=== PATIENT | male | born 1930 | race Caucasian/White ===

== ENCOUNTER 2018-08-07 15:56 | Inpatient (IN) | payer MEDICAID, MEDICARE ==
[2018-08-07 16:01] VITALS: BMI 25.9
[2018-08-07] MEDS ORDERED: cefTRIAXone 1 gm 1 GM/100 ML BAG IVPB STA (16:19)
[2018-08-07] MEDS ORDERED: Sodium Chloride 0.9% 1,000 ML IV SCH (16:30)
[2018-08-07 16:40] LABS: BASO # 0.01 K/mm3 (0.0-2.0); BASO % 0.1 % (0.0-3.0); GRAN # 18.32 (1.4-6.5); GRAN % 93.5 % (50.0-68.0); HEMOGLOBIN 14.6 g/dL (14.0-18.0); LYMPH # 0.7 (1.2-3.4); LYMPH % 3.6 % (22.0-35.0); MEAN CELL VOLUME 96.7 fl (80.0-105.0); MEAN CORPUSCULAR HEMOGLOBIN 30.3 pg (25.0-35.0); MEAN CORPUSCULAR HGB CONC 31.3 g/dl (31.0-37.0); MEAN PLATELET VOLUME 10.8 fl (7.0-11.0); MONO # 0.6 (0.1-0.6); MONO % 2.8 % (1.0-6.0); PLATELET COUNT 216 10^3/uL (120.0-450.0); RBC 4.82 10^6/uL (3.5-6.1); RED CELL DISTRIBUTION WIDTH 15.2 % (11.5-14.5); WHITE BLOOD COUNT 19.6 10^3/uL (4.5-11.0)
[2018-08-07 16:41] LABS: VENOUS BLOOD GAS BASE EXCESS 0.9 mmol/L (0.0-2.0); VENOUS BLOOD GAS PO2 44 mm/Hg (30-55); VENOUS BLOOD PH 7.34 (7.32-7.43)
--- NOTE | 2018-08-07 16:57 | ED PDOC ---
Arrival/HPI - General Chief Complaint: Altered Mental Status Time Seen by Provider: 08/07/18 15:59 Historian: Snf EM Caveat: Altered Mental Status - History of Present Illness Narrative History of Present Illness (Text): 08/07/18 Patient is a 88 year old male whose past medical history includes advanced dementia and Parkinson's disease, who presents to the Emergency department from the assisted with increased lethargy and change in mental status. No documented fever or diarrhea as per assisted. patient is nonverbal in the Emergency department. HPI and ROS is limited due to patient's AMS. Past Medical History - Provider Review Nursing Documentation Reviewed: Yes - Tetanus Immunization Tetanus Immunization: Unknown - Past Medical History Past Medical History: No Previous - Cardiac Hx Cardiac Disorders: No Hx Congestive Heart Failure: Yes Hx Hypertension: Yes (denies) - Neurological HX Cerebrovascular Accident: No Hx Dementia: Yes Hx Parkinson's Disease: Yes Hx Seizures: No - Endocrine/Metabolic Hx Endocrine Disorders: No - Hematological/Oncological Hx Cancer: No - Integumentary Hx Dermatological Disorder: No - Musculoskeletal/Rheumatological Hx Falls: Yes - Gastrointestinal Hx Gastrointestinal Disorders: No - Genitourinary/Gynecological Hx Sexually Transmitted Diseases: No - Psychiatric Hx Depression: No Hx Substance Use: No - Past Surgical History Past Surgical History: Unable to Obtain - Anesthesia Hx Anesthesia: No - Suicidal Assessment Feels Threatened In Home Enviroment: No Family/Social History - Physician Review Nursing Documentation Reviewed: Yes Family/Social History: No Known Family HX Smoking Status: Never Smoked Hx Alcohol Use: No Hx Substance Use: No Allergies/Home Meds Allergies/Adverse Reactions: Allergies No Known Allergies Allergy (Verified 11/13/17 10:28) Home Medications: Home Meds Medication Instructions Recorded Confirmed Carbidopa/Levodopa/Entacapone 1 tab PO QID 06/28/14 08/07/18 [Stalevo 150] Pramipexole Di-HCl [Mirapex ER] 0.5 mg PO TID 06/28/14 08/07/18 Rasagiline Mesylate [Azilect] 1 mg PO DAILY 06/28/14 08/07/18 Vitamin B Complex & Vitamin C 1 tab PO DAILY 06/28/14 08/07/18 [Strovite] Acetaminophen [Tylenol 325mg tab] 650 mg PO Q4 08/07/18 08/07/18 Bisacodyl [Fast Relief Laxative] 10 mg RC PRN PRN 08/07/18 08/07/18 Finasteride [Proscar] 5 mg PO DAILY 08/07/18 08/07/18 Heparin [Heparin Sodium] 5,000 units SQ Q12 08/07/18 08/07/18 Magnesium Hydroxide [Milk Of 30 ml PO PRN PRN 08/07/18 08/07/18 Magnesia] RX: Albuterol Sulfate 2.5 mg IH Q4 08/07/18 08/07/18 Scopolamine 1 mg/72 hr 1 patch Q72 08/07/18 08/07/18 [Transderm-Scop] Tamsulosin [Flomax] 0.4 mg PO DAILY 08/07/18 08/07/18 Review of Systems - Review of Systems Systems not reviewed;Unavailable: Altered Mental Status Neurological: Other (lethargy, change in mental status) Physical Exam Vital Signs Reviewed: Yes Vital Signs Temp Pulse Resp BP Pulse Ox 08/07/18 15:56 98.6 F 106 H 24 147/91 H 94 L Temperature: Afebrile Pulse: Tachycardic Respiratory Rate: Normal Appearance: Positive for: Cachectic (thin) Mental Status: Positive for: Lethargic - Systems Exam Head: Present: Atraumatic, Normocephalic Pupils: Present: PERRL Extroacular Muscles: Present: EOMI Conjunctiva: Present: Normal Mouth: Present: Dry Neck: Present: Normal Range of Motion Respiratory/Chest: Present: Clear to Auscultation, Good Air Exchange. No: R espiratory Distress, Accessory Muscle Use Cardiovascular: Present: Regular Rate and Rhythm, Normal S1, S2. No: Murmurs Abdomen: Present: Normal Bowel Sounds. No: Tenderness, Distention, Peritoneal Signs Back: Present: Normal Inspection Upper Extremity: Present: Normal Inspection. No: Cyanosis, Edema Lower Extremity: Present: Normal Inspection. No: Edema Neurological: Present: GCS=15, CN II-XII Intact, Other (Parkinsonian tremors) Skin: Present: Warm, Dry, Normal Color. No: Rashes Medical Decision Making ED Course and Treatment: 08/07/18 16:56 Impression: 88 year old male who was brought to the Emergency department from the assisted for AMS and lethargy. Plan: -- VBG -- Head CT without contrast -- EKG -- Labs -- Blood work -- Reassess and disposition Prior Visits: Notes and results from previous visits were reviewed. Progress Notes: 08/07/18 16:55 Code Sepsis called. 08/07/18 Spoke to medicine internal audit consultant and senior contract specialist about case. Patient accepted to ICU and code sepsis as called in Emergency Department. Intravenous fluid at 200ml per hour will be given. IV fluid protocol for sepsis not done secondary to history of CHF and unknown EF stat. - Critical Care Critical Care Minutes: 60 minutes - Lab Interpretations Lab Results: 08/07/18 16:16 Lab Results 08/07/18 16:16: WBC 19.6 H, RBC 4.82, Hgb 14.6, Hct 46.6, MCV 96.7, MCH 30.3, MCHC 31.3, RDW 15.2 H, Plt Count 216, MPV 10.8, Gran % 93.5 H, Lymph % (Auto) 3.6 L, [place] % (Auto) 2.8, Eos % (Auto) 0.0 L, Baso % (Auto) 0.1, Gran # 18.32 H, Lymph # (Auto) 0.7 L, [place] # (Auto) 0.6, Eos # (Auto) 0.0, Baso # (Auto) 0.01, Neutrophils % (Manual) Pending, Lymphocytes % (Manual) Pending, Monocytes % (Manual) Pending 08/07/18 16:16: pO2 44, VBG pH 7.34, VBG pCO2 51.0, VBG HCO3 27.5, VBG Total CO2 29.1 H, VBG O2 Sat (Calc) 79.6 H, VBG Base Excess 0.9, VBG Potassium 5.4 H, Sodium 159.0 H, Chloride 121.0 H, Glucose 131 H, Lactate 3.5 H, FiO2 21.0, Venous Blood Potassium 5.4 H I have reviewed the lab results: Yes - RAD Interpretation Radiology Orders: 08/07/18 16:19 CHEST PORTABLE [RAD] Stat 08/07/18 16:22 HEAD W/O CONTRAST [CT] Stat - EKG Interpretation EKG Interpretation (Text): 08/07/18 16:54 EKG shows NST at 98 BPM with LAD and bifascicular block. Interpreted by me. Interpreted by ED Physician: Yes Type: 12 lead EKG - Medication Orders Current Medication Orders: Sodium Chloride (Sodium Chloride 0.9%) 1,000 mls @ 100 mls/hr IV .Q10H TOMMY Discontinued Medications Ceftriaxone Sodium (Rocephin 1 Gram Ivpb) 1 gm in 100 mls @ 200 mls/hr IVPB STAT STA; Protocol Stop: 08/07/18 16:48 - Scribe Statement The provider has reviewed the documentation as recorded by the Scribe Iftikhar Singh Provider Scribe Attestation: All medical record entries made by the Scribe were at my direction and personally dictated by me. I have reviewed the chart and agree that the record accurately reflects my personal performance of the history, physical exam, medical decision making, and the department course for this patient. I have also personally directed, reviewed, and agree with the discharge instructions and disposition. Disposition/Present on Arrival - Present on Arrival Any Indicators Present on Arrival: No History of DVT/PE: No History of Uncontrolled Diabetes: No Urinary Catheter: No History of Decub. Ulcer: No History Surgical Site Infection Following: None - Disposition Have Diagnosis and Disposition been Completed?: Yes Diagnosis: Hypernatremia, Weakness, Acute kidney injury, Sepsis Disposition: HOSPITALIZED Disposition Time: 17:20 Patient Problems: Current Active Problems Problem Status Onset Acute kidney injury Acute Hypernatremia Acute Sepsis Acute Condition: GUARDED
[2018-08-07 16:59] LABS: ALB/GLOB RATIO 0.8 (1.1-1.8); ALBUMIN 3.8 g/dL (3.0-4.8); CALCIUM 9.8 mg/dL (8.4-10.5)
[2018-08-07 17:29] LABS: TROPONIN I 0.18 ng/mL
[2018-08-07] MEDS ORDERED: Lactated Ringer's 1,000 ML IV SCH (17:30)
[2018-08-07 17:55] LABS: URINE BILIRUBIN SMALL (NEGATIVE); URINE BLOOD LARGE (NEGATIVE); URINE GLUCOSE (UA) NEGATIVE (NEGATIVE); URINE LEUKOCYTE ESTERASE MODERATE Leu/uL (NEGATIVE); URINE PROTEIN 100 mg/dL (<30 mg/dL)
[2018-08-07 17:57] LABS: URINE APPEARANCE CLOUDY (CLEAR); URINE COLOR AMBER (YELLOW)
[2018-08-07 18:13] LABS: HYPOCHROMIA 1+; LYMPHOCYTE 4 % (22.0-35.0); MONOCYTE 2 % (1.0-6.0); NEUTROPHIL 94 % (50.0-70.0); PLATELET ESTIMATE NORMAL (NORMAL)
[2018-08-07 18:15] LABS: TOXIC GRANULATION 1+
[2018-08-07 18:16] LABS: ROULEAU 2+
[2018-08-07 18:22] LABS: URINE BACTERIA MANY (NEG); URINE RBC TNTC /hpf (0-2); URINE WBC TNTC /hpf (0-6)
--- NOTE | 2018-08-07 19:11 | RAD ---
Date of service: 08/07/2018 HISTORY: pnemonia COMPARISON: Chest radiograph dated 04/11/2015. FINDINGS: LUNGS: No active pulmonary disease. PLEURA: Stable elevation of the right hemidiaphragm. No significant pleural effusion identified, no pneumothorax apparent. CARDIOVASCULAR: Aortic atherosclerotic calcifications. Cardiomediastinal silhouette stably enlarged. OSSEOUS STRUCTURES: Changed. VISUALIZED UPPER ABDOMEN: Normal. OTHER FINDINGS: None. IMPRESSION: No active disease.
[2018-08-07 19:20] LABS: VENOUS BLOOD GAS BASE EXCESS 0.6 mmol/L (0.0-2.0); VENOUS BLOOD GAS PO2 50 mm/Hg (30-55); VENOUS BLOOD PH 7.36 (7.32-7.43)
[2018-08-07 19:51] LABS: CALCIUM 9.2 mg/dL (8.4-10.5); TROPONIN I 0.2 ng/mL
--- NOTE | 2018-08-07 21:19 | CP.PCM.HP ---
<Reuben Garcia - Last Filed: 08/08/18 02:54> History of Present Illness - History of Present Illness History of Present Illness: HPI for hospitalist Dr. Federico Garcia PGY2 Chief complaint: As per residential "Lethargy, failure to thrive, fever" Patient is a 88 male with a history of Parkinson's disease, dementia, and recent ESBL + UTI presenting from residential with complaints of lethargy, failure to thrive, and fever. As per residential records and patient's daughter. Patient was diagnosed with a UTI at [facility] for which he received 3 days of ertapenem with instructions to continue antibiotics for 2 more days upon discharge. Patient completed course of antibiotics. However as per patient's daughter patient's diet was changed to finely chopped which patient didn't like and therefore didn't eat due to disliking the food consistency. She also reports that at the residential she noted her father was extremely dehydrated. Patient is now presenting with the same symptoms which causes him to be admitted to [facility] in the first place around 2 weeks prior. ROS not obtained as patient is not able to communicate. Present on Admission - Present on Admission Any Indicators Present on Admission: No Review of Systems - Review of Systems Systems not reviewed;Unavailable: Altered Mental Status Past Patient History - Tetanus Immunizations Tetanus Immunization: Unknown - Past Social History Smoking Status: Never Smoked - CARDIAC Hx Cardiac Disorders: No Hx Congestive Heart Failure: Yes Hx Hypertension: Yes (denies) - NEUROLOGICAL HX Cerebrovascular Accident: No Hx Dementia: Yes Hx Parkinson's Disease: Yes Hx Seizures: No - ENDOCRINE/METABOLIC Hx Endocrine Disorders: No - HEMATOLOGICAL/ONCOLOGICAL Hx Cancer: No - INTEGUMENTARY Hx Dermatological Problems: No - MUSCULOSKELETAL/RHEUMATOLOGICAL Hx Falls: Yes - GASTROINTESTINAL Hx Gastrointestinal Disorders: No - GENITOURINARY/GYNECOLOGICAL Hx Sexually Transmitted Disorders: No - PSYCHIATRIC Hx Depression: No Hx Substance Use: No - SURGICAL HISTORY Hx Surgeries: (pt denies) - ANESTHESIA Hx Anesthesia: No Meds Allergies/Adverse Reactions: Allergies Allergy/AdvReac Type Severity Reaction Status Date / Time No Known Allergies Allergy Verified 11/13/17 10:28 Physical Exam - Constitutional Appears: Toxic - Head Exam Head Exam: ATRAUMATIC - Eye Exam Eye Exam: absent: Normal appearance (patient unable to open eyes fully) - ENT Exam ENT Exam: Mucous Membranes Dry. absent: Mucous Membranes Moist - Neck Exam Neck exam: Positive for: Normal Inspection - Respiratory Exam Respiratory Exam: Clear to Auscultation Bilateral - Cardiovascular Exam Cardiovascular Exam: REGULAR RHYTHM, +S1, +S2 - GI/Abdominal Exam GI & Abdominal Exam: Normal Bowel Sounds, Soft - Extremities Exam Extremities exam: Positive for: normal inspection - Neurological Exam Neurological exam: Altered - Skin Skin Exam: Normal Color, Warm Results - Vital Signs Recent Vital Signs: Last Vital Signs Temp 98.6 F 08/07/18 15:56 Pulse 89 08/07/18 19:05 Resp 18 08/07/18 19:05 BP 122/58 L 08/07/18 19:05 Pulse Ox 95 08/07/18 19:05 - Labs Result Diagrams: 08/07/18 16:16 08/08/18 01:40 Labs: Laboratory Results - last 24 hr 08/07/18 08/07/18 08/07/18 16:16 16:16 16:16 WBC 19.6 H RBC 4.82 Hgb 14.6 Hct 46.6 MCV 96.7 MCH 30.3 MCHC 31.3 RDW 15.2 H Plt Count 216 MPV 10.8 Gran % 93.5 H Lymph % (Auto) 3.6 L [place] % (Auto) 2.8 Eos % (Auto) 0.0 L Baso % (Auto) 0.1 Gran # 18.32 H Lymph # (Auto) 0.7 L [place] # (Auto) 0.6 Eos # (Auto) 0.0 Baso # (Auto) 0.01 Neutrophils % (Manual) 94 H Lymphocytes % (Manual) 4 L Monocytes % (Manual) 2 Toxic Granulation 1+ Platelet Evaluation Normal Hypochromasia 1+ Rouleaux 2+ pO2 44 VBG pH 7.34 VBG pCO2 51.0 VBG HCO3 27.5 VBG Total CO2 29.1 H VBG O2 Sat (Calc) 79.6 H VBG Base Excess 0.9 VBG Potassium 5.4 H Sodium 159.0 H 161 H* Chloride 121.0 H 123 H Glucose 131 H Lactate 3.5 H FiO2 21.0 Potassium 4.9 Carbon Dioxide 29 Anion Gap 14 BUN 61 H Creatinine 2.1 H Est GFR ( Amer) 36 Est GFR (Non-Af Amer) 30 Random Glucose 136 H Calcium 9.8 Phosphorus 4.3 Magnesium 2.8 H Total Bilirubin 1.2 AST 25 ALT 11 Alkaline Phosphatase 95 Lactate Dehydrogenase 339 Total Creatine Kinase 62 Troponin I 0.18 H* D Total Protein 8.3 Albumin 3.8 Globulin 4.5 Albumin/Globulin Ratio 0.8 L Venous Blood Potassium 5.4 H Urine Color Urine Appearance Urine pH Ur Specific [place] Urine Protein Urine Glucose (UA) Urine Ketones Urine Blood Urine Nitrate Urine Bilirubin Urine Urobilinogen Ur Leukocyte Esterase Urine RBC Urine WBC Ur Epithelial Cells Urine Bacteria Influenza Typ A,B (EIA) 08/07/18 08/07/18 08/07/18 16:16 17:20 18:45 WBC RBC Hgb Hct MCV MCH MCHC RDW Plt Count MPV Gran % Lymph % (Auto) [place] % (Auto) Eos % (Auto) Baso % (Auto) Gran # Lymph # (Auto) [place] # (Auto) Eos # (Auto) Baso # (Auto) Neutrophils % (Manual) Lymphocytes % (Manual) Monocytes % (Manual) Toxic Granulation Platelet Evaluation Hypochromasia Rouleaux pO2 50 VBG pH 7.36 VBG pCO2 47.0 VBG HCO3 26.6 VBG Total CO2 28.0 VBG O2 Sat (Calc) 86.8 H VBG Base Excess 0.6 VBG Potassium 4.6 Sodium 158.0 H Chloride 121.0 H Glucose 143 H Lactate 3.0 H FiO2 21.0 Potassium Carbon Dioxide Anion Gap BUN Creatinine Est GFR ( Amer) Est GFR (Non-Af Amer) Random Glucose Calcium Phosphorus Magnesium Total Bilirubin AST ALT Alkaline Phosphatase Lactate Dehydrogenase Total Creatine Kinase Troponin I Total Protein Albumin Globulin Albumin/Globulin Ratio Venous Blood Potassium 4.6 Urine Color Deana Urine Appearance Cloudy Urine pH 6.0 Ur Specific [place] 1.025 Urine Protein 100 H Urine Glucose (UA) Negative Urine Ketones Trace H Urine Blood Large H Urine Nitrate Positive H Urine Bilirubin Small H Urine Urobilinogen 2.0 H Ur Leukocyte Esterase Moderate H Urine RBC Tntc Urine WBC Tntc Ur Epithelial Cells 6 - 8 Urine Bacteria Many Influenza Typ A,B (EIA) Negative for flu a/b 08/07/18 18:45 WBC RBC Hgb Hct MCV MCH MCHC RDW Plt Count MPV Gran % Lymph % (Auto) [place] % (Auto) Eos % (Auto) Baso % (Auto) Gran # Lymph # (Auto) [place] # (Auto) Eos # (Auto) Baso # (Auto) Neutrophils % (Manual) Lymphocytes % (Manual) Monocytes % (Manual) Toxic Granulation Platelet Evaluation Hypochromasia Rouleaux pO2 VBG pH VBG pCO2 VBG HCO3 VBG Total CO2 VBG O2 Sat (Calc) VBG Base Excess VBG Potassium Sodium 156 H* Chloride 123 H Glucose Lactate FiO2 Potassium 4.9 Carbon Dioxide 27 Anion Gap 12 BUN 62 H Creatinine 1.8 H Est GFR ( Amer) 43 Est GFR (Non-Af Amer) 36 Random Glucose 141 H Calcium 9.2 Phosphorus Magnesium Total Bilirubin AST ALT Alkaline Phosphatase Lactate Dehydrogenase Total Creatine Kinase Troponin I 0.20 H* Total Protein Albumin Globulin Albumin/Globulin Ratio Venous Blood Potassium Urine Color Urine Appearance Urine pH Ur Specific [place] Urine Protein Urine Glucose (UA) Urine Ketones Urine Blood Urine Nitrate Urine Bilirubin Urine Urobilinogen Ur Leukocyte Esterase Urine RBC Urine WBC Ur Epithelial Cells Urine Bacteria Influenza Typ A,B (EIA) Assessment & Plan - Assessment and Plan (Free Text) Assessment: Patient is a 88 male with a history of Parkinson's disease, dementia, and recent ESBL + UTI presenting from residential with complaints of lethargy, failure to thrive, and fever found to have UTI Plan: Altered mental status due to multifactorial causes -Correct underlying UTI -Slowly correct hypernatremia -Head CT reveals no signs of intracranial bleed Septic shock secondary to Urinary Tract Infection -LR@200 -CT abdomen/pelvis -Procalcitonin -Possibly previous infection not fully treated due to insufficient abx course -Previous ESBL+, start patient on doxycycline -Pancultures; urine and blood cx Hypernatremia -Secondary due dehydration? -Continue with LR@ 200; make sure to monitor for overcorrecting Acute kidney injury -Secondary due to dehydration? -Cr 2.1, increased from baseline -Urine Cr and Urine electrolytes -Monitor improvement with IVF DVT ppx/GI ppx: SCDs/Protonix -NPO until pending Swallow evaluation is complete -PT/OT -Aspiration precautions <Serena Caballero - Last Filed: 08/08/18 07:40> Results - Vital Signs Recent Vital Signs: Last Vital Signs Temp 99.1 F 08/07/18 20:28 Pulse 89 08/07/18 19:05 Resp 30 H 08/07/18 20:28 BP 122/58 L 08/07/18 19:05 Pulse Ox 95 08/07/18 19:05 - Labs Result Diagrams: 08/08/18 05:30 08/08/18 05:30 Labs: Laboratory Results - last 24 hr 08/07/18 08/07/18 08/07/18 16:16 16:16 16:16 WBC 19.6 H RBC 4.82 Hgb 14.6 Hct 46.6 MCV 96.7 MCH 30.3 MCHC 31.3 RDW 15.2 H Plt Count 216 MPV 10.8 Gran % 93.5 H Lymph % (Auto) 3.6 L [place] % (Auto) 2.8 Eos % (Auto) 0.0 L Baso % (Auto) 0.1 Gran # 18.32 H Lymph # (Auto) 0.7 L [place] # (Auto) 0.6 Eos # (Auto) 0.0 Baso # (Auto) 0.01 Neutrophils % (Manual) 94 H Lymphocytes % (Manual) 4 L Monocytes % (Manual) 2 Toxic Granulation 1+ Platelet Evaluation Normal Hypochromasia 1+ Rouleaux 2+ PT INR APTT pO2 44 VBG pH 7.34 VBG pCO2 51.0 VBG HCO3 27.5 VBG Total CO2 29.1 H VBG O2 Sat (Calc) 79.6 H VBG Base Excess 0.9 VBG Potassium 5.4 H Sodium 159.0 H 161 H* Chloride 121.0 H 123 H Glucose 131 H Lactate 3.5 H FiO2 21.0 Potassium 4.9 Carbon Dioxide 29 Anion Gap 14 BUN 61 H Creatinine 2.1 H Est GFR ( Amer) 36 Est GFR (Non-Af Amer) 30 Random Glucose 136 H Calcium 9.8 Phosphorus 4.3 Magnesium 2.8 H Total Bilirubin 1.2 AST 25 ALT 11 Alkaline Phosphatase 95 Lactate Dehydrogenase 339 Total Creatine Kinase 62 Troponin I 0.18 H* D Total Protein 8.3 Albumin 3.8 Globulin 4.5 Albumin/Globulin Ratio 0.8 L Venous Blood Potassium 5.4 H Urine Color Urine Appearance Urine pH Ur Specific [place] Urine Protein Urine Glucose (UA) Urine Ketones Urine Blood Urine Nitrate Urine Bilirubin Urine Urobilinogen Ur Leukocyte Esterase Urine RBC Urine WBC Ur Epithelial Cells Urine Bacteria Ur Random Creatinine Ur Random Sodium Influenza Typ A,B (EIA) 08/07/18 08/07/18 08/07/18 16:16 17:20 18:45 WBC RBC Hgb Hct MCV MCH MCHC RDW Plt Count MPV Gran % Lymph % (Auto) [place] % (Auto) Eos % (Auto) Baso % (Auto) Gran # Lymph # (Auto) [place] # (Auto) Eos # (Auto) Baso # (Auto) Neutrophils % (Manual) Lymphocytes % (Manual) Monocytes % (Manual) Toxic Granulation Platelet Evaluation Hypochromasia Rouleaux PT INR APTT pO2 50 VBG pH 7.36 VBG pCO2 47.0 VBG HCO3 26.6 VBG Total CO2 28.0 VBG O2 Sat (Calc) 86.8 H VBG Base Excess 0.6 VBG Potassium 4.6 Sodium 158.0 H Chloride 121.0 H Glucose 143 H Lactate 3.0 H FiO2 21.0 Potassium Carbon Dioxide Anion Gap BUN Creatinine Est GFR ( Amer) Est GFR (Non-Af Amer) Random Glucose Calcium Phosphorus Magnesium Total Bilirubin AST ALT Alkaline Phosphatase Lactate Dehydrogenase Total Creatine Kinase Troponin I Total Protein Albumin Globulin Albumin/Globulin Ratio Venous Blood Potassium 4.6 Urine Color Deana Urine Appearance Cloudy Urine pH 6.0 Ur Specific [place] 1.025 Urine Protein 100 H Urine Glucose (UA) Negative Urine Ketones Trace H Urine Blood Large H Urine Nitrate Positive H Urine Bilirubin Small H Urine Urobilinogen 2.0 H Ur Leukocyte Esterase Moderate H Urine RBC Tntc Urine WBC Tntc Ur Epithelial Cells 6 - 8 Urine Bacteria Many Ur Random Creatinine Ur Random Sodium Influenza Typ A,B (EIA) Negative for flu a/b 08/07/18 08/07/18 08/07/18 18:45 20:15 21:25 WBC RBC Hgb Hct MCV MCH MCHC RDW Plt Count MPV Gran % Lymph % (Auto) [place] % (Auto) Eos % (Auto) Baso % (Auto) Gran # Lymph # (Auto) [place] # (Auto) Eos # (Auto) Baso # (Auto) Neutrophils % (Manual) Lymphocytes % (Manual) Monocytes % (Manual) Toxic Granulation Platelet Evaluation Hypochromasia Rouleaux PT INR APTT pO2 VBG pH VBG pCO2 VBG HCO3 VBG Total CO2 VBG O2 Sat (Calc) VBG Base Excess VBG Potassium Sodium 156 H* 155 H Chloride 123 H 124 H Glucose Lactate FiO2 Potassium 4.9 4.6 Carbon Dioxide 27 25 Anion Gap 12 14 BUN 62 H 62 H Creatinine 1.8 H 1.8 H Est GFR ( Amer) 43 43 Est GFR (Non-Af Amer) 36 36 Random Glucose 141 H 146 H Calcium 9.2 9.3 Phosphorus Magnesium Total Bilirubin AST ALT Alkaline Phosphatase Lactate Dehydrogenase Total Creatine Kinase Troponin I 0.20 H* 0.32 H* D Total Protein Albumin Globulin Albumin/Globulin Ratio Venous Blood Potassium Urine Color Urine Appearance Urine pH Ur Specific [place] Urine Protein Urine Glucose (UA) Urine Ketones Urine Blood Urine Nitrate Urine Bilirubin Urine Urobilinogen Ur Leukocyte Esterase Urine RBC Urine WBC Ur Epithelial Cells Urine Bacteria Ur Random Creatinine 153 Ur Random Sodium 13 Influenza Typ A,B (EIA) 08/07/18 08/07/18 08/07/18 21:25 23:15 23:15 WBC RBC Hgb Hct MCV MCH MCHC RDW Plt Count MPV Gran % Lymph % (Auto) [place] % (Auto) Eos % (Auto) Baso % (Auto) Gran # Lymph # (Auto) [place] # (Auto) Eos # (Auto) Baso # (Auto) Neutrophils % (Manual) Lymphocytes % (Manual) Monocytes % (Manual) Toxic Granulation Platelet Evaluation Hypochromasia Rouleaux PT 15.7 H INR 1.37 APTT 25.3 pO2 43 VBG pH 7.43 VBG pCO2 40.0 VBG HCO3 26.5 VBG Total CO2 27.7 VBG O2 Sat (Calc) 83.5 H VBG Base Excess 2.0 VBG Potassium 4.3 Sodium 160.0 H* Chloride 123.0 H Glucose 146 H Lactate 2.4 H FiO2 21.0 Potassium Carbon Dioxide Anion Gap BUN Creatinine Est GFR ( Amer) Est GFR (Non-Af Amer) Random Glucose Calcium Phosphorus Magnesium Total Bilirubin AST ALT Alkaline Phosphatase Lactate Dehydrogenase Total Creatine Kinase Troponin I Total Protein Albumin Globulin Albumin/Globulin Ratio Venous Blood Potassium 4.3 Urine Color Yellow Urine Appearance Cloudy Urine pH 5.5 Ur Specific [place] 1.025 Urine Protein 30 H Urine Glucose (UA) Negative Urine Ketones Negative Urine Blood Large H Urine Nitrate Positive H Urine Bilirubin Negative Urine Urobilinogen 1.0 H Ur Leukocyte Esterase Moderate H Urine RBC 2 - 5 Urine WBC 15 - 20 Ur Epithelial Cells 0 - 2 Urine Bacteria Many Ur Random Creatinine Ur Random Sodium Influenza Typ A,B (EIA) 08/08/18 08/08/18 08/08/18 01:40 01:40 05:30 WBC RBC Hgb Hct MCV MCH MCHC RDW Plt Count MPV Gran % Lymph % (Auto) [place] % (Auto) Eos % (Auto) Baso % (Auto) Gran # Lymph # (Auto) [place] # (Auto) Eos # (Auto) Baso # (Auto) Neutrophils % (Manual) Lymphocytes % (Manual) Monocytes % (Manual) Toxic Granulation Platelet Evaluation Hypochromasia Rouleaux PT INR APTT pO2 60 H VBG pH 7.42 VBG pCO2 42.0 VBG HCO3 27.2 VBG Total CO2 28.5 H VBG O2 Sat (Calc) 93.9 H VBG Base Excess 2.4 H VBG Potassium 4.0 Sodium 157 H* 159.0 H 156 H* Chloride 124 H 124.0 H 124 H Glucose 137 H Lactate 1.7 FiO2 21.0 Potassium 4.1 4.3 Carbon Dioxide 27 27 Anion Gap 10 11 BUN 59 H 58 H Creatinine 1.8 H 1.7 H Est GFR ( Amer) 43 46 Est GFR (Non-Af Amer) 36 38 Random Glucose 139 H 129 H Calcium 9.3 9.3 Phosphorus Magnesium Total Bilirubin AST ALT Alkaline Phosphatase Lactate Dehydrogenase Total Creatine Kinase Troponin I Total Protein Albumin Globulin Albumin/Globulin Ratio Venous Blood Potassium 4.0 Urine Color Urine Appearance Urine pH Ur Specific [place] Urine Protein Urine Glucose (UA) Urine Ketones Urine Blood Urine Nitrate Urine Bilirubin Urine Urobilinogen Ur Leukocyte Esterase Urine RBC Urine WBC Ur Epithelial Cells Urine Bacteria Ur Random Creatinine Ur Random Sodium Influenza Typ A,B (EIA) 08/08/18 08/08/18 05:30 05:30 WBC 16.1 H RBC 4.43 Hgb 13.3 L Hct 42.8 MCV 96.6 MCH 30.0 MCHC 31.1 RDW 15.5 H Plt Count 187 MPV 11.2 H Gran % 91.5 H Lymph % (Auto) 6.4 L [place] % (Auto) 1.9 Eos % (Auto) 0.1 L Baso % (Auto) 0.1 Gran # 14.76 H Lymph # (Auto) 1.0 L [place] # (Auto) 0.3 Eos # (Auto) 0.0 Baso # (Auto) 0.01 Neutrophils % (Manual) Lymphocytes % (Manual) Monocytes % (Manual) Toxic Granulation Platelet Evaluation Hypochromasia Rouleaux PT INR APTT 63.0 H pO2 VBG pH VBG pCO2 VBG HCO3 VBG Total CO2 VBG O2 Sat (Calc) VBG Base Excess VBG Potassium Sodium Chloride Glucose Lactate FiO2 Potassium Carbon Dioxide Anion Gap BUN Creatinine Est GFR ( Amer) Est GFR (Non-Af Amer) Random Glucose Calcium Phosphorus Magnesium Total Bilirubin AST ALT Alkaline Phosphatase Lactate Dehydrogenase Total Creatine Kinase Troponin I Total Protein Albumin Globulin Albumin/Globulin Ratio Venous Blood Potassium Urine Color Urine Appearance Urine pH Ur Specific [place] Urine Protein Urine Glucose (UA) Urine Ketones Urine Blood Urine Nitrate Urine Bilirubin Urine Urobilinogen Ur Leukocyte Esterase Urine RBC Urine WBC Ur Epithelial Cells Urine Bacteria Ur Random Creatinine Ur Random Sodium Influenza Typ A,B (EIA) Attending/Attestation - Attestation I have personally seen and examined this patient.: Yes I have fully participated in the care of the patient.: Yes I have reviewed all pertinent clinical information: Yes Notes (Text): 08/08/18 07:35 Patient was seen and examined with medical data analyst. 88 male with a history of Parkinson's disease, dementia, was transferred from [place] with complaints of lethargy, failure to thrive, and fever, found to have Sepsis due to UTI, Hypernatremia and acute renal failure due to dehydration likely due to decrease oral intake. Continue IV antibiotics for UTI, we will follow up blood and urine cultures, On Iv Ringer lactate for Hypernatremia and RENNY, we will monitor BUN , creatinin and electrolyte. Elevated troponin with out EKG changes likely due to demand ischemia, we will 2D echo and serial troponin. Patient did not has Septic shock as blood pressure was never low. Prognosis is guarded.
[2018-08-07] MEDS: Thiamine 100 mg/ml Inj IV SCH (21:23)
[2018-08-07 21:49] LABS: VENOUS BLOOD GAS PO2 43 mm/Hg (30-55); VENOUS BLOOD PH 7.43 (7.32-7.43)
--- NOTE | 2018-08-07 22:09 | PCM.SEPTIC ---
Sepsis Progress Note - Reassessment Type Date of Evaluation: 08/07/18 Time of Evaluation: 09:00 Reassessment Type: Non-invasive reassessment - Non Invasive Reassessment Were the most recent vital sign reviewed: Yes Vital Sign (Latest): Temp Pulse Resp BP Pulse Ox 98.6 F 89 18 122/58 L 95 08/07/18 15:56 08/07/18 19:05 08/07/18 19:05 08/07/18 19:05 08/07/18 19:05 Cardiovascular: Yes: Regular Rate, Rhythm. No: Chest Non Tender Respiratory: Yes: Normal Breath Sounds. No: Wheezing, Respiratory Distress Capillary Refill: Normal (Less than 2 sec) Pulses: Normal Radial (STRONG 2+), Normal Dorsalis Pedis (STRONG 2+), Absent Posterior Tibialis Skin: Normal Color, Warm, Dry
[2018-08-07 22:19] LABS: CALCIUM 9.3 mg/dL (8.4-10.5)
[2018-08-07 22:20] LABS: TROPONIN I 0.32 ng/mL
[2018-08-07] MEDS ORDERED: Aritificial Tears (15ml) OD PRN (22:34)
[2018-08-07 23:58] LABS: INR 1.37; PARTIAL THROMBOPLASTIN TIME 25.3 Seconds (25.1-36.5); PROTHROMBIN TIME 15.7 SECONDS (9.4-12.5)
--- NOTE | 2018-08-08 00:02 | CON ---
DATE: 08/07/2018 HISTORY OF PRESENT ILLNESS: The patient is an 88-year-old gentleman with history of Parkinson disease, senior living resident, who presented to [facility] from senior living where he was found to be very lethargic and noncommunicative. Apparently, that was a change from his baseline and he was sent to ER for further management and monitoring. The patient is unable to provide any details of history of present illness or details pertinent to review of system. No history of nausea, vomiting, diarrhea, constipation, chest pain, shortness of breath, fever, chills, sweats is available. PAST MEDICAL HISTORY: Parkinson disease. MEDICATION: Milk of magnesia, bisacodyl, scopolamine patch, Flomax, heparin subcu, Proscar, carbidopa and levodopa, entacapone, vitamin B complex. REVIEW OF SYSTEM: Review of 12-organ system other than mentioned in history of present illness is negative. ALLERGIES: NKDA. SOCIAL HISTORY: No alcohol or illicit drug abuse. No tobacco smoking. FAMILY HISTORY: Noncontributory. PHYSICAL EXAMINATION: VITAL SIGNS: Temperature 98.6, blood pressure 147/91, heart rate 106, oxygen saturation 94% on room air, respiratory 24. ENT: Head and neck atraumatic. LUNGS: Clear to auscultation bilaterally. HEART: Regular rate and rhythm. S1, S2 normal. ABDOMEN: Soft, nontender, nondistended. MUSCULOSKELETAL: No C/C/E. NEUROLOGIC: The patient moves all extremities spontaneously. SKIN: Moist. PSYCHIATRIC: The patient is noncommunicative, very lethargic. LABORATORY DATA: Sodium 161, potassium 4.9, chloride 123, carbon dioxide 29, BUN 61, creatinine 2.1. Troponin 0.18. Glucose 136. AST 25, ALT 11, total bilirubin 1.2. pH 7.34. Lactic acid 3.5. WBC 19.6, hemoglobin 14.6, platelet count 216. Chest x-ray, CT head, CT of the abdomen and pelvis were ordered but not done yet. ASSESSMENT AND PLAN: This is an 88-year-old gentleman who presented with altered mental status with substantial electrolyte derangements suggestive of severe hypovolemia/hypovolemic shock with or without superimposed infection. Blood, urine culture, and procalcitonin were sent. Ceftriaxone and doxycycline started. EKG is pending and echocardiogram was ordered. Chest x-ray is pending as well. The patient will be started on lactated Ringer with BMP every 4 hours. Lactic acid level as well as troponin level will be trended as well. I think that the troponin elevation is part of multiorgan system failure related to hypovolemic shock. The patient has acute kidney injury, probably secondary to severe hypovolemia as well. If CT head did not reveal any bleeding, heparin subcu for DVT prophylaxis will be instituted. Protonix IVP for GI prophylaxis was also started. Lactated Ringer at 200 mL per hour was started. I will try to avoid normal saline as the patient has hyperchloremia which may be detrimental to the patient's renal function as well. Some data suggest balanced crystalloids (lactated Ringer) would be more beneficial for nephroprotection than normal saline. We will definitely keep eye on potassium level as well. The patient will be going to ICU for further management and monitoring. Further plan will be adjusted based on results of the imaging tests that were ordered as well as EKG and echocardiogram. Addendum: UA suggests UTI, CTAP--LLL PNA, nephrolithiasis-->will get urologist on board, will get urine for legionella and strep ag ccm time 40 min Zana Gomez MD MTDErvin
[2018-08-08] MEDS: Heparin25000 units/250ml 1/2NS 25,000 UNITS/250 ML BAG IV SCH (00:33)
[2018-08-08 01:52] LABS: VENOUS BLOOD GAS BASE EXCESS 2.4 mmol/L (0.0-2.0); VENOUS BLOOD GAS PO2 60 mm/Hg (30-55); VENOUS BLOOD PH 7.42 (7.32-7.43)
[2018-08-08] MEDS ORDERED: Lactated Ringer's 1,000 ML IV SCH ×2 (02:03→02:42)
[2018-08-08 02:12] LABS: CALCIUM 9.3 mg/dL (8.4-10.5)
[2018-08-08 02:27] LABS: PH,URINE 5.5 (4.7-8.0); URINE BILIRUBIN NEGATIVE (NEGATIVE); URINE BLOOD LARGE (NEGATIVE); URINE GLUCOSE (UA) NEGATIVE (NEGATIVE); URINE LEUKOCYTE ESTERASE MODERATE Leu/uL (NEGATIVE); URINE PROTEIN 30 mg/dL (<30 mg/dL)
[2018-08-08 02:28] LABS: URINE APPEARANCE CLOUDY (CLEAR); URINE COLOR YELLOW (YELLOW)
[2018-08-08 02:32] LABS: URINE BACTERIA MANY (NEG); URINE EPITHELIAL CELLS 0 - 2 /hpf (0-5); URINE WBC 15 - 20 /hpf (0-6)
[2018-08-08 06:23] LABS: BASO # 0.01 K/mm3 (0.0-2.0); BASO % 0.1 % (0.0-3.0); EOS % 0.1 % (1.5-5.0); GRAN # 14.76 (1.4-6.5); GRAN % 91.5 % (50.0-68.0); HEMOGLOBIN 13.3 g/dL (14.0-18.0); LYMPH % 6.4 % (22.0-35.0); MEAN CELL VOLUME 96.6 fl (80.0-105.0); MEAN CORPUSCULAR HGB CONC 31.1 g/dl (31.0-37.0); MEAN PLATELET VOLUME 11.2 fl (7.0-11.0); MONO # 0.3 (0.1-0.6); MONO % 1.9 % (1.0-6.0); RBC 4.43 10^6/uL (3.5-6.1); RED CELL DISTRIBUTION WIDTH 15.5 % (11.5-14.5); WHITE BLOOD COUNT 16.1 10^3/uL (4.5-11.0)
[2018-08-08 06:55] LABS: CALCIUM 9.3 mg/dL (8.4-10.5)
--- NOTE | 2018-08-08 07:23 | CT ---
Date of service: 08/07/2018 PROCEDURE: CT HEAD WITHOUT CONTRAST. HISTORY: AMS - h/o Parkinson's COMPARISON: None available. TECHNIQUE: Axial computed tomography images were obtained through the head/brain without intravenous contrast. Radiation dose: Total exam DLP = 982.66 mGy-cm. This CT exam was performed using one or more of the following dose reduction techniques: Automated exposure control, adjustment of the mA and/or kV according to patient size, and/or use of iterative reconstruction technique. FINDINGS: HEMORRHAGE: No intracranial hemorrhage. BRAIN: No mass effect or edema. No atrophy or chronic microvascular ischemic changes. VENTRICLES: Unremarkable. No hydrocephalus. CALVARIUM: Unremarkable. PARANASAL SINUSES: Unremarkable as visualized. No significant inflammatory changes. MASTOID AIR CELLS: Unremarkable as visualized. No inflammatory changes. OTHER FINDINGS: The report concurs with the preliminary [facility] report IMPRESSION: No acute findings
--- NOTE | 2018-08-08 08:23 | CT ---
Date of service: 08/07/2018 PROCEDURE: CT Abdomen and Pelvis without intravenous contrast HISTORY: septic shock COMPARISON: None. TECHNIQUE: Technique. Contrast dose: Radiation dose: Total exam DLP = 590.64 mGy-cm. This CT exam was performed using one or more of the following dose reduction techniques: Automated exposure control, adjustment of the mA and/or kV according to patient size, and/or use of iterative reconstruction technique. FINDINGS: LOWER THORAX: Left lower lobe infiltrate. LIVER: Unremarkable. No gross lesion or ductal dilatation. GALLBLADDER AND BILE DUCTS: Unremarkable. PANCREAS: Unremarkable. No gross lesion or ductal dilatation. SPLEEN: Unremarkable. ADRENALS: Unremarkable. No mass. KIDNEYS AND URETERS: Bilateral renal cysts measuring up to 9.3 centimeters in the upper pole the left kidney. Right renal calculi measuring up to 13 millimeters in the right renal pelvis. VASCULATURE: Unremarkable. No aortic aneurysm. No aortic atherosclerotic calcification or mural plaque present. BOWEL: Unremarkable. No obstruction. No gross mural thickening. APPENDIX: Unremarkable. Normal appendix. PERITONEUM: Unremarkable. No free fluid. No free air. LYMPH NODES: Unremarkable. No enlarged lymph nodes. BLADDER: Unremarkable. REPRODUCTIVE: Prostate enlargement. BONES: Old left pubic ramus fracture. OTHER FINDINGS: None. IMPRESSION: Large left lower lobe pneumonia. Bilateral renal cysts. Right nephrolithiasis.
[2018-08-08] MEDS: Metoprolol 1 mg/ml Inj IVP SCH ×3 (09:42→21:43)
[2018-08-08] MEDS: Nitroglycerin 2% Ointment Foilpak UD TOP SCH ×3 (09:47→21:46)
[2018-08-08] MEDS: Thiamine 100 mg/ml Inj IV SCH (10:02)
[2018-08-08 11:37] LABS: CALCIUM 9.2 mg/dL (8.4-10.5)
[2018-08-08] MEDS: Sodium Chloride 0.45% 1,000 ML IV SCH ×2 (12:05→17:20)
[2018-08-08] MEDS: Meropenem IV 1 gm in NS 1 GM/50 ML BAG IVPB SCH ×2 (12:11→21:44)
--- NOTE | 2018-08-08 12:52 | CARD ---
APPROVED REPORT Date of service: 08/07/2018 EKG Measurement Heart [id number] <Conclusion> Normal sinus rhythm with sinus arrhythmia Right bundle branch block Left anterior fascicular block Bifascicular block Voltage criteria for left ventricular hypertrophy T wave abnormality, consider lateral ischemia Abnormal ECG
--- NOTE | 2018-08-08 13:21 | CP.CCUPN ---
<Laurent Cedeño - Last Filed: 08/08/18 15:09> CCU Subjective - Physician Review Subjective (Free Text): Pt seen and examined at bedside. Pt lethargic, but arousable to tactile stimuli. He is non-verbal. 12 point ROS unable to be obtained CCU Objective - Vital Signs / Intake & Output Vital Signs (Last 4 hours): Vital Signs Temp Pulse BP 08/08/18 09:45 98.4 F 08/08/18 09:42 81 124/67 Intake and Output (Last 8hrs): Intake & Output 08/07/18 08/08/18 08/08/18 22:59 06:59 14:59 Intake Total 2400 Output Total 300 Balance 2100 Weight 68.492 kg 63.503 kg Intake: IV 2400 Right Forearm 2400 Oral 0 Output: Urine 300 Urethral (Jeffrey) 300 - Physical Exam Head: Positive for: Atraumatic, Normocephalic Pupils: Positive for: PERRL Extroacular Muscles: Positive for: EOMI Conjunctiva: Positive for: Normal Mouth: Positive for: Dry Neck: Positive for: Normal Range of Motion Respiratory/Chest: Positive for: Clear to Auscultation, Good Air Exchange. Negative for: Respiratory Distress, Accessory Muscle Use Cardiovascular: Positive for: Regular Rate and Rhythm, Normal S1, S2. Negative for: Murmurs Abdomen: Positive for: Normal Bowel Sounds. Negative for: Tenderness, Distention, Peritoneal Signs Back: Positive for: Normal Inspection Upper Extremity: Positive for: Normal Inspection. Negative for: Cyanosis, Edema Lower Extremity: Positive for: Normal Inspection. Negative for: Edema Neurological: Positive for: GCS=15, CN II-XII Intact, Other (Parkinsonian tremors) Skin: Positive for: Warm, Dry, Normal Color. Negative for: Rashes - Medications Active Medications: Active Medications Generic Name Dose Route Start Last Admin Trade Name Freq PRN Reason Stop Dose Admin Albuterol/Ipratropium 3 ml 08/07/18 18:44 Duoneb 3 Mg/0.5 Mg (3 Ml) Ud IH [id number] PRN Shortness of Breath Artificial Tears 0 ml 08/07/18 22:35 Refresh Opth Soln OU Q4 PRN Dry eyes Aspirin 300 mg 08/08/18 10:00 08/08/18 09:45 Aspirin Supp RC 300 mg DAILY TOMMY Administration Doxycycline Hyclate 100 mg/ 100 mls @ 100 mls/hr 08/07/18 22:00 08/08/18 09:37 Sodium Chloride IVPB 100 mls/hr Q12 TOMMY Administration Protocol Acetaminophen 1,000 mg in 100 mls @ 400 mls/hr 08/07/18 20:21 08/07/18 21:21 Ofirmev IVPB 08/09/18 20:22 400 mls/hr Q6H PRN Administration Temperature Heparin Sodium/Sodium Chloride 25,000 units in 250 mls @ 8.219 mls/hr 08/08/18 00:15 08/08/18 00:33 Heparin 98949 Units/250ml 1/2 Normal Saline IV 12 units/kg/hr .Q24H TOMMY 8.219 mls/hr Administration Protocol 12 UNITS/KG/HR Meropenem 1 gm in 50 mls @ 12.5 mls/hr 08/08/18 10:24 08/08/18 12:11 Merrem Iv 1 Gm Premix IVPB 08/17/18 10:25 12.5 mls/hr Q12 TOMMY Administration Protocol Sodium Chloride 1,000 mls @ 200 mls/hr 08/08/18 11:30 08/08/18 12:05 Sodium Chloride 0.45% IV 08/08/18 21:29 200 mls/hr .Q5H TOMMY Administration Metoprolol Tartrate 5 mg 08/08/18 09:30 08/08/18 09:42 Lopressor IVP 5 mg Q6H TOMMY Administration Nitroglycerin 0.5 ea 08/08/18 09:30 08/08/18 09:47 Nitro-Bid 2% Oint TOP 0.5 ea Q6H TOMMY Administration Pantoprazole Sodium 40 mg 08/07/18 17:45 08/08/18 09:42 Protonix Inj IVP 40 mg DAILY TOMMY Administration Thiamine HCl 200 mg 08/07/18 17:45 08/08/18 10:02 Vitamin B1 Inj IV 200 mg DAILY TOMMY Administration - Patient Studies Lab Studies: Microbiology Studies 08/07/18 17:20 Urine Culture - Preliminary Urine,Catheterized Gram Negative Bill Lab Studies 08/08/18 08/08/18 08/08/18 Range/Units 11:12 05:30 05:30 WBC 16.1 H (4.5-11.0) 10^3/uL RBC 4.43 (3.5-6.1) 10^6/uL Hgb 13.3 L (14.0-18.0) g/dL Hct 42.8 (42.0-52.0) % MCV 96.6 (80.0-105.0) fl MCH 30.0 (25.0-35.0) pg MCHC 31.1 (31.0-37.0) g/dl RDW 15.5 H (11.5-14.5) % Plt Count 187 (120.0-450.0) 10^3/uL MPV 11.2 H (7.0-11.0) fl Gran % 91.5 H (50.0-68.0) % Lymph % (Auto) 6.4 L (22.0-35.0) % [place] % (Auto) 1.9 (1.0-6.0) % Eos % (Auto) 0.1 L (1.5-5.0) % Baso % (Auto) 0.1 (0.0-3.0) % Gran # 14.76 H (1.4-6.5) Lymph # (Auto) 1.0 L (1.2-3.4) [place] # (Auto) 0.3 (0.1-0.6) Eos # (Auto) 0.0 (0.0-0.7) Baso # (Auto) 0.01 (0.0-2.0) K/mm3 Neutrophils % (Manual) (50.0-70.0) % Lymphocytes % (Manual) (22.0-35.0) % Monocytes % (Manual) (1.0-6.0) % Toxic Granulation Platelet Evaluation (NORMAL) Hypochromasia Rouleaux PT (9.4-12.5) SECONDS INR APTT 63.0 H (25.1-36.5) Seconds pO2 (30-55) mm/Hg VBG pH (7.32-7.43) VBG pCO2 (40-60) VBG HCO3 (21-28) mmol/l VBG Total CO2 (22-28) mmol.L VBG O2 Sat (Calc) (40-65) % VBG Base Excess (0.0-2.0) mmol/L VBG Potassium (3.6-5.2) mmol/L Sodium 157 H* (132-148) mmol/L Chloride 124 H (98-107) mmol/L Glucose (75-110) mg/dl Lactate (0.7-2.1) mmol/L FiO2 % Potassium 4.3 (3.6-5.0) mmol/L Carbon Dioxide 28 (21-33) mmol/L Anion Gap 9 L (10-20) BUN 55 H (7-21) mg/dL Creatinine 1.6 H (0.8-1.5) mg/dl Est GFR ( Amer) 50 Est GFR (Non-Af Amer) 41 Random Glucose 112 H (70-110) mg/dL Calcium 9.2 (8.4-10.5) mg/dL Phosphorus (2.5-4.5) mg/dL Magnesium (1.7-2.2) mg/dL Total Bilirubin (0.2-1.3) mg/dL AST (17-59) U/L ALT (7-56) U/L Alkaline Phosphatase (38-126) U/L Lactate Dehydrogenase (333-699) U/L Total Creatine Kinase (35-230) U/L Troponin I ng/mL Total Protein (5.8-8.3) g/dL Albumin (3.0-4.8) g/dL Globulin gm/dL Albumin/Globulin Ratio (1.1-1.8) Venous Blood Potassium (3.6-5.2) mmol/L Urine Color (YELLOW) Urine Appearance (CLEAR) Urine pH (4.7-8.0) Ur Specific [place] (1.005-1.035) Urine Protein (<30 mg/dL) mg/dL Urine Glucose (UA) (NEGATIVE) mg/dL Urine Ketones (NEGATIVE) mg/dL Urine Blood (NEGATIVE) Urine Nitrate (NEGATIVE) Urine Bilirubin (NEGATIVE) Urine Urobilinogen (<1 E.U./dL) E.U./dL Ur Leukocyte Esterase (NEGATIVE) [place]/uL Urine RBC (0-2) /hpf Urine WBC (0-6) /hpf Ur Epithelial Cells (0-5) /hpf Urine Bacteria (NEG) Ur Random Creatinine mg/dL Ur Random Sodium meq/L Urine Chloride (32-290) mmol/L Influenza Typ A,B (EIA) (NEGATIVE) 08/08/18 08/08/18 08/08/18 Range/Units 05:30 01:40 01:40 WBC (4.5-11.0) 10^3/uL RBC (3.5-6.1) 10^6/uL Hgb (14.0-18.0) g/dL Hct (42.0-52.0) % MCV (80.0-105.0) fl MCH (25.0-35.0) pg MCHC (31.0-37.0) g/dl RDW (11.5-14.5) % Plt Count (120.0-450.0) 10^3/uL MPV (7.0-11.0) fl Gran % (50.0-68.0) % Lymph % (Auto) (22.0-35.0) % [place] % (Auto) (1.0-6.0) % Eos % (Auto) (1.5-5.0) % Baso % (Auto) (0.0-3.0) % Gran # (1.4-6.5) Lymph # (Auto) (1.2-3.4) [place] # (Auto) (0.1-0.6) Eos # (Auto) (0.0-0.7) Baso # (Auto) (0.0-2.0) K/mm3 Neutrophils % (Manual) (50.0-70.0) % Lymphocytes % (Manual) (22.0-35.0) % Monocytes % (Manual) (1.0-6.0) % Toxic Granulation Platelet Evaluation (NORMAL) Hypochromasia Rouleaux PT (9.4-12.5) SECONDS INR APTT (25.1-36.5) Seconds pO2 60 H (30-55) mm/Hg VBG pH 7.42 (7.32-7.43) VBG pCO2 42.0 (40-60) VBG HCO3 27.2 (21-28) mmol/l VBG Total CO2 28.5 H (22-28) mmol.L VBG O2 Sat (Calc) 93.9 H (40-65) % VBG Base Excess 2.4 H (0.0-2.0) mmol/L VBG Potassium 4.0 (3.6-5.2) mmol/L Sodium 156 H* 159.0 H 157 H* (132-148) mmol/L Chloride 124 H 124.0 H 124 H (98-107) mmol/L Glucose 137 H (75-110) mg/dl Lactate 1.7 (0.7-2.1) mmol/L FiO2 21.0 % Potassium 4.3 4.1 (3.6-5.0) mmol/L Carbon Dioxide 27 27 (21-33) mmol/L Anion Gap 11 10 (10-20) BUN 58 H 59 H (7-21) mg/dL Creatinine 1.7 H 1.8 H (0.8-1.5) mg/dl Est GFR ( Amer) 46 43 Est GFR (Non-Af Amer) 38 36 Random Glucose 129 H 139 H (70-110) mg/dL Calcium 9.3 9.3 (8.4-10.5) mg/dL Phosphorus (2.5-4.5) mg/dL Magnesium (1.7-2.2) mg/dL Total Bilirubin (0.2-1.3) mg/dL AST (17-59) U/L ALT (7-56) U/L Alkaline Phosphatase (38-126) U/L Lactate Dehydrogenase (333-699) U/L Total Creatine Kinase (35-230) U/L Troponin I ng/mL Total Protein (5.8-8.3) g/dL Albumin (3.0-4.8) g/dL Globulin gm/dL Albumin/Globulin Ratio (1.1-1.8) Venous Blood Potassium 4.0 (3.6-5.2) mmol/L Urine Color (YELLOW) Urine Appearance (CLEAR) Urine pH (4.7-8.0) Ur Specific [place] (1.005-1.035) Urine Protein (<30 mg/dL) mg/dL Urine Glucose (UA) (NEGATIVE) mg/dL Urine Ketones (NEGATIVE) mg/dL Urine Blood (NEGATIVE) Urine Nitrate (NEGATIVE) Urine Bilirubin (NEGATIVE) Urine Urobilinogen (<1 E.U./dL) E.U./dL Ur Leukocyte Esterase (NEGATIVE) [place]/uL Urine RBC (0-2) /hpf Urine WBC (0-6) /hpf Ur Epithelial Cells (0-5) /hpf Urine Bacteria (NEG) Ur Random Creatinine mg/dL Ur Random Sodium meq/L Urine Chloride (32-290) mmol/L Influenza Typ A,B (EIA) (NEGATIVE) 08/07/18 08/07/18 08/07/18 Range/Units 23:15 23:15 21:25 WBC (4.5-11.0) 10^3/uL RBC (3.5-6.1) 10^6/uL Hgb (14.0-18.0) g/dL Hct (42.0-52.0) % MCV (80.0-105.0) fl MCH (25.0-35.0) pg MCHC (31.0-37.0) g/dl RDW (11.5-14.5) % Plt Count (120.0-450.0) 10^3/uL MPV (7.0-11.0) fl Gran % (50.0-68.0) % Lymph % (Auto) (22.0-35.0) % [place] % (Auto) (1.0-6.0) % Eos % (Auto) (1.5-5.0) % Baso % (Auto) (0.0-3.0) % Gran # (1.4-6.5) Lymph # (Auto) (1.2-3.4) [place] # (Auto) (0.1-0.6) Eos # (Auto) (0.0-0.7) Baso # (Auto) (0.0-2.0) K/mm3 Neutrophils % (Manual) (50.0-70.0) % Lymphocytes % (Manual) (22.0-35.0) % Monocytes % (Manual) (1.0-6.0) % Toxic Granulation Platelet Evaluation (NORMAL) Hypochromasia Rouleaux PT 15.7 H (9.4-12.5) SECONDS INR 1.37 APTT 25.3 (25.1-36.5) Seconds pO2 43 (30-55) mm/Hg VBG pH 7.43 (7.32-7.43) VBG pCO2 40.0 (40-60) VBG HCO3 26.5 (21-28) mmol/l VBG Total CO2 27.7 (22-28) mmol.L VBG O2 Sat (Calc) 83.5 H (40-65) % VBG Base Excess 2.0 (0.0-2.0) mmol/L VBG Potassium 4.3 (3.6-5.2) mmol/L Sodium 160.0 H* (132-148) mmol/L Chloride 123.0 H (98-107) mmol/L Glucose 146 H (75-110) mg/dl Lactate 2.4 H (0.7-2.1) mmol/L FiO2 21.0 % Potassium (3.6-5.0) mmol/L Carbon Dioxide (21-33) mmol/L Anion Gap (10-20) BUN (7-21) mg/dL Creatinine (0.8-1.5) mg/dl Est GFR ( Amer) Est GFR (Non-Af Amer) Random Glucose (70-110) mg/dL Calcium (8.4-10.5) mg/dL Phosphorus (2.5-4.5) mg/dL Magnesium (1.7-2.2) mg/dL Total Bilirubin (0.2-1.3) mg/dL AST (17-59) U/L ALT (7-56) U/L Alkaline Phosphatase (38-126) U/L Lactate Dehydrogenase (333-699) U/L Total Creatine Kinase (35-230) U/L Troponin I ng/mL Total Protein (5.8-8.3) g/dL Albumin (3.0-4.8) g/dL Globulin gm/dL Albumin/Globulin Ratio (1.1-1.8) Venous Blood Potassium 4.3 (3.6-5.2) mmol/L Urine Color Yellow (YELLOW) Urine Appearance Cloudy (CLEAR) Urine pH 5.5 (4.7-8.0) Ur Specific [place] 1.025 (1.005-1.035) Urine Protein 30 H (<30 mg/dL) mg/dL Urine Glucose (UA) Negative (NEGATIVE) mg/dL Urine Ketones Negative (NEGATIVE) mg/dL Urine Blood Large H (NEGATIVE) Urine Nitrate Positive H (NEGATIVE) Urine Bilirubin Negative (NEGATIVE) Urine Urobilinogen 1.0 H (<1 E.U./dL) E.U./dL Ur Leukocyte Esterase Moderate H (NEGATIVE) Alannah/uL Urine RBC 2 - 5 (0-2) /hpf Urine WBC 15 - 20 (0-6) /hpf Ur Epithelial Cells 0 - 2 (0-5) /hpf Urine Bacteria Many (NEG) Ur Random Creatinine mg/dL Ur Random Sodium meq/L Urine Chloride (32-290) mmol/L Influenza Typ A,B (EIA) (NEGATIVE) 08/07/18 08/07/18 08/07/18 Range/Units 21:25 20:15 20:15 WBC (4.5-11.0) 10^3/uL RBC (3.5-6.1) 10^6/uL Hgb (14.0-18.0) g/dL Hct (42.0-52.0) % MCV (80.0-105.0) fl MCH (25.0-35.0) pg MCHC (31.0-37.0) g/dl RDW (11.5-14.5) % Plt Count (120.0-450.0) 10^3/uL MPV (7.0-11.0) fl Gran % (50.0-68.0) % Lymph % (Auto) (22.0-35.0) % [place] % (Auto) (1.0-6.0) % Eos % (Auto) (1.5-5.0) % Baso % (Auto) (0.0-3.0) % Gran # (1.4-6.5) Lymph # (Auto) (1.2-3.4) [place] # (Auto) (0.1-0.6) Eos # (Auto) (0.0-0.7) Baso # (Auto) (0.0-2.0) K/mm3 Neutrophils % (Manual) (50.0-70.0) % Lymphocytes % (Manual) (22.0-35.0) % Monocytes % (Manual) (1.0-6.0) % Toxic Granulation Platelet Evaluation (NORMAL) Hypochromasia Rouleaux PT (9.4-12.5) SECONDS INR APTT (25.1-36.5) Seconds pO2 (30-55) mm/Hg VBG pH (7.32-7.43) VBG pCO2 (40-60) VBG HCO3 (21-28) mmol/l VBG Total CO2 (22-28) mmol.L VBG O2 Sat (Calc) (40-65) % VBG Base Excess (0.0-2.0) mmol/L VBG Potassium (3.6-5.2) mmol/L Sodium 155 H (132-148) mmol/L Chloride 124 H (98-107) mmol/L Glucose (75-110) mg/dl Lactate (0.7-2.1) mmol/L FiO2 % Potassium 4.6 (3.6-5.0) mmol/L Carbon Dioxide 25 (21-33) mmol/L Anion Gap 14 (10-20) BUN 62 H (7-21) mg/dL Creatinine 1.8 H (0.8-1.5) mg/dl Est GFR ( Amer) 43 Est GFR (Non-Af Amer) 36 Random Glucose 146 H (70-110) mg/dL Calcium 9.3 (8.4-10.5) mg/dL Phosphorus (2.5-4.5) mg/dL Magnesium (1.7-2.2) mg/dL Total Bilirubin (0.2-1.3) mg/dL AST (17-59) U/L ALT (7-56) U/L Alkaline Phosphatase (38-126) U/L Lactate Dehydrogenase (333-699) U/L Total Creatine Kinase (35-230) U/L Troponin I 0.32 H* D ng/mL Total Protein (5.8-8.3) g/dL Albumin (3.0-4.8) g/dL Globulin gm/dL Albumin/Globulin Ratio (1.1-1.8) Venous Blood Potassium (3.6-5.2) mmol/L Urine Color (YELLOW) Urine Appearance (CLEAR) Urine pH (4.7-8.0) Ur Specific [place] (1.005-1.035) Urine Protein (<30 mg/dL) mg/dL Urine Glucose (UA) (NEGATIVE) mg/dL Urine Ketones (NEGATIVE) mg/dL Urine Blood (NEGATIVE) Urine Nitrate (NEGATIVE) Urine Bilirubin (NEGATIVE) Urine Urobilinogen (<1 E.U./dL) E.U./dL Ur Leukocyte Esterase (NEGATIVE) [place]/uL Urine RBC (0-2) /hpf Urine WBC (0-6) /hpf Ur Epithelial Cells (0-5) /hpf Urine Bacteria (NEG) Ur Random Creatinine 153 mg/dL Ur Random Sodium 13 meq/L Urine Chloride 26 L (32-290) mmol/L Influenza Typ A,B (EIA) (NEGATIVE) 08/07/18 08/07/18 08/07/18 Range/Units 18:45 18:45 17:20 WBC (4.5-11.0) 10^3/uL RBC (3.5-6.1) 10^6/uL Hgb (14.0-18.0) g/dL Hct (42.0-52.0) % MCV (80.0-105.0) fl MCH (25.0-35.0) pg MCHC (31.0-37.0) g/dl RDW (11.5-14.5) % Plt Count (120.0-450.0) 10^3/uL MPV (7.0-11.0) fl Gran % (50.0-68.0) % Lymph % (Auto) (22.0-35.0) % [place] % (Auto) (1.0-6.0) % Eos % (Auto) (1.5-5.0) % Baso % (Auto) (0.0-3.0) % Gran # (1.4-6.5) Lymph # (Auto) (1.2-3.4) [place] # (Auto) (0.1-0.6) Eos # (Auto) (0.0-0.7) Baso # (Auto) (0.0-2.0) K/mm3 Neutrophils % (Manual) (50.0-70.0) % Lymphocytes % (Manual) (22.0-35.0) % Monocytes % (Manual) (1.0-6.0) % Toxic Granulation Platelet Evaluation (NORMAL) Hypochromasia Rouleaux PT (9.4-12.5) SECONDS INR APTT (25.1-36.5) Seconds pO2 50 (30-55) mm/Hg VBG pH 7.36 (7.32-7.43) VBG pCO2 47.0 (40-60) VBG HCO3 26.6 (21-28) mmol/l VBG Total CO2 28.0 (22-28) mmol.L VBG O2 Sat (Calc) 86.8 H (40-65) % VBG Base Excess 0.6 (0.0-2.0) mmol/L VBG Potassium 4.6 (3.6-5.2) mmol/L Sodium 156 H* 158.0 H (132-148) mmol/L Chloride 123 H 121.0 H (98-107) mmol/L Glucose 143 H (75-110) mg/dl Lactate 3.0 H (0.7-2.1) mmol/L FiO2 21.0 % Potassium 4.9 (3.6-5.0) mmol/L Carbon Dioxide 27 (21-33) mmol/L Anion Gap 12 (10-20) BUN 62 H (7-21) mg/dL Creatinine 1.8 H (0.8-1.5) mg/dl Est GFR ( Amer) 43 Est GFR (Non-Af Amer) 36 Random Glucose 141 H (70-110) mg/dL Calcium 9.2 (8.4-10.5) mg/dL Phosphorus (2.5-4.5) mg/dL Magnesium (1.7-2.2) mg/dL Total Bilirubin (0.2-1.3) mg/dL AST (17-59) U/L ALT (7-56) U/L Alkaline Phosphatase (38-126) U/L Lactate Dehydrogenase (333-699) U/L Total Creatine Kinase (35-230) U/L Troponin I 0.20 H* ng/mL Total Protein (5.8-8.3) g/dL Albumin (3.0-4.8) g/dL Globulin gm/dL Albumin/Globulin Ratio (1.1-1.8) Venous Blood Potassium 4.6 (3.6-5.2) mmol/L Urine Color [place] (YELLOW) Urine Appearance Cloudy (CLEAR) Urine pH 6.0 (4.7-8.0) Ur Specific [place] 1.025 (1.005-1.035) Urine Protein 100 H (<30 mg/dL) mg/dL Urine Glucose (UA) Negative (NEGATIVE) mg/dL Urine Ketones Trace H (NEGATIVE) mg/dL Urine Blood Large H (NEGATIVE) Urine Nitrate Positive H (NEGATIVE) Urine Bilirubin Small H (NEGATIVE) Urine Urobilinogen 2.0 H (<1 E.U./dL) E.U./dL Ur Leukocyte Esterase Moderate H (NEGATIVE) Alannah/uL Urine RBC Tntc (0-2) /hpf Urine WBC Tntc (0-6) /hpf Ur Epithelial Cells 6 - 8 (0-5) /hpf Urine Bacteria Many (NEG) Ur Random Creatinine mg/dL Ur Random Sodium meq/L Urine Chloride (32-290) mmol/L Influenza Typ A,B (EIA) (NEGATIVE) 08/07/18 08/07/18 08/07/18 Range/Units 16:16 16:16 16:16 WBC 19.6 H (4.5-11.0) 10^3/uL RBC 4.82 (3.5-6.1) 10^6/uL Hgb 14.6 (14.0-18.0) g/dL Hct 46.6 (42.0-52.0) % MCV 96.7 (80.0-105.0) fl MCH 30.3 (25.0-35.0) pg MCHC 31.3 (31.0-37.0) g/dl RDW 15.2 H (11.5-14.5) % Plt Count 216 (120.0-450.0) 10^3/uL MPV 10.8 (7.0-11.0) fl Gran % 93.5 H (50.0-68.0) % Lymph % (Auto) 3.6 L (22.0-35.0) % [place] % (Auto) 2.8 (1.0-6.0) % Eos % (Auto) 0.0 L (1.5-5.0) % Baso % (Auto) 0.1 (0.0-3.0) % Gran # 18.32 H (1.4-6.5) Lymph # (Auto) 0.7 L (1.2-3.4) [place] # (Auto) 0.6 (0.1-0.6) Eos # (Auto) 0.0 (0.0-0.7) Baso # (Auto) 0.01 (0.0-2.0) K/mm3 Neutrophils % (Manual) 94 H (50.0-70.0) % Lymphocytes % (Manual) 4 L (22.0-35.0) % Monocytes % (Manual) 2 (1.0-6.0) % Toxic Granulation 1+ Platelet Evaluation Normal (NORMAL) Hypochromasia 1+ Rouleaux 2+ PT (9.4-12.5) SECONDS INR APTT (25.1-36.5) Seconds pO2 (30-55) mm/Hg VBG pH (7.32-7.43) VBG pCO2 (40-60) VBG HCO3 (21-28) mmol/l VBG Total CO2 (22-28) mmol.L VBG O2 Sat (Calc) (40-65) % VBG Base Excess (0.0-2.0) mmol/L VBG Potassium (3.6-5.2) mmol/L Sodium 161 H* (132-148) mmol/L Chloride 123 H (98-107) mmol/L Glucose (75-110) mg/dl Lactate (0.7-2.1) mmol/L FiO2 % Potassium 4.9 (3.6-5.0) mmol/L Carbon Dioxide 29 (21-33) mmol/L Anion Gap 14 (10-20) BUN 61 H (7-21) mg/dL Creatinine 2.1 H (0.8-1.5) mg/dl Est GFR ( Amer) 36 Est GFR (Non-Af Amer) 30 Random Glucose 136 H (70-110) mg/dL Calcium 9.8 (8.4-10.5) mg/dL Phosphorus 4.3 (2.5-4.5) mg/dL Magnesium 2.8 H (1.7-2.2) mg/dL Total Bilirubin 1.2 (0.2-1.3) mg/dL AST 25 (17-59) U/L ALT 11 (7-56) U/L Alkaline Phosphatase 95 (38-126) U/L Lactate Dehydrogenase 339 (333-699) U/L Total Creatine Kinase 62 (35-230) U/L Troponin I 0.18 H* D ng/mL Total Protein 8.3 (5.8-8.3) g/dL Albumin 3.8 (3.0-4.8) g/dL Globulin 4.5 gm/dL Albumin/Globulin Ratio 0.8 L (1.1-1.8) Venous Blood Potassium (3.6-5.2) mmol/L Urine Color (YELLOW) Urine Appearance (CLEAR) Urine pH (4.7-8.0) Ur Specific [place] (1.005-1.035) Urine Protein (<30 mg/dL) mg/dL Urine Glucose (UA) (NEGATIVE) mg/dL Urine Ketones (NEGATIVE) mg/dL Urine Blood (NEGATIVE) Urine Nitrate (NEGATIVE) Urine Bilirubin (NEGATIVE) Urine Urobilinogen (<1 E.U./dL) E.U./dL Ur Leukocyte Esterase (NEGATIVE) Alannah/uL Urine RBC (0-2) /hpf Urine WBC (0-6) /hpf Ur Epithelial Cells (0-5) /hpf Urine Bacteria (NEG) Ur Random Creatinine mg/dL Ur Random Sodium meq/L Urine Chloride (32-290) mmol/L Influenza Typ A,B (EIA) Negative for flu a/b (NEGATIVE) 08/07/18 Range/Units 16:16 WBC (4.5-11.0) 10^3/uL RBC (3.5-6.1) 10^6/uL Hgb (14.0-18.0) g/dL Hct (42.0-52.0) % MCV (80.0-105.0) fl MCH (25.0-35.0) pg MCHC (31.0-37.0) g/dl RDW (11.5-14.5) % Plt Count (120.0-450.0) 10^3/uL MPV (7.0-11.0) fl Gran % (50.0-68.0) % Lymph % (Auto) (22.0-35.0) % [place] % (Auto) (1.0-6.0) % Eos % (Auto) (1.5-5.0) % Baso % (Auto) (0.0-3.0) % Gran # (1.4-6.5) Lymph # (Auto) (1.2-3.4) [place] # (Auto) (0.1-0.6) Eos # (Auto) (0.0-0.7) Baso # (Auto) (0.0-2.0) K/mm3 Neutrophils % (Manual) (50.0-70.0) % Lymphocytes % (Manual) (22.0-35.0) % Monocytes % (Manual) (1.0-6.0) % Toxic Granulation Platelet Evaluation (NORMAL) Hypochromasia Rouleaux PT (9.4-12.5) SECONDS INR APTT (25.1-36.5) Seconds pO2 44 (30-55) mm/Hg VBG pH 7.34 (7.32-7.43) VBG pCO2 51.0 (40-60) VBG HCO3 27.5 (21-28) mmol/l VBG Total CO2 29.1 H (22-28) mmol.L VBG O2 Sat (Calc) 79.6 H (40-65) % VBG Base Excess 0.9 (0.0-2.0) mmol/L VBG Potassium 5.4 H (3.6-5.2) mmol/L Sodium 159.0 H (132-148) mmol/L Chloride 121.0 H (98-107) mmol/L Glucose 131 H (75-110) mg/dl Lactate 3.5 H (0.7-2.1) mmol/L FiO2 21.0 % Potassium (3.6-5.0) mmol/L Carbon Dioxide (21-33) mmol/L Anion Gap (10-20) BUN (7-21) mg/dL Creatinine (0.8-1.5) mg/dl Est GFR ( Amer) Est GFR (Non-Af Amer) Random Glucose (70-110) mg/dL Calcium (8.4-10.5) mg/dL Phosphorus (2.5-4.5) mg/dL Magnesium (1.7-2.2) mg/dL Total Bilirubin (0.2-1.3) mg/dL AST (17-59) U/L ALT (7-56) U/L Alkaline Phosphatase (38-126) U/L Lactate Dehydrogenase (333-699) U/L Total Creatine Kinase (35-230) U/L Troponin I ng/mL Total Protein (5.8-8.3) g/dL Albumin (3.0-4.8) g/dL Globulin gm/dL Albumin/Globulin Ratio (1.1-1.8) Venous Blood Potassium 5.4 H (3.6-5.2) mmol/L Urine Color (YELLOW) Urine Appearance (CLEAR) Urine pH (4.7-8.0) Ur Specific [place] (1.005-1.035) Urine Protein (<30 mg/dL) mg/dL Urine Glucose (UA) (NEGATIVE) mg/dL Urine Ketones (NEGATIVE) mg/dL Urine Blood (NEGATIVE) Urine Nitrate (NEGATIVE) Urine Bilirubin (NEGATIVE) Urine Urobilinogen (<1 E.U./dL) E.U./dL Ur Leukocyte Esterase (NEGATIVE) [place]/uL Urine RBC (0-2) /hpf Urine WBC (0-6) /hpf Ur Epithelial Cells (0-5) /hpf Urine Bacteria (NEG) Ur Random Creatinine mg/dL Ur Random Sodium meq/L Urine Chloride (32-290) mmol/L Influenza Typ A,B (EIA) (NEGATIVE) Laboratory Results - last 24 hr 08/07/18 08/07/18 08/07/18 16:16 16:16 16:16 WBC 19.6 H RBC 4.82 Hgb 14.6 Hct 46.6 MCV 96.7 MCH 30.3 MCHC 31.3 RDW 15.2 H Plt Count 216 MPV 10.8 Gran % 93.5 H Lymph % (Auto) 3.6 L [place] % (Auto) 2.8 Eos % (Auto) 0.0 L Baso % (Auto) 0.1 Gran # 18.32 H Lymph # (Auto) 0.7 L [place] # (Auto) 0.6 Eos # (Auto) 0.0 Baso # (Auto) 0.01 Neutrophils % (Manual) 94 H Lymphocytes % (Manual) 4 L Monocytes % (Manual) 2 Toxic Granulation 1+ Platelet Evaluation Normal Hypochromasia 1+ Rouleaux 2+ PT INR APTT pO2 44 VBG pH 7.34 VBG pCO2 51.0 VBG HCO3 27.5 VBG Total CO2 29.1 H VBG O2 Sat (Calc) 79.6 H VBG Base Excess 0.9 VBG Potassium 5.4 H Sodium 159.0 H 161 H* Chloride 121.0 H 123 H Glucose 131 H Lactate 3.5 H FiO2 21.0 Potassium 4.9 Carbon Dioxide 29 Anion Gap 14 BUN 61 H Creatinine 2.1 H Est GFR ( Amer) 36 Est GFR (Non-Af Amer) 30 Random Glucose 136 H Calcium 9.8 Phosphorus 4.3 Magnesium 2.8 H Total Bilirubin 1.2 AST 25 ALT 11 Alkaline Phosphatase 95 Lactate Dehydrogenase 339 Total Creatine Kinase 62 Troponin I 0.18 H* D Total Protein 8.3 Albumin 3.8 Globulin 4.5 Albumin/Globulin Ratio 0.8 L Venous Blood Potassium 5.4 H Urine Color Urine Appearance Urine pH Ur Specific [place] Urine Protein Urine Glucose (UA) Urine Ketones Urine Blood Urine Nitrate Urine Bilirubin Urine Urobilinogen Ur Leukocyte Esterase Urine RBC Urine WBC Ur Epithelial Cells Urine Bacteria Ur Random Creatinine Ur Random Sodium Urine Chloride Influenza Typ A,B (EIA) 08/07/18 08/07/18 08/07/18 16:16 17:20 18:45 WBC RBC Hgb Hct MCV MCH MCHC RDW Plt Count MPV Gran % Lymph % (Auto) [place] % (Auto) Eos % (Auto) Baso % (Auto) Gran # Lymph # (Auto) [place] # (Auto) Eos # (Auto) Baso # (Auto) Neutrophils % (Manual) Lymphocytes % (Manual) Monocytes % (Manual) Toxic Granulation Platelet Evaluation Hypochromasia Rouleaux PT INR APTT pO2 50 VBG pH 7.36 VBG pCO2 47.0 VBG HCO3 26.6 VBG Total CO2 28.0 VBG O2 Sat (Calc) 86.8 H VBG Base Excess 0.6 VBG Potassium 4.6 Sodium 158.0 H Chloride 121.0 H Glucose 143 H Lactate 3.0 H FiO2 21.0 Potassium Carbon Dioxide Anion Gap BUN Creatinine Est GFR ( Amer) Est GFR (Non-Af Amer) Random Glucose Calcium Phosphorus Magnesium Total Bilirubin AST ALT Alkaline Phosphatase Lactate Dehydrogenase Total Creatine Kinase Troponin I Total Protein Albumin Globulin Albumin/Globulin Ratio Venous Blood Potassium 4.6 Urine Color [place] Urine Appearance Cloudy Urine pH 6.0 Ur Specific [place] 1.025 Urine Protein 100 H Urine Glucose (UA) Negative Urine Ketones Trace H Urine Blood Large H Urine Nitrate Positive H Urine Bilirubin Small H Urine Urobilinogen 2.0 H Ur Leukocyte Esterase Moderate H Urine RBC Tntc Urine WBC Tntc Ur Epithelial Cells 6 - 8 Urine Bacteria Many Ur Random Creatinine Ur Random Sodium Urine Chloride Influenza Typ A,B (EIA) Negative for flu a/b 08/07/18 08/07/18 08/07/18 18:45 20:15 20:15 WBC RBC Hgb Hct MCV MCH MCHC RDW Plt Count MPV Gran % Lymph % (Auto) [place] % (Auto) Eos % (Auto) Baso % (Auto) Gran # Lymph # (Auto) [place] # (Auto) Eos # (Auto) Baso # (Auto) Neutrophils % (Manual) Lymphocytes % (Manual) Monocytes % (Manual) Toxic Granulation Platelet Evaluation Hypochromasia Rouleaux PT INR APTT pO2 VBG pH VBG pCO2 VBG HCO3 VBG Total CO2 VBG O2 Sat (Calc) VBG Base Excess VBG Potassium Sodium 156 H* Chloride 123 H Glucose Lactate FiO2 Potassium 4.9 Carbon Dioxide 27 Anion Gap 12 BUN 62 H Creatinine 1.8 H Est GFR ( Amer) 43 Est GFR (Non-Af Amer) 36 Random Glucose 141 H Calcium 9.2 Phosphorus Magnesium Total Bilirubin AST ALT Alkaline Phosphatase Lactate Dehydrogenase Total Creatine Kinase Troponin I 0.20 H* Total Protein Albumin Globulin Albumin/Globulin Ratio Venous Blood Potassium Urine Color Urine Appearance Urine pH Ur Specific [place] Urine Protein Urine Glucose (UA) Urine Ketones Urine Blood Urine Nitrate Urine Bilirubin Urine Urobilinogen Ur Leukocyte Esterase Urine RBC Urine WBC Ur Epithelial Cells Urine Bacteria Ur Random Creatinine 153 Ur Random Sodium 13 Urine Chloride 26 L Influenza Typ A,B (EIA) 08/07/18 08/07/18 08/07/18 21:25 21:25 23:15 WBC RBC Hgb Hct MCV MCH MCHC RDW Plt Count MPV Gran % Lymph % (Auto) [place] % (Auto) Eos % (Auto) Baso % (Auto) Gran # Lymph # (Auto) [place] # (Auto) Eos # (Auto) Baso # (Auto) Neutrophils % (Manual) Lymphocytes % (Manual) Monocytes % (Manual) Toxic Granulation Platelet Evaluation Hypochromasia Rouleaux PT 15.7 H INR 1.37 APTT 25.3 pO2 43 VBG pH 7.43 VBG pCO2 40.0 VBG HCO3 26.5 VBG Total CO2 27.7 VBG O2 Sat (Calc) 83.5 H VBG Base Excess 2.0 VBG Potassium 4.3 Sodium 155 H 160.0 H* Chloride 124 H 123.0 H Glucose 146 H Lactate 2.4 H FiO2 21.0 Potassium 4.6 Carbon Dioxide 25 Anion Gap 14 BUN 62 H Creatinine 1.8 H Est GFR ( Amer) 43 Est GFR (Non-Af Amer) 36 Random Glucose 146 H Calcium 9.3 Phosphorus Magnesium Total Bilirubin AST ALT Alkaline Phosphatase Lactate Dehydrogenase Total Creatine Kinase Troponin I 0.32 H* D Total Protein Albumin Globulin Albumin/Globulin Ratio Venous Blood Potassium 4.3 Urine Color Urine Appearance Urine pH Ur Specific [place] Urine Protein Urine Glucose (UA) Urine Ketones Urine Blood Urine Nitrate Urine Bilirubin Urine Urobilinogen Ur Leukocyte Esterase Urine RBC Urine WBC Ur Epithelial Cells Urine Bacteria Ur Random Creatinine Ur Random Sodium Urine Chloride Influenza Typ A,B (EIA) 08/07/18 08/08/18 08/08/18 23:15 01:40 01:40 WBC RBC Hgb Hct MCV MCH MCHC RDW Plt Count MPV Gran % Lymph % (Auto) [place] % (Auto) Eos % (Auto) Baso % (Auto) Gran # Lymph # (Auto) [place] # (Auto) Eos # (Auto) Baso # (Auto) Neutrophils % (Manual) Lymphocytes % (Manual) Monocytes % (Manual) Toxic Granulation Platelet Evaluation Hypochromasia Rouleaux PT INR APTT pO2 60 H VBG pH 7.42 VBG pCO2 42.0 VBG HCO3 27.2 VBG Total CO2 28.5 H VBG O2 Sat (Calc) 93.9 H VBG Base Excess 2.4 H VBG Potassium 4.0 Sodium 157 H* 159.0 H Chloride 124 H 124.0 H Glucose 137 H Lactate 1.7 FiO2 21.0 Potassium 4.1 Carbon Dioxide 27 Anion Gap 10 BUN 59 H Creatinine 1.8 H Est GFR ( Amer) 43 Est GFR (Non-Af Amer) 36 Random Glucose 139 H Calcium 9.3 Phosphorus Magnesium Total Bilirubin AST ALT Alkaline Phosphatase Lactate Dehydrogenase Total Creatine Kinase Troponin I Total Protein Albumin Globulin Albumin/Globulin Ratio Venous Blood Potassium 4.0 Urine Color Yellow Urine Appearance Cloudy Urine pH 5.5 Ur Specific [place] 1.025 Urine Protein 30 H Urine Glucose (UA) Negative Urine Ketones Negative Urine Blood Large H Urine Nitrate Positive H Urine Bilirubin Negative Urine Urobilinogen 1.0 H Ur Leukocyte Esterase Moderate H Urine RBC 2 - 5 Urine WBC 15 - 20 Ur Epithelial Cells 0 - 2 Urine Bacteria Many Ur Random Creatinine Ur Random Sodium Urine Chloride Influenza Typ A,B (EIA) 08/08/18 08/08/18 08/08/18 05:30 05:30 05:30 WBC 16.1 H RBC 4.43 Hgb 13.3 L Hct 42.8 MCV 96.6 MCH 30.0 MCHC 31.1 RDW 15.5 H Plt Count 187 MPV 11.2 H Gran % 91.5 H Lymph % (Auto) 6.4 L [place] % (Auto) 1.9 Eos % (Auto) 0.1 L Baso % (Auto) 0.1 Gran # 14.76 H Lymph # (Auto) 1.0 L [place] # (Auto) 0.3 Eos # (Auto) 0.0 Baso # (Auto) 0.01 Neutrophils % (Manual) Lymphocytes % (Manual) Monocytes % (Manual) Toxic Granulation Platelet Evaluation Hypochromasia Rouleaux PT INR APTT 63.0 H pO2 VBG pH VBG pCO2 VBG HCO3 VBG Total CO2 VBG O2 Sat (Calc) VBG Base Excess VBG Potassium Sodium 156 H* Chloride 124 H Glucose Lactate FiO2 Potassium 4.3 Carbon Dioxide 27 Anion Gap 11 BUN 58 H Creatinine 1.7 H Est GFR ( Amer) 46 Est GFR (Non-Af Amer) 38 Random Glucose 129 H Calcium 9.3 Phosphorus Magnesium Total Bilirubin AST ALT Alkaline Phosphatase Lactate Dehydrogenase Total Creatine Kinase Troponin I Total Protein Albumin Globulin Albumin/Globulin Ratio Venous Blood Potassium Urine Color Urine Appearance Urine pH Ur Specific [place] Urine Protein Urine Glucose (UA) Urine Ketones Urine Blood Urine Nitrate Urine Bilirubin Urine Urobilinogen Ur Leukocyte Esterase Urine RBC Urine WBC Ur Epithelial Cells Urine Bacteria Ur Random Creatinine Ur Random Sodium Urine Chloride Influenza Typ A,B (EIA) 08/08/18 11:12 WBC RBC Hgb Hct MCV MCH MCHC RDW Plt Count MPV Gran % Lymph % (Auto) [place] % (Auto) Eos % (Auto) Baso % (Auto) Gran # Lymph # (Auto) [place] # (Auto) Eos # (Auto) Baso # (Auto) Neutrophils % (Manual) Lymphocytes % (Manual) Monocytes % (Manual) Toxic Granulation Platelet Evaluation Hypochromasia Rouleaux PT INR APTT pO2 VBG pH VBG pCO2 VBG HCO3 VBG Total CO2 VBG O2 Sat (Calc) VBG Base Excess VBG Potassium Sodium 157 H* Chloride 124 H Glucose Lactate FiO2 Potassium 4.3 Carbon Dioxide 28 Anion Gap 9 L BUN 55 H Creatinine 1.6 H Est GFR ( Amer) 50 Est GFR (Non-Af Amer) 41 Random Glucose 112 H Calcium 9.2 Phosphorus Magnesium Total Bilirubin AST ALT Alkaline Phosphatase Lactate Dehydrogenase Total Creatine Kinase Troponin I Total Protein Albumin Globulin Albumin/Globulin Ratio Venous Blood Potassium Urine Color Urine Appearance Urine pH Ur Specific [place] Urine Protein Urine Glucose (UA) Urine Ketones Urine Blood Urine Nitrate Urine Bilirubin Urine Urobilinogen Ur Leukocyte Esterase Urine RBC Urine WBC Ur Epithelial Cells Urine Bacteria Ur Random Creatinine Ur Random Sodium Urine Chloride Influenza Typ A,B (EIA) EKG/Cardiology Studies: Cardiology / EKG Studies 08/07/18 16:20 ELECTROCARDIOGRAM Stat Comment: Reason For Exam: Sepsis Patient 08/07/18 17:38 EKG [ELECTROCARDIOGRAM] Stat Comment: Reason For Exam: shock 08/07/18 22:26 EKG [ELECTROCARDIOGRAM] Stat Comment: Reason For Exam: troponins Assessment/Plan - Assessment and Plan (Free Text) Assessment: 88 male with a PMHx of Parkinson's disease, dementia, was transferred from residential presenting with lethargy, failure to thrive, and fever. Pt found to have sepsis secondary to UTI, hypernatremia and acute renal failure due to dehydration likely due to decrease oral intake. He was intially started on LR fluids and eventually switched to 1/2 NS. He was also found to have elevated troponin. Plan: Neuro: Pt confused, lethargic Long-standing dementia Toxic encephalopathy s/p severe sepsis from UTI Doxycycline, meropenem Thiamine for severe sepsis 1/2 NS at 200 Cardio: Elevated troponin on heparin drip aspirin 300mg metoprolol IVP q6h nitro Pulmonary: Large L lower lobe pneumonia noted on CT abd/pelvis currently on doxycycline Hypercapneic currently on venti mask albuterol prn Maintain pox >90% GI: protonix IVP for GI ppx /Renal: UTI received rocephin in ED currently on doxycycline/meropenem Hypernatremia Free water deficit: 4.8 L (with ideal Na of 140) Given 2L of LR intially (30 ml/kg). Switched to 1/2NS d/t hyperchloremia Maintain MAP >65mmHg ID: Severe sepsis 2/2 UTI Urine growing gram - rods Currently treated with doxycycline & meropenem Endocrine: Mantain euglycemia <180 (per surviving sepsis campaign) DVT/GI: Hep/Protonix Case seen, examined and discussed with attending physician, Dr. Villegas <Chrissy Villegas - Last Filed: 08/08/18 17:19> CCU Objective - Vital Signs / Intake & Output Vital Signs (Last 4 hours): Vital Signs Temp Pulse Resp BP Pulse Ox 08/08/18 16:00 98.4 F 72 25 H 124/65 93 L 08/08/18 15:00 98.4 F 74 26 H 135/65 96 08/08/18 14:32 73 132/60 08/08/18 14:00 98.2 F 80 17 132/60 93 L Intake and Output (Last 8hrs): Intake & Output 08/08/18 08/08/18 08/08/18 06:59 14:59 22:59 Intake Total 2400 135 Output Total 300 Balance 2100 135 Weight 63.503 kg Intake: IV 2400 135 Right Forearm 2400 Oral 0 Output: Urine 300 Urethral (Jeffrey) 300 - Medications Active Medications: Active Medications Generic Name Dose Route Start Last Admin Trade Name Freq PRN Reason Stop Dose Admin Albuterol/Ipratropium 3 ml 08/07/18 18:44 Duoneb 3 Mg/0.5 Mg (3 Ml) Ud IH [id number] PRN Shortness of Breath Artificial Tears 0 ml 08/07/18 22:35 Refresh Opth Soln OU Q4 PRN Dry eyes Aspirin 300 mg 08/08/18 10:00 08/08/18 09:45 Aspirin Supp RC 300 mg DAILY TOMMY Administration Doxycycline Hyclate 100 mg/ 100 mls @ 100 mls/hr 08/07/18 22:00 08/08/18 09:37 Sodium Chloride IVPB 100 mls/hr Q12 TOMMY Administration Protocol Acetaminophen 1,000 mg in 100 mls @ 400 mls/hr 08/07/18 20:21 08/07/18 21:21 Ofirmev IVPB 08/09/18 20:22 400 mls/hr Q6H PRN Administration Temperature Heparin Sodium/Sodium Chloride 25,000 units in 250 mls @ 8.219 mls/hr 08/08/18 00:15 08/08/18 14:17 Heparin 81602 Units/250ml 1/2 Normal Saline IV 14 units/kg/hr .Q24H TOMMY 9.589 mls/hr Titration Protocol 12 UNITS/KG/HR Meropenem 1 gm in 50 mls @ 12.5 mls/hr 08/08/18 10:24 08/08/18 12:11 Merrem Iv 1 Gm Premix IVPB 08/17/18 10:25 12.5 mls/hr Q12 TOMMY Administration Protocol Sodium Chloride 1,000 mls @ 200 mls/hr 08/08/18 11:30 08/08/18 12:05 Sodium Chloride 0.45% IV 08/08/18 21:29 200 mls/hr .Q5H TOMMY Administration Metoprolol Tartrate 5 mg 08/08/18 09:30 08/08/18 14:32 Lopressor IVP 5 mg Q6H TOMMY Administration Nitroglycerin 0.5 ea 08/08/18 09:30 08/08/18 14:33 Nitro-Bid 2% Oint TOP 0.5 ea Q6H TOMMY Administration Pantoprazole Sodium 40 mg 08/07/18 17:45 08/08/18 09:42 Protonix Inj IVP 40 mg DAILY TOMMY Administration Thiamine HCl 200 mg 08/07/18 17:45 08/08/18 10:02 Vitamin B1 Inj IV 200 mg DAILY TOMMY Administration - Patient Studies Lab Studies: Microbiology Studies 08/07/18 16:16 Blood Culture - Preliminary Blood NO GROWTH AFTER 24 HOURS 08/07/18 17:20 Urine Culture - Preliminary Urine,Catheterized Gram Negative Bill Lab Studies 08/08/18 08/08/18 08/08/18 Range/Units 16:10 13:00 11:12 WBC (4.5-11.0) 10^3/uL RBC (3.5-6.1) 10^6/uL Hgb (14.0-18.0) g/dL Hct (42.0-52.0) % MCV (80.0-105.0) fl MCH (25.0-35.0) pg MCHC (31.0-37.0) g/dl RDW (11.5-14.5) % Plt Count (120.0-450.0) 10^3/uL MPV (7.0-11.0) fl Gran % (50.0-68.0) % Lymph % (Auto) (22.0-35.0) % [place] % (Auto) (1.0-6.0) % Eos % (Auto) (1.5-5.0) % Baso % (Auto) (0.0-3.0) % Gran # (1.4-6.5) Lymph # (Auto) (1.2-3.4) [place] # (Auto) (0.1-0.6) Eos # (Auto) (0.0-0.7) Baso # (Auto) (0.0-2.0) K/mm3 Neutrophils % (Manual) (50.0-70.0) % Lymphocytes % (Manual) (22.0-35.0) % Monocytes % (Manual) (1.0-6.0) % Toxic Granulation Platelet Evaluation (NORMAL) Hypochromasia Rouleaux PT (9.4-12.5) SECONDS INR APTT 45.3 H (25.1-36.5) Seconds pO2 (30-55) mm/Hg VBG pH (7.32-7.43) VBG pCO2 (40-60) VBG HCO3 (21-28) mmol/l VBG Total CO2 (22-28) mmol.L VBG O2 Sat (Calc) (40-65) % VBG Base Excess (0.0-2.0) mmol/L VBG Potassium (3.6-5.2) mmol/L Sodium 154 H 157 H* (132-148) mmol/L Chloride 124 H 124 H (98-107) mmol/L Glucose (75-110) mg/dl Lactate (0.7-2.1) mmol/L FiO2 % Potassium 3.9 4.3 (3.6-5.0) mmol/L Carbon Dioxide 25 28 (21-33) mmol/L Anion Gap 8 L 9 L (10-20) BUN 54 H 55 H (7-21) mg/dL Creatinine 1.5 1.6 H (0.8-1.5) mg/dl Est GFR ( Amer) 54 50 Est GFR (Non-Af Amer) 44 41 Random Glucose 107 112 H (70-110) mg/dL Calcium 8.8 9.2 (8.4-10.5) mg/dL Troponin I ng/mL Procalcitonin (0.19-0.49) NG/ML Venous Blood Potassium (3.6-5.2) mmol/L Urine Color (YELLOW) Urine Appearance (CLEAR) Urine pH (4.7-8.0) Ur Specific [place] (1.005-1.035) Urine Protein (<30 mg/dL) mg/dL Urine Glucose (UA) (NEGATIVE) mg/dL Urine Ketones (NEGATIVE) mg/dL Urine Blood (NEGATIVE) Urine Nitrate (NEGATIVE) Urine Bilirubin (NEGATIVE) Urine Urobilinogen (<1 E.U./dL) E.U./dL Ur Leukocyte Esterase (NEGATIVE) [place]/uL Urine RBC (0-2) /hpf Urine WBC (0-6) /hpf Ur Epithelial Cells (0-5) /hpf Urine Bacteria (NEG) Ur Random Creatinine mg/dL Ur Random Sodium meq/L Ur Random Phosphorus mg/dL Urine Chloride (32-290) mmol/L Urine Magnesium mg/dL 08/08/18 08/08/18 08/08/18 Range/Units 05:30 05:30 05:30 WBC 16.1 H (4.5-11.0) 10^3/uL RBC 4.43 (3.5-6.1) 10^6/uL Hgb 13.3 L (14.0-18.0) g/dL Hct 42.8 (42.0-52.0) % MCV 96.6 (80.0-105.0) fl MCH 30.0 (25.0-35.0) pg MCHC 31.1 (31.0-37.0) g/dl RDW 15.5 H (11.5-14.5) % Plt Count 187 (120.0-450.0) 10^3/uL MPV 11.2 H (7.0-11.0) fl Gran % 91.5 H (50.0-68.0) % Lymph % (Auto) 6.4 L (22.0-35.0) % [place] % (Auto) 1.9 (1.0-6.0) % Eos % (Auto) 0.1 L (1.5-5.0) % Baso % (Auto) 0.1 (0.0-3.0) % Gran # 14.76 H (1.4-6.5) Lymph # (Auto) 1.0 L (1.2-3.4) [place] # (Auto) 0.3 (0.1-0.6) Eos # (Auto) 0.0 (0.0-0.7) Baso # (Auto) 0.01 (0.0-2.0) K/mm3 Neutrophils % (Manual) (50.0-70.0) % Lymphocytes % (Manual) (22.0-35.0) % Monocytes % (Manual) (1.0-6.0) % Toxic Granulation Platelet Evaluation (NORMAL) Hypochromasia Rouleaux PT (9.4-12.5) SECONDS INR APTT 63.0 H (25.1-36.5) Seconds pO2 (30-55) mm/Hg VBG pH (7.32-7.43) VBG pCO2 (40-60) VBG HCO3 (21-28) mmol/l VBG Total CO2 (22-28) mmol.L VBG O2 Sat (Calc) (40-65) % VBG Base Excess (0.0-2.0) mmol/L VBG Potassium (3.6-5.2) mmol/L Sodium 156 H* (132-148) mmol/L Chloride 124 H (98-107) mmol/L Glucose (75-110) mg/dl Lactate (0.7-2.1) mmol/L FiO2 % Potassium 4.3 (3.6-5.0) mmol/L Carbon Dioxide 27 (21-33) mmol/L Anion Gap 11 (10-20) BUN 58 H (7-21) mg/dL Creatinine 1.7 H (0.8-1.5) mg/dl Est GFR ( Amer) 46 Est GFR (Non-Af Amer) 38 Random Glucose 129 H (70-110) mg/dL Calcium 9.3 (8.4-10.5) mg/dL Troponin I ng/mL Procalcitonin (0.19-0.49) NG/ML Venous Blood Potassium (3.6-5.2) mmol/L Urine Color (YELLOW) Urine Appearance (CLEAR) Urine pH (4.7-8.0) Ur Specific [place] (1.005-1.035) Urine Protein (<30 mg/dL) mg/dL Urine Glucose (UA) (NEGATIVE) mg/dL Urine Ketones (NEGATIVE) mg/dL Urine Blood (NEGATIVE) Urine Nitrate (NEGATIVE) Urine Bilirubin (NEGATIVE) Urine Urobilinogen (<1 E.U./dL) E.U./dL Ur Leukocyte Esterase (NEGATIVE) [place]/uL Urine RBC (0-2) /hpf Urine WBC (0-6) /hpf Ur Epithelial Cells (0-5) /hpf Urine Bacteria (NEG) Ur Random Creatinine mg/dL Ur Random Sodium meq/L Ur Random Phosphorus mg/dL Urine Chloride (32-290) mmol/L Urine Magnesium mg/dL 08/08/18 08/08/18 08/07/18 Range/Units 01:40 01:40 23:15 WBC (4.5-11.0) 10^3/uL RBC (3.5-6.1) 10^6/uL Hgb (14.0-18.0) g/dL Hct (42.0-52.0) % MCV (80.0-105.0) fl MCH (25.0-35.0) pg MCHC (31.0-37.0) g/dl RDW (11.5-14.5) % Plt Count (120.0-450.0) 10^3/uL MPV (7.0-11.0) fl Gran % (50.0-68.0) % Lymph % (Auto) (22.0-35.0) % [place] % (Auto) (1.0-6.0) % Eos % (Auto) (1.5-5.0) % Baso % (Auto) (0.0-3.0) % Gran # (1.4-6.5) Lymph # (Auto) (1.2-3.4) [place] # (Auto) (0.1-0.6) Eos # (Auto) (0.0-0.7) Baso # (Auto) (0.0-2.0) K/mm3 Neutrophils % (Manual) (50.0-70.0) % Lymphocytes % (Manual) (22.0-35.0) % Monocytes % (Manual) (1.0-6.0) % Toxic Granulation Platelet Evaluation (NORMAL) Hypochromasia Rouleaux PT (9.4-12.5) SECONDS INR APTT (25.1-36.5) Seconds pO2 60 H (30-55) mm/Hg VBG pH 7.42 (7.32-7.43) VBG pCO2 42.0 (40-60) VBG HCO3 27.2 (21-28) mmol/l VBG Total CO2 28.5 H (22-28) mmol.L VBG O2 Sat (Calc) 93.9 H (40-65) % VBG Base Excess 2.4 H (0.0-2.0) mmol/L VBG Potassium 4.0 (3.6-5.2) mmol/L Sodium 159.0 H 157 H* (132-148) mmol/L Chloride 124.0 H 124 H (98-107) mmol/L Glucose 137 H (75-110) mg/dl Lactate 1.7 (0.7-2.1) mmol/L FiO2 21.0 % Potassium 4.1 (3.6-5.0) mmol/L Carbon Dioxide 27 (21-33) mmol/L Anion Gap 10 (10-20) BUN 59 H (7-21) mg/dL Creatinine 1.8 H (0.8-1.5) mg/dl Est GFR ( Amer) 43 Est GFR (Non-Af Amer) 36 Random Glucose 139 H (70-110) mg/dL Calcium 9.3 (8.4-10.5) mg/dL Troponin I ng/mL Procalcitonin (0.19-0.49) NG/ML Venous Blood Potassium 4.0 (3.6-5.2) mmol/L Urine Color Yellow (YELLOW) Urine Appearance Cloudy (CLEAR) Urine pH 5.5 (4.7-8.0) Ur Specific [place] 1.025 (1.005-1.035) Urine Protein 30 H (<30 mg/dL) mg/dL Urine Glucose (UA) Negative (NEGATIVE) mg/dL Urine Ketones Negative (NEGATIVE) mg/dL Urine Blood Large H (NEGATIVE) Urine Nitrate Positive H (NEGATIVE) Urine Bilirubin Negative (NEGATIVE) Urine Urobilinogen 1.0 H (<1 E.U./dL) E.U./dL Ur Leukocyte Esterase Moderate H (NEGATIVE) [place]/uL Urine RBC 2 - 5 (0-2) /hpf Urine WBC 15 - 20 (0-6) /hpf Ur Epithelial Cells 0 - 2 (0-5) /hpf Urine Bacteria Many (NEG) Ur Random Creatinine mg/dL Ur Random Sodium meq/L Ur Random Phosphorus mg/dL Urine Chloride (32-290) mmol/L Urine Magnesium mg/dL 08/07/18 08/07/18 08/07/18 Range/Units 23:15 21:25 21:25 WBC (4.5-11.0) 10^3/uL RBC (3.5-6.1) 10^6/uL Hgb (14.0-18.0) g/dL Hct (42.0-52.0) % MCV (80.0-105.0) fl MCH (25.0-35.0) pg MCHC (31.0-37.0) g/dl RDW (11.5-14.5) % Plt Count (120.0-450.0) 10^3/uL MPV (7.0-11.0) fl Gran % (50.0-68.0) % Lymph % (Auto) (22.0-35.0) % [place] % (Auto) (1.0-6.0) % Eos % (Auto) (1.5-5.0) % Baso % (Auto) (0.0-3.0) % Gran # (1.4-6.5) Lymph # (Auto) (1.2-3.4) [place] # (Auto) (0.1-0.6) Eos # (Auto) (0.0-0.7) Baso # (Auto) (0.0-2.0) K/mm3 Neutrophils % (Manual) (50.0-70.0) % Lymphocytes % (Manual) (22.0-35.0) % Monocytes % (Manual) (1.0-6.0) % Toxic Granulation Platelet Evaluation (NORMAL) Hypochromasia Rouleaux PT 15.7 H (9.4-12.5) SECONDS INR 1.37 APTT 25.3 (25.1-36.5) Seconds pO2 43 (30-55) mm/Hg VBG pH 7.43 (7.32-7.43) VBG pCO2 40.0 (40-60) VBG HCO3 26.5 (21-28) mmol/l VBG Total CO2 27.7 (22-28) mmol.L VBG O2 Sat (Calc) 83.5 H (40-65) % VBG Base Excess 2.0 (0.0-2.0) mmol/L VBG Potassium 4.3 (3.6-5.2) mmol/L Sodium 160.0 H* 155 H (132-148) mmol/L Chloride 123.0 H 124 H (98-107) mmol/L Glucose 146 H (75-110) mg/dl Lactate 2.4 H (0.7-2.1) mmol/L FiO2 21.0 % Potassium 4.6 (3.6-5.0) mmol/L Carbon Dioxide 25 (21-33) mmol/L Anion Gap 14 (10-20) BUN 62 H (7-21) mg/dL Creatinine 1.8 H (0.8-1.5) mg/dl Est GFR ( Amer) 43 Est GFR (Non-Af Amer) 36 Random Glucose 146 H (70-110) mg/dL Calcium 9.3 (8.4-10.5) mg/dL Troponin I 0.32 H* D ng/mL Procalcitonin (0.19-0.49) NG/ML Venous Blood Potassium 4.3 (3.6-5.2) mmol/L Urine Color (YELLOW) Urine Appearance (CLEAR) Urine pH (4.7-8.0) Ur Specific [place] (1.005-1.035) Urine Protein (<30 mg/dL) mg/dL Urine Glucose (UA) (NEGATIVE) mg/dL Urine Ketones (NEGATIVE) mg/dL Urine Blood (NEGATIVE) Urine Nitrate (NEGATIVE) Urine Bilirubin (NEGATIVE) Urine Urobilinogen (<1 E.U./dL) E.U./dL Ur Leukocyte Esterase (NEGATIVE) [place]/uL Urine RBC (0-2) /hpf Urine WBC (0-6) /hpf Ur Epithelial Cells (0-5) /hpf Urine Bacteria (NEG) Ur Random Creatinine mg/dL Ur Random Sodium meq/L Ur Random Phosphorus mg/dL Urine Chloride (32-290) mmol/L Urine Magnesium mg/dL 08/07/18 08/07/18 08/07/18 Range/Units 20:15 20:15 18:45 WBC (4.5-11.0) 10^3/uL RBC (3.5-6.1) 10^6/uL Hgb (14.0-18.0) g/dL Hct (42.0-52.0) % MCV (80.0-105.0) fl MCH (25.0-35.0) pg MCHC (31.0-37.0) g/dl RDW (11.5-14.5) % Plt Count (120.0-450.0) 10^3/uL MPV (7.0-11.0) fl Gran % (50.0-68.0) % Lymph % (Auto) (22.0-35.0) % [place] % (Auto) (1.0-6.0) % Eos % (Auto) (1.5-5.0) % Baso % (Auto) (0.0-3.0) % Gran # (1.4-6.5) Lymph # (Auto) (1.2-3.4) [place] # (Auto) (0.1-0.6) Eos # (Auto) (0.0-0.7) Baso # (Auto) (0.0-2.0) K/mm3 Neutrophils % (Manual) (50.0-70.0) % Lymphocytes % (Manual) (22.0-35.0) % Monocytes % (Manual) (1.0-6.0) % Toxic Granulation Platelet Evaluation (NORMAL) Hypochromasia Rouleaux PT (9.4-12.5) SECONDS INR APTT (25.1-36.5) Seconds pO2 (30-55) mm/Hg VBG pH (7.32-7.43) VBG pCO2 (40-60) VBG HCO3 (21-28) mmol/l VBG Total CO2 (22-28) mmol.L VBG O2 Sat (Calc) (40-65) % VBG Base Excess (0.0-2.0) mmol/L VBG Potassium (3.6-5.2) mmol/L Sodium 156 H* (132-148) mmol/L Chloride 123 H (98-107) mmol/L Glucose (75-110) mg/dl Lactate (0.7-2.1) mmol/L FiO2 % Potassium 4.9 (3.6-5.0) mmol/L Carbon Dioxide 27 (21-33) mmol/L Anion Gap 12 (10-20) BUN 62 H (7-21) mg/dL Creatinine 1.8 H (0.8-1.5) mg/dl Est GFR ( Amer) 43 Est GFR (Non-Af Amer) 36 Random Glucose 141 H (70-110) mg/dL Calcium 9.2 (8.4-10.5) mg/dL Troponin I 0.20 H* ng/mL Procalcitonin (0.19-0.49) NG/ML Venous Blood Potassium (3.6-5.2) mmol/L Urine Color (YELLOW) Urine Appearance (CLEAR) Urine pH (4.7-8.0) Ur Specific [place] (1.005-1.035) Urine Protein (<30 mg/dL) mg/dL Urine Glucose (UA) (NEGATIVE) mg/dL Urine Ketones (NEGATIVE) mg/dL Urine Blood (NEGATIVE) Urine Nitrate (NEGATIVE) Urine Bilirubin (NEGATIVE) Urine Urobilinogen (<1 E.U./dL) E.U./dL Ur Leukocyte Esterase (NEGATIVE) [place]/uL Urine RBC (0-2) /hpf Urine WBC (0-6) /hpf Ur Epithelial Cells (0-5) /hpf Urine Bacteria (NEG) Ur Random Creatinine 153 mg/dL Ur Random Sodium 13 meq/L Ur Random Phosphorus 55.7 mg/dL Urine Chloride 26 L (32-290) mmol/L Urine Magnesium 3.6 mg/dL 08/07/18 08/07/18 08/07/18 Range/Units 18:45 17:20 16:16 WBC (4.5-11.0) 10^3/uL RBC (3.5-6.1) 10^6/uL Hgb (14.0-18.0) g/dL Hct (42.0-52.0) % MCV (80.0-105.0) fl MCH (25.0-35.0) pg MCHC (31.0-37.0) g/dl RDW (11.5-14.5) % Plt Count (120.0-450.0) 10^3/uL MPV (7.0-11.0) fl Gran % (50.0-68.0) % Lymph % (Auto) (22.0-35.0) % [place] % (Auto) (1.0-6.0) % Eos % (Auto) (1.5-5.0) % Baso % (Auto) (0.0-3.0) % Gran # (1.4-6.5) Lymph # (Auto) (1.2-3.4) [place] # (Auto) (0.1-0.6) Eos # (Auto) (0.0-0.7) Baso # (Auto) (0.0-2.0) K/mm3 Neutrophils % (Manual) (50.0-70.0) % Lymphocytes % (Manual) (22.0-35.0) % Monocytes % (Manual) (1.0-6.0) % Toxic Granulation Platelet Evaluation (NORMAL) Hypochromasia Rouleaux PT (9.4-12.5) SECONDS INR APTT (25.1-36.5) Seconds pO2 50 (30-55) mm/Hg VBG pH 7.36 (7.32-7.43) VBG pCO2 47.0 (40-60) VBG HCO3 26.6 (21-28) mmol/l VBG Total CO2 28.0 (22-28) mmol.L VBG O2 Sat (Calc) 86.8 H (40-65) % VBG Base Excess 0.6 (0.0-2.0) mmol/L VBG Potassium 4.6 (3.6-5.2) mmol/L Sodium 158.0 H (132-148) mmol/L Chloride 121.0 H (98-107) mmol/L Glucose 143 H (75-110) mg/dl Lactate 3.0 H (0.7-2.1) mmol/L FiO2 21.0 % Potassium (3.6-5.0) mmol/L Carbon Dioxide (21-33) mmol/L Anion Gap (10-20) BUN (7-21) mg/dL Creatinine (0.8-1.5) mg/dl Est GFR ( Amer) Est GFR (Non-Af Amer) Random Glucose (70-110) mg/dL Calcium (8.4-10.5) mg/dL Troponin I ng/mL Procalcitonin 0.19 (0.19-0.49) NG/ML Venous Blood Potassium 4.6 (3.6-5.2) mmol/L Urine Color [place] (YELLOW) Urine Appearance Cloudy (CLEAR) Urine pH 6.0 (4.7-8.0) Ur Specific [place] 1.025 (1.005-1.035) Urine Protein 100 H (<30 mg/dL) mg/dL Urine Glucose (UA) Negative (NEGATIVE) mg/dL Urine Ketones Trace H (NEGATIVE) mg/dL Urine Blood Large H (NEGATIVE) Urine Nitrate Positive H (NEGATIVE) Urine Bilirubin Small H (NEGATIVE) Urine Urobilinogen 2.0 H (<1 E.U./dL) E.U./dL Ur Leukocyte Esterase Moderate H (NEGATIVE) [place]/uL Urine RBC Tntc (0-2) /hpf Urine WBC Tntc (0-6) /hpf Ur Epithelial Cells 6 - 8 (0-5) /hpf Urine Bacteria Many (NEG) Ur Random Creatinine mg/dL Ur Random Sodium meq/L Ur Random Phosphorus mg/dL Urine Chloride (32-290) mmol/L Urine Magnesium mg/dL 08/07/18 08/07/18 08/07/18 Range/Units 16:16 16:16 16:16 WBC (4.5-11.0) 10^3/uL RBC (3.5-6.1) 10^6/uL Hgb (14.0-18.0) g/dL Hct (42.0-52.0) % MCV (80.0-105.0) fl MCH (25.0-35.0) pg MCHC (31.0-37.0) g/dl RDW (11.5-14.5) % Plt Count (120.0-450.0) 10^3/uL MPV (7.0-11.0) fl Gran % (50.0-68.0) % Lymph % (Auto) (22.0-35.0) % [place] % (Auto) (1.0-6.0) % Eos % (Auto) (1.5-5.0) % Baso % (Auto) (0.0-3.0) % Gran # (1.4-6.5) Lymph # (Auto) (1.2-3.4) [place] # (Auto) (0.1-0.6) Eos # (Auto) (0.0-0.7) Baso # (Auto) (0.0-2.0) K/mm3 Neutrophils % (Manual) 94 H (50.0-70.0) % Lymphocytes % (Manual) 4 L (22.0-35.0) % Monocytes % (Manual) 2 (1.0-6.0) % Toxic Granulation 1+ Platelet Evaluation Normal (NORMAL) Hypochromasia 1+ Rouleaux 2+ PT (9.4-12.5) SECONDS INR APTT (25.1-36.5) Seconds pO2 44 (30-55) mm/Hg VBG pH 7.34 (7.32-7.43) VBG pCO2 51.0 (40-60) VBG HCO3 27.5 (21-28) mmol/l VBG Total CO2 29.1 H (22-28) mmol.L VBG O2 Sat (Calc) 79.6 H (40-65) % VBG Base Excess 0.9 (0.0-2.0) mmol/L VBG Potassium 5.4 H (3.6-5.2) mmol/L Sodium 159.0 H (132-148) mmol/L Chloride 121.0 H (98-107) mmol/L Glucose 131 H (75-110) mg/dl Lactate 3.5 H (0.7-2.1) mmol/L FiO2 21.0 % Potassium (3.6-5.0) mmol/L Carbon Dioxide (21-33) mmol/L Anion Gap (10-20) BUN (7-21) mg/dL Creatinine (0.8-1.5) mg/dl Est GFR ( Amer) Est GFR (Non-Af Amer) Random Glucose (70-110) mg/dL Calcium (8.4-10.5) mg/dL Troponin I 0.18 H* D ng/mL Procalcitonin (0.19-0.49) NG/ML Venous Blood Potassium 5.4 H (3.6-5.2) mmol/L Urine Color (YELLOW) Urine Appearance (CLEAR) Urine pH (4.7-8.0) Ur Specific [place] (1.005-1.035) Urine Protein (<30 mg/dL) mg/dL Urine Glucose (UA) (NEGATIVE) mg/dL Urine Ketones (NEGATIVE) mg/dL Urine Blood (NEGATIVE) Urine Nitrate (NEGATIVE) Urine Bilirubin (NEGATIVE) Urine Urobilinogen (<1 E.U./dL) E.U./dL Ur Leukocyte Esterase (NEGATIVE) [place]/uL Urine RBC (0-2) /hpf Urine WBC (0-6) /hpf Ur Epithelial Cells (0-5) /hpf Urine Bacteria (NEG) Ur Random Creatinine mg/dL Ur Random Sodium meq/L Ur Random Phosphorus mg/dL Urine Chloride (32-290) mmol/L Urine Magnesium mg/dL Laboratory Results - last 24 hr 08/07/18 08/07/18 08/07/18 16:16 16:16 16:16 WBC RBC Hgb Hct MCV MCH MCHC RDW Plt Count MPV Gran % Lymph % (Auto) [place] % (Auto) Eos % (Auto) Baso % (Auto) Gran # Lymph # (Auto) [place] # (Auto) Eos # (Auto) Baso # (Auto) Neutrophils % (Manual) 94 H Lymphocytes % (Manual) 4 L Monocytes % (Manual) 2 Toxic Granulation 1+ Platelet Evaluation Normal Hypochromasia 1+ Rouleaux 2+ PT INR APTT pO2 44 VBG pH 7.34 VBG pCO2 51.0 VBG HCO3 27.5 VBG Total CO2 29.1 H VBG O2 Sat (Calc) 79.6 H VBG Base Excess 0.9 VBG Potassium 5.4 H Sodium 159.0 H Chloride 121.0 H Glucose 131 H Lactate 3.5 H FiO2 21.0 Potassium Carbon Dioxide Anion Gap BUN Creatinine Est GFR ( Amer) Est GFR (Non-Af Amer) Random Glucose Calcium Troponin I 0.18 H* D Procalcitonin Venous Blood Potassium 5.4 H Urine Color Urine Appearance Urine pH Ur Specific [place] Urine Protein Urine Glucose (UA) Urine Ketones Urine Blood Urine Nitrate Urine Bilirubin Urine Urobilinogen Ur Leukocyte Esterase Urine RBC Urine WBC Ur Epithelial Cells Urine Bacteria Ur Random Creatinine Ur Random Sodium Ur Random Phosphorus Urine Chloride Urine Magnesium 08/07/18 08/07/18 08/07/18 16:16 17:20 18:45 WBC RBC Hgb Hct MCV MCH MCHC RDW Plt Count MPV Gran % Lymph % (Auto) [place] % (Auto) Eos % (Auto) Baso % (Auto) Gran # Lymph # (Auto) [place] # (Auto) Eos # (Auto) Baso # (Auto) Neutrophils % (Manual) Lymphocytes % (Manual) Monocytes % (Manual) Toxic Granulation Platelet Evaluation Hypochromasia Rouleaux PT INR APTT pO2 50 VBG pH 7.36 VBG pCO2 47.0 VBG HCO3 26.6 VBG Total CO2 28.0 VBG O2 Sat (Calc) 86.8 H VBG Base Excess 0.6 VBG Potassium 4.6 Sodium 158.0 H Chloride 121.0 H Glucose 143 H Lactate 3.0 H FiO2 21.0 Potassium Carbon Dioxide Anion Gap BUN Creatinine Est GFR ( Amer) Est GFR (Non-Af Amer) Random Glucose Calcium Troponin I Procalcitonin 0.19 Venous Blood Potassium 4.6 Urine Color Deana Urine Appearance Cloudy Urine pH 6.0 Ur Specific [place] 1.025 Urine Protein 100 H Urine Glucose (UA) Negative Urine Ketones Trace H Urine Blood Large H Urine Nitrate Positive H Urine Bilirubin Small H Urine Urobilinogen 2.0 H Ur Leukocyte Esterase Moderate H Urine RBC Tntc Urine WBC Tntc Ur Epithelial Cells 6 - 8 Urine Bacteria Many Ur Random Creatinine Ur Random Sodium Ur Random Phosphorus Urine Chloride Urine Magnesium 08/07/18 08/07/18 08/07/18 18:45 20:15 20:15 WBC RBC Hgb Hct MCV MCH MCHC RDW Plt Count MPV Gran % Lymph % (Auto) [place] % (Auto) Eos % (Auto) Baso % (Auto) Gran # Lymph # (Auto) [place] # (Auto) Eos # (Auto) Baso # (Auto) Neutrophils % (Manual) Lymphocytes % (Manual) Monocytes % (Manual) Toxic Granulation Platelet Evaluation Hypochromasia Rouleaux PT INR APTT pO2 VBG pH VBG pCO2 VBG HCO3 VBG Total CO2 VBG O2 Sat (Calc) VBG Base Excess VBG Potassium Sodium 156 H* Chloride 123 H Glucose Lactate FiO2 Potassium 4.9 Carbon Dioxide 27 Anion Gap 12 BUN 62 H Creatinine 1.8 H Est GFR ( Amer) 43 Est GFR (Non-Af Amer) 36 Random Glucose 141 H Calcium 9.2 Troponin I 0.20 H* Procalcitonin Venous Blood Potassium Urine Color Urine Appearance Urine pH Ur Specific [place] Urine Protein Urine Glucose (UA) Urine Ketones Urine Blood Urine Nitrate Urine Bilirubin Urine Urobilinogen Ur Leukocyte Esterase Urine RBC Urine WBC Ur Epithelial Cells Urine Bacteria Ur Random Creatinine 153 Ur Random Sodium 13 Ur Random Phosphorus 55.7 Urine Chloride 26 L Urine Magnesium 3.6 08/07/18 08/07/18 08/07/18 21:25 21:25 23:15 WBC RBC Hgb Hct MCV MCH MCHC RDW Plt Count MPV Gran % Lymph % (Auto) [place] % (Auto) Eos % (Auto) Baso % (Auto) Gran # Lymph # (Auto) [place] # (Auto) Eos # (Auto) Baso # (Auto) Neutrophils % (Manual) Lymphocytes % (Manual) Monocytes % (Manual) Toxic Granulation Platelet Evaluation Hypochromasia Rouleaux PT 15.7 H INR 1.37 APTT 25.3 pO2 43 VBG pH 7.43 VBG pCO2 40.0 VBG HCO3 26.5 VBG Total CO2 27.7 VBG O2 Sat (Calc) 83.5 H VBG Base Excess 2.0 VBG Potassium 4.3 Sodium 155 H 160.0 H* Chloride 124 H 123.0 H Glucose 146 H Lactate 2.4 H FiO2 21.0 Potassium 4.6 Carbon Dioxide 25 Anion Gap 14 BUN 62 H Creatinine 1.8 H Est GFR ( Amer) 43 Est GFR (Non-Af Amer) 36 Random Glucose 146 H Calcium 9.3 Troponin I 0.32 H* D Procalcitonin Venous Blood Potassium 4.3 Urine Color Urine Appearance Urine pH Ur Specific [place] Urine Protein Urine Glucose (UA) Urine Ketones Urine Blood Urine Nitrate Urine Bilirubin Urine Urobilinogen Ur Leukocyte Esterase Urine RBC Urine WBC Ur Epithelial Cells Urine Bacteria Ur Random Creatinine Ur Random Sodium Ur Random Phosphorus Urine Chloride Urine Magnesium 08/07/18 08/08/18 08/08/18 23:15 01:40 01:40 WBC RBC Hgb Hct MCV MCH MCHC RDW Plt Count MPV Gran % Lymph % (Auto) [place] % (Auto) Eos % (Auto) Baso % (Auto) Gran # Lymph # (Auto) [place] # (Auto) Eos # (Auto) Baso # (Auto) Neutrophils % (Manual) Lymphocytes % (Manual) Monocytes % (Manual) Toxic Granulation Platelet Evaluation Hypochromasia Rouleaux PT INR APTT pO2 60 H VBG pH 7.42 VBG pCO2 42.0 VBG HCO3 27.2 VBG Total CO2 28.5 H VBG O2 Sat (Calc) 93.9 H VBG Base Excess 2.4 H VBG Potassium 4.0 Sodium 157 H* 159.0 H Chloride 124 H 124.0 H Glucose 137 H Lactate 1.7 FiO2 21.0 Potassium 4.1 Carbon Dioxide 27 Anion Gap 10 BUN 59 H Creatinine 1.8 H Est GFR ( Amer) 43 Est GFR (Non-Af Amer) 36 Random Glucose 139 H Calcium 9.3 Troponin I Procalcitonin Venous Blood Potassium 4.0 Urine Color Yellow Urine Appearance Cloudy Urine pH 5.5 Ur Specific [place] 1.025 Urine Protein 30 H Urine Glucose (UA) Negative Urine Ketones Negative Urine Blood Large H Urine Nitrate Positive H Urine Bilirubin Negative Urine Urobilinogen 1.0 H Ur Leukocyte Esterase Moderate H Urine RBC 2 - 5 Urine WBC 15 - 20 Ur Epithelial Cells 0 - 2 Urine Bacteria Many Ur Random Creatinine Ur Random Sodium Ur Random Phosphorus Urine Chloride Urine Magnesium 08/08/18 08/08/18 08/08/18 05:30 05:30 05:30 WBC 16.1 H RBC 4.43 Hgb 13.3 L Hct 42.8 MCV 96.6 MCH 30.0 MCHC 31.1 RDW 15.5 H Plt Count 187 MPV 11.2 H Gran % 91.5 H Lymph % (Auto) 6.4 L [place] % (Auto) 1.9 Eos % (Auto) 0.1 L Baso % (Auto) 0.1 Gran # 14.76 H Lymph # (Auto) 1.0 L [place] # (Auto) 0.3 Eos # (Auto) 0.0 Baso # (Auto) 0.01 Neutrophils % (Manual) Lymphocytes % (Manual) Monocytes % (Manual) Toxic Granulation Platelet Evaluation Hypochromasia Rouleaux PT INR APTT 63.0 H pO2 VBG pH VBG pCO2 VBG HCO3 VBG Total CO2 VBG O2 Sat (Calc) VBG Base Excess VBG Potassium Sodium 156 H* Chloride 124 H Glucose Lactate FiO2 Potassium 4.3 Carbon Dioxide 27 Anion Gap 11 BUN 58 H Creatinine 1.7 H Est GFR ( Amer) 46 Est GFR (Non-Af Amer) 38 Random Glucose 129 H Calcium 9.3 Troponin I Procalcitonin Venous Blood Potassium Urine Color Urine Appearance Urine pH Ur Specific [place] Urine Protein Urine Glucose (UA) Urine Ketones Urine Blood Urine Nitrate Urine Bilirubin Urine Urobilinogen Ur Leukocyte Esterase Urine RBC Urine WBC Ur Epithelial Cells Urine Bacteria Ur Random Creatinine Ur Random Sodium Ur Random Phosphorus Urine Chloride Urine Magnesium 08/08/18 08/08/18 08/08/18 11:12 13:00 16:10 WBC RBC Hgb Hct MCV MCH MCHC RDW Plt Count MPV Gran % Lymph % (Auto) [place] % (Auto) Eos % (Auto) Baso % (Auto) Gran # Lymph # (Auto) [place] # (Auto) Eos # (Auto) Baso # (Auto) Neutrophils % (Manual) Lymphocytes % (Manual) Monocytes % (Manual) Toxic Granulation Platelet Evaluation Hypochromasia Rouleaux PT INR APTT 45.3 H pO2 VBG pH VBG pCO2 VBG HCO3 VBG Total CO2 VBG O2 Sat (Calc) VBG Base Excess VBG Potassium Sodium 157 H* 154 H Chloride 124 H 124 H Glucose Lactate FiO2 Potassium 4.3 3.9 Carbon Dioxide 28 25 Anion Gap 9 L 8 L BUN 55 H 54 H Creatinine 1.6 H 1.5 Est GFR ( Amer) 50 54 Est GFR (Non-Af Amer) 41 44 Random Glucose 112 H 107 Calcium 9.2 8.8 Troponin I Procalcitonin Venous Blood Potassium Urine Color Urine Appearance Urine pH Ur Specific [place] Urine Protein Urine Glucose (UA) Urine Ketones Urine Blood Urine Nitrate Urine Bilirubin Urine Urobilinogen Ur Leukocyte Esterase Urine RBC Urine WBC Ur Epithelial Cells Urine Bacteria Ur Random Creatinine Ur Random Sodium Ur Random Phosphorus Urine Chloride Urine Magnesium EKG/Cardiology Studies: Cardiology / EKG Studies 08/07/18 16:20 ELECTROCARDIOGRAM Stat Comment: Reason For Exam: Sepsis Patient 08/07/18 17:38 EKG [ELECTROCARDIOGRAM] Stat Comment: Reason For Exam: shock 08/07/18 22:26 EKG [ELECTROCARDIOGRAM] Stat Comment: Reason For Exam: troponins Addendum Addendum: 08/08/18 17:11 .ICU Attending Addendum Patient seen and examined. Case reviewed on round with housestaff. Agree with resident note above with the following additions/exceptions: 88M with HyperNa and UTI likely from dehydration Sodium only gradually dropped from 161 to 156 LR was chosen because he was also hyperchloremic Since sodium is not getting lower will change fluids to D5 1/2 NS which has 77meq of Na and Cl- His free water deficit is 4.7L he has received almost 3 of those liters will given him 2 more liters of D51/2 at 200cc/hour hold fluids if he developds SOB, signs of overload repeat BMP q 4 hour to ensure it does not drop too fast (sodium) cont merrem for UTI doxy for possible pna abx as per ID stable for transfer out of ICU Rest of care as above Chrissy Villegas MD Pulmonary, Critical Care and Sleep Medicine
--- NOTE | 2018-08-08 13:36 | CARD ---
APPROVED REPORT Date of service: 08/07/2018 EKG Measurement Heart [id number] <Conclusion> Normal sinus rhythm Right bundle branch block Left anterior fascicular block Bifascicular block Voltage criteria for left ventricular hypertrophy Abnormal ECG
--- NOTE | 2018-08-08 13:59 | CP.PCM.PN ---
<Ousmane Matta - Last Filed: 08/08/18 14:27> Subjective - Date & Time of Evaluation Date of Evaluation: 08/08/18 Time of Evaluation: 07:00 - Subjective Subjective: Pt seen and examined this morning in the ICU. Pt only minimally responsive, making it difficult to obtain a full history Objective - Vital Signs/Intake and Output Vital Signs (last 24 hours): Temp Pulse Resp BP Pulse Ox 98.4 F 81 30 H 124/67 95 08/08/18 09:45 08/08/18 09:42 08/07/18 20:28 08/08/18 09:42 08/07/18 19:05 Intake and Output: 08/08/18 08/08/18 06:59 18:59 Intake Total 2400 Output Total 300 Balance 2100 - Medications Medications: Current Medications Albuterol/Ipratropium (Duoneb 3 Mg/0.5 Mg (3 Ml) Ud) 3 ml IH [id number] PRN PRN Reason: Shortness of Breath Artificial Tears (Refresh Opth Soln) 0 ml OU Q4 PRN PRN Reason: Dry eyes Aspirin (Aspirin Supp) 300 mg RC DAILY TOMMY Last Admin: 08/08/18 09:45 Dose: 300 mg Doxycycline Hyclate 100 mg/ (Sodium Chloride) 100 mls @ 100 mls/hr IVPB Q12 TOMMY; Protocol Last Admin: 08/08/18 09:37 Dose: 100 mls/hr Acetaminophen (Ofirmev) 1,000 mg in 100 mls @ 400 mls/hr IVPB Q6H PRN PRN Reason: Temperature Stop: 08/09/18 20:22 Last Admin: 08/07/18 21:21 Dose: 400 mls/hr Heparin Sodium/Sodium Chloride (Heparin 28036 Units/250ml 1/2 Normal Saline) 25,000 units in 250 mls @ 8.219 mls/hr IV .Q24H TOMMY; Protocol Last Admin: 08/08/18 00:33 Dose: 12 units/kg/hr, 8.219 mls/hr Meropenem (Merrem Iv 1 Gm Premix) 1 gm in 50 mls @ 12.5 mls/hr IVPB Q12 TOMMY; Protocol Stop: 08/17/18 10:25 Last Admin: 08/08/18 12:11 Dose: 12.5 mls/hr Sodium Chloride (Sodium Chloride 0.45%) 1,000 mls @ 200 mls/hr IV .Q5H [facility] Stop: 08/08/18 21:29 Last Admin: 08/08/18 12:05 Dose: 200 mls/hr Metoprolol Tartrate (Lopressor) 5 mg IVP Q6H [facility] Last Admin: 08/08/18 09:42 Dose: 5 mg Nitroglycerin (Nitro-Bid 2% Oint) 0.5 ea TOP Q6H TOMMY Last Admin: 08/08/18 09:47 Dose: 0.5 ea Pantoprazole Sodium (Protonix Inj) 40 mg IVP DAILY [facility] Last Admin: 08/08/18 09:42 Dose: 40 mg Thiamine HCl (Vitamin B1 Inj) 200 mg IV DAILY [facility] Last Admin: 08/08/18 10:02 Dose: 200 mg - Labs Labs: 08/08/18 05:30 08/08/18 11:12 PT 15.7 SECONDS (9.4-12.5) H 08/07/18 23:15 INR 1.37 08/07/18 23:15 APTT 45.3 Seconds (25.1-36.5) H 08/08/18 13:00 - Constitutional Appears: Non-toxic, No Acute Distress - Head Exam Head Exam: ATRAUMATIC, NORMAL INSPECTION, NORMOCEPHALIC - Eye Exam Eye Exam: EOMI - ENT Exam ENT Exam: Mucous Membranes Moist - Neck Exam Neck Exam: Full ROM - Respiratory Exam Respiratory Exam: Clear to Ausculation Bilateral, NORMAL BREATHING PATTERN. absent: Accessory Muscle Use, Wheezes, Respiratory Distress - Cardiovascular Exam Cardiovascular Exam: RRR, +S1, +S2. absent: Diastolic murmur, Murmur - GI/Abdominal Exam GI & Abdominal Exam: Soft, Normal Bowel Sounds - Extremities Exam Extremities Exam: Full ROM. absent: Calf Tenderness, Pedal Edema - Neurological Exam Neurological Exam: Alert, Awake, Oriented x3 - Psychiatric Exam Psychiatric exam: Normal Affect, Normal Mood - Skin Skin Exam: Dry, Intact, Warm Assessment and Plan - Assessment and Plan (Free Text) Assessment: Patient is a 88 male with a history of Parkinson's disease, dementia, and recent ESBL + UTI presenting from [facility] with complaints of lethargy, failure to thrive, and fever found to have UTI Plan: Neuro UTI - Previous ESBL+, start patient on doxycycline and merropenum - urine cultures: GNR Cardio - Troponin 0.18, 0.20, 0.32 - follow ECHO - cardio consulted Respiratory - continue to monitor Nephrology/ Hypernatremia - Na 157 - likely secondary due dehydration - Continue with LR@ 200; make sure to monitor for overcorrecting - Nephrology consulted, Dr Beck Acute kidney injury - Cr 1.6, BUN 55, GFR 41 - Monitor improvement with IVF GI - NPO Endocrine - maintain pt euglycemic ID Septic shock secondary to Urinary Tract Infection - WBC 16.1 - NS@200 - CT abdomen/pelvis: large LLL PNA - Procalcitonin - blood cultures pending Ppx - SCD - Protonix - NPO Pt seen, examined, assessment and plan discussed with Dr Federico Matta PGY1 Internal Medicine Resident <Serena Caballero - Last Filed: 08/09/18 15:32> Objective - Vital Signs/Intake and Output Vital Signs (last 24 hours): Temp Pulse Resp BP Pulse Ox 98.4 F 72 29 H 146/59 L 96 08/09/18 08:00 08/09/18 10:37 08/09/18 08:00 08/09/18 10:37 08/09/18 08:00 Intake and Output: 08/09/18 08/09/18 06:59 18:59 Intake Total 1908 165 Output Total 400 Balance 1508 165 - Medications Medications: Current Medications Albuterol/Ipratropium (Duoneb 3 Mg/0.5 Mg (3 Ml) Ud) 3 ml IH [id number] PRN PRN Reason: Shortness of Breath Last Admin: 08/09/18 01:06 Dose: 3 ml Artificial Tears (Refresh Opth Soln) 0 ml OU Q4 PRN PRN Reason: Dry eyes Aspirin (Aspirin Supp) 300 mg RC DAILY TOMMY Last Admin: 08/08/18 09:45 Dose: 300 mg Doxycycline Hyclate 100 mg/ (Sodium Chloride) 100 mls @ 100 mls/hr IVPB Q12 TOMMY; Protocol Last Admin: 08/09/18 10:46 Dose: 100 mls/hr Heparin Sodium/Sodium Chloride (Heparin 68991 Units/250ml 1/2 Normal Saline) 25,000 units in 250 mls @ 8.219 mls/hr IV .Q24H TOMMY; Protocol Last Titration: 08/09/18 10:10 Dose: 16 units/kg/hr, 10.959 mls/hr Meropenem (Merrem Iv 1 Gm Premix) 1 gm in 50 mls @ 12.5 mls/hr IVPB Q12 TOMMY; Protocol Stop: 08/17/18 10:25 Last Admin: 08/09/18 10:26 Dose: 12.5 mls/hr Sodium Chloride (Sodium Chloride 0.45%) 1,000 mls @ 125 mls/hr IV .Q8H TOMMY Last Admin: 08/09/18 10:10 Dose: 125 mls/hr Dextrose (Dextrose 5% In Water 1000 Ml) 1,000 mls @ 75 mls/hr IV .[id number] TOMMY Last Admin: 08/09/18 10:00 Dose: 75 mls/hr Metoprolol Tartrate (Lopressor) 5 mg IVP Q6H TOMMY Last Admin: 08/09/18 10:37 Dose: 5 mg Nitroglycerin (Nitro-Bid 2% Oint) 0.5 ea TOP Q6H TOMMY Last Admin: 08/09/18 10:36 Dose: 0.5 ea Pantoprazole Sodium (Protonix Inj) 40 mg IVP DAILY TOMMY Last Admin: 08/09/18 10:40 Dose: 40 mg Thiamine HCl (Vitamin B1 Inj) 200 mg IV DAILY [facility] Last Admin: 08/09/18 10:43 Dose: 200 mg - Labs Labs: 08/09/18 05:00 08/09/18 05:00 PT 15.7 SECONDS (9.4-12.5) H 08/07/18 23:15 INR 1.37 08/07/18 23:15 APTT 41.6 Seconds (25.1-36.5) H 08/09/18 09:00 Attending/Attestation - Attestation I have personally seen and examined this patient.: Yes I have fully participated in the care of the patient.: Yes I have reviewed all pertinent clinical information, including history, physical exam and plan: Yes Notes (Text): 08/09/18 15:25 Patient was seen and examined with director biomedical engineering. 88 male with a history of Parkinson's disease, dementia, was transferred from [place] with complaints of lethargy, failure to thrive, and fever, found to have Sepsis due to UTI, Hypernatremia and acute renal failure due to dehydration likely due to decrease oral intake. Continue IV antibiotics for UTI, WBC count is coming down.Blood cultures are negative for growth.Urine cultures are growing gram negative courtney. Hypernatremia and RENNY, is improving, continue 1/2 NS Elevated troponin with out EKG changes likely due to demand ischemia, Echo showed normal systolic function and moderate AR.Cardiology evaluation is appreciated. Dysphagia,Awaiting swallow evaluation Prognosis is guarded 08/09/18 15:27
--- NOTE | 2018-08-08 15:06 | CON ---
DATE: 08/08/2018 REASON FOR CONSULTATION: Cardiac evaluation, abnormal troponin, admitted with . BRIEF CLINICAL HISTORY: An 88-year-old male with a past medical history significant for Parkinson disease, dementia, recent UTI, transferred to group home because of lethargy and failure to thrive and fever, possibly urosepsis. The patient is a very poor historian, unable to give any history, information obtained from the chart. Troponin was found to be positive his fault. The patient on waking up denies any chest pain, shortness of breath or any palpitation. PAST HISTORY: Significant for Parkinson disease, dementia, recent UTI, recently transferred from [facility] to the group home where the patient was found to be very weak, lethargic and transferred to [facility]. History of recently being treated in [facility] for the UTI. FAMILY HISTORY: Noncontributory at this stage of life. SOCIAL HISTORY: Denies any history of alcohol abuse in the chart. CURRENT MEDICATIONS: Mag oxide, albuterol, carbidopa, vitamin B-complex, scopolamine, albuterol. ALLERGIES: NO KNOWN DRUG ALLERGIES. Cardiac workup nothing available. EKG shows normal sinus, right bundle-branch block, left anterior hemiblock. No acute ST-T changes are noted. PHYSICAL EXAMINATION VITAL SIGNS: Height of the patient is 5 feet 4 inches, weight of the patient is 140 pounds, body mass index 24 kg/m2. Rest of the vitals, temperature 99 now, heart rate 89, blood pressure 122/58. HEENT: PERRLA. Extraocular muscles are Intact. NECK: Supple. No carotid bruit or thyromegaly. CHEST: Clear to auscultation. HEART: S1, S2 regular. ABDOMEN: Soft. EXTREMITIES: Clubbing and cyanosis negative. LABORATORY DATA: Blood workup as follows: WBC 16.1, hemoglobin 13.3, hematocrit 42.8, platelet count 187. Chemistry shows sodium 152, potassium 4.8, chloride 124, carbon dioxide is 27, anion gap of 11, BUN 15, creatinine 1.7. Troponin is 0.02 to 0.32. Creatinine clearance 38 mL. IMPRESSION: An 88-year-old male with past medical history significant for Parkinson disease, dementia, hypertension, recently admitted to [facility] with urinary tract infection and transferred to the group home, found to be lethargic, failure to thrive, unable to eat, transferred here, found to be hypernatremic, renal insufficiency, acute on possibly chronic renal insufficiency, hemoconcentration, positive to troponin, mentally the patient is demented. RECOMMENDATIONS: Because of the patient's overall condition, morbidity and asymptomatic, suggest we will treat medically. Patient is already on heparin, we will continue heparin. We will put low dose of beta sis and blood pressure started, we will put a nitrate and we will put rectal suppository, aspirin. We will treat as there is no plan for aggressive treatment. We will follow with you. In view of patient's overall condition, advanced dementia, lethargy, very symptomatic and no evidence of acute ST-T changes, we will treat medically. We will start aspirin suppository 300 mg daily. We will put the nitro paste 0.5 mg daily and we will get echo to assess LV function. We will put 5 of Lopressor every 6 with holding parameters. Until the patient starts eating, then we will put p.o. Hold for systolic less than 120 heart rate. This bump in the troponin could be secondary to non-STEMI versus hemodynamic stability and sepsis and underlying CAD. Agree to continue IV fluid for hypernatremia. Thank you Dr. Jean for providing us the opportunity in taking care of the patient, Sravan Masterson. Serena Soto MD
[2018-08-08 16:37] LABS: CALCIUM 8.8 mg/dL (8.4-10.5)
--- NOTE | 2018-08-08 17:44 | CARD ---
APPROVED REPORT Date of service: 08/08/2018 EXAM: Two-dimensional and M-mode echocardiogram with Doppler and color Doppler. INDICATION SHOCK 2D DIMENSIONS Left Atrium (2D)5.1 (1.6-4.0cm)IVSd1.2 (0.7-1.1cm) LVDd5.6 (3.9-5.9cm)PWd1.2 (0.7-1.1cm) M-Mode DIMENSIONS Aortic Root3.90 (2.2-3.7cm)Aortic Cusp Exc.1.40 (1.5-2.0cm) Aortic Valve AoV Peak Ophijmub380.0cm/sAoV VTI37.9cmAO Peak GR.15mmHg LVOT Peak Codgzpbo92.0cm/sLVOT VTI18.30cmAO Mean GR.8mmHg AI P 1/2 [id number] Mitral Valve E/A ratio0.0 TDI E/Lateral E'0.0E/Medial E'0.0 Tricuspid Valve TR Peak [id number]/sTR Peak Gr.27mmHg LEFT VENTRICLE The left ventricle is normal size. There is mild concentric left ventricular hypertrophy. The left ventricular function is normal.EF-55% There is normal LV segmental wall motion. A fib No left ventricle thrombus noted on this study. There is no ventricular septal defect visualized. There is no left ventricular aneurysm. There is no mass noted in the left ventricle. RIGHT VENTRICLE The right ventricle is normal size. There is normal right ventricular wall thickness. The right ventricular systolic function is normal. ATRIA The left atrium is mildly dilated. The right atrium size is normal. The atrial septum is aneurysmal. AORTIC VALVE The aortic valve is calcified and displays decreased opening. There is moderate aortic regurgitation, Eccentric Jet There is mild to moderate valvular aortic stenosis. There is no aortic valvular vegetation. MITRAL VALVE The mitral valve is thickened but opens well. Mitral annular calcification is moderate. Mitral regurgitation is trace to mild. There is no mitral valve stenosis. There is no evidence of mitral valve prolapse. TRICUSPID VALVE The tricuspid valve leaflets are thickened , but open well. There is mild tricuspid regurgitation.RVSP_26 mmof Hg. There is no tricuspid valve stenosis. There is no tricuspid valve prolapse or vegetation. PULMONIC VALVE The pulmonic valve is not well visualized. GREAT VESSELS The aortic root is normal in size. The ascending aorta is normal in size. The pulmonary artery is normal. The IVC is normal in size and collapses >50% with inspiration. PERICARDIAL EFFUSION There is no pleural effusion. There is no pericardial effusion. <Conclusion> There is mild concentric left ventricular hypertrophy. The left ventricular function is normal.EF-55% There is moderate aortic regurgitation, Eccentric Jet There is mild to moderate valvular aortic stenosis. Mitral regurgitation is trace to mild. There is mild tricuspid regurgitation.RVSP_26 mmof Hg. The IVC is normal in size and collapses >50% with inspiration. There is no pericardial effusion.
[2018-08-08 20:58] LABS: CALCIUM 8.9 mg/dL (8.4-10.5)
--- NOTE | 2018-08-08 21:59 | CON ---
DATE: 08/08/2018 CHIEF COMPLAINT: Fevers and chills, and change in mental status of one-day duration. HISTORY OF PRESENT ILLNESS: This is an 88-year-old male, who was seen early this morning in the ICU, who was admitted from a [facility] with change in mental status. Infectious Disease consultation is requested. PAST MEDICAL HISTORY: Significant for Parkinson's dementia, recent ESBL, urinary tract infection, and hypertension. PAST SURGICAL HISTORY: There is no surgery listed anywhere. ALLERGIES: THE PATIENT HAS NO KNOWN ALLERGIES. MEDICATIONS: At the fci included ertapenem. The patient is also on vitamins, carbidopa and levodopa, Proscar, and Flomax. REVIEW OF SYSTEMS: The patient is a poor historian. The patient is confused, unable to give any history. Information is gathered that according to the chart, the fci, and daughter, the patient had fevers and he had change in mental status, he had been on ertapenem for an ESBL and he continued to deteriorate. He is now in the ICU, confused, low-grade fevers. There has been no abdominal pain or diarrhea, no constipation, no bright red blood per rectum, no melena, no dysuria. The patient does have a post void catheter. A 14-point review of systems was performed. PHYSICAL EXAMINATION: GENERAL: The patient is in bed. VITAL SIGNS: Temperature of 99.1, heart rate was up to 106, blood pressure is 120/50, with a respiratory rate of 24, it went up to 30. HEENT: Unremarkable. NECK: Supple. LUNGS: Decreased breath sounds. HEART: Normal S1 and S2. ABDOMEN: Soft and nontender. LABORATORY DATA: Revealed the patient's white count is 19,000, with 18% granulocytosis, 94% neutrophils, and coagulation is noted. Chemistries reveal creatinine on admission was 2.1. Troponins are elevated x 3. Glucose is elevated. Urinalysis: Creatinine is 2.1, and nonspecific, bacteria, and too numerous to count wbc's, moderate leukocyte esterase, positive nitrites, trace ketones, positive large blood, and proteinuria and serology at is negative. Microbiology: Urine cultures had Gram-negative rods. ASSESSMENT: The patient had a CAT scan of the abdomen and pelvis, which reveals large left lower lobe pneumonia and right nephrolithiasis and the patient's CAT scan of the head is negative. 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 ASSESSMENT AND PLAN: An 88-year-old f[facility] patient with Parkinson's, fever, dementia, and extended-spectrum beta-lactamases, now admitted with severe sepsis with Gram-negative courtney in the urine as the source and a left lower lobe healthcare-associated pneumonia with acute kidney injury. We will treat the patient with meropenem and doxycycline, check on a procalcitonin, check on the MRSA nasal screen, urine and blood culture. The patient also with a non-ST elevation myocardial infarction and we will make further recommendations upon availability of initial results. OVERALL PROGNOSIS: Quite poor. Arie Alarcon MD
--- NOTE | 2018-08-08 23:22 | CP.PCM.CON ---
History of Present Illness - History of Present Illness History of Present Illness: 88 male with a history of Parkinson's disease, dementia, and recent ESBL + UTI presenting from senior living with complaints of lethargy, failure to thrive, and fever; nephrology being consulted for RENNY and hypernatremia; History unable to be obtained from patient who is demented; per records, patient was started on IVF, initially with NS yesterday at 100 cc/hr, then switched to LR at 200 cc/hr which continued till this morning; patient was also started on IV antibiotics; Review of Systems - Review of Systems Systems not reviewed;Unavailable: Dementia, Altered Mental Status Past Patient History - Tetanus Immunizations Tetanus Immunization: Unknown - Past Social History Smoking Status: Never Smoked - CARDIAC Hx Congestive Heart Failure: Yes Hx Hypertension: Yes - NEUROLOGICAL HX Cerebrovascular Accident: No Hx Dementia: Yes Hx Parkinson's Disease: Yes Hx Seizures: No - ENDOCRINE/METABOLIC Hx Endocrine Disorders: No - HEMATOLOGICAL/ONCOLOGICAL Hx Cancer: No - INTEGUMENTARY Hx Dermatological Problems: No - MUSCULOSKELETAL/RHEUMATOLOGICAL Hx Falls: Yes - GASTROINTESTINAL Hx Gastrointestinal Disorders: No - GENITOURINARY/GYNECOLOGICAL Hx Sexually Transmitted Disorders: No - PSYCHIATRIC Hx Depression: No Hx Substance Use: No - SURGICAL HISTORY Hx Surgeries: (pt denies) - ANESTHESIA Hx Anesthesia: No Meds Allergies/Adverse Reactions: Allergies Allergy/AdvReac Type Severity Reaction Status Date / Time No Known Allergies Allergy Verified 11/13/17 10:28 - Medications Medications: Current Medications Albuterol/Ipratropium (Duoneb 3 Mg/0.5 Mg (3 Ml) Ud) 3 ml IH [id number] PRN PRN Reason: Shortness of Breath Artificial Tears (Refresh Opth Soln) 0 ml OU Q4 PRN PRN Reason: Dry eyes Aspirin (Aspirin Supp) 300 mg RC DAILY [facility] Last Admin: 08/08/18 09:45 Dose: 300 mg Doxycycline Hyclate 100 mg/ (Sodium Chloride) 100 mls @ 100 mls/hr IVPB Q12 [facility]; Protocol Last Admin: 08/08/18 21:47 Dose: 100 mls/hr Heparin Sodium/Sodium Chloride (Heparin 97442 Units/250ml 1/2 Normal Saline) 25,000 units in 250 mls @ 8.219 mls/hr IV .Q24H [facility]; Protocol Last Titration: 11/02/18 14:17 Dose: 14 units/kg/hr, 9.589 mls/hr Meropenem (Merrem Iv 1 Gm Premix) 1 gm in 50 mls @ 12.5 mls/hr IVPB Q12 [facility]; Protocol Stop: 08/17/18 10:25 Last Admin: 08/08/18 21:44 Dose: 12.5 mls/hr Sodium Chloride (Sodium Chloride 0.45%) 1,000 mls @ 200 mls/hr IV .Q5H [facility] Stop: 08/09/18 07:29 Last Admin: 08/08/18 17:20 Dose: 200 mls/hr Metoprolol Tartrate (Lopressor) 5 mg IVP Q6H [facility] Last Admin: 08/08/18 21:43 Dose: 5 mg Nitroglycerin (Nitro-Bid 2% Oint) 0.5 ea TOP Q6H [facility] Last Admin: 08/08/18 21:46 Dose: 0.5 ea Pantoprazole Sodium (Protonix Inj) 40 mg IVP DAILY [facility] Last Admin: 08/08/18 09:42 Dose: 40 mg Thiamine HCl (Vitamin B1 Inj) 200 mg IV DAILY [facility] Last Admin: 08/08/18 10:02 Dose: 200 mg Physical Exam - Constitutional Appears: Non-toxic, No Acute Distress, Agitated - ENT Exam ENT Exam: Mucous Membranes Dry - Neck Exam Neck exam: Negative for: Lymphadenopathy - Respiratory Exam Respiratory Exam: Clear to Auscultation Bilateral. absent: Respiratory Distress - Cardiovascular Exam Cardiovascular Exam: RRR, +S1, +S2. absent: Gallop - GI/Abdominal Exam GI & Abdominal Exam: Soft. absent: Distended, Tenderness - Exam Additional comments: smith in place - Extremities Exam Additional comments: no leg edema; - Neurological Exam Neurological exam: Altered - Psychiatric Exam Psychiatric exam: Agitated - Skin Skin Exam: Normal Color, Warm Results - Vital Signs Recent Vital Signs: Last Vital Signs Temp 99.0 F 08/08/18 20:00 Pulse 82 08/08/18 21:43 Resp 26 H 08/08/18 20:00 BP 124/64 08/08/18 21:43 Pulse Ox 95 08/08/18 20:00 - Labs Result Diagrams: 08/09/18 05:00 08/08/18 23:25 Labs: Laboratory Results - last 24 hr 1108/07/18 08/07/18 16:16 20:15 20:15 WBC RBC Hgb Hct MCV MCH MCHC RDW Plt Count MPV Gran % Lymph % (Auto) Rolette % (Auto) Eos % (Auto) Baso % (Auto) Gran # Lymph # (Auto) Rolette # (Auto) Eos # (Auto) Baso # (Auto) PT INR APTT pO2 VBG pH VBG pCO2 VBG HCO3 VBG Total CO2 VBG O2 Sat (Calc) VBG Base Excess VBG Potassium Sodium Chloride Glucose Lactate FiO2 Potassium Carbon Dioxide Anion Gap BUN Creatinine Est GFR ( Amer) Est GFR (Non-Af Amer) Random Glucose Calcium Procalcitonin 0.19 Venous Blood Potassium Urine Color Urine Appearance Urine pH Ur Specific [place] Urine Protein Urine Glucose (UA) Urine Ketones Urine Blood Urine Nitrate Urine Bilirubin Urine Urobilinogen Ur Leukocyte Esterase Urine RBC Urine WBC Ur Epithelial Cells Urine Bacteria Ur Random Phosphorus 55.7 Urine Chloride 26 L Urine Magnesium 3.6 08/07/18 08/07/18 08/08/18 23:15 23:15 01:40 WBC RBC Hgb Hct MCV MCH MCHC RDW Plt Count MPV Gran % Lymph % (Auto) Ro[place] % (Auto) Eos % (Auto) Baso % (Auto) Gran # Lymph # (Auto) Ro[place] # (Auto) Eos # (Auto) Baso # (Auto) PT 15.7 H INR 1.37 APTT 25.3 pO2 VBG pH VBG pCO2 VBG HCO3 VBG Total CO2 VBG O2 Sat (Calc) VBG Base Excess VBG Potassium Sodium 157 H* Chloride 124 H Glucose Lactate FiO2 Potassium 4.1 Carbon Dioxide 27 Anion Gap 10 BUN 59 H Creatinine 1.8 H Est GFR ( Amer) 43 Est GFR (Non-Af Amer) 36 Random Glucose 139 H Calcium 9.3 Procalcitonin Venous Blood Potassium Urine Color Yellow Urine Appearance Cloudy Urine pH 5.5 Ur Specific [place] 1.025 Urine Protein 30 H Urine Glucose (UA) Negative Urine Ketones Negative Urine Blood Large H Urine Nitrate Positive H Urine Bilirubin Negative Urine Urobilinogen 1.0 H Ur Leukocyte Esterase Moderate H Urine RBC 2 - 5 Urine WBC 15 - 20 Ur Epithelial Cells 0 - 2 Urine Bacteria Many Ur Random Phosphorus Urine Chloride Urine Magnesium 08/08/18 08/08/18 08/08/18 01:40 05:30 05:30 WBC 16.1 H RBC 4.43 Hgb 13.3 L Hct 42.8 MCV 96.6 MCH 30.0 MCHC 31.1 RDW 15.5 H Plt Count 187 MPV 11.2 H Gran % 91.5 H Lymph % (Auto) 6.4 L Ro[place] % (Auto) 1.9 Eos % (Auto) 0.1 L Baso % (Auto) 0.1 Gran # 14.76 H Lymph # (Auto) 1.0 L [place] # (Auto) 0.3 Eos # (Auto) 0.0 Baso # (Auto) 0.01 PT INR APTT pO2 60 H VBG pH 7.42 VBG pCO2 42.0 VBG HCO3 27.2 VBG Total CO2 28.5 H VBG O2 Sat (Calc) 93.9 H VBG Base Excess 2.4 H VBG Potassium 4.0 Sodium 159.0 H 156 H* Chloride 124.0 H 124 H Glucose 137 H Lactate 1.7 FiO2 21.0 Potassium 4.3 Carbon Dioxide 27 Anion Gap 11 BUN 58 H Creatinine 1.7 H Est GFR ( Amer) 46 Est GFR (Non-Af Amer) 38 Random Glucose 129 H Calcium 9.3 Procalcitonin Venous Blood Potassium 4.0 Urine Color Urine Appearance Urine pH Ur Specific [place] Urine Protein Urine Glucose (UA) Urine Ketones Urine Blood Urine Nitrate Urine Bilirubin Urine Urobilinogen Ur Leukocyte Esterase Urine RBC Urine WBC Ur Epithelial Cells Urine Bacteria Ur Random Phosphorus Urine Chloride Urine Magnesium 08/08/18 08/08/18 08/08/18 05:30 11:12 13:00 WBC RBC Hgb Hct MCV MCH MCHC RDW Plt Count MPV Gran % Lymph % (Auto) [place] % (Auto) Eos % (Auto) Baso % (Auto) Gran # Lymph # (Auto) [place] # (Auto) Eos # (Auto) Baso # (Auto) PT INR APTT 63.0 H 45.3 H pO2 VBG pH VBG pCO2 VBG HCO3 VBG Total CO2 VBG O2 Sat (Calc) VBG Base Excess VBG Potassium Sodium 157 H* Chloride 124 H Glucose Lactate FiO2 Potassium 4.3 Carbon Dioxide 28 Anion Gap 9 L BUN 55 H Creatinine 1.6 H Est GFR ( Amer) 50 Est GFR (Non-Af Amer) 41 Random Glucose 112 H Calcium 9.2 Procalcitonin Venous Blood Potassium Urine Color Urine Appearance Urine pH Ur Specific [place] Urine Protein Urine Glucose (UA) Urine Ketones Urine Blood Urine Nitrate Urine Bilirubin Urine Urobilinogen Ur Leukocyte Esterase Urine RBC Urine WBC Ur Epithelial Cells Urine Bacteria Ur Random Phosphorus Urine Chloride Urine Magnesium 08/08/18 08/08/18 08/08/18 16:10 20:25 20:25 WBC RBC Hgb Hct MCV MCH MCHC RDW Plt Count MPV Gran % Lymph % (Auto) [place] % (Auto) Eos % (Auto) Baso % (Auto) Gran # Lymph # (Auto) [place] # (Auto) Eos # (Auto) Baso # (Auto) PT INR APTT 51.8 H pO2 VBG pH VBG pCO2 VBG HCO3 VBG Total CO2 VBG O2 Sat (Calc) VBG Base Excess VBG Potassium Sodium 154 H 152 H Chloride 124 H 124 H Glucose Lactate FiO2 Potassium 3.9 3.9 Carbon Dioxide 25 22 Anion Gap 8 L 10 BUN 54 H 53 H Creatinine 1.5 1.5 Est GFR ( Amer) 54 54 Est GFR (Non-Af Amer) 44 44 Random Glucose 107 97 Calcium 8.8 8.9 Procalcitonin Venous Blood Potassium Urine Color Urine Appearance Urine pH Ur Specific [place] Urine Protein Urine Glucose (UA) Urine Ketones Urine Blood Urine Nitrate Urine Bilirubin Urine Urobilinogen Ur Leukocyte Esterase Urine RBC Urine WBC Ur Epithelial Cells Urine Bacteria Ur Random Phosphorus Urine Chloride Urine Magnesium Assessment & Plan (1) Acute kidney injury Assessment and Plan: RENNY on CKD; consistent with pre-renal etiology in the setting of decreased PO intake and recurrent UTI; renal function improving with intravascular volume replenishment; stable volume status; likely has baseline CKD though exact baseline unclear (serum creatinine in low 1's in 2015); -Agree with 1/2NS at 200 cc/hr (to correct hyponatremia as well); -Avoid nephrotoxic agents (NSAIDS, phosphate enemia, IV dye); -check bladder scan periodically (to ensure smith draining well); Status: Acute (2) Hypernatremia Assessment and Plan: In the setting of decreased PO fluid intake; ~4L free water deficit; goal is to correct half of deficit in the first 24 hrs; -continue IVF as above; Status: Acute (3) Sepsis Assessment and Plan: Secondary to gram neg UTI; on meropenem and doxy; CT abd/pelvis mentioning large R renal calculus without any hydronephrosis; if stone is infected, patient will need prolonged antibiotic course; Status: Acute
[2018-08-09 00:29] LABS: CALCIUM 9.2 mg/dL (8.4-10.5)
[2018-08-09] MEDS: Albuterol-Ipratrop 3 mg / 0.5 (3 ml) UD IH PRN (01:06)
[2018-08-09] MEDS: Nitroglycerin 2% Ointment Foilpak UD TOP SCH ×4 (04:31→22:15)
[2018-08-09] MEDS: Metoprolol 1 mg/ml Inj IVP SCH ×4 (04:32→22:06)
[2018-08-09 05:42] LABS: EOS # 0.1 (0.0-0.7); EOS % 1.3 % (1.5-5.0); GRAN # 8.71 (1.4-6.5); GRAN % 88.9 % (50.0-68.0); HEMOGLOBIN 10.7 g/dL (14.0-18.0); LYMPH # 0.7 (1.2-3.4); LYMPH % 7.2 % (22.0-35.0); MEAN CELL VOLUME 96.2 fl (80.0-105.0); MEAN CORPUSCULAR HEMOGLOBIN 29.1 pg (25.0-35.0); MEAN CORPUSCULAR HGB CONC 30.2 g/dl (31.0-37.0); MEAN PLATELET VOLUME 11.2 fl (7.0-11.0); MONO # 0.3 (0.1-0.6); MONO % 2.6 % (1.0-6.0); RBC 3.68 10^6/uL (3.5-6.1); RED CELL DISTRIBUTION WIDTH 15.8 % (11.5-14.5); WHITE BLOOD COUNT 9.8 10^3/uL (4.5-11.0)
[2018-08-09] MEDS: Heparin25000 units/250ml 1/2NS 25,000 UNITS/250 ML BAG IV SCH (07:00)
[2018-08-09 08:10] LABS: CALCIUM 8.7 mg/dL (8.4-10.5); TROPONIN I 0.19 ng/mL
--- NOTE | 2018-08-09 10:07 | RAD ---
Date of service: 08/09/2018 HISTORY: r/o CHF COMPARISON: 08/07/2018 FINDINGS: LUNGS: No evidence of CHF PLEURA: No significant pleural effusion identified, no pneumothorax apparent. CARDIOVASCULAR: No aortic atherosclerotic calcification present. Moderate cardiomegaly no pulmonary vascular congestion. OSSEOUS STRUCTURES: No significant abnormalities. VISUALIZED UPPER ABDOMEN: Normal. OTHER FINDINGS: None. IMPRESSION: No acute findings
--- NOTE | 2018-08-09 10:08 | CP.PCM.PN ---
<Michael Schneider - Last Filed: 08/09/18 16:20> Subjective - Date & Time of Evaluation Date of Evaluation: 08/09/18 Time of Evaluation: 10:07 - Subjective Subjective: PGY-1 Medicine Progress Note for Dr. Caballero Patient seen and examined at bedside this AM in ICU. History and ROS unattainable due to lethargy, underlying dementia. Patient currently on 1/2NS @ 200 cc/hr, IV abx. Objective - Vital Signs/Intake and Output Vital Signs (last 24 hours): Temp Pulse Resp BP Pulse Ox 98.4 F 66 29 H 146/59 L 96 08/09/18 08:00 08/09/18 08:00 08/09/18 08:00 08/09/18 08:00 08/09/18 08:00 Intake and Output: 08/09/18 08/09/18 06:59 18:59 Intake Total 1908 Output Total 400 Balance 1508 - Medications Medications: Current Medications Albuterol/Ipratropium (Duoneb 3 Mg/0.5 Mg (3 Ml) Ud) 3 ml IH [id number] PRN PRN Reason: Shortness of Breath Last Admin: 08/09/18 01:06 Dose: 3 ml Artificial Tears (Refresh Opth Soln) 0 ml OU Q4 PRN PRN Reason: Dry eyes Aspirin (Aspirin Supp) 300 mg RC DAILY [facility] Last Admin: 08/08/18 09:45 Dose: 300 mg Doxycycline Hyclate 100 mg/ (Sodium Chloride) 100 mls @ 100 mls/hr IVPB Q12 [facility]; Protocol Last Admin: 08/08/18 21:47 Dose: 100 mls/hr Heparin Sodium/Sodium Chloride (Heparin 55048 Units/250ml 1/2 Normal Saline) 2 5,000 units in 250 mls @ 8.219 mls/hr IV .Q24H [facility]; Protocol Last Titration: 08/08/18 14:17 Dose: 14 units/kg/hr, 9.589 mls/hr Meropenem (Merrem Iv 1 Gm Premix) 1 gm in 50 mls @ 12.5 mls/hr IVPB Q12 [facility]; Protocol Stop: 08/17/18 10:25 Last Admin: 08/08/18 21:44 Dose: 12.5 mls/hr Sodium Chloride (Sodium Chloride 0.45%) 1,000 mls @ 125 mls/hr IV .Q8H [facility] Dextrose (Dextrose 5% In Water 1000 Ml) 1,000 mls @ 75 mls/hr IV .[id number] [facility] Metoprolol Tartrate (Lopressor) 5 mg IVP Q6H [facility] Last Admin: 08/09/18 04:32 Dose: 5 mg Nitroglycerin (Nitro-Bid 2% Oint) 0.5 ea TOP Q6H [facility] Last Admin: 08/09/18 04:31 Dose: 0.5 ea Pantoprazole Sodium (Protonix Inj) 40 mg IVP DAILY [facility] Last Admin: 08/08/18 09:42 Dose: 40 mg Thiamine HCl (Vitamin B1 Inj) 200 mg IV DAILY [facility] Last Admin: 08/08/18 10:02 Dose: 200 mg - Labs Labs: 08/09/18 05:00 08/09/18 05:00 PT 15.7 SECONDS (9.4-12.5) H 08/07/18 23:15 INR 1.37 08/07/18 23:15 APTT 41.6 Seconds (25.1-36.5) H 08/09/18 09:00 - Constitutional Appears: Non-toxic, No Acute Distress, Confused, Chronically Ill - Head Exam Head Exam: ATRAUMATIC, NORMAL INSPECTION, NORMOCEPHALIC - ENT Exam ENT Exam: Mucous Membranes Dry - Neck Exam Neck Exam: Normal Inspection - Respiratory Exam Respiratory Exam: Clear to Ausculation Bilateral, NORMAL BREATHING PATTERN. absent: Accessory Muscle Use, Rales, Rhonchi, Wheezes, Respiratory Distress, Stridor - Cardiovascular Exam Cardiovascular Exam: REGULAR RHYTHM, +S1, +S2 - GI/Abdominal Exam GI & Abdominal Exam: Soft, Normal Bowel Sounds. absent: Distended, Firm, Guarding, Rigid, Tenderness, Organomegaly - Exam Additional comments: indwelling smith catheter in place - Extremities Exam Extremities Exam: Normal Capillary Refill, Normal Inspection. absent: Calf Tenderness, Joint Swelling, Pedal Edema - Neurological Exam Additional comments: Altered - Skin Skin Exam: Dry, Intact, Normal Color, Warm Assessment and Plan - Assessment and Plan (Free Text) Assessment: 88 yo M with PMHx of Parkinson's disease, dementia, and recent ESBL + UTI presenting from snf with complaints of lethargy, failure to thrive, and fever found to have UTI. Plan: Neuro: UTI - Previous ESBL+, start patient on doxycycline and merropenum - Urine cx prelim: gram negative courtney Cardio: - Troponin 0.18, 0.20, 0.32 - Echo (08/08): normal EF 55%; mild concentric LVH, moderate aortic regurg, mild- moderate valvular aortic stenosis, no pericardial effusion - Cardiology (Dr. Soto) recs appreciated -bump in trops could be 2/2 non-STEMI vs hemodynamic stability and sepsis and underlying CAD -c/w heparin -ASA suppository 300 mg daily -nitro paste 0.5 mg daily -lopressor 5 q6 Respiratory: - continue to monitor Nephrology/ : Hypernatremia - Na 153 (08/09) - likely secondary due dehydration - Nephrology recs (Dr Beck) appreciated -1/2NS at 200 cc/hr (to correct hyponatremia as well) -Avoid nephrotoxic agents (NSAIDS, phosphate enemia, IV dye) -check bladder scan periodically (to ensure smith draining well) -sepsis 2/2 gram neg UTI: on meropenem and doxy; CT abd/pelvis mentioning large R renal calculus without any hydronephrosis; if stone is infected, patient will need prolonged antibiotic course Acute kidney injury - Cr 1.5, BUN 52, GFR 54 (08/09) - Monitor improvement with 1/2 NS GI: - NPO Endocrine: - maintain pt euglycemic ID: Septic shock secondary to Urinary Tract Infection - WBC 16.1 - NS@200 - CT abdomen/pelvis: large LLL PNA - Procalcitonin 0.19 - Blood Cx negative after 24 hrs Ppx, Diet, Disposition - DVT: SCD - GI: Protonix - Diet: NPO Case discussed with Dr. Federico Schneider DO, PGY-1 <Serena Caballero - Last Filed: 08/10/18 14:04> Objective - Vital Signs/Intake and Output Vital Signs (last 24 hours): Temp Pulse Resp BP Pulse Ox 98.1 F 70 20 147/49 L 99 08/10/18 10:00 08/10/18 11:09 08/10/18 10:00 08/10/18 11:09 08/10/18 10:00 Intake and Output: 08/10/18 08/10/18 06:59 18:59 Intake Total Output Total Balance - Medications Medications: Current Medications Albuterol/Ipratropium (Duoneb 3 Mg/0.5 Mg (3 Ml) Ud) 3 ml IH [id number] PRN PRN Reason: Shortness of Breath Last Admin: 08/10/18 01:59 EDT Dose: 3 ml Artificial Tears (Refresh Opth Soln) 0 ml OU Q4 PRN PRN Reason: Dry eyes Last Admin: 08/10/18 11:11 Dose: 1 drop Artificial Tears (Artificial Tears Opht Oint) 0 gm OU BID PRN PRN Reason: Dry eyes Aspirin (Ecotrin) 81 mg PO DAILY [facility] Last Admin: 08/10/18 11:10 Dose: 81 mg Heparin Sodium (Porcine) (Heparin) 5,000 units SC Q8 [facility]; Protocol Meropenem (Merrem Iv 1 Gm Premix) 1 gm in 50 mls @ 12.5 mls/hr IVPB Q12 [facility]; Protocol Stop: 08/17/18 10:25 Last Admin: 08/10/18 11:12 Dose: 12.5 mls/hr Metoprolol Tartrate (Lopressor) 25 mg PO BID [facility] Last Admin: 08/10/18 11:09 Dose: 25 mg Nitroglycerin (Nitro-Bid 2% Oint) 0.5 ea TOP Q6H [facility] Last Admin: 08/10/18 11:10 Dose: 0.5 ea Nystatin (Nystop Topical Powder) 0 gm TOP DAILY PRN PRN Reason: Itching / Pruritus Pantoprazole Sodium (Protonix Inj) 40 mg IVP DAILY [facility] Last Admin: 08/10/18 11:09 Dose: 40 mg Thiamine HCl (Vitamin B1 Inj) 200 mg IV DAILY [facility] Last Admin: 08/10/18 11:08 Dose: 200 mg - Labs Labs: 08/10/18 05:00 08/10/18 06:00 PT 15.7 SECONDS (9.4-12.5) H 08/07/18 23:15 INR 1.37 08/07/18 23:15 APTT 57.1 Seconds (25.1-36.5) H 08/10/18 08:35 Attending/Attestation - Attestation I have personally seen and examined this patient.: Yes I have fully participated in the care of the patient.: Yes I have reviewed all pertinent clinical information, including history, physical exam and plan: Yes Notes (Text): 08/10/18 14:03 88 male with a history of Parkinson's disease, dementia, was transferred [place] with complaints of lethargy, failure to thrive, and fever, found to have Sepsis due to ESBL lUTI, Hypernatremia NA 161 and acute renal failure, creatinine 2.1 due to dehydration likely due to decrease oral intake.Hypernatremia and RENNY, is improving, Elevated troponin without EKG changes likely due to demand ischemia, Echo showed normal systolic function and moderate AR. Dysphagia, Failed swallow evaluation on NGT tube feeding. Mental status is poor, will likely need PEG. Palliative care is consulted. prognosis is guarded. 08/10/18 14:04
[2018-08-09] MEDS: Sodium Chloride 0.45% 1,000 ML IV SCH ×4 (10:10→22:37)
[2018-08-09] MEDS: Meropenem IV 1 gm in NS 1 GM/50 ML BAG IVPB SCH ×2 (10:26→23:20)
[2018-08-09] MEDS: Thiamine 100 mg/ml Inj IV SCH (10:43)
--- NOTE | 2018-08-09 12:13 | PN ---
DATE: 08/09/2018 SUBJECTIVE: The patient is seen in room 129, bed 7. No fevers. No chills. No nausea or vomiting. PHYSICAL EXAMINATION: VITAL SIGNS: Temperature is 98, blood pressure is 140/50 and respiratory rate of 16. HEENT: Unremarkable. NECK; Supple. LUNGS: Decreased breath sounds. HEART: Normal S1 and S2. ABDOMEN: Soft and nontender. LABORATORY DATA: Laboratory examination reveals a white count of 9.8, hemoglobin of 10 and platelets of 175. Coagulation is noted. Chemistries reveals a BUN of 52 and creatinine is 1.5. Troponin is elevated and the procalcitonin is 0.19. Urinalysis is reviewed. Influenza is negative. Microbiology reveals a Gram-negative courtney in the urine. The blood cultures are no growth. The patient is on doxycycline and meropenem. This morning's chest x-ray results are pending. Chest x-ray from the 1st, no active pulmonary disease. The patient had a CAT scan of the abdomen and pelvis, which showed a left lower lobe infiltrate. ASSESSMENT AND PLAN: This is an 88-year-old male seen earlier in the ICU who was transferred from a correction with Parkinson's with fever, dementia, extended-spectrum beta-lactamase, admitted with severe sepsis with Gram-negative courtney in the urine as a source and left lower lobe healthcare-associated pneumonia with a normal procalcitonin with acute kidney injury, on meropenem and doxycycline, day #3. We will check on the identification of Gram-negative courtney in the urine and final blood cultures. We will check on the methicillin-resistant Staphylococcus aureus screen and urine Legionella antigen. We will make further recommendations. We will need a short course of antibiotics. Arie Alarcon MD
--- NOTE | 2018-08-09 14:37 | RAD ---
Date of service: 08/09/2018 HISTORY: NGT (corflow) Placement for feeding Fr.#12 COMPARISON: 08/09/2018 FINDINGS: LUNGS: No active pulmonary disease. PLEURA: No significant pleural effusion identified, no pneumothorax apparent. CARDIOVASCULAR: Aortic calcification Moderate cardiomegaly no pulmonary vascular congestion. OSSEOUS STRUCTURES: No significant abnormalities. VISUALIZED UPPER ABDOMEN: Nasogastric tube in satisfactory position OTHER FINDINGS: None. IMPRESSION: Nasogastric tube in satisfactory position
--- NOTE | 2018-08-09 15:12 | PN ---
DATE: 08/09/2018 REASON FOR CONSULTATION AND FOLLOWUP: Cardiac evaluation, abnormal troponin, admitted with possible sepsis, lethargy, failure to thrive, and urosepsis. SUBJECTIVE: The patient is very lethargic, unable to give any history. He is not in any apparent distress. Still in ICU 129, bed 7. PHYSICAL EXAMINATION: VITAL SIGNS: As follows; temperature afebrile, heart rate 66, blood pressure 149/60. HEENT: PERRLA. Extraocular muscles are intact. NECK: Supple. No carotid bruits. No thyromegaly. CHEST: Clear to auscultation. HEART: S1 and S2, regular. ABDOMEN: Soft. EXTREMITIES: Clubbing and cyanosis negative. LABORATORY DATA: Blood workup as follows; WBC 9.8, hemoglobin 10.7, hematocrit 35.4, platelets count 175. Chemistry shows sodium 156, potassium 3.8, chloride 123, carbon dioxide 25, anion gap of 9, BUN 52, creatinine 1.5. Troponin 0.9. Blood cultures are 24 hours negative, but urine cultures have been getting Gram-negative courtney. IMPRESSION: An 88-year-old male, resident of the senior living, transferred from senior living because of failure to thrive and lethargy, found to be possible urinary tract infection and urosepsis, troponin found to be positive . The patient is asymptomatic, very lethargic, history of Parkinson's disease, dementia, urinary tract infection, who recently discharged from [facility]'s senior living where the patient was found to be very weak and transferred back here. Currently, the patient is in normal sinus and we will treat as [id number] myocardial infarction. Repeat troponin trending down to 0.19, maximum being 0.32. The patient is also baseline renal insufficiency with the creatinine clearance 40 mL an hour. We will treat as [id number] myocardial infarction. The patient is already on heparin. Continue aspirin suppository because the patient cannot take p.o. On half-normal saline for hypernatremia. Continue antibiotic. Continue half nitro paste. We will follow. Continue IV beta-sis. Overall, the patient's condition is critical. Long-term prognosis is guarded. We will follow with you. Asymptomatic and treat medically. Serena Soto MD [facility] # [id number]
[2018-08-09 18:29] LABS: BLOOD UREA NITROGEN 48 mg/dL (7-21); CALCIUM 8.4 mg/dL (8.4-10.5); GFR NON-AFRICAN AMERICAN 57
[2018-08-10] MEDS: Albuterol-Ipratrop 3 mg / 0.5 (3 ml) UD IH PRN (01:59)
[2018-08-10] MEDS: Nitroglycerin 2% Ointment Foilpak UD TOP SCH ×4 (04:15→21:24)
[2018-08-10] MEDS: Metoprolol 1 mg/ml Inj IVP SCH (04:15)
[2018-08-10] MEDS: Sodium Chloride 0.45% 1,000 ML IV SCH (04:17)
[2018-08-10] MEDS: Heparin25000 units/250ml 1/2NS 25,000 UNITS/250 ML BAG IV SCH (04:18)
[2018-08-10 06:09] LABS: BASO # 0.01 K/mm3 (0.0-2.0); BASO % 0.2 % (0.0-3.0); EOS # 0.2 (0.0-0.7); EOS % 3.8 % (1.5-5.0); GRAN # 4.05 (1.4-6.5); GRAN % 72.4 % (50.0-68.0); LYMPH # 1.1 (1.2-3.4); LYMPH % 19.1 % (22.0-35.0); MEAN CELL VOLUME 93.9 fl (80.0-105.0); MEAN CORPUSCULAR HEMOGLOBIN 29.4 pg (25.0-35.0); MEAN CORPUSCULAR HGB CONC 31.3 g/dl (31.0-37.0); MEAN PLATELET VOLUME 11.3 fl (7.0-11.0); MONO # 0.3 (0.1-0.6); MONO % 4.5 % (1.0-6.0); RBC 3.74 10^6/uL (3.5-6.1); RED CELL DISTRIBUTION WIDTH 15.6 % (11.5-14.5); WHITE BLOOD COUNT 5.6 10^3/uL (4.5-11.0)
[2018-08-10 06:33] LABS: BLOOD UREA NITROGEN 42 mg/dL (7-21); CALCIUM 8.3 mg/dL (8.4-10.5); GFR NON-AFRICAN AMERICAN 57
--- NOTE | 2018-08-10 06:50 | CP.PCM.PN ---
Subjective - Date & Time of Evaluation Date of Evaluation: 08/09/18 Time of Evaluation: 12:30 - Subjective Subjective: Patient failed swallow eval per nursing staff; agitated at times; NG tube inserted; Objective - Vital Signs/Intake and Output Vital Signs (last 24 hours): Temp Pulse Resp BP Pulse Ox 98.8 F 63 21 114/69 99 08/10/18 04:00 08/10/18 06:00 08/10/18 00:01 08/10/18 00:01 08/10/18 00:01 Intake and Output: 08/09/18 08/10/18 18:59 05:59 Intake Total 3320 3020 Output Total 600 600 Balance 2720 2420 - Medications Medications: Current Medications Albuterol/Ipratropium (Duoneb 3 Mg/0.5 Mg (3 Ml) Ud) 3 ml IH [id number] PRN PRN Reason: Shortness of Breath Last Admin: 08/10/18 01:59 EDT Dose: 3 ml Artificial Tears (Refresh Opth Soln) 0 ml OU Q4 PRN PRN Reason: Dry eyes Aspirin (Aspirin Supp) 300 mg RC DAILY [facility]OM[facility] Last Admin: 08/09/18 10:00 Dose: 300 mg Doxycycline Hyclate 100 mg/ (Sodium Chloride) 100 mls @ 100 mls/hr IVPB Q12 [facility]OMMY; Protocol Last Admin: 08/09/18 22:06 Dose: 100 mls/hr Heparin Sodium/Sodium Chloride (Heparin 44670 Units/250ml 1/2 Normal Saline) 25,000 units in 250 mls @ 8.219 mls/hr IV .Q24H [facility]OMMY; Protocol Last Admin: 08/10/18 04:18 Dose: 18 units/kg/hr, 12.329 mls/hr Meropenem (Merrem Iv 1 Gm Premix) 1 gm in 50 mls @ 12.5 mls/hr IVPB Q12 TOMMY; Protocol Stop: 08/17/18 10:25 Last Admin: 08/09/18 23:20 Dose: 12.5 mls/hr Sodium Chloride (Sodium Chloride 0.45%) 1,000 mls @ 125 mls/hr IV .Q8H [facility] Last Admin: 08/10/18 04:17 Dose: 125 mls/hr Dextrose (Dextrose 5% In Water 1000 Ml) 1,000 mls @ 75 mls/hr IV .[id number] [facility] Last Admin: 08/09/18 22:14 Dose: 75 mls/hr Metoprolol Tartrate (Lopressor) 5 mg IVP Q6H [facility] Last Admin: 08/10/18 04:15 Dose: 5 mg Nitroglycerin (Nitro-Bid 2% Oint) 0.5 ea TOP Q6H [facility] Last Admin: 08/10/18 04:15 Dose: 0.5 ea Pantoprazole Sodium (Protonix Inj) 40 mg IVP DAILY [facility] Last Admin: 08/09/18 10:40 Dose: 40 mg Thiamine HCl (Vitamin B1 Inj) 200 mg IV DAILY [facility] Last Admin: 08/09/18 10:43 Dose: 200 mg - Labs Labs: 08/10/18 05:00 08/10/18 06:00 PT 15.7 SECONDS (9.4-12.5) H 08/07/18 23:15 INR 1.37 08/07/18 23:15 APTT 63.3 Seconds (25.1-36.5) H 08/10/18 00:30 - Constitutional Appears: Non-toxic, No Acute Distress - ENT Exam Additional comments: somewhat dry mucous membranes; - Respiratory Exam Respiratory Exam: Clear to Ausculation Bilateral. absent: Respiratory Distress - Cardiovascular Exam Cardiovascular Exam: RRR, +S1, +S2 - GI/Abdominal Exam GI & Abdominal Exam: Soft. absent: Distended, Tenderness - Exam Additional comments: smith in place - Extremities Exam Additional comments: no leg edema; - Psychiatric Exam Psychiatric exam: Agitated - Skin Skin Exam: Warm. absent: Cyanosis Assessment and Plan (1) Acute kidney injury Assessment & Plan: Improved, pre-renal etiology; baseline unclear; continuing 1/2NS at 125 cc/hr; Status: Acute (2) Hypernatremia Assessment & Plan: Only mildly improved; starting D5W at 75 cc/hr in addition to 1/2NS as above; Status: Acute (3) Sepsis Status: Acute
--- NOTE | 2018-08-10 07:24 | CP.PCM.PN ---
<Michael Schneider - Last Filed: 08/10/18 15:51> Subjective - Date & Time of Evaluation Date of Evaluation: 08/10/18 Time of Evaluation: 07:23 - Subjective Subjective: PGY-1 Medicine Progress Note for Dr. Caballero Patient seen and examined at bedside this AM. No acute overnight events reported. Pt failed swallow eval, NG tube in place. History and ROS unattainable due to lethargy, underlying dementia. Objective - Vital Signs/Intake and Output Vital Signs (last 24 hours): Temp Pulse Resp BP Pulse Ox 98.8 F 63 21 114/69 99 08/10/18 04:00 08/10/18 06:00 08/10/18 00:01 08/10/18 00:01 08/10/18 00:01 Intake and Output: 08/10/18 08/10/18 06:59 18:59 Intake Total Output Total Balance - Medications Medications: Current Medications Albuterol/Ipratropium (Duoneb 3 Mg/0.5 Mg (3 Ml) Ud) 3 ml IH [id number] PRN PRN Reason: Shortness of Breath Last Admin: 08/10/18 01:59 EDT Dose: 3 ml Artificial Tears (Refresh Opth Soln) 0 ml OU Q4 PRN PRN Reason: Dry eyes Aspirin (Aspirin Supp) 300 mg RC DAILY [facility] Last Admin: 08/09/18 10:00 Dose: 300 mg Doxycycline Hyclate 100 mg/ (Sodium Chloride) 100 mls @ 100 mls/hr IVPB Q12 [facility]OM[facility]; Protocol Last Admin: 08/09/18 22:06 Dose: 100 mls/hr Heparin Sodium/Sodium Chloride (Heparin 99283 Units/250ml 1/2 Normal Saline) 25,000 units in 250 mls @ 8.219 mls/hr IV .Q24H [facility]; Protocol Last Admin: 08/10/18 04:18 Dose: 18 units/kg/hr, 12.329 mls/hr Meropenem (Merrem Iv 1 Gm Premix) 1 gm in 50 mls @ 12.5 mls/hr IVPB Q12 [facility]OM[facility]; Protocol Stop: 08/17/18 10:25 Last Admin: 08/09/18 23:20 Dose: 12.5 mls/hr Sodium Chloride (Sodium Chloride 0.45%) 1,000 mls @ 125 mls/hr IV .Q8H [facility] Last Admin: 08/10/18 04:17 Dose: 125 mls/hr Dextrose (Dextrose 5% In Water 1000 Ml) 1,000 mls @ 75 mls/hr IV .[id number] [facility] Last Admin: 08/09/18 22:14 Dose: 75 mls/hr Metoprolol Tartrate (Lopressor) 5 mg IVP Q6H [facility] Last Admin: 08/10/18 04:15 Dose: 5 mg Nitroglycerin (Nitro-Bid 2% Oint) 0.5 ea TOP Q6H [facility] Last Admin: 08/10/18 04:15 Dose: 0.5 ea Pantoprazole Sodium (Protonix Inj) 40 mg IVP DAILY [facility] Last Admin: 08/09/18 10:40 Dose: 40 mg Thiamine HCl (Vitamin B1 Inj) 200 mg IV DAILY [facility] Last Admin: 08/09/18 10:43 Dose: 200 mg - Labs Labs: 08/10/18 05:00 08/10/18 06:00 PT 15.7 SECONDS (9.4-12.5) H 08/07/18 23:15 INR 1.37 08/07/18 23:15 APTT 63.3 Seconds (25.1-36.5) H 08/10/18 00:30 - Constitutional Appears: Non-toxic, No Acute Distress, Confused, Chronically Ill - Head Exam Head Exam: ATRAUMATIC, NORMAL INSPECTION, NORMOCEPHALIC - ENT Exam ENT Exam: Mucous Membranes Dry Additional comments: NGT in place - Neck Exam Neck Exam: Normal Inspection - Respiratory Exam Respiratory Exam: Clear to Ausculation Bilateral, NORMAL BREATHING PATTERN. absent: Accessory Muscle Use, Rales, Rhonchi, Wheezes, Respiratory Distress, Stridor - Cardiovascular Exam Cardiovascular Exam: REGULAR RHYTHM, +S1, +S2 - GI/Abdominal Exam GI & Abdominal Exam: Soft, Normal Bowel Sounds. absent: Distended, Firm, Guarding, Rigid, Tenderness - Extremities Exam Additional comments: indwelling smith in place - Skin Skin Exam: Dry, Warm Assessment and Plan - Assessment and Plan (Free Text) Assessment: 88 yo M with PMHx of Parkinson's disease, dementia, and recent ESBL + UTI presenting from alf with complaints of lethargy, failure to thrive, and fever found to have UTI. Plan: Neuro: UTI - patient on doxycycline and meropenem - Urine cx: ESBL+ e coli Cardio: - Troponin 0.18, 0.20, 0.32 - Echo (08/08): normal EF 55%; mild concentric LVH, moderate aortic regurg, mild- moderate valvular aortic stenosis, no pericardial effusion - Cardiology (Dr. Soto) recs appreciated -bump in trops could be 2/2 non-STEMI vs hemodynamic stability and sepsis and underlying CAD -c/w heparin -ASA suppository 300 mg daily -nitro paste 0.5 mg daily -lopressor 5 q6 Respiratory: - continue to monitor Nephrology/ : Hypernatremia - Na 153 (08/09) - likely secondary due dehydration - Nephrology recs (Dr Beck) appreciated -Improved, pre-renal etiology; baseline unclear; continuing 1/2NS at 125 cc/hr -Only mildly improved; starting D5W at 75 cc/hr in addition to 1/2NS as above RENNY - Cr 1.2, BUN 42, GFR 57 (08/10) - on 10/08 NS plus D5W GI: - failed initial swallow eval; NGT in place Endocrine: - maintain pt euglycemic ID: Septic shock secondary to Urinary Tract Infection - WBC 5.6 - on 10/08 NS plus D5W - CT abdomen/pelvis: large LLL PNA - Procalcitonin 0.19 - Blood Cx negative after 24 hrs Ppx, Diet, Disposition - DVT: SCD - GI: Protonix - Diet: NPO - Palliative care on board -Dispo: repeat swallow eval tomorrow; if pt fails, will need PEG tube, hospice eval Case discussed with Dr. Federico Schneider DO, PGY-1 <Serena Caballero - Last Filed: 08/10/18 17:58> Objective - Vital Signs/Intake and Output Vital Signs (last 24 hours): Temp Pulse Resp BP Pulse Ox 98.1 F 68 29 H 156/67 H 99 08/10/18 16:00 08/10/18 16:00 08/10/18 16:00 08/10/18 16:00 08/10/18 16:00 Intake and Output: 08/10/18 08/10/18 06:59 18:59 Intake Total Output Total Balance - Medications Medications: Current Medications Albuterol/Ipratropium (Duoneb 3 Mg/0.5 Mg (3 Ml) Ud) 3 ml IH [id number] PRN PRN Reason: Shortness of Breath Last Admin: 08/10/18 01:59 EDT Dose: 3 ml Artificial Tears (Refresh Opth Soln) 0 ml OU Q4 PRN PRN Reason: Dry eyes Last Admin: 08/10/18 11:11 Dose: 1 drop Artificial Tears (Artificial Tears Opht Oint) 0 gm OU BID PRN PRN Reason: Dry eyes Last Admin: 08/10/18 16:25 Dose: 1 applic Aspirin (Ecotrin) 81 mg PO DAILY [facility] Last Admin: 08/10/18 11:10 Dose: 81 mg Heparin Sodium (Porcine) (Heparin) 5,000 units SC Q8 [facility]; Protocol Last Admin: 08/10/18 14:00 Dose: 5,000 units Meropenem (Merrem Iv 1 Gm Premix) 1 gm in 50 mls @ 12.5 mls/hr IVPB Q12 [facility]; Protocol Stop: 08/17/18 10:25 Last Admin: 08/10/18 11:12 Dose: 12.5 mls/hr Metoprolol Tartrate (Lopressor) 25 mg PO BID [facility] Last Admin: 08/10/18 11:09 Dose: 25 mg Nitroglycerin (Nitro-Bid 2% Oint) 0.5 ea TOP Q6H [facility] Last Admin: 08/10/18 16:29 Dose: 0.5 ea Nystatin (Nystop Topical Powder) 0 gm TOP DAILY PRN PRN Reason: Itching / Pruritus Last Admin: 08/10/18 16:24 Dose: 1 applic Pantoprazole Sodium (Protonix Inj) 40 mg IVP DAILY [facility] Last Admin: 08/10/18 11:09 Dose: 40 mg Thiamine HCl (Vitamin B1 Inj) 200 mg IV DAILY [facility] Last Admin: 08/10/18 11:08 Dose: 200 mg - Labs Labs: 08/10/18 05:00 08/10/18 06:00 PT 15.7 SECONDS (9.4-12.5) H 08/07/18 23:15 INR 1.37 08/07/18 23:15 APTT 57.1 Seconds (25.1-36.5) H 08/10/18 08:35 Attending/Attestation - Attestation I have personally seen and examined this patient.: Yes I have fully participated in the care of the patient.: Yes I have reviewed all pertinent clinical information, including history, physical exam and plan: Yes Notes (Text): 08/10/18 17:57 Medical record note made by the resident after discussion with my direction and input after the patient was personally seen and examined by me. I have reviewed the chart and agree that the record accurately reflects by personal performance of the history, physical exam, data review, and medical decision-making, in the course for the patient. I have also personally directed the plan of care. 88 male with a history of Parkinson's disease, dementia, [place] with complaints of lethargy, failure to thrive, and fever, found to have Sepsis due to ESBL lUTI, Hypernatremia NA 161 and acute renal failure, creatinine 2.1 due to dehydration likely due to decrease oral intake. Hypernatremia and RENNY, is improving, NA 146,Creatinin back to normal. Elevated troponin without EKG changes likely due to demand ischemia, Echo showed normal systolic function and moderate AR. Dysphagia, Failed swallow evaluation on NGT tube feeding. Mental status is poor, will likely need PEG. Palliative care is consulted. Prognosis is guarded
[2018-08-10] MEDS ORDERED: Sodium Chloride 0.45% 1,000 ML IV SCH (08:35)
[2018-08-10] MEDS ORDERED: Potassium Chloride 20 mEq/15 ml LIQ UD PO STA (09:13)
[2018-08-10] MEDS: Thiamine 100 mg/ml Inj IV SCH (11:08)
[2018-08-10] MEDS: Lubricant Eye Drops UD OU PRN (11:11)
[2018-08-10] MEDS: Meropenem IV 1 gm in NS 1 GM/50 ML BAG IVPB SCH ×2 (11:12→21:27)
[2018-08-10] MEDS ORDERED: Mineral Oil/Petrolatum Opht Oint(3.5 gm) OU PRN (11:18)
[2018-08-10] MEDS ORDERED: Nystatin 100,000 Units/gm Topical Pow(15 gm) TOP PRN (11:18)
--- NOTE | 2018-08-10 13:52 | PN ---
DATE: 08/10/2018 SUBJECTIVE: The patient is in bed, in no acute distress, nontoxic. PHYSICAL EXAMINATION: VITAL SIGNS: On exam, temperature is 98, blood pressure is 140/70, respiratory rate of 18, heart rate of 71. HEENT: Examination of HEENT is unremarkable. NECK: Supple. LUNGS: Have decreased breath sounds. HEART: Normal S1, S2. ABDOMEN: Soft, nontender. LABORATORY DATA: Laboratory examination reveals a white count of 5.6, hemoglobin of 11. Chemistries reveals a BUN of 42, creatinine of 1.2. Procalcitonin is 0.19 and urinalysis is noted. Serology is noted. Microbiology reveals the urine culture has E. Coli with ESBL E. Coli in the urine culture. Also earlier, the patient has ESBL E. Coli. The blood cultures are no growth and the nares, MRSA are not detected. ASSESSMENT AND PLAN: An 88-year-old male who was seen the ICU, in [facility], bed 7, admitted from a intermediate with Parkinson's and fever, dementia and admitted with severe sepsis with extended spectrum beta-lactamase Escherichia coli in urine as the source and left lower lobe healthcare-associated pneumonia with a normal procalcitonin and acute kidney injury, on day #4 of meropenem and doxycycline and with negative urine Legionella antigen, negative methicillin-resistant Staphylococcus aureus. We will discontinue the doxycycline, complete with meropenem. Today is day #4 of 7-10 days. The patient is on extended-spectrum beta-lactamase precautions. Overall prognosis quite poor. Should consider more supportive care for this end-stage patient. Arie Alarcon MD
--- NOTE | 2018-08-10 14:18 | PN ---
DATE: 08/10/2018 REASON FOR CONSULTATION AND FOLLOWUP: Cardiac evaluation, abnormal troponin, admitted with sepsis, lethargy, failure to thrive, urosepsis, altered mental status. SUBJECTIVE: The patient is very well lethargic, non-communicable. NG tube is in place and getting IV heparin. PHYSICAL EXAMINATION: GENERAL: Not in apparent distress. VITAL SIGNS: Temperature afebrile. Heart rate 58, blood pressure 147/49. HEENT: PERRLA. Extraocular muscles intact. NECK: Supple. No carotid bruits or thyromegaly. CHEST: Clear to auscultation. HEART: S1 and S2, regular. ABDOMEN: Soft. EXTREMITIES: Clubbing cyanosis negative. LABORATORY DATA: Blood workup as follows: WBC 5.6, hemoglobin 11, hematocrit 35.1, platelet count 169. Chemistry shows sodium 143, potassium 3.6, chloride 118, carbon dioxide 23, anion gap of 9, BUN 43, creatinine 1.2, calcium 8.3. Chest x-ray yesterday, nasogastric tube, no significant pulmonary disease reported. On reviewing the films, under penetration films, but no acute infiltrate or CHF noted. IMPRESSION: An 88[facility]-old [facility], [facility] because of failure to thrive, lethargy, found to have urinary tract infection, sepsis, positive troponin. The patient is asymptomatic. In view of all above, the patient is not a candidate to go for invasive cardiac workup. The patient is recently discharged from the [facility] and was [facility] from where he was transferred back to the [facility]. RECOMMENDATIONS: Increase nutritional support through the NG tube, discontinue heparin, put DVT prophylaxis. We will change metoprolol to p.o. through the NG tube. Start NG feeding and we will change metoprolol to 25 p.o. b.i.d. through the NG tube. We will follow with you. Overall, the patient's condition is critical. Prognosis halfway guarded. The patient is not a candidate to go to the [facility], he is asymptomatic and demented. We will treat medically. We will change also baby aspirin from suppository to 81 mg daily p.o through the NG tube and we will also discontinue IV fluids and free water through the NG tube. We will supplement KCl elixir 200 mL every 6 hours. We will discontinue IV fluids. Serena Soto MD
[2018-08-10 22:35] LABS: SOURCE SERUM
[2018-08-11] MEDS: Nitroglycerin 2% Ointment Foilpak UD TOP SCH ×3 (06:05→18:37)
[2018-08-11 07:03] LABS: EOS # 0.1 (0.0-0.7); GRAN # 3.03 (1.4-6.5); GRAN % 68.8 % (50.0-68.0); HEMOGLOBIN 11.6 g/dL (14.0-18.0); LYMPH % 22.3 % (22.0-35.0); MEAN CELL VOLUME 93.7 fl (80.0-105.0); MEAN CORPUSCULAR HEMOGLOBIN 29.1 pg (25.0-35.0); MEAN PLATELET VOLUME 11.5 fl (7.0-11.0); MONO # 0.3 (0.1-0.6); MONO % 5.9 % (1.0-6.0); RBC 3.99 10^6/uL (3.5-6.1); RED CELL DISTRIBUTION WIDTH 15.4 % (11.5-14.5); WHITE BLOOD COUNT 4.4 10^3/uL (4.5-11.0)
[2018-08-11 07:09] LABS: TROPONIN I 0.08 ng/mL
[2018-08-11 07:34] LABS: BLOOD UREA NITROGEN 29 mg/dL (7-21); CALCIUM 8.5 mg/dL (8.4-10.5); GFR NON-AFRICAN AMERICAN > 60
[2018-08-11] MEDS: Meropenem IV 1 gm in NS 1 GM/50 ML BAG IVPB SCH ×2 (11:00→21:38)
--- NOTE | 2018-08-11 12:16 | CP.PCM.PN ---
<Bjorn Burks - Last Filed: 08/11/18 23:17> Subjective - Date & Time of Evaluation Date of Evaluation: 08/11/18 Time of Evaluation: 12:13 - Subjective Subjective: Nephrology progress note for Dr. Rasmussen's service - Isabel Burks PGY3 Patient seen and examined at bedside this morning. No acute overnight events or new complaints reported by nursing staff. Patient receiving feeds via NG tube @ 60cc/hr Objective - Vital Signs/Intake and Output Vital Signs (last 24 hours): Temp Pulse Resp BP Pulse Ox 99.1 F 90 26 H 152/64 H 98 08/11/18 04:00 08/11/18 06:00 08/10/18 20:00 08/10/18 20:00 08/10/18 20:00 Intake and Output: 08/11/18 08/11/18 06:59 18:59 Intake Total 920 Output Total 2600 Balance -1680 - Medications Medications: Current Medications Albuterol/Ipratropium (Duoneb 3 Mg/0.5 Mg (3 Ml) Ud) 3 ml IH [id number] PRN PRN Reason: Shortness of Breath Last Admin: 08/10/18 01:59 EDT Dose: 3 ml Artificial Tears (Refresh Opth Soln) 0 ml OU Q4 PRN PRN Reason: Dry eyes Last Admin: 08/10/18 11:11 Dose: 1 drop Artificial Tears (Artificial Tears Opht Oint) 0 gm OU BID PRN PRN Reason: Dry eyes Last Admin: 08/10/18 16:25 Dose: 1 applic Aspirin (Ecotrin) 81 mg PO DAILY [facility] Last Admin: 08/10/18 11:10 Dose: 81 mg Heparin Sodium (Porcine) (Heparin) 5,000 units SC Q8 [facility]; Protocol Last Admin: 08/11/18 06:05 Dose: 5,000 units Meropenem (Merrem Iv 1 Gm Premix) 1 gm in 50 mls @ 12.5 mls/hr IVPB Q12 [facility]; Protocol Stop: 08/17/18 10:25 Last Admin: 08/10/18 21:27 Dose: 12.5 mls/hr Metoprolol Tartrate (Lopressor) 25 mg PO BID [facility] Last Admin: 08/10/18 19:35 Dose: 25 mg Nitroglycerin (Nitro-Bid 2% Oint) 0.5 ea TOP Q6H [facility] Last Admin: 08/11/18 06:05 Dose: 0.5 ea Nystatin (Nystop Topical Powder) 0 gm TOP DAILY PRN PRN Reason: Itching / Pruritus Last Admin: 08/10/18 16:24 Dose: 1 applic Pantoprazole Sodium (Protonix Inj) 40 mg IVP DAILY [facility] Last Admin: 08/10/18 11:09 Dose: 40 mg Thiamine HCl (Vitamin B1 Inj) 200 mg IV DAILY [facility] Last Admin: 08/10/18 11:08 Dose: 200 mg - Labs Labs: 08/11/18 05:45 08/11/18 05:45 PT 15.7 SECONDS (9.4-12.5) H 08/07/18 23:15 INR 1.37 08/07/18 23:15 APTT 57.1 Seconds (25.1-36.5) H 08/10/18 08:35 - Constitutional Appears: No Acute Distress, Chronically Ill - Head Exam Head Exam: ATRAUMATIC, NORMAL INSPECTION, NORMOCEPHALIC - ENT Exam ENT Exam: Mucous Membranes Dry - Neck Exam Neck Exam: Normal Inspection. absent: Tenderness, Thyromegaly - Respiratory Exam Respiratory Exam: absent: Rales, Rhonchi, Wheezes - Cardiovascular Exam Cardiovascular Exam: +S1, +S2. absent: Clicks, Gallop, Rubs - GI/Abdominal Exam GI & Abdominal Exam: Soft. absent: Distended, Firm, Guarding, Rigid, Tenderness, Rebound - Extremities Exam Extremities Exam: absent: Calf Tenderness, Pedal Edema, Tenderness - Neurological Exam Neurological Exam: Alert, Awake - Skin Skin Exam: Dry, Intact, Normal Color, Warm Assessment and Plan - Assessment and Plan (Free Text) Plan: 88yo male with history of Parkinson's disease, dementia and hx of ESBL UTI presents from alf with report of lethargy, failure to thrive and fever. Nephrology consulted for evaluation of acute kidney injury and hypernatremia. 1. Acute kidney injury, resolved 2. Hypernatremia 3. Sepsis secondary to ESBL UTI 4. Hx of dementia -RENNY on CKD; consistent with pre-renal etiology in the setting of decreased PO intake and recurrent UTI; renal function improved with intravascular volume replenishment; stable volume status; likely has baseline CKD though exact baseline unclear (serum creatinine in low 1's in 2015); -Will start Free water flushed of 250cc q6h in conjunction with feeds -Recommend decreasing jevity feeds to 40cc/hr from 60cc/hr as he has been polyuric and may be the result of excess protein related osmotic diuresis -Avoid nephrotoxic agents (NSAIDS, phosphate enemia, IV dye); -check bladder scan periodically (to ensure smith draining well); -Presently on meropenem per ID recommendations for ESBL UTI -CT abd/pelvis reviewed -Echocardiogram reviewed Patient seen and case discussed/reviewed with attending, Dr. Beck <Brent Beck - Last Filed: 08/12/18 09:02> Objective - Vital Signs/Intake and Output Vital Signs (last 24 hours): Temp Pulse Resp BP Pulse Ox 99.0 F 82 28 H 134/69 98 08/12/18 04:00 08/12/18 08:00 08/12/18 08:00 08/12/18 08:00 08/12/18 08:00 Intake and Output: 08/12/18 08/12/18 06:59 18:59 Intake Total 720 Output Total 650 Balance 70 - Medications Medications: Current Medications Acetylcysteine (Acetylcysteine 20%) 4 ml IH [id number] [facility] Last Admin: 08/12/18 07:48 Dose: 4 ml Albuterol/Ipratropium (Duoneb 3 Mg/0.5 Mg (3 Ml) Ud) 3 ml IH [id number] PRN PRN Reason: Shortness of Breath Last Admin: 08/12/18 07:48 Dose: 3 ml Artificial Tears (Refresh Opth Soln) 0 ml OU Q4 PRN PRN Reason: Dry eyes Last Admin: 08/10/18 11:11 Dose: 1 drop Artificial Tears (Artificial Tears Opht Oint) 0 gm OU BID PRN PRN Reason: Dry eyes Last Admin: 08/10/18 16:25 Dose: 1 applic Aspirin (Ecotrin) 81 mg PO DAILY [facility] Last Admin: 08/11/18 12:58 Dose: 81 mg Heparin Sodium (Porcine) (Heparin) 5,000 units SC Q8 [facility]; Protocol Last Admin: 08/12/18 05:18 Dose: 5,000 units Meropenem (Merrem Iv 1 Gm Premix) 1 gm in 50 mls @ 12.5 mls/hr IVPB Q12 [facility]; Protocol Stop: 08/17/18 10:25 Last Admin: 08/11/18 21:38 Dose: 12.5 mls/hr Metoprolol Tartrate (Lopressor) 25 mg PO BID [facility] Last Admin: 08/11/18 18:35 Dose: 25 mg Nitroglycerin (Nitro-Bid 2% Oint) 0.5 ea TOP Q6H [facility] Last Admin: 08/11/18 18:37 Dose: 0.5 ea Nystatin (Nystop Topical Powder) 0 gm TOP DAILY PRN PRN Reason: Itching / Pruritus Last Admin: 08/10/18 16:24 Dose: 1 applic Pantoprazole Sodium (Protonix Susp) 40 mg PO 0600 [facility] Last Admin: 08/12/18 05:18 Dose: 40 mg Thiamine HCl (Vitamin B1 Tab) 200 mg PO DAILY [facility] - Labs Labs: 08/12/18 05:50 08/12/18 05:50 PT 15.7 SECONDS (9.4-12.5) H 08/07/18 23:15 INR 1.37 08/07/18 23:15 APTT 57.1 Seconds (25.1-36.5) H 08/10/18 08:35 Assessment and Plan (1) Acute kidney injury Status: Acute (2) Hypernatremia Status: Acute (3) Sepsis Status: Acute Attending/Attestation - Attestation I have personally seen and examined this patient.: Yes I have fully participated in the care of the patient.: Yes I have reviewed all pertinent clinical information, including history, physical exam and plan: Yes Notes (Text): Patient seen and examined; I agree with the resident's note as above with the following additions/edits: Mental status significantly improved with patient at least able to verbalize some answers to simple questions; no longer combative; Hypernatremia improved after giving increased IV hydration 2 days ago; currently only getting NG feeds and free water flushes; still with ~2L free water deficit; furthermore, patient is polyuric, possibly due to osmotic diuresis induced by IVF given previously as well as somewhat high protein content calorie of feeds (1.1 g/kg/day, which is appropriate for critical care illness but possibly too high given his age); high BUN can also be indicative of high protein feeds; RENNY of pre-renal etiology, resolved with IVF; -recommend to decrease rate of feeds to 40 cc/hr if polyuria continues; -continue free water flushes of 250 cc q6h;
--- NOTE | 2018-08-11 14:05 | RAD ---
Date of service: 08/11/2018 HISTORY: worsening congestion, r/o PNA COMPARISON: 08/09/2018 FINDINGS: LUNGS: No active pulmonary disease. PLEURA: No significant pleural effusion identified, no pneumothorax apparent. CARDIOVASCULAR: Aortic calcification Mild cardiomegaly no pulmonary vascular congestion. OSSEOUS STRUCTURES: No significant abnormalities. VISUALIZED UPPER ABDOMEN: Nasogastric tube in the gastric fundus just beyond the GE junction OTHER FINDINGS: None. IMPRESSION: No active disease.
--- NOTE | 2018-08-11 14:12 | CP.PCM.CON ---
History of Present Illness - History of Present Illness History of Present Illness: Palliative consult requested by Dr. Robyn Caballero Reason: Goals of care 88 year old resident of [place] who presented on 08/07/18 with with lethargy, fever, failure to thrive. Chest x ray 08/07: Head CT 08/07: No acute findings CT Ab/pelvis 08/07: LLL pneumonia, Bilateral renal cysts, right nephrolithiasis EKG 08/07: NSR /sinus arrythmai, RBB, LA fascicular block, bifasciaulr blaock, T wave abnormailty, psoosble lateral ischemai Labs 08/07: WBC 19.6, Hgb 14.6,216, NA 156, K 4.9, BUN 1.8, Soaking Pit Operator 1.8, glucose 141, Troponin 0.20, & .32. Serology negative for H Influenza, Pneumocystis, S pneumoniae antigen. Blood culture negative> Urine C/s positive for E Coli ECHO 08/08: mild LVD, EF 55%, mod AR, mod , mild TR, no pericardial effusion. PMHx: Parkinson's disease, dementia, ESBL/ UTI, HTN, PSHX: unknown Social History: Never smoker, no alcohol or drug use. [place], speaks Kisw[place]ili. Family History: Unknown. Advance Care Planning: POLST/Full code. Review of Systems: As per HPI, unable to obtain patient is non verbal/altered. Past Patient History - Tetanus Immunizations Tetanus Immunization: Unknown - Past Social History Smoking Status: Never Smoked - CARDIAC Hx Congestive Heart Failure: Yes Hx Hypertension: Yes - NEUROLOGICAL HX Cerebrovascular Accident: No - ENDOCRINE/METABOLIC Hx Endocrine Disorders: No - HEMATOLOGICAL/ONCOLOGICAL Hx Cancer: No - INTEGUMENTARY Hx Dermatological Problems: No - MUSCULOSKELETAL/RHEUMATOLOGICAL Hx Falls: Yes - GASTROINTESTINAL Hx Gastrointestinal Disorders: No - GENITOURINARY/GYNECOLOGICAL Hx Sexually Transmitted Disorders: No - PSYCHIATRIC Hx Depression: No Hx Substance Use: No - SURGICAL HISTORY Hx Surgeries: (pt denies) - ANESTHESIA Hx Anesthesia: No Meds Allergies/Adverse Reactions: Allergies Allergy/AdvReac Type Severity Reaction Status Date / Time No Known Allergies Allergy Verified 11/13/17 10:28 - Medications Medications: Current Medications Albuterol/Ipratropium (Duoneb 3 Mg/0.5 Mg (3 Ml) Ud) 3 ml IH [id number] PRN PRN Reason: Shortness of Breath Last Admin: 08/10/18 01:59 EDT Dose: 3 ml Artificial Tears (Refresh Opth Soln) 0 ml OU Q4 PRN PRN Reason: Dry eyes Last Admin: 08/10/18 11:11 Dose: 1 drop Artificial Tears (Artificial Tears Opht Oint) 0 gm OU BID PRN PRN Reason: Dry eyes Last Admin: 08/10/18 16:25 Dose: 1 applic Aspirin (Ecotrin) 81 mg PO DAILY [facility] Last Admin: 08/11/18 12:58 Dose: 81 mg Heparin Sodium (Porcine) (Heparin) 5,000 units SC Q8 [facility]; Protocol Last Admin: 08/11/18 06:05 Dose: 5,000 units Meropenem (Merrem Iv 1 Gm Premix) 1 gm in 50 mls @ 12.5 mls/hr IVPB Q12 [facility]; Protocol Stop: 08/17/18 10:25 Last Admin: 08/11/18 11:00 Dose: 12.5 mls/hr Metoprolol Tartrate (Lopressor) 25 mg PO BID [facility] Last Admin: 08/11/18 12:57 Dose: 25 mg Nitroglycerin (Nitro-Bid 2% Oint) 0.5 ea TOP Q6H [facility] Last Admin: 08/11/18 12:56 Dose: 0.5 ea Nystatin (Nystop Topical Powder) 0 gm TOP DAILY PRN PRN Reason: Itching / Pruritus Last Admin: 08/10/18 16:24 Dose: 1 applic Pantoprazole Sodium (Protonix Inj) 40 mg IVP DAILY [facility] Last Admin: 08/11/18 12:57 Dose: 40 mg Thiamine HCl (Vitamin B1 Inj) 200 mg IV DAILY [facility] Last Admin: 08/10/18 11:08 Dose: 200 mg Physical Exam - Constitutional Appears: Cachectic, Chronically Ill - Eye Exam Eye Exam: Normal appearance, PERRL - ENT Exam ENT Exam: Mucous Membranes Moist - Neck Exam Neck exam: Positive for: Normal Inspection - Respiratory Exam Respiratory Exam: Decreased Breath Sounds, Rhonchi, Wheezes - Cardiovascular Exam Cardiovascular Exam: REGULAR RHYTHM, +S1, +S2 - GI/Abdominal Exam GI & Abdominal Exam: Normal Bowel Sounds, Soft - Extremities Exam Extremities exam: Positive for: pedal edema, pedal pulses present - Neurological Exam Neurological exam: Altered - Skin Skin Exam: Dry, Pallor, Warm - Additional Findings Additional findings: palliative performance scale raitng 30% Results - Vital Signs Recent Vital Signs: Last Vital Signs Temp 99.0 F 08/11/18 13:04 Pulse 84 08/11/18 13:04 Resp 25 H 08/11/18 13:04 BP 146/71 08/11/18 12:57 Pulse Ox 97 08/11/18 13:04 - Labs Result Diagrams: 08/11/18 05:45 08/11/18 05:45 Labs: Laboratory Results - last 24 hr 08/08/18 08/10/18 08/10/18 11:12 12:39 18:58 WBC RBC Hgb Hct MCV MCH MCHC RDW Plt Count MPV Gran % Lymph % (Auto) Bradford % (Auto) Eos % (Auto) Baso % (Auto) Gran # Lymph # (Auto) Bradford # (Auto) Eos # (Auto) Baso # (Auto) Sodium Potassium Chloride Carbon Dioxide Anion Gap BUN Creatinine Est GFR ( Amer) Est GFR (Non-Af Amer) POC Glucose (mg/dL) 133 H 125 H Random Glucose Calcium Lactate Dehydrogenase Total Creatine Kinase Troponin I Pneumocystis Source Serum S. pneumoniae Antigen Not detected 08/11/18 08/11/18 08/11/18 00:55 05:45 05:45 WBC 4.4 L D RBC 3.99 Hgb 11.6 L Hct 37.4 L MCV 93.7 MCH 29.1 MCHC 31.0 RDW 15.4 H Plt Count 182 MPV 11.5 H Gran % 68.8 H Lymph % (Auto) 22.3 Bradford % (Auto) 5.9 Eos % (Auto) 3.0 Baso % (Auto) 0.0 Gran # 3.03 Lymph # (Auto) 1.0 L Bradford # (Auto) 0.3 Eos # (Auto) 0.1 Baso # (Auto) 0.00 Sodium 148 Potassium 4.2 Chloride 119 H Carbon Dioxide 24 Anion Gap 9 L BUN 29 H Creatinine 0.9 Est GFR ( Amer) > 60 Est GFR (Non-Af Amer) > 60 POC Glucose (mg/dL) 122 H Random Glucose 124 H Calcium 8.5 Lactate Dehydrogenase 298 L Total Creatine Kinase 57 Troponin I 0.08 D Pneumocystis Source S. pneumoniae Antigen 08/11/18 07:07 WBC RBC Hgb Hct MCV MCH MCHC RDW Plt Count MPV Gran % Lymph % (Auto) Bradford % (Auto) Eos % (Auto) Baso % (Auto) Gran # Lymph # (Auto) Bradford # (Auto) Eos # (Auto) Baso # (Auto) Sodium Potassium Chloride Carbon Dioxide Anion Gap BUN Creatinine Est GFR ( Amer) Est GFR (Non-Af Amer) POC Glucose (mg/dL) 113 H Random Glucose Calcium Lactate Dehydrogenase Total Creatine Kinase Troponin I Pneumocystis Source S. pneumoniae Antigen Assessment & Plan - Assessment and Plan (Free Text) Assessment: 88 year old male with history of Parkinson dementia, HTN sepsis who is admitted with AMS, sepsis, UTI, hypernatremia, RENNY on CKD. The patient is altered, non verbal. Failed speech and swallow, NPO. Patient has POLST which states he is full code and in favor of exterminator helper termite artificial feeding. Will speak with daughter in order to explain benefits and burdens of procedure. Will discuss cultural beliefs and goals of care. Plan: Goals of care Hypernatremia: IVF's, monitor labs, nephrology following. Sepsis/ UTI: UC/S positive for E Coli, Klebsiella , ESBL. On Merrem and Doxycycline. N STEMI: Cardiology following. Continue Lopressor, Nitro Bid, DVT prophylaxis
--- NOTE | 2018-08-11 15:44 | CP.PCM.PN ---
<Rivas Guillaume - Last Filed: 08/11/18 15:40> Subjective - Date & Time of Evaluation Date of Evaluation: 08/11/18 Time of Evaluation: 07:00 - Subjective Subjective: Rivas Guillaume PGY1 Medicine Progress Note for Dr. Linder Patient was seen and examined at bedside this morning. No overnight events. Patient's mental status is unchanged. An appropriate history and review of systems was unable to be obtained due to patient's lethargy with underlying dementia. NG tube is still in place, patient is receiving tube feeds. Jeffrey is draining. Vital signs stable, no fevers overnight. Objective - Vital Signs/Intake and Output Vital Signs (last 24 hours): Temp Pulse Resp BP Pulse Ox 99.0 F 84 25 H 146/71 97 08/11/18 13:04 08/11/18 13:04 08/11/18 13:04 08/11/18 12:57 08/11/18 13:04 Intake and Output: 08/11/18 08/11/18 06:59 18:59 Intake Total 920 Output Total 2600 Balance -1680 - Medications Medications: Current Medications Albuterol/Ipratropium (Duoneb 3 Mg/0.5 Mg (3 Ml) Ud) 3 ml IH [id number] PRN PRN Reason: Shortness of Breath Last Admin: 08/10/18 01:59 EDT Dose: 3 ml Artificial Tears (Refresh Opth Soln) 0 ml OU Q4 PRN PRN Reason: Dry eyes Last Admin: 08/10/18 11:11 Dose: 1 drop Artificial Tears (Artificial Tears Opht Oint) 0 gm OU BID PRN PRN Reason: Dry eyes Last Admin: 08/10/18 16:25 Dose: 1 applic Aspirin (Ecotrin) 81 mg PO DAILY [facility] Last Admin: 08/11/18 12:58 Dose: 81 mg Heparin Sodium (Porcine) (Heparin) 5,000 units SC Q8 [facility]; Protocol Last Admin: 08/11/18 06:05 Dose: 5,000 units Meropenem (Merrem Iv 1 Gm Premix) 1 gm in 50 mls @ 12.5 mls/hr IVPB Q12 [facility]; Protocol Stop: 08/17/18 10:25 Last Admin: 08/11/18 11:00 Dose: 12.5 mls/hr Metoprolol Tartrate (Lopressor) 25 mg PO BID [facility] Last Admin: 08/11/18 12:57 Dose: 25 mg Nitroglycerin (Nitro-Bid 2% Oint) 0.5 ea TOP Q6H [facility] Last Admin: 08/11/18 12:56 Dose: 0.5 ea Nystatin (Nystop Topical Powder) 0 gm TOP DAILY PRN PRN Reason: Itching / Pruritus Last Admin: 08/10/18 16:24 Dose: 1 applic Pantoprazole Sodium (Protonix Inj) 40 mg IVP DAILY [facility] Last Admin: 08/11/18 12:57 Dose: 40 mg Thiamine HCl (Vitamin B1 Inj) 200 mg IV DAILY [facility] Last Admin: 08/10/18 11:08 Dose: 200 mg - Labs Labs: 08/11/18 05:45 08/11/18 05:45 PT 15.7 SECONDS (9.4-12.5) H 08/07/18 23:15 INR 1.37 08/07/18 23:15 APTT 57.1 Seconds (25.1-36.5) H 08/10/18 08:35 - Constitutional Appears: Other (Lethargic. Briefly opens eyes to sternal rub. ) - Head Exam Head Exam: ATRAUMATIC, NORMOCEPHALIC Additional comments: NG tube in place. - Eye Exam Eye Exam: PERRL. absent: Conjunctival injection - ENT Exam ENT Exam: Mucous Membranes Moist - Respiratory Exam Respiratory Exam: Rhonchi (Bilateral rhonchi with increased congestion. ). absent: Accessory Muscle Use, Chest Wall Tenderness, Clear to Ausculation Bilateral, Rales, Wheezes - Cardiovascular Exam Cardiovascular Exam: REGULAR RHYTHM, +S1, +S2. absent: JVD - GI/Abdominal Exam GI & Abdominal Exam: Soft, Normal Bowel Sounds. absent: Tenderness - Exam Additional comments: Jeffrey in place. - Extremities Exam Extremities Exam: absent: Calf Tenderness, Pedal Edema, Tenderness - Neurological Exam Neurological Exam: absent: Alert, Oriented x3 - Skin Skin Exam: Dry, Intact, Normal Color, Warm Assessment and Plan - Assessment and Plan (Free Text) Assessment: Patient is a 88 y/o M with PMHx of Parkinson's disease, dementia, and recent ESBL + UTI presenting from assisted with complaints of lethargy, failure to thrive, and fever found to have UTI. Patient was admitted for Sepsis 2/2 ESBL UTI, hypernatremia, and acute renal failure. Plan: Sepsis 2/2 ESBL UTI - c/w doxycycline and meropenem (Day #5); complete 7-10 days as per ID recs - Patient is still lethargic - ID recs appreciated - afebrile and no leukocytosis - Urine cx: ESBL+ e coli - Lactate downtrending Worsening Pulmonary Congestion - CXR ordered - rhonchi on lung exam - mucomyst q6H - c/w duonebs Failure To Thrive - GI consulted for PEG tube evaluation - c/w NG tube feeds - Poor PO intake; failed swallow eval - Palliative care Hypernatremia 2/2 dehydration and failure to thrive - resolved - Most recent Na is 148 - Na was 161 on admission - Nephrology consulted, appreciated recs Pre-renal RENNY - resolved - Most recent BUN/Cr is 29/0.9 (baseline) - Cr initially 2.1 on admission - Jeffrey is draining Elevated Troponins 2/2 demand ischemia - improved - Troponins are downtrending, most recent is .08 - Cardiology recs appreciated; no indication for cath at this time - No EKG changes - c/w heparin, ASA, nitro paste, lopressor GI ppx: Protonix DVT ppx: Heparin, SCD Dispo: f/u GI recs for PEG tube evaluation. Continue to monitor patient. Case was discussed and reviewed with Attending Physician, Dr. Linder. <Kaila Linder - Last Filed: 08/11/18 18:00> Objective - Vital Signs/Intake and Output Vital Signs (last 24 hours): Temp Pulse Resp BP Pulse Ox 99.5 F 81 26 H 153/77 H 98 08/11/18 16:00 08/11/18 16:00 08/11/18 16:00 08/11/18 16:00 08/11/18 16:00 Intake and Output: 08/11/18 08/11/18 06:59 18:59 Intake Total 920 Output Total 2600 Balance -1680 - Medications Medications: Current Medications Acetylcysteine (Acetylcysteine 20%) 4 ml IH [id number] [facility]OM[facility] Albuterol/Ipratropium (Duoneb 3 Mg/0.5 Mg (3 Ml) Ud) 3 ml IH [id number] PRN PRN Reason: Shortness of Breath Last Admin: 08/10/18 01:59 EDT Dose: 3 ml Artificial Tears (Refresh Opth Soln) 0 ml OU Q4 PRN PRN Reason: Dry eyes Last Admin: 08/10/18 11:11 Dose: 1 drop Artificial Tears (Artificial Tears Opht Oint) 0 gm OU BID PRN PRN Reason: Dry eyes Last Admin: 08/10/18 16:25 Dose: 1 applic Aspirin (Ecotrin) 81 mg PO DAILY [facility] Last Admin: 08/11/18 12:58 Dose: 81 mg Heparin Sodium (Porcine) (Heparin) 5,000 units SC Q8 [facility]; Protocol Last Admin: 08/11/18 06:05 Dose: 5,000 units Meropenem (Merrem Iv 1 Gm Premix) 1 gm in 50 mls @ 12.5 mls/hr IVPB Q12 [facility]; Protocol Stop: 08/17/18 10:25 Last Admin: 08/11/18 11:00 Dose: 12.5 mls/hr Metoprolol Tartrate (Lopressor) 25 mg PO BID [facility] Last Admin: 08/11/18 12:57 Dose: 25 mg Nitroglycerin (Nitro-Bid 2% Oint) 0.5 ea TOP Q6H [facility] Last Admin: 08/11/18 12:56 Dose: 0.5 ea Nystatin (Nystop Topical Powder) 0 gm TOP DAILY PRN PRN Reason: Itching / Pruritus Last Admin: 08/10/18 16:24 Dose: 1 applic Pantoprazole Sodium (Protonix Inj) 40 mg IVP DAILY [facility] Last Admin: 08/11/18 12:57 Dose: 40 mg Thiamine HCl (Vitamin B1 Inj) 200 mg IV DAILY [facility] Last Admin: 08/10/18 11:08 Dose: 200 mg - Labs Labs: 08/11/18 05:45 08/11/18 05:45 PT 15.7 SECONDS (9.4-12.5) H 08/07/18 23:15 INR 1.37 08/07/18 23:15 APTT 57.1 Seconds (25.1-36.5) H 08/10/18 08:35 Attending/Attestation - Attestation I have personally seen and examined this patient.: Yes I have fully participated in the care of the patient.: Yes I have reviewed all pertinent clinical information, including history, physical exam and plan: Yes Notes (Text): 08/11/18 17:52 88 year old male with past medical history of Parkinson's disease and dementia who was transferred from [place] secondary to lethargy and failure to thrive. CT head was negative for acute findings. He was found to have sepsis secondary to ESBL UTI and started on iv antibiotics. ID is following. He was also found to have hypernatremia and RENNY, both which have improved. Nephrology is following. He was also found to have elevated troponins, possible NSTEMI vs elevated cardiac enzymes is setting of renal failure and sepsis. Echocardiogram was reviewed. Cardiology is following. Patient is on aspirin and lopressor. Mental status is still poor. He is on NGT tube feeds. Will request for GI evaluation for evaluation of PEG tube. Palliative care evaluation was appreciated as well. Kaila Linder MD Hospitalist.
--- NOTE | 2018-08-11 16:08 | CP.PCM.PN ---
Subjective - Date & Time of Evaluation Date of Evaluation: 08/11/18 Time of Evaluation: 08:25 - Subjective Subjective: Continues to be lethargic, no fevers. Objective - Vital Signs/Intake and Output Vital Signs (last 24 hours): Temp Pulse Resp BP Pulse Ox 99.0 F 84 25 H 146/71 97 08/11/18 13:04 08/11/18 13:04 08/11/18 13:04 08/11/18 12:57 08/11/18 13:04 Intake and Output: 08/11/18 08/11/18 06:59 18:59 Intake Total 920 Output Total 2600 Balance -1680 - Medications Medications: Current Medications Acetylcysteine (Acetylcysteine 20%) 4 ml IH [id number] TOMMY Albuterol/Ipratropium (Duoneb 3 Mg/0.5 Mg (3 Ml) Ud) 3 ml IH [id number] PRN PRN Reason: Shortness of Breath Last Admin: 08/10/18 01:59 EDT Dose: 3 ml Artificial Tears (Refresh Opth Soln) 0 ml OU Q4 PRN PRN Reason: Dry eyes Last Admin: 08/10/18 11:11 Dose: 1 drop Artificial Tears (Artificial Tears Opht Oint) 0 gm OU BID PRN PRN Reason: Dry eyes Last Admin: 08/10/18 16:25 Dose: 1 applic Aspirin (Ecotrin) 81 mg PO DAILY [facility] Last Admin: 08/11/18 12:58 Dose: 81 mg Heparin Sodium (Porcine) (Heparin) 5,000 units SC Q8 [facility]; Protocol Last Admin: 08/11/18 06:05 Dose: 5,000 units Meropenem (Merrem Iv 1 Gm Premix) 1 gm in 50 mls @ 12.5 mls/hr IVPB Q12 [facility]; Protocol Stop: 08/17/18 10:25 Last Admin: 08/11/18 11:00 Dose: 12.5 mls/hr Metoprolol Tartrate (Lopressor) 25 mg PO BID [facility] Last Admin: 08/11/18 12:57 Dose: 25 mg Nitroglycerin (Nitro-Bid 2% Oint) 0.5 ea TOP Q6H [facility] Last Admin: 08/11/18 12:56 Dose: 0.5 ea Nystatin (Nystop Topical Powder) 0 gm TOP DAILY PRN PRN Reason: Itching / Pruritus Last Admin: 08/10/18 16:24 Dose: 1 applic Pantoprazole Sodium (Protonix Inj) 40 mg IVP DAILY [facility] Last Admin: 08/11/18 12:57 Dose: 40 mg Thiamine HCl (Vitamin B1 Inj) 200 mg IV DAILY [facility] Last Admin: 08/10/18 11:08 Dose: 200 mg - Labs Labs: 08/11/18 05:45 08/11/18 05:45 PT 15.7 SECONDS (9.4-12.5) H 08/07/18 23:15 INR 1.37 08/07/18 23:15 APTT 57.1 Seconds (25.1-36.5) H 08/10/18 08:35 - Constitutional Appears: Chronically Ill - Head Exam Head Exam: NORMAL INSPECTION - Respiratory Exam Respiratory Exam: Decreased Breath Sounds - Cardiovascular Exam Cardiovascular Exam: +S1, +S2 - GI/Abdominal Exam GI & Abdominal Exam: Soft. absent: Tenderness Assessment and Plan - Assessment and Plan (Free Text) Plan: Assessment Severe sepsis due to ESBL E. coli UTI as wekk as left lower lobe HCAP Parkinson's disease dementia Plan continue Merrem day 4 to complete 7-10 days of therapy overall prognosis is poor
--- NOTE | 2018-08-11 18:43 | PN ---
DATE: 08/11/2018 REASON FOR CONSULTATION AND FOLLOW UP: Cardiac evaluation, abnormal troponin, admitted with sepsis, lethargy, failure to thrive and urosepsis. Admitted with altered mental status. SUBJECTIVE: Patient is very weak, lethargic, non-communicable. NG tube is in place, getting heparin, switch over to Lovenox. PHYSICAL EXAMINATION: VITAL SIGNS: Temperature afebrile, heart rate 84, blood pressure 146/71. HEENT: PERRLA. Extraocular muscles intact. NECK: Supple. No carotid bruits or thyromegaly. CHEST: Clear to auscultation. HEART: S1, S2 regular. ABDOMEN: Soft. EXTREMITIES: Clubbing and cyanosis negative. LABORATORY DATA: Blood workup as follows: WBC 4.5, hemoglobin 11. , hematocrit 37.4, platelet count 182. Chemistry shows sodium 140, potassium 4.2, chloride 119, carbon dioxide 24, anion gap of 9, BUN 20, creatinine 0.9. IMPRESSION: An 88-year-old male with past medical history significant for possible dementia. Transferred to group home because weak, lethargic, urosepsis, positive troponin, asymptomatic. 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 Patient recently discharged from [facility]. Transferred back to the group home. RECOMMENDATIONS: Continue supportive care, change Lovenox, DVT prophylaxis, continue NG feeding, continue metoprolol, discharge planning, also consider DNR/DNI, supportive care. Patient had echocardiography done on 08/08/2018 that revealed ejection fraction 55%, moderate aortic regurgitation, mild mitral regurgitation, mild tricuspid regurgitation, medical treatment. No invasive cardiac workup is planned. Thank you, Dr. Caballero, for providing us the opportunity in taking care of the patient, Sravan Masterson. Serena Soto MD
[2018-08-11] MEDS: Acetylcysteine 20% Inhal Soln (4ml) IH SCH (20:04)
[2018-08-12] MEDS: Acetylcysteine 20% Inhal Soln (4ml) IH SCH ×3 (02:00→13:05)
[2018-08-12] MEDS: Pantoprazole 40 mg Susp UD PO SCH (05:18)
[2018-08-12 07:11] LABS: EOS # 0.1 (0.0-0.7); EOS % 1.9 % (1.5-5.0); GRAN # 3.8 (1.4-6.5); GRAN % 71.7 % (50.0-68.0); HEMOGLOBIN 12.3 g/dL (14.0-18.0); LYMPH # 1.1 (1.2-3.4); LYMPH % 19.8 % (22.0-35.0); MEAN CELL VOLUME 93.1 fl (80.0-105.0); MEAN CORPUSCULAR HEMOGLOBIN 30.3 pg (25.0-35.0); MEAN CORPUSCULAR HGB CONC 32.5 g/dl (31.0-37.0); MEAN PLATELET VOLUME 11.1 fl (7.0-11.0); MONO # 0.4 (0.1-0.6); MONO % 6.6 % (1.0-6.0); RBC 4.06 10^6/uL (3.5-6.1); RED CELL DISTRIBUTION WIDTH 15.5 % (11.5-14.5); WHITE BLOOD COUNT 5.3 10^3/uL (4.5-11.0)
[2018-08-12 07:16] LABS: BLOOD UREA NITROGEN 31 mg/dL (7-21); CALCIUM 8.6 mg/dL (8.4-10.5); GFR NON-AFRICAN AMERICAN > 60
[2018-08-12] MEDS: Albuterol-Ipratrop 3 mg / 0.5 (3 ml) UD IH PRN ×3 (07:48→21:02)
[2018-08-12] MEDS: Nitroglycerin 2% Ointment Foilpak UD TOP SCH ×4 (10:28→22:21)
[2018-08-12] MEDS: Meropenem IV 1 gm in NS 1 GM/50 ML BAG IVPB SCH ×2 (10:31→22:15)
[2018-08-12] MEDS: Carbidopa/Levodopa/Entacapone 37.5mg-150mg-200mg PO SCH ×4 (10:32→22:14)
--- NOTE | 2018-08-12 11:35 | PN ---
DATE: 08/12/2018 REASON FOR CONSULTATION: Cardiac evaluation, abnormal troponin, admitted with sepsis, lethargic, failure to thrive, urosepsis, admitted with altered mental status. SUBJECTIVE: The patient is much awake and alert. Denies any chest pain. NG tube is in position. OBJECTIVE: GENERAL: Not in any apparent distress. Getting fingerstick. VITAL SIGNS: Temperature afebrile, heart rate 62, blood pressure 134/69. HEENT: PERRLA. Extraocular muscles intact. NECK: Supple. No carotid bruits or thyromegaly. CHEST: Clear to auscultation. HEART: S1 and S2 regular. ABDOMEN: Soft. EXTREMITIES: Clubbing and cyanosis negative. LABORATORY DATA: Blood workup as follows; WBC 5.3, hemoglobin , hematocrit 37.8, platelet count 189. Chemistry shows sodium 140, potassium 4.4, chloride 117, carbon dioxide 25, anion gap of 10, BUN 31, creatinine 0.9. IMPRESSION: An 88-year-old male with past medical history significant for possible dementia, [facility], lethargic, borderline troponin positive, mildly elevated, asymptomatic. 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 Recently discharged from [facility] and transferred back here for lethargy. RECOMMENDATIONS: Aggressive medical treatment. Continue Lovenox for DVT prophylaxis. Continue NG feeding. Continue aspirin. Continue metoprolol. Continue broad-spectrum antibiotic. Medical management. Consider DNR/DNI. Thank you, Dr. Linder, for providing us the opportunity in taking care of the patient, Sravan Masterson. Serena Soto MD cc: Dr. Linder.
--- NOTE | 2018-08-12 11:45 | CP.PCM.PN ---
Subjective - Date & Time of Evaluation Date of Evaluation: 08/12/18 Time of Evaluation: 09:15 - Subjective Subjective: No fevers, not in distress but somewhat lethargic. Objective - Vital Signs/Intake and Output Vital Signs (last 24 hours): Temp Pulse Resp BP Pulse Ox 98.9 F 99 H 28 H 134/69 98 08/12/18 08:00 08/12/18 10:29 08/12/18 08:00 08/12/18 08:00 08/12/18 08:00 Intake and Output: 08/12/18 08/12/18 06:59 18:59 Intake Total 720 Output Total 650 Balance 70 - Medications Medications: Current Medications Acetylcysteine (Acetylcysteine 20%) 4 ml IH [id number] TOMMY Last Admin: 08/12/18 07:48 Dose: 4 ml Albuterol/Ipratropium (Duoneb 3 Mg/0.5 Mg (3 Ml) Ud) 3 ml IH [id number] PRN PRN Reason: Shortness of Breath Last Admin: 08/12/18 07:48 Dose: 3 ml Artificial Tears (Refresh Opth Soln) 0 ml OU Q4 PRN PRN Reason: Dry eyes Last Admin: 08/10/18 11:11 Dose: 1 drop Artificial Tears (Artificial Tears Opht Oint) 0 gm OU BID PRN PRN Reason: Dry eyes Last Admin: 08/10/18 16:25 Dose: 1 applic Aspirin (Ecotrin) 81 mg PO DAILY [facility] Last Admin: 08/12/18 10:32 Dose: 81 mg Carbidopa/Levodopa/Entacapone (Stalevo 150) 1 tab PO QID [facility] Last Admin: 08/12/18 10:32 Dose: 1 tab Heparin Sodium (Porcine) (Heparin) 5,000 units SC Q8 [facility]; Protocol Last Admin: 08/12/18 05:18 Dose: 5,000 units Meropenem (Merrem Iv 1 Gm Premix) 1 gm in 50 mls @ 12.5 mls/hr IVPB Q12 [facility]; Protocol Stop: 08/17/18 10:25 Last Admin: 08/12/18 10:31 Dose: 12.5 mls/hr Metoprolol Tartrate (Lopressor) 25 mg PO BID [facility] Last Admin: 08/12/18 10:29 Dose: 25 mg Nitroglycerin (Nitro-Bid 2% Oint) 0.5 ea TOP Q6H [facility] Last Admin: 08/12/18 10:28 Dose: 0.5 ea Nystatin (Nystop Topical Powder) 0 gm TOP DAILY PRN PRN Reason: Itching / Pruritus Last Admin: 08/10/18 16:24 Dose: 1 applic Pantoprazole Sodium (Protonix Susp) 40 mg PO 0600 [facility] Last Admin: 08/12/18 05:18 Dose: 40 mg Thiamine HCl (Vitamin B1 Tab) 200 mg PO DAILY [facility] Last Admin: 08/12/18 10:28 Dose: 200 mg - Labs Labs: 08/12/18 05:50 08/12/18 05:50 PT 15.7 SECONDS (9.4-12.5) H 08/07/18 23:15 INR 1.37 08/07/18 23:15 APTT 57.1 Seconds (25.1-36.5) H 08/10/18 08:35 - Constitutional Appears: Chronically Ill - Head Exam Head Exam: NORMAL INSPECTION - Neck Exam Neck Exam: absent: Meningismus - Respiratory Exam Respiratory Exam: Decreased Breath Sounds - Cardiovascular Exam Cardiovascular Exam: +S1, +S2 - GI/Abdominal Exam GI & Abdominal Exam: Soft. absent: Tenderness Assessment and Plan - Assessment and Plan (Free Text) Plan: Assessment Severe sepsis due to ESBL E. coli UTI as wekk as left lower lobe HCAP Parkinson's disease dementia Plan continue Merrem day 5 to complete 7-10 days of therapy overall prognosis is poor
--- NOTE | 2018-08-12 11:50 | CT ---
Date of service: 08/12/2018 PROCEDURE: CT HEAD WITHOUT CONTRAST. HISTORY: evaluation COMPARISON: 08/07/2018 TECHNIQUE: Axial computed tomography images were obtained through the head/brain without intravenous contrast. Radiation dose: Total exam DLP = 1040.93 mGy-cm. This CT exam was performed using one or more of the following dose reduction techniques: Automated exposure control, adjustment of the mA and/or kV according to patient size, and/or use of iterative reconstruction technique. FINDINGS: HEMORRHAGE: No intracranial hemorrhage. BRAIN: No mass effect or edema. Moderate atrophy. Chronic microvascular changes. No acute findings VENTRICLES: Unremarkable. No hydrocephalus. CALVARIUM: Unremarkable. PARANASAL SINUSES: Unremarkable as visualized. No significant inflammatory changes. MASTOID AIR CELLS: Unremarkable as visualized. No inflammatory changes. OTHER FINDINGS: None. IMPRESSION: No acute findings
--- NOTE | 2018-08-12 12:44 | CON ---
DATE: 08/12/2018 HISTORY OF PRESENT ILLNESS: I saw Mr. Sravan Masterson this morning. He is a 88-year-old patient apparently admitted with lethargy, failure to thrive, found to have pneumonia with bilateral renal cyst and nephrolithiasis. PAST MEDICAL HISTORY: Patient's past medical history significant for Parkinson's and dementia. I reviewed the respective consults as well as the imaging studies as well as a consultation by Germaine Shelton. Taking into account he patient's past medical history and the patient's current clinical status, I do not feel a PEG tube is appropriate at this particular time point. One may consider another gastroenterology input regarding placing the PEG tube in this patient. Deni Arboleda DO, PhD [facility]
--- NOTE | 2018-08-12 14:56 | CP.PCM.PN ---
Subjective - Date & Time of Evaluation Date of Evaluation: 08/12/18 Time of Evaluation: 13:00 - Subjective Subjective: More alert today. Upper airway congestion, unable to cough up secretions Objective - Vital Signs/Intake and Output Vital Signs (last 24 hours): Temp Pulse Resp BP Pulse Ox 98.4 F 89 28 H 134/69 94 L 08/12/18 11:53 08/12/18 13:43 08/12/18 08:00 08/12/18 08:00 08/12/18 13:43 Intake and Output: 08/12/18 08/12/18 06:59 18:59 Intake Total 720 Output Total 650 Balance 70 - Medications Medications: Current Medications Albuterol/Ipratropium (Duoneb 3 Mg/0.5 Mg (3 Ml) Ud) 3 ml IH [id number] PRN PRN Reason: Shortness of Breath Last Admin: 08/12/18 13:05 Dose: 3 ml Artificial Tears (Refresh Opth Soln) 0 ml OU Q4 PRN PRN Reason: Dry eyes Last Admin: 08/10/18 11:11 Dose: 1 drop Artificial Tears (Artificial Tears Opht Oint) 0 gm OU BID PRN PRN Reason: Dry eyes Last Admin: 08/10/18 16:25 Dose: 1 applic Aspirin (Ecotrin) 81 mg PO DAILY [facility] Last Admin: 08/12/18 10:32 Dose: 81 mg Carbidopa/Levodopa/Entacapone (Stalevo 150) 1 tab PO QID [facility] Last Admin: 08/12/18 10:32 Dose: 1 tab Heparin Sodium (Porcine) (Heparin) 5,000 units SC Q8 [facility]; Protocol Last Admin: 08/12/18 05:18 Dose: 5,000 units Meropenem (Merrem Iv 1 Gm Premix) 1 gm in 50 mls @ 12.5 mls/hr IVPB Q12 [facility]; Protocol Stop: 08/17/18 10:25 Last Admin: 08/12/18 10:31 Dose: 12.5 mls/hr Metoprolol Tartrate (Lopressor) 25 mg PO BID [facility] Last Admin: 08/12/18 10:29 Dose: 25 mg Nitroglycerin (Nitro-Bid 2% Oint) 0.5 ea TOP Q6H [facility] Last Admin: 08/12/18 10:28 Dose: 0.5 ea Nystatin (Nystop Topical Powder) 0 gm TOP DAILY PRN PRN Reason: Itching / Pruritus Last Admin: 08/10/18 16:24 Dose: 1 applic Pantoprazole Sodium (Protonix Susp) 40 mg PO 0600 [facility] Last Admin: 08/12/18 05:18 Dose: 40 mg Thiamine HCl (Vitamin B1 Tab) 200 mg PO DAILY [facility] Last Admin: 08/12/18 10:28 Dose: 200 mg - Labs Labs: 08/12/18 05:50 08/12/18 05:50 PT 15.7 SECONDS (9.4-12.5) H 08/07/18 23:15 INR 1.37 08/07/18 23:15 APTT 57.1 Seconds (25.1-36.5) H 08/10/18 08:35 - Constitutional Appears: Cachectic, Chronically Ill - Eye Exam Eye Exam: Normal appearance, PERRL - ENT Exam ENT Exam: Mucous Membranes Moist - Respiratory Exam Respiratory Exam: Rhonchi, Wheezes - Cardiovascular Exam Cardiovascular Exam: +S1, +S2 - GI/Abdominal Exam GI & Abdominal Exam: Soft - Extremities Exam Extremities Exam: Normal Capillary Refill, Pedal Edema - Skin Skin Exam: Dry, Pallor, Warm Assessment and Plan - Assessment and Plan (Free Text) Assessment: 88 year old male with history of Parkinson's dementia who is admitted with pneumonia, AMS, dysphagia, UTI. I spoke with patient's daughter Gordon via phone. Daughter insistent that patient is hungry and is able to eat. She states that he is requesting food. I explained that due to patients respiratory congestion, aspiration risk is very high. I also explained that speech and swallow exam was done today and that patient was unable to clear airway sufficiently, therefore he remains NPO. I offered to meet with daughter to discuss goals of care but she is refusing to come unless speech therapist is present and repeats exam. Repeatedl attempts to discuss goals of care/ benefits and burdens of PEG but daughter not willing to have conversation at this time Speech therapist also spoke with daughter via phone in my presence. Therapist explained that the patient was pocketing food in his mouth and not swallowing. She explained that he is at risk unable to allow for feeding at this time. Therapist informed daughter that repeat swallow exam would be done once patient is able to safely to clear airway/swallow. Daughter not accepting this explanation,wants exam repeated today Time spent inc phone conversation with daughter regarding goals of care, 40 minutes Plan: Goals of care and advanced care planning SW referral evaluate for LTAC Speech and Swallow exam when Sepsis/UTI: Continue Merrem. Airway congestion: Duonebs, chest PT, suctioning as needed. Monitor chest x ray. Cardio: Ecotrin, Nitrobid ,Lopressor
--- NOTE | 2018-08-12 15:44 | CP.PCM.PN ---
<Bjorn Burks - Last Filed: 08/12/18 15:38> Subjective - Date & Time of Evaluation Date of Evaluation: 08/12/18 Time of Evaluation: 15:38 - Subjective Subjective: Nephrology progress note for Dr. Beck's service - Isabel Burks PGY3 Patient seen and examined at bedside this morning. No acute overnight events or new complaints reported. More awake/alert this morning. ROS limited. Objective - Vital Signs/Intake and Output Vital Signs (last 24 hours): Temp Pulse Resp BP Pulse Ox 98.4 F 89 28 H 134/69 94 L 08/12/18 11:53 08/12/18 14:00 08/12/18 08:00 08/12/18 08:00 08/12/18 13:43 Intake and Output: 08/12/18 08/12/18 06:59 18:59 Intake Total 720 Output Total 650 Balance 70 - Medications Medications: Current Medications Albuterol/Ipratropium (Duoneb 3 Mg/0.5 Mg (3 Ml) Ud) 3 ml IH [id number] PRN PRN Reason: Shortness of Breath Last Admin: 08/12/18 13:05 Dose: 3 ml Artificial Tears (Refresh Opth Soln) 0 ml OU Q4 PRN PRN Reason: Dry eyes Last Admin: 08/10/18 11:11 Dose: 1 drop Artificial Tears (Artificial Tears Opht Oint) 0 gm OU BID PRN PRN Reason: Dry eyes Last Admin: 08/10/18 16:25 Dose: 1 applic Aspirin (Ecotrin) 81 mg PO DAILY [facility] Last Admin: 08/12/18 10:32 Dose: 81 mg Carbidopa/Levodopa/Entacapone (Stalevo 150) 1 tab PO QID [facility] Last Admin: 08/12/18 10:32 Dose: 1 tab Heparin Sodium (Porcine) (Heparin) 5,000 units SC Q8 [facility]; Protocol Last Admin: 08/12/18 05:18 Dose: 5,000 units Meropenem (Merrem Iv 1 Gm Premix) 1 gm in 50 mls @ 12.5 mls/hr IVPB Q12 [facility]; Protocol Stop: 08/17/18 10:25 Last Admin: 08/12/18 10:31 Dose: 12.5 mls/hr Metoprolol Tartrate (Lopressor) 25 mg PO BID [facility] Last Admin: 08/12/18 10:29 Dose: 25 mg Nitroglycerin (Nitro-Bid 2% Oint) 0.5 ea TOP Q6H [facility] Last Admin: 08/12/18 10:28 Dose: 0.5 ea Nystatin (Nystop Topical Powder) 0 gm TOP DAILY PRN PRN Reason: Itching / Pruritus Last Admin: 08/10/18 16:24 Dose: 1 applic Pantoprazole Sodium (Protonix Susp) 40 mg PO 0600 [facility] Last Admin: 08/12/18 05:18 Dose: 40 mg Thiamine HCl (Vitamin B1 Tab) 200 mg PO DAILY [facility] Last Admin: 08/12/18 10:28 Dose: 200 mg - Labs Labs: 08/12/18 05:50 08/12/18 05:50 PT 15.7 SECONDS (9.4-12.5) H 08/07/18 23:15 INR 1.37 08/07/18 23:15 APTT 57.1 Seconds (25.1-36.5) H 08/10/18 08:35 - Constitutional Appears: No Acute Distress, Chronically Ill - Head Exam Head Exam: ATRAUMATIC, NORMAL INSPECTION, NORMOCEPHALIC - Eye Exam Eye Exam: EOMI, PERRL - ENT Exam ENT Exam: Mucous Membranes Dry - Neck Exam Neck Exam: Normal Inspection - Cardiovascular Exam Cardiovascular Exam: +S1, +S2. absent: Clicks, Gallop, Rubs - GI/Abdominal Exam GI & Abdominal Exam: Soft. absent: Distended, Firm, Guarding, Rigid, Tenderness, Mass - Extremities Exam Extremities Exam: absent: Calf Tenderness, Pedal Edema - Neurological Exam Neurological Exam: Alert, Awake - Skin Skin Exam: Dry, Intact, Normal Color, Warm Assessment and Plan - Assessment and Plan (Free Text) Plan: 88yo male with history of Parkinson's disease, dementia and hx of ESBL UTI [facility] of [facility]argy, failure to thrive and fever. Nephrology consulted for evaluation of acute kidney injury and hypernatremia. 1. Acute kidney injury, resolved 2. Hypernatremia 3. Sepsis secondary to ESBL UTI 4. Hx of dementia -RENNY on CKD; consistent with pre-renal etiology in the setting of decreased PO intake and recurrent UTI; renal function improved with intravascular volume replenishment; stable volume status; likely has baseline CKD though exact baseline unclear (serum creatinine in low 1's in 2015); -Free water flushes of 250cc q4h in conjunction with feeds -Avoid nephrotoxic agents (NSAIDS, phosphate enemia, IV dye); -Presently on meropenem per ID recommendations for ESBL UTI -CT abd/pelvis reviewed -Echocardiogram reviewed Patient seen and case discussed/reviewed with attending, Dr. Beck <Brent Beck - Last Filed: 08/13/18 08:41> Objective - Vital Signs/Intake and Output Vital Signs (last 24 hours): Temp Pulse Resp BP Pulse Ox 100.5 F H 78 23 142/67 99 08/13/18 04:00 08/13/18 06:00 08/13/18 04:00 08/13/18 04:00 08/13/18 04:00 Intake and Output: 08/13/18 08/13/18 06:59 18:59 Intake Total 870 Output Total 600 Balance 270 - Medications Medications: Current Medications Albuterol/Ipratropium (Duoneb 3 Mg/0.5 Mg (3 Ml) Ud) 3 ml IH [id number] PRN PRN Reason: Shortness of Breath Last Admin: 08/13/18 08:08 Dose: 3 ml Artificial Tears (Refresh Opth Soln) 0 ml OU Q4 PRN PRN Reason: Dry eyes Last Admin: 08/10/18 11:11 Dose: 1 drop Artificial Tears (Artificial Tears Opht Oint) 0 gm OU BID PRN PRN Reason: Dry eyes Last Admin: 08/10/18 16:25 Dose: 1 applic Aspirin (Ecotrin) 81 mg PO DAILY [facility] Last Admin: 08/12/18 10:32 Dose: 81 mg Carbidopa/Levodopa/Entacapone (Stalevo 150) 1 tab PO QID [facility] Last Admin: 08/13/18 04:25 Dose: Not Given Heparin Sodium (Porcine) (Heparin) 5,000 units SC Q8 [facility]; Protocol Last Admin: 08/13/18 05:12 Dose: 5,000 units Meropenem (Merrem Iv 1 Gm Premix) 1 gm in 50 mls @ 12.5 mls/hr IVPB Q8 [facility]; Protocol Stop: 08/22/18 14:01 Vancomycin HCl (Vancomycin 1gm) 1 gm in 250 mls @ 167 mls/hr IVPB Q12H [facility]; Protocol Metoprolol Tartrate (Lopressor) 25 mg PO BID [facility] Last Admin: 08/12/18 17:45 Dose: 25 mg Nitroglycerin (Nitro-Bid 2% Oint) 0.5 ea TOP Q6H [facility] Last Admin: 08/13/18 04:00 Dose: 0.5 ea Nystatin (Nystop Topical Powder) 0 gm TOP DAILY PRN PRN Reason: Itching / Pruritus Last Admin: 08/10/18 16:24 Dose: 1 applic Pantoprazole Sodium (Protonix Susp) 40 mg PO 0600 [facility] Last Admin: 08/13/18 05:16 Dose: Not Given Thiamine HCl (Vitamin B1 Tab) 200 mg PO DAILY [facility] Last Admin: 08/12/18 10:28 Dose: 200 mg - Labs Labs: 08/13/18 05:30 08/13/18 05:30 PT 15.7 SECONDS (9.4-12.5) H 08/07/18 23:15 INR 1.37 08/07/18 23:15 APTT 57.1 Seconds (25.1-36.5) H 08/10/18 08:35 Assessment and Plan (1) Acute kidney injury Status: Acute (2) Hypernatremia Status: Acute (3) Sepsis Status: Acute Attending/Attestation - Attestation I have personally seen and examined this patient.: Yes I have fully participated in the care of the patient.: Yes I have reviewed all pertinent clinical information, including history, physical exam and plan: Yes Notes (Text): Patient seen and examined; I agree with the resident's note as above with the following additions/edits: Mild hypernatremia still persists; will increase free water flushes to 250 cc q4h; Polyuria resolved; was likely due to IVF; BUN still elevated; but stable; continue current tube feeding (jevity 1.2 at 60 cc/hr, giving about 1.1 g/kg/day protein calorie nutrition);
--- NOTE | 2018-08-12 22:39 | CP.PCM.PN ---
<Rivas Guillaume - Last Filed: 08/12/18 22:36> Subjective - Date & Time of Evaluation Date of Evaluation: 08/12/18 Time of Evaluation: 07:00 - Subjective Subjective: Rivas Guillaume PGY1 progress note for Dr. Linder Patient seen and examined at bedside this morning. No acute overnight events. Patient is more alert and awake today. Improved mental status. However, ROS not obtained since patient is still not verbal. He attempts to speak. Patient tracks and obeys commands. Will discuss with family in regards to baseline mental status. Vitals stable. Improved lung congestion. Objective - Vital Signs/Intake and Output Vital Signs (last 24 hours): Temp Pulse Resp BP Pulse Ox 100.2 F H 97 H 28 H 152/70 H 94 L 08/12/18 16:00 08/12/18 18:00 08/12/18 08:00 08/12/18 17:45 08/12/18 13:43 Intake and Output: 08/12/18 08/13/18 18:59 06:59 Intake Total 1520 Output Total 450 Balance 1070 - Medications Medications: Current Medications Albuterol/Ipratropium (Duoneb 3 Mg/0.5 Mg (3 Ml) Ud) 3 ml IH [id number] PRN PRN Reason: Shortness of Breath Last Admin: 08/12/18 21:02 Dose: 3 ml Artificial Tears (Refresh Opth Soln) 0 ml OU Q4 PRN PRN Reason: Dry eyes Last Admin: 08/10/18 11:11 Dose: 1 drop Artificial Tears (Artificial Tears Opht Oint) 0 gm OU BID PRN PRN Reason: Dry eyes Last Admin: 08/10/18 16:25 Dose: 1 applic Aspirin (Ecotrin) 81 mg PO DAILY [facility] Last Admin: 08/12/18 10:32 Dose: 81 mg Carbidopa/Levodopa/Entacapone (Stalevo 150) 1 tab PO QID [facility] Last Admin: 08/12/18 22:14 Dose: 1 tab Heparin Sodium (Porcine) (Heparin) 5,000 units SC Q8 [facility]; Protocol Last Admin: 08/12/18 22:14 Dose: 5,000 units Meropenem (Merrem Iv 1 Gm Premix) 1 gm in 50 mls @ 12.5 mls/hr IVPB Q12 [facility]; Protocol Stop: 08/17/18 10:25 Last Admin: 08/12/18 22:15 Dose: 12.5 mls/hr Metoprolol Tartrate (Lopressor) 25 mg PO BID [facility] Last Admin: 08/12/18 17:45 Dose: 25 mg Nitroglycerin (Nitro-Bid 2% Oint) 0.5 ea TOP Q6H [facility] Last Admin: 08/12/18 22:14 Dose: 0.5 ea Nystatin (Nystop Topical Powder) 0 gm TOP DAILY PRN PRN Reason: Itching / Pruritus Last Admin: 08/10/18 16:24 Dose: 1 applic Pantoprazole Sodium (Protonix Susp) 40 mg PO 0600 [facility] Last Admin: 08/12/18 05:18 Dose: 40 mg Thiamine HCl (Vitamin B1 Tab) 200 mg PO DAILY [facility] Last Admin: 08/12/18 10:28 Dose: 200 mg - Labs Labs: 08/12/18 05:50 08/12/18 05:50 PT 15.7 SECONDS (9.4-12.5) H 08/07/18 23:15 INR 1.37 08/07/18 23:15 APTT 57.1 Seconds (25.1-36.5) H 08/10/18 08:35 - Constitutional Appears: No Acute Distress - Head Exam Head Exam: ATRAUMATIC, NORMAL INSPECTION, NORMOCEPHALIC - Eye Exam Eye Exam: EOMI, Normal appearance, PERRL Pupil Exam: NORMAL ACCOMODATION, PERRL - ENT Exam ENT Exam: Mucous Membranes Moist, Normal Exam Additional comments: Increased respiratory secretions - Respiratory Exam Respiratory Exam: Rhonchi. absent: Decreased Breath Sounds, Wheezes, Stridor - Cardiovascular Exam Cardiovascular Exam: REGULAR RHYTHM, +S1, +S2 - GI/Abdominal Exam GI & Abdominal Exam: Soft, Normal Bowel Sounds. absent: Tenderness - Neurological Exam Neurological Exam: Alert, Awake - Skin Skin Exam: Dry, Intact, Normal Color, Warm Assessment and Plan - Assessment and Plan (Free Text) Assessment: Patient is a 88 y/o M with PMHx of Parkinson's disease, dementia, and recent ESBL + UTI presenting from senior living with complaints of lethargy, failure to thrive, and fever found to have UTI. Patient was admitted for Sepsis 2/2 ESBL UTI, hypernatremia, and acute renal failure. Plan: Sepsis 2/2 ESBL UTI - c/w doxycycline and meropenem (Day #6); complete 7-10 days as per ID recs - Improved mental status. Will d/w family about baseline mental status. - Restarted on home meds: carbidopa/levodopa for Parkinsons - CT Head - ID recs appreciated - afebrile and no leukocytosis - Urine cx: ESBL+ e coli Pulmonary Congestion - improving - CXR negative - rhonchi on lung exam, improving - mucomyst q6H - c/w duonebs Failure To Thrive - GI consulted for PEG tube evaluation. Does not recommend PEG at this time. - c/w NG tube feeds - Poor PO intake; failed swallow eval - Palliative care Hypernatremia 2/2 dehydration and failure to thrive - resolved - Most recent Na is wnl - Na was 161 on admission - Nephrology consulted, appreciated recs Pre-renal RENNY - resolved - Most recent BUN/Cr is wnl - Cr initially 2.1 on admission - Jeffrey is draining Elevated Troponins 2/2 demand ischemia - improved - Troponins are downtrending, most recent is .08 - Cardiology recs appreciated; no indication for cath at this time - No EKG changes - c/w heparin, ASA, nitro paste, lopressor GI ppx: Protonix DVT ppx: Heparin, SCD Dispo: continue to monitor patient. Discuss with family about mental status. Case was discussed and reviewed with Attending Physician, Dr. Linder. <Kaila Linder - Last Filed: 08/13/18 08:01> Objective - Vital Signs/Intake and Output Vital Signs (last 24 hours): Temp Pulse Resp BP Pulse Ox 100.5 F H 78 23 142/67 99 08/13/18 04:00 08/13/18 06:00 08/13/18 04:00 08/13/18 04:00 08/13/18 04:00 Intake and Output: 08/13/18 08/13/18 06:59 18:59 Intake Total 870 Output Total 600 Balance 270 - Medications Medications: Current Medications Albuterol/Ipratropium (Duoneb 3 Mg/0.5 Mg (3 Ml) Ud) 3 ml IH [id number] PRN PRN Reason: Shortness of Breath Last Admin: 08/13/18 03:10 Dose: 3 ml Artificial Tears (Refresh Opth Soln) 0 ml OU Q4 PRN PRN Reason: Dry eyes Last Admin: 08/10/18 11:11 Dose: 1 drop Artificial Tears (Artificial Tears Opht Oint) 0 gm OU BID PRN PRN Reason: Dry eyes Last Admin: 08/10/18 16:25 Dose: 1 applic Aspirin (Ecotrin) 81 mg PO DAILY [facility] Last Admin: 08/12/18 10:32 Dose: 81 mg Carbidopa/Levodopa/Entacapone (Stalevo 150) 1 tab PO QID [facility] Last Admin: 08/13/18 04:25 Dose: Not Given Heparin Sodium (Porcine) (Heparin) 5,000 units SC Q8 [facility]; Protocol Last Admin: 08/13/18 05:12 Dose: 5,000 units Meropenem (Merrem Iv 1 Gm Premix) 1 gm in 50 mls @ 12.5 mls/hr IVPB Q12 [facility]; Protocol Stop: 08/17/18 10:25 Last Admin: 08/12/18 22:15 Dose: 12.5 mls/hr Metoprolol Tartrate (Lopressor) 25 mg PO BID [facility] Last Admin: 08/12/18 17:45 Dose: 25 mg Nitroglycerin (Nitro-Bid 2% Oint) 0.5 ea TOP Q6H [facility] Last Admin: 08/13/18 04:00 Dose: 0.5 ea Nystatin (Nystop Topical Powder) 0 gm TOP DAILY PRN PRN Reason: Itching / Pruritus Last Admin: 08/10/18 16:24 Dose: 1 applic Pantoprazole Sodium (Protonix Susp) 40 mg PO 0600 [facility] Last Admin: 08/13/18 05:16 Dose: Not Given Thiamine HCl (Vitamin B1 Tab) 200 mg PO DAILY [facility] Last Admin: 08/12/18 10:28 Dose: 200 mg - Labs Labs: 08/13/18 05:30 08/13/18 05:30 PT 15.7 SECONDS (9.4-12.5) H 08/07/18 23:15 INR 1.37 08/07/18 23:15 APTT 57.1 Seconds (25.1-36.5) H 08/10/18 08:35 Attending/Attestation - Attestation I have personally seen and examined this patient.: Yes I have fully participated in the care of the patient.: Yes I have reviewed all pertinent clinical information, including history, physical exam and plan: Yes Notes (Text): 08/12/18 88 year old male with past medical history of Parkinson's disease and dementia who [facility] secondary to [facility]argy and failure to thrive. CT head was negative for acute findings. He was found to have sepsis secondary to ESBL UTI and started on iv antibiotics. ID is following. He was also found to have hypernatremia and RENNY, both which have improved. Nephrology is following. He was also found to have possible NSTEMI vs elevated cardiac enzymes is setting of renal failure and sepsis. Echocardiogram was reviewed. Cardiology is following. Patient is on aspirin and lopressor. GI evaluation was requested for possible PEG placement; however patient's mental status is now slowly improving. Will request for speech/swallow follow up. He is currently on NGT tube feeds. Palliative care evaluation was appreciated as well. Kaila Linder MD Hospitalist.
[2018-08-13] MEDS: Albuterol-Ipratrop 3 mg / 0.5 (3 ml) UD IH PRN ×3 (03:10→20:59)
[2018-08-13] MEDS: Nitroglycerin 2% Ointment Foilpak UD TOP SCH ×6 (04:00→22:05)
[2018-08-13] MEDS: Carbidopa/Levodopa/Entacapone 37.5mg-150mg-200mg PO SCH ×4 (04:25→22:01)
[2018-08-13] MEDS: Pantoprazole 40 mg Susp UD PO SCH (05:16)
[2018-08-13 07:20] LABS: HEMOGLOBIN 11.7 g/dL (14.0-18.0); MEAN CELL VOLUME 93.5 fl (80.0-105.0); MEAN CORPUSCULAR HEMOGLOBIN 29.3 pg (25.0-35.0); MEAN CORPUSCULAR HGB CONC 31.3 g/dl (31.0-37.0); RED CELL DISTRIBUTION WIDTH 15.4 % (11.5-14.5); WHITE BLOOD COUNT 5.9 10^3/uL (4.5-11.0)
[2018-08-13 07:31] LABS: ALB/GLOB RATIO 0.7 (1.1-1.8); ALBUMIN 2.6 g/dL (3.0-4.8); ALT/SGPT 33 U/L (7-56); AST/SGOT 52 U/L (17-59); BLOOD UREA NITROGEN 32 mg/dL (7-21); CALCIUM 8.5 mg/dL (8.4-10.5); GFR NON-AFRICAN AMERICAN > 60
[2018-08-13] MEDS: Vancomycin 1gm in NS 250ml 1 GM/250 ML BAG IVPB SCH ×2 (10:43→21:01)
--- NOTE | 2018-08-13 12:05 | CP.PCM.PN ---
Subjective - Date & Time of Evaluation Date of Evaluation: 08/13/18 Time of Evaluation: 09:15 - Subjective Subjective: Comfortable in bed but still somewhat lethargic, no fevers, no vomiting, no diarrhea. Objective - Vital Signs/Intake and Output Vital Signs (last 24 hours): Temp Pulse Resp BP Pulse Ox 98.9 F 99 H 28 H 134/69 98 08/12/18 08:00 08/12/18 10:29 08/12/18 08:00 08/12/18 08:00 08/12/18 08:00 Intake and Output: 08/12/18 08/12/18 06:59 18:59 Intake Total 720 Output Total 650 Balance 70 - Medications Medications: Current Medications Acetylcysteine (Acetylcysteine 20%) 4 ml IH [id number] [facility] Last Admin: 08/12/18 07:48 Dose: 4 ml Albuterol/Ipratropium (Duoneb 3 Mg/0.5 Mg (3 Ml) Ud) 3 ml IH [id number] PRN PRN Reason: Shortness of Breath Last Admin: 08/12/18 07:48 Dose: 3 ml Artificial Tears (Refresh Opth Soln) 0 ml OU Q4 PRN PRN Reason: Dry eyes Last Admin: 08/10/18 11:11 Dose: 1 drop Artificial Tears (Artificial Tears Opht Oint) 0 gm OU BID PRN PRN Reason: Dry eyes Last Admin: 08/10/18 16:25 Dose: 1 applic Aspirin (Ecotrin) 81 mg PO DAILY [facility] Last Admin: 08/12/18 10:32 Dose: 81 mg Carbidopa/Levodopa/Entacapone (Stalevo 150) 1 tab PO QID [facility] Last Admin: 08/12/18 10:32 Dose: 1 tab Heparin Sodium (Porcine) (Heparin) 5,000 units SC Q8 [facility]; Protocol Last Admin: 08/12/18 05:18 Dose: 5,000 units Meropenem (Merrem Iv 1 Gm Premix) 1 gm in 50 mls @ 12.5 mls/hr IVPB Q12 [facility]; Protocol Stop: 08/17/18 10:25 Last Admin: 08/12/18 10:31 Dose: 12.5 mls/hr Metoprolol Tartrate (Lopressor) 25 mg PO BID [facility] Last Admin: 08/12/18 10:29 Dose: 25 mg Nitroglycerin (Nitro-Bid 2% Oint) 0.5 ea TOP Q6H [facility] Last Admin: 08/12/18 10:28 Dose: 0.5 ea Nystatin (Nystop Topical Powder) 0 gm TOP DAILY PRN PRN Reason: Itching / Pruritus Last Admin: 08/10/18 16:24 Dose: 1 applic Pantoprazole Sodium (Protonix Susp) 40 mg PO 0600 [facility] Last Admin: 08/12/18 05:18 Dose: 40 mg Thiamine HCl (Vitamin B1 Tab) 200 mg PO DAILY [facility] Last Admin: 08/12/18 10:28 Dose: 200 mg - Labs Labs: 08/12/18 05:50 08/12/18 05:50 PT 15.7 SECONDS (9.4-12.5) H 08/07/18 23:15 INR 1.37 08/07/18 23:15 APTT 57.1 Seconds (25.1-36.5) H 08/10/18 08:35 - Constitutional Appears: No Acute Distress, Chronically Ill - Head Exam Head Exam: NORMAL INSPECTION - Respiratory Exam Respiratory Exam: Decreased Breath Sounds - Cardiovascular Exam Cardiovascular Exam: +S1, +S2 - GI/Abdominal Exam GI & Abdominal Exam: Soft. absent: Tenderness Assessment and Plan - Assessment and Plan (Free Text) Plan: Assessment Severe sepsis due to ESBL E. coli UTI as wekk as left lower lobe HCAP Parkinson's disease dementia Plan continue Merrem day 6 to complete 7-10 days of therapy - had new fever again today, and will add Vancomycin, repeat CXR, PCT, blood and urine cx overall prognosis is poor
--- NOTE | 2018-08-13 12:41 | RAD ---
Date of service: 08/13/2018 HISTORY: rule out pneumonia COMPARISON: 08/11/2018 FINDINGS: LUNGS: No active pulmonary disease. PLEURA: No significant pleural effusion identified, no pneumothorax apparent. CARDIOVASCULAR: Aortic calcification Moderate cardiomegaly. No pulmonary vascular congestion. OSSEOUS STRUCTURES: No significant abnormalities. VISUALIZED UPPER ABDOMEN: Tip of nasogastric tube in the gastric fundus OTHER FINDINGS: None. IMPRESSION: No active disease.
--- NOTE | 2018-08-13 12:52 | PN ---
DATE: 08/13/2018 REASON FOR CONSULTATION AND FOLLOWUP: Cardiac evaluation, abnormal troponin, admitted with sepsis, lethargy, failure to thrive, urosepsis, admitted with altered mental status, 2-point Imperial restraint. OBJECTIVE: GENERAL: The patient is awake and alert but still confused on Imperial restraint. VITAL SIGNS: Temperature afebrile, heart rate 90, blood pressure 142/60. HEENT: PERRLA. Extraocular muscles intact. NECK: Supple. No carotid bruits or thyromegaly. CHEST: Clear to auscultation. HEART: S1 and S2, regular. ABDOMEN: Soft. EXTREMITIES: Clubbing and cyanosis negative. LABORATORY DATA: Blood workup as follows: WBC 5.9, hemoglobin 9.8, hematocrit 37.4, platelet count 173,000. Chemistry shows sodium 146, potassium 4.5, chloride 101, carbon dioxide 28, anion gap of 9, BUN 30, creatinine 0.8. IMPRESSION: An 88-year-old male with a past medical history significant for dementia, transferred to snf, lethargic. Borderline troponin is positive, mildly elevated, asymptomatic, not a candidate for cardiac rn labor delivery. He is discharged to [facility], transferred to the snf and then to transfer for lethargy. RECOMMENDATION: Aggressive medical treatment, continue Lovenox for DVT prophylaxis, continue NG feeding, continue aspirin, continue free fluid to the NG tube, continue metoprolol, continue broad-spectrum antibiotics. Medical management: No invasive cardiac workup is planned, strongly consider DNR/DNI. Thank you Dr. Linder for providing us the opportunity in taking care of the patient, Sravan Masterson. Serena Soto MD
--- NOTE | 2018-08-13 13:04 | CP.PCM.PN ---
<Rivas Guillaume - Last Filed: 08/13/18 14:38> Subjective - Date & Time of Evaluation Date of Evaluation: 08/13/18 Time of Evaluation: 07:00 - Subjective Subjective: Rivas Guillaume, PGY1 Medicine Progress Note for Dr. Linder Patient was seen and examined at bedside this morning. No acute events overnight. Patient's mental status is unchanged from yesterday. Spoke to daughter on the phone, Mrs. Leyva , she said that this is not the patients normal mental status. A proper ROS was not obtained due to patient's mental status. A [facility] bracelet was noted on the wrist of the patient. Objective - Vital Signs/Intake and Output Vital Signs (last 24 hours): Temp Pulse Resp BP Pulse Ox 100.5 F H 90 47 H 142/67 98 08/13/18 04:00 08/13/18 08:48 08/13/18 08:00 08/13/18 08:00 08/13/18 08:00 Intake and Output: 08/13/18 08/13/18 06:59 18:59 Intake Total 870 Output Total 600 Balance 270 - Medications Medications: Current Medications Albuterol/Ipratropium (Duoneb 3 Mg/0.5 Mg (3 Ml) Ud) 3 ml IH [id number] PRN PRN Reason: Shortness of Breath Last Admin: 08/13/18 08:08 Dose: 3 ml Artificial Tears (Refresh Opth Soln) 0 ml OU Q4 PRN PRN Reason: Dry eyes Last Admin: 08/10/18 11:11 Dose: 1 drop Artificial Tears (Artificial Tears Opht Oint) 0 gm OU BID PRN PRN Reason: Dry eyes Last Admin: 08/10/18 16:25 Dose: 1 applic Aspirin (Ecotrin) 81 mg PO DAILY [facility] Last Admin: 08/13/18 10:43 Dose: 81 mg Carbidopa/Levodopa/Entacapone (Stalevo 150) 1 tab PO QID [facility] Last Admin: 08/13/18 10:43 Dose: 1 tab Heparin Sodium (Porcine) (Heparin) 5,000 units SC Q8 [facility]; Protocol Last Admin: 08/13/18 05:12 Dose: 5,000 units Meropenem (Merrem Iv 1 Gm Premix) 1 gm in 50 mls @ 12.5 mls/hr IVPB Q8 [facility]; Protocol Stop: 08/22/18 14:01 Vancomycin HCl (Vancomycin 1gm) 1 gm in 250 mls @ 167 mls/hr IVPB Q12H [facility]; Protocol Last Admin: 08/13/18 10:43 Dose: 167 mls/hr Metoprolol Tartrate (Lopressor) 25 mg PO BID [facility] Last Admin: 08/13/18 10:43 Dose: 25 mg Nitroglycerin (Nitro-Bid 2% Oint) 0.5 ea TOP Q6H [facility] Last Admin: 08/13/18 10:43 Dose: 0.5 ea Nystatin (Nystop Topical Powder) 0 gm TOP DAILY PRN PRN Reason: Itching / Pruritus Last Admin: 08/10/18 16:24 Dose: 1 applic Pantoprazole Sodium (Protonix Susp) 40 mg PO 0600 [facility] Last Admin: 08/13/18 05:16 Dose: Not Given Thiamine HCl (Vitamin B1 Tab) 200 mg PO DAILY [facility] Last Admin: 08/13/18 10:44 Dose: 200 mg - Labs Labs: 08/13/18 05:30 08/13/18 05:30 PT 15.7 SECONDS (9.4-12.5) H 08/07/18 23:15 INR 1.37 08/07/18 23:15 APTT 57.1 Seconds (25.1-36.5) H 08/10/18 08:35 - Constitutional Appears: Confused - Head Exam Head Exam: ATRAUMATIC, NORMAL INSPECTION, NORMOCEPHALIC - Eye Exam Eye Exam: EOMI, Normal appearance, PERRL - ENT Exam ENT Exam: Mucous Membranes Moist, Normal Exam - Neck Exam Neck Exam: Full ROM, Normal Inspection. absent: Lymphadenopathy - Respiratory Exam Respiratory Exam: Clear to Ausculation Bilateral, Rhonchi (Rhonchi has decreased from yesterday. Still congested.), NORMAL BREATHING PATTERN - Cardiovascular Exam Cardiovascular Exam: REGULAR RHYTHM, +S1, +S2. absent: Murmur - GI/Abdominal Exam GI & Abdominal Exam: Soft, Normal Bowel Sounds. absent: Tenderness - Extremities Exam Extremities Exam: Full ROM, Normal Capillary Refill, Normal Inspection. absent: Joint Swelling, Pedal Edema - Neurological Exam Neurological Exam: Alert, Awake. absent: Oriented x3 Additional comments: Patient is moving all 4 extremities. Occasionally follows commands. - Skin Skin Exam: Dry, Intact, Normal Color, Warm Assessment and Plan - Assessment and Plan (Free Text) Assessment: Patient is a 88 y/o M with PMHx of Parkinson's disease, dementia, and recent ESBL + UTI presenting from [facility] with complaints of lethargy, failure to thrive, and fever found to have UTI. Patient was admitted for Sepsis 2/2 ESBL UTI, hypernatremia, and acute renal failure. Plan: Sepsis 2/2 ESBL UTI - Mental status unchanged from yesterday. Discussed with patient via phone, Gordon, about mental status and confirmed that he is not at his baseline. - Will confirm with patient's [facility] about mental status. - c/w doxycycline and meropenem (Day #7); complete 7-10 days as per ID recs - Restarted on home meds: carbidopa/levodopa for Parkinsons - CT Head: no acute findings - ID recs appreciated - afebrile and no leukocytosis - Urine cx: ESBL+ e coli Pulmonary Congestion - improving - CXR negative - rhonchi on lung exam, improving - mucomyst q6H - c/w duonebs Failure To Thrive - GI consulted for PEG tube evaluation. Does not recommend PEG at this time. - c/w NG tube feeds - Poor PO intake; failed swallow eval - Palliative care Hypernatremia 2/2 dehydration and failure to thrive - resolved - Most recent Na is wnl - Na was 161 on admission - Nephrology consulted, appreciated recs Pre-renal RENNY - resolved - Most recent BUN/Cr is wnl - Cr initially 2.1 on admission - Jeffrey is draining Elevated Troponins 2/2 demand ischemia - improved - Troponins are downtrending, most recent is .08 - Cardiology recs appreciated; no indication for cath at this time - No EKG changes - c/w heparin, ASA, nitro paste, lopressor GI ppx: Protonix DVT ppx: Heparin, SCD Dispo: continue to monitor patient. Discuss with [facility] about patient's mental status. Case was discussed and reviewed with Attending Physician, Dr. Linder. <Kaila Linder - Last Filed: 08/13/18 18:19> Objective - Vital Signs/Intake and Output Vital Signs (last 24 hours): Temp Pulse Resp BP Pulse Ox 100.5 F H 90 47 H 142/67 98 08/13/18 04:00 08/13/18 08:48 08/13/18 08:00 08/13/18 08:00 08/13/18 08:00 Intake and Output: 08/13/18 08/13/18 06:59 18:59 Intake Total 870 Output Total 600 Balance 270 - Medications Medications: Current Medications Albuterol/Ipratropium (Duoneb 3 Mg/0.5 Mg (3 Ml) Ud) 3 ml IH [id number] PRN PRN Reason: Shortness of Breath Last Admin: 08/13/18 08:08 Dose: 3 ml Artificial Tears (Refresh Opth Soln) 0 ml OU Q4 PRN PRN Reason: Dry eyes Last Admin: 08/10/18 11:11 Dose: 1 drop Artificial Tears (Artificial Tears Opht Oint) 0 gm OU BID PRN PRN Reason: Dry eyes Last Admin: 08/10/18 16:25 Dose: 1 applic Aspirin (Ecotrin) 81 mg PO DAILY [facility] Last Admin: 08/13/18 10:43 Dose: 81 mg Carbidopa/Levodopa/Entacapone (Stalevo 150) 1 tab PO QID [facility] Last Admin: 08/13/18 14:00 Dose: 1 tab Heparin Sodium (Porcine) (Heparin) 5,000 units SC Q8 [facility]; Protocol Last Admin: 08/13/18 14:00 Dose: 5,000 units Meropenem (Merrem Iv 1 Gm Premix) 1 gm in 50 mls @ 12.5 mls/hr IVPB Q8 [facility]; Protocol Stop: 08/22/18 14:01 Last Admin: 08/13/18 14:00 Dose: 12.5 mls/hr Vancomycin HCl (Vancomycin 1gm) 1 gm in 250 mls @ 167 mls/hr IVPB Q12H [facility]; Protocol Last Admin: 08/13/18 10:43 Dose: 167 mls/hr Metoprolol Tartrate (Lopressor) 25 mg PO BID [facility] Last Admin: 08/13/18 10:43 Dose: 25 mg Nitroglycerin (Nitro-Bid 2% Oint) 0.5 ea TOP Q6H [facility] Last Admin: 08/13/18 15:30 Dose: 0.5 ea Nystatin (Nystop Topical Powder) 0 gm TOP DAILY PRN PRN Reason: Itching / Pruritus Last Admin: 08/10/18 16:24 Dose: 1 applic Pantoprazole Sodium (Protonix Susp) 40 mg PO 0600 [facility] Last Admin: 08/13/18 05:16 Dose: Not Given Thiamine HCl (Vitamin B1 Tab) 200 mg PO DAILY [facility] Last Admin: 08/13/18 10:44 Dose: 200 mg - Labs Labs: 08/13/18 05:30 08/13/18 05:30 PT 15.7 SECONDS (9.4-12.5) H 08/07/18 23:15 INR 1.37 08/07/18 23:15 APTT 57.1 Seconds (25.1-36.5) H 08/10/18 08:35 Attending/Attestation - Attestation I have personally seen and examined this patient.: Yes I have fully participated in the care of the patient.: Yes I have reviewed all pertinent clinical information, including history, physical exam and plan: Yes Notes (Text): 08/13/18 18:16 88 year old male with past medical history of Parkinson's disease and dementia who was transferred [facility] secondary to lethargy and failure to thrive. CT head was negative for acute findings. He was found to have sepsis secondary to ESBL UTI and started on iv antibiotics. ID is following. He was also found to have hypernatremia and RENNY, both which have improved. N ephrology is following. He was also found to have possible NSTEMI vs elevated cardiac enzymes is setting of renal failure and sepsis. Echocardiogram was reviewed. Cardiology is following. Patient is on aspirin and lopressor. GI evaluation was requested for possible PEG placement which he deferred at this time. Speech/swallow follow up was requested. He is currently on NGT tube feeds. Mental status on only mildly improved since admission. I am not sure of his baseline mental status prior to admission from his [facility]. Will speak with family and pmd. Repeat CT head was negative. Palliative care evaluation was appreciated as well. Kaila Linder MD Hospitalist.
[2018-08-13] MEDS: Meropenem IV 1 gm in NS 1 GM/50 ML BAG IVPB SCH ×2 (14:00→22:00)
--- NOTE | 2018-08-13 19:10 | CP.PCM.PN ---
Subjective - Date & Time of Evaluation Date of Evaluation: 08/13/18 Time of Evaluation: 11:20 - Subjective Subjective: Nephrology progress note for Dr. Beck's service - Isabel Burks PGY3 Patient seen and examined at bedside this morning. No acute overnight events or new complaints were reported. ROS limited due to patient status. Hypernatremia improved with increased free water flushes. Objective - Vital Signs/Intake and Output Vital Signs (last 24 hours): Temp Pulse Resp BP Pulse Ox 100.5 F H 90 47 H 142/67 98 08/13/18 04:00 08/13/18 08:48 08/13/18 08:00 08/13/18 08:00 08/13/18 08:00 - Medications Medications: Current Medications Albuterol/Ipratropium (Duoneb 3 Mg/0.5 Mg (3 Ml) Ud) 3 ml IH [id number] PRN PRN Reason: Shortness of Breath Last Admin: 08/13/18 08:08 Dose: 3 ml Artificial Tears (Refresh Opth Soln) 0 ml OU Q4 PRN PRN Reason: Dry eyes Last Admin: 08/10/18 11:11 Dose: 1 drop Artificial Tears (Artificial Tears Opht Oint) 0 gm OU BID PRN PRN Reason: Dry eyes Last Admin: 08/10/18 16:25 Dose: 1 applic Aspirin (Ecotrin) 81 mg PO DAILY [facility] Last Admin: 08/13/18 10:43 Dose: 81 mg Carbidopa/Levodopa/Entacapone (Stalevo 150) 1 tab PO QID [facility] Last Admin: 08/13/18 14:00 Dose: 1 tab Heparin Sodium (Porcine) (Heparin) 5,000 units SC Q8 [facility]; Protocol Last Admin: 08/13/18 14:00 Dose: 5,000 units Meropenem (Merrem Iv 1 Gm Premix) 1 gm in 50 mls @ 12.5 mls/hr IVPB Q8 [facility]; Protocol Stop: 08/22/18 14:01 Last Admin: 08/13/18 14:00 Dose: 12.5 mls/hr Vancomycin HCl (Vancomycin 1gm) 1 gm in 250 mls @ 167 mls/hr IVPB Q12H [facility]; Protocol Last Admin: 08/13/18 10:43 Dose: 167 mls/hr Metoprolol Tartrate (Lopressor) 25 mg PO BID [facility] Last Admin: 08/13/18 10:43 Dose: 25 mg Nitroglycerin (Nitro-Bid 2% Oint) 0.5 ea TOP Q6H [facility] Last Admin: 08/13/18 15:30 Dose: 0.5 ea Nystatin (Nystop Topical Powder) 0 gm TOP DAILY PRN PRN Reason: Itching / Pruritus Last Admin: 08/10/18 16:24 Dose: 1 applic Pantoprazole Sodium (Protonix Susp) 40 mg PO 0600 [facility] Last Admin: 08/13/18 05:16 Dose: Not Given Thiamine HCl (Vitamin B1 Tab) 200 mg PO DAILY [facility] Last Admin: 08/13/18 10:44 Dose: 200 mg - Labs Labs: 08/13/18 05:30 08/13/18 05:30 PT 15.7 SECONDS (9.4-12.5) H 08/07/18 23:15 INR 1.37 08/07/18 23:15 APTT 57.1 Seconds (25.1-36.5) H 08/10/18 08:35 - Constitutional Appears: Chronically Ill - Head Exam Head Exam: ATRAUMATIC, NORMOCEPHALIC - Eye Exam Eye Exam: EOMI Pupil Exam: PERRL - ENT Exam ENT Exam: Mucous Membranes Moist - Neck Exam Neck Exam: Normal Inspection. absent: Tenderness, Thyromegaly - Respiratory Exam Respiratory Exam: absent: Rales, Rhonchi, Wheezes - Cardiovascular Exam Cardiovascular Exam: +S1, +S2. absent: Clicks, Gallop, Rubs - GI/Abdominal Exam GI & Abdominal Exam: Soft. absent: Distended, Firm, Guarding, Rigid, Tenderness, Mass, Rebound - Extremities Exam Extremities Exam: absent: Pedal Edema, Tenderness - Neurological Exam Neurological Exam: Alert, Awake - Psychiatric Exam Psychiatric exam: Normal Affect, Normal Mood - Skin Skin Exam: Dry, Intact, Normal Color, Warm Assessment and Plan - Assessment and Plan (Free Text) Plan: 88yo male with history of Parkinson's disease, dementia and hx of ESBL UTI presents from alf with report of lethargy, failure to thrive and fever. Nephrology consulted for evaluation of acute kidney injury and hypernatremia. 1. Acute kidney injury, resolved 2. Hypernatremia, resolved 3. Sepsis secondary to ESBL UTI 4. Hx of dementia -RENNY on CKD; consistent with pre-renal etiology in the setting of decreased PO intake and recurrent UTI; renal function improved with intravascular volume replenishment; stable volume status; likely has baseline CKD though exact baseline unclear (serum creatinine in low 1's in 2015); -Free water flushes of 250cc q4h in conjunction with feeds -Avoid nephrotoxic agents (NSAIDS, phosphate enemia, IV dye); -Presently on meropenem and vancomycin per ID recommendations -Aggressive medical management recommended by cardiology -Palliative care consulted -Overall prognosis for this patient remains poor -CT abd/pelvis reviewed -Echocardiogram reviewed Patient seen and case discussed/reviewed with attending, Dr. Beck
[2018-08-14] MEDS: Albuterol-Ipratrop 3 mg / 0.5 (3 ml) UD IH PRN ×2 (03:02→07:29)
[2018-08-14] MEDS: Nitroglycerin 2% Ointment Foilpak UD TOP SCH ×4 (03:44→21:29)
[2018-08-14] MEDS: Meropenem IV 1 gm in NS 1 GM/50 ML BAG IVPB SCH ×3 (05:10→21:29)
[2018-08-14] MEDS: Pantoprazole 40 mg Susp UD PO SCH (05:12)
[2018-08-14 06:42] LABS: HEMOGLOBIN 11.4 g/dL (14.0-18.0); MEAN CELL VOLUME 93.6 fl (80.0-105.0); MEAN CORPUSCULAR HEMOGLOBIN 29.1 pg (25.0-35.0); MEAN CORPUSCULAR HGB CONC 31.1 g/dl (31.0-37.0); RBC 3.92 10^6/uL (3.5-6.1); RED CELL DISTRIBUTION WIDTH 15.6 % (11.5-14.5); WHITE BLOOD COUNT 5.1 10^3/uL (4.5-11.0)
[2018-08-14 06:54] LABS: ALB/GLOB RATIO 0.7 (1.1-1.8); ALBUMIN 2.6 g/dL (3.0-4.8); ALT/SGPT 31 U/L (7-56); AST/SGOT 42 U/L (17-59); BLOOD UREA NITROGEN 33 mg/dL (7-21); CALCIUM 8.5 mg/dL (8.4-10.5); GFR NON-AFRICAN AMERICAN > 60
[2018-08-14] MEDS: Carbidopa/Levodopa/Entacapone 37.5mg-150mg-200mg PO SCH ×4 (09:22→21:30)
[2018-08-14] MEDS: Vancomycin 1gm in NS 250ml 1 GM/250 ML BAG IVPB SCH ×2 (09:24→21:30)
--- NOTE | 2018-08-14 10:54 | CP.PCM.PN ---
Subjective - Date & Time of Evaluation Date of Evaluation: 08/14/18 Time of Evaluation: 09:30 - Subjective Subjective: No fevers in 24 hours, still somewhat lethargic, no diarrhea or vomiting. Objective - Vital Signs/Intake and Output Vital Signs (last 24 hours): Temp Pulse Resp BP Pulse Ox 100.5 F H 90 47 H 142/67 98 08/13/18 04:00 08/13/18 08:48 08/13/18 08:00 08/13/18 08:00 08/13/18 08:00 Intake and Output: 08/13/18 08/13/18 06:59 18:59 Intake Total 870 Output Total 600 Balance 270 - Medications Medications: Current Medications Albuterol/Ipratropium (Duoneb 3 Mg/0.5 Mg (3 Ml) Ud) 3 ml IH [id number] PRN PRN Reason: Shortness of Breath Last Admin: 08/13/18 08:08 Dose: 3 ml Artificial Tears (Refresh Opth Soln) 0 ml OU Q4 PRN PRN Reason: Dry eyes Last Admin: 08/10/18 11:11 Dose: 1 drop Artificial Tears (Artificial Tears Opht Oint) 0 gm OU BID PRN PRN Reason: Dry eyes Last Admin: 08/10/18 16:25 Dose: 1 applic Aspirin (Ecotrin) 81 mg PO DAILY [facility] Last Admin: 08/13/18 10:43 Dose: 81 mg Carbidopa/Levodopa/Entacapone (Stalevo 150) 1 tab PO QID [facility] Last Admin: 08/13/18 10:43 Dose: 1 tab Heparin Sodium (Porcine) (Heparin) 5,000 units SC Q8 [facility]; Protocol Last Admin: 08/13/18 05:12 Dose: 5,000 units Meropenem (Merrem Iv 1 Gm Premix) 1 gm in 50 mls @ 12.5 mls/hr IVPB Q8 [facility]; Protocol Stop: 08/22/18 14:01 Vancomycin HCl (Vancomycin 1gm) 1 gm in 250 mls @ 167 mls/hr IVPB Q12H [facility]; Protocol Last Admin: 08/13/18 10:43 Dose: 167 mls/hr Metoprolol Tartrate (Lopressor) 25 mg PO BID [facility] Last Admin: 08/13/18 10:43 Dose: 25 mg Nitroglycerin (Nitro-Bid 2% Oint) 0.5 ea TOP Q6H [facility] Last Admin: 08/13/18 10:43 Dose: 0.5 ea Nystatin (Nystop Topical Powder) 0 gm TOP DAILY PRN PRN Reason: Itching / Pruritus Last Admin: 08/10/18 16:24 Dose: 1 applic Pantoprazole Sodium (Protonix Susp) 40 mg PO 0600 [facility] Last Admin: 08/13/18 05:16 Dose: Not Given Thiamine HCl (Vitamin B1 Tab) 200 mg PO DAILY [facility] Last Admin: 08/13/18 10:44 Dose: 200 mg - Labs Labs: 08/13/18 05:30 08/13/18 05:30 PT 15.7 SECONDS (9.4-12.5) H 08/07/18 23:15 INR 1.37 08/07/18 23:15 APTT 57.1 Seconds (25.1-36.5) H 08/10/18 08:35 - Constitutional Appears: Chronically Ill - Head Exam Head Exam: NORMAL INSPECTION - Respiratory Exam Respiratory Exam: Decreased Breath Sounds - Cardiovascular Exam Cardiovascular Exam: +S1, +S2 - GI/Abdominal Exam GI & Abdominal Exam: Soft. absent: Tenderness Assessment and Plan - Assessment and Plan (Free Text) Plan: Assessment Severe sepsis due to ESBL E. coli UTI as well as left lower lobe HCAP Parkinson's disease dementia Plan continue Merrem day 7 to complete 7-10 days of therapy - had new fever yesterday , and we have added Vancomycin; repeat CXR does not show active disease; follow up repeat PCT, blood and urine cx overall prognosis is poor
--- NOTE | 2018-08-14 14:37 | CP.PCM.PN ---
<Rivas Guillaume - Last Filed: 08/14/18 15:13> Subjective - Date & Time of Evaluation Date of Evaluation: 08/14/18 Time of Evaluation: 07:00 - Subjective Subjective: Rivas Guillaume, PGY1 Medicine Progress Note for Dr. Linder Patient was seen and examined at bedside this morning. Patient's mental status is unchanged from yesterday. He responds to verbal stimuli and is awake. Patient is unable to give a reliable ROS. Vital signs are stable. No overnight changes. Daughter was called again today, she will be visiting at 6 pm and wanted to be present during time of speech/swallow evaluation by Speech language pathologist. Objective - Vital Signs/Intake and Output Vital Signs (last 24 hours): Temp Pulse Resp BP Pulse Ox 99.2 F 87 32 H 140/69 99 08/14/18 04:00 08/14/18 14:00 08/14/18 14:00 08/14/18 12:00 08/14/18 14:00 Intake and Output: 08/14/18 08/14/18 06:59 18:59 Intake Total 350 Output Total 1350 Balance -1000 - Medications Medications: Current Medications Albuterol/Ipratropium (Duoneb 3 Mg/0.5 Mg (3 Ml) Ud) 3 ml IH [id number] PRN PRN Reason: Shortness of Breath Last Admin: 08/14/18 07:29 Dose: 3 ml Artificial Tears (Refresh Opth Soln) 0 ml OU Q4 PRN PRN Reason: Dry eyes Last Admin: 08/10/18 11:11 Dose: 1 drop Artificial Tears (Artificial Tears Opht Oint) 0 gm OU BID PRN PRN Reason: Dry eyes Last Admin: 08/10/18 16:25 Dose: 1 applic Aspirin (Ecotrin) 81 mg PO DAILY [facility] Last Admin: 08/14/18 09:22 Dose: 81 mg Carbidopa/Levodopa/Entacapone (Stalevo 150) 1 tab PO QID [facility] Last Admin: 08/14/18 09:22 Dose: 1 tab Heparin Sodium (Porcine) (Heparin) 5,000 units SC Q8 [facility]; Protocol Last Admin: 08/14/18 14:12 Dose: 5,000 units Meropenem (Merrem Iv 1 Gm Premix) 1 gm in 50 mls @ 12.5 mls/hr IVPB Q8 [facility]; Protocol Stop: 08/22/18 14:01 Last Admin: 08/14/18 14:11 Dose: 12.5 mls/hr Vancomycin HCl (Vancomycin 1gm) 1 gm in 250 mls @ 167 mls/hr IVPB Q12H [facility]; Protocol Last Admin: 08/14/18 09:24 Dose: 167 mls/hr Metoprolol Tartrate (Lopressor) 25 mg PO BID [facility] Last Admin: 08/14/18 09:23 Dose: 25 mg Nitroglycerin (Nitro-Bid 2% Oint) 0.5 ea TOP Q6H [facility] Last Admin: 08/14/18 09:22 Dose: 0.5 ea Nystatin (Nystop Topical Powder) 0 gm TOP DAILY PRN PRN Reason: Itching / Pruritus Last Admin: 08/10/18 16:24 Dose: 1 applic Pantoprazole Sodium (Protonix Susp) 40 mg PO 0600 [facility] Last Admin: 08/14/18 05:12 Dose: Not Given Thiamine HCl (Vitamin B1 Tab) 200 mg PO DAILY [facility] Last Admin: 08/14/18 09:22 Dose: 200 mg - Labs Labs: 08/14/18 05:30 08/14/18 05:30 PT 15.7 SECONDS (9.4-12.5) H 08/07/18 23:15 INR 1.37 08/07/18 23:15 APTT 57.1 Seconds (25.1-36.5) H 08/10/18 08:35 - Constitutional Appears: No Acute Distress - Head Exam Head Exam: ATRAUMATIC, NORMAL INSPECTION, NORMOCEPHALIC - Eye Exam Eye Exam: EOMI, Normal appearance, PERRL - ENT Exam ENT Exam: Mucous Membranes Moist, Normal Exam - Neck Exam Neck Exam: Full ROM, Normal Inspection. absent: Lymphadenopathy - Respiratory Exam Respiratory Exam: absent: Rales, Rhonchi, Wheezes Additional comments: Rhonci on lung exam has improved. Less congestion. - Cardiovascular Exam Cardiovascular Exam: REGULAR RHYTHM, +S1, +S2. absent: Murmur - GI/Abdominal Exam GI & Abdominal Exam: Soft, Normal Bowel Sounds. absent: Tenderness - Neurological Exam Neurological Exam: Alert, Awake - Skin Skin Exam: Dry, Intact, Normal Color, Warm Assessment and Plan - Assessment and Plan (Free Text) Assessment: Patient is a 88 y/o M with PMHx of Parkinson's disease, dementia, and recent ESBL + UTI presenting from group home with complaints of lethargy, failure to thrive, and fever found to have UTI. Patient was admitted for Sepsis 2/2 ESBL UTI, hypernatremia, and acute renal failure. Plan: AMS in the setting of Sepsis 2/2 ESBL UTI - Mental status unchanged from previous interview. Patient is not at his baseline, as per daughter (Manal). - speech/swallow eval today, daughter would like to be present when it happens - c/w doxycycline and meropenem (Day #8); complete 7-10 days as per ID recs - c/w carbidopa/levodopa for Parkinsons - CT Head: no acute findings - ID recs appreciated - afebrile and no leukocytosis - Urine cx: ESBL+ e coli Failure To Thrive - GI consulted for PEG tube evaluation. Does not recommend PEG at this time. Consider re-evaluation due to multiple failed speech/swallow. - c/w NG tube feeds - Poor PO intake; failed swallow eval - Palliative care Pulmonary Congestion - improved - CXR negative - Lung exam improved - mucomyst q6H - c/w duonebs Elevated Troponins 2/2 demand ischemia - Cardiology recs appreciated; no indication for cath at this time. Continue with current management. - No EKG changes. Serial trops downtrending. - c/w heparin, ASA, nitro paste, lopressor Hypernatremia 2/2 dehydration and failure to thrive - resolved - Most recent Na is wnl - Na was 161 on admission - Nephrology consulted, appreciated recs Pre-renal RENNY - resolved - Most recent BUN/Cr is wnl - Cr initially 2.1 on admission - Jeffrey is draining GI ppx: Protonix DVT ppx: Heparin, SCD Dispo: continue to monitor patient. Pending swallow eval today. Case was discussed and reviewed with Attending Physician, Dr. Linder. <Kaila Linder - Last Filed: 08/14/18 17:22> Objective - Vital Signs/Intake and Output Vital Signs (last 24 hours): Temp Pulse Resp BP Pulse Ox 99.2 F 86 32 H 140/69 99 08/14/18 04:00 08/14/18 14:00 08/14/18 14:00 08/14/18 12:00 08/14/18 14:00 Intake and Output: 08/14/18 08/14/18 06:59 18:59 Intake Total 350 Output Total 1350 Balance -1000 - Medications Medications: Current Medications Albuterol/Ipratropium (Duoneb 3 Mg/0.5 Mg (3 Ml) Ud) 3 ml IH [id number] PRN PRN Reason: Shortness of Breath Last Admin: 08/14/18 07:29 Dose: 3 ml Artificial Tears (Refresh Opth Soln) 0 ml OU Q4 PRN PRN Reason: Dry eyes Last Admin: 08/10/18 11:11 Dose: 1 drop Artificial Tears (Artificial Tears Opht Oint) 0 gm OU BID PRN PRN Reason: Dry eyes Last Admin: 08/10/18 16:25 Dose: 1 applic Aspirin (Ecotrin) 81 mg PO DAILY [facility] Last Admin: 08/14/18 09:22 Dose: 81 mg Carbidopa/Levodopa/Entacapone (Stalevo 150) 1 tab PO QID [facility] Last Admin: 08/14/18 09:22 Dose: 1 tab Heparin Sodium (Porcine) (Heparin) 5,000 units SC Q8 [facility]; Protocol Last Admin: 08/14/18 14:12 Dose: 5,000 units Meropenem (Merrem Iv 1 Gm Premix) 1 gm in 50 mls @ 12.5 mls/hr IVPB Q8 [facility]; Protocol Stop: 08/22/18 14:01 Last Admin: 08/14/18 14:11 Dose: 12.5 mls/hr Vancomycin HCl (Vancomycin 1gm) 1 gm in 250 mls @ 167 mls/hr IVPB Q12H [facility]; Protocol Last Admin: 08/14/18 09:24 Dose: 167 mls/hr Metoprolol Tartrate (Lopressor) 25 mg PO BID [facility] Last Admin: 08/14/18 09:23 Dose: 25 mg Nitroglycerin (Nitro-Bid 2% Oint) 0.5 ea TOP Q6H [facility] Last Admin: 08/14/18 09:22 Dose: 0.5 ea Nystatin (Nystop Topical Powder) 0 gm TOP DAILY PRN PRN Reason: Itching / Pruritus Last Admin: 08/10/18 16:24 Dose: 1 applic Pantoprazole Sodium (Protonix Susp) 40 mg PO 0600 [facility] Last Admin: 08/14/18 05:12 Dose: Not Given Thiamine HCl (Vitamin B1 Tab) 200 mg PO DAILY [facility] Last Admin: 08/14/18 09:22 Dose: 200 mg - Labs Labs: 08/14/18 05:30 08/14/18 05:30 PT 15.7 SECONDS (9.4-12.5) H 08/07/18 23:15 INR 1.37 08/07/18 23:15 APTT 57.1 Seconds (25.1-36.5) H 08/10/18 08:35 Attending/Attestation - Attestation I have personally seen and examined this patient.: Yes I have fully participated in the care of the patient.: Yes I have reviewed all pertinent clinical information, including history, physical exam and plan: Yes Notes (Text): 08/14/18 17:20 88 year old male with past medical history of Parkinson's disease and dementia who was transferred from [place] secondary to lethargy and failure to thrive. CT head was negative for acute findings. He was found to have sepsis secondary to ESBL UTI and started on iv antibiotics. ID is following. He was also found to have hypernatremia and RENNY, both which have improved. Nephrology is following. He was also found to have possible NSTEMI vs elevated cardiac enzymes is setting of renal failure and sepsis. Echocardiogram was reviewed. Cardiology is following. Patient is on aspirin and lopressor. GI evaluation was requested for possible PEG placement which he deferred at this time. He is currently on NGT tube feeds. I spoke with the daughter today who is insisting on trial of po intake; I explained we will request speech and swallow follow up today and if he still fails we will consider GI follow up for evaluation of PEG. Palliative care evaluation was appreciated as well. Kaila Linder MD Hospitalist.
--- NOTE | 2018-08-14 19:01 | PN ---
DATE: 08/14/2018 REASON FOR CONSULTATION AND FOLLOWUP: Cardiac evaluation, abnormal troponin, admitted with sepsis, lethargic, failure to thrive, urosepsis, altered mental status, on 2-point [place] restraint, NG tube in place. SUBJECTIVE; The patient lying flat, not in apparent distress. OBJECTIVE GENERAL: Not in apparent distress. VITAL SIGNS: Temperature afebrile, heart rate , blood pressure 140/69. HEENT: PERRLA. Extraocular muscles are intact. NECK: Supple. No carotid bruits. No thyromegaly. CHEST: Cleat to auscultation. HEART: S1 and S2 regular. ABDOMEN: Soft. EXTREMITIES: Clubbing and cyanosis negative. LABORATORY DATA: WBC 5.1, hemoglobin 11.5, hematocrit 36.7, and platelet count 178,000. Chemistry shows sodium 145, potassium 4.5, chloride 101, carbon dioxide 29, anion gap 8, BUN 33, and creatinine 0.8. IMPRESSION: An 88-year-old male from long term who was transferred because of lethargy. He was recently transferred from [facility] to the long term where the patient was found to be lethargic, transferred back here to [facility] for altered mental status. The patient has a borderline troponin positive to mildly elevated, not a candidate for cardiac labor mediator, decided to treat medically because of the patient's altered mental status as well as 2-point [place] restraint. RECOMMENDATIONS: Continue NG feeding. Continue free water. Continue aspirin. Continue DVT prophylaxis. Continue beta sis. Strongly consider PEG placement. Also, consider DNR/DNI, supportive care. No plan for aggressive which will be futile. Thank you Dr. Linder for providing us the opportunity in taking care of the patient, Sravan Masterson. Serena Soto MD
[2018-08-15] MEDS: Nitroglycerin 2% Ointment Foilpak UD TOP SCH ×4 (04:08→22:07)
[2018-08-15] MEDS: Pantoprazole 40 mg Susp UD PO SCH (05:10)
[2018-08-15] MEDS: Meropenem IV 1 gm in NS 1 GM/50 ML BAG IVPB SCH ×3 (05:10→21:59)
[2018-08-15 07:12] LABS: HEMOGLOBIN 11.7 g/dL (14.0-18.0); MEAN CELL VOLUME 94.8 fl (80.0-105.0); MEAN CORPUSCULAR HEMOGLOBIN 29.1 pg (25.0-35.0); MEAN CORPUSCULAR HGB CONC 30.7 g/dl (31.0-37.0); RBC 4.02 10^6/uL (3.5-6.1); RED CELL DISTRIBUTION WIDTH 15.5 % (11.5-14.5); WHITE BLOOD COUNT 4.7 10^3/uL (4.5-11.0)
[2018-08-15 07:34] LABS: ALB/GLOB RATIO 0.7 (1.1-1.8); ALBUMIN 2.7 g/dL (3.0-4.8); ALT/SGPT 37 U/L (7-56); AST/SGOT 35 U/L (17-59); BLOOD UREA NITROGEN 41 mg/dL (7-21); CALCIUM 8.5 mg/dL (8.4-10.5); GFR NON-AFRICAN AMERICAN > 60
[2018-08-15] MEDS: Vancomycin 1gm in NS 250ml 1 GM/250 ML BAG IVPB SCH ×2 (09:00→21:58)
--- NOTE | 2018-08-15 09:13 | CP.PCM.PN ---
<Rivas Guillaume - Last Filed: 08/15/18 17:18> Subjective - Date & Time of Evaluation Date of Evaluation: 08/15/18 Time of Evaluation: 07:00 - Subjective Subjective: Rivas Guillaume, PGY1 Medicine Progress Note for Dr. Linder Patient was seen and examined at bedside this morning. Patient opened eyes. Moves extremities. Occasionally follows commands. Patient was not answering questions so a full ROS was not obtained. Vital signs are stable with no adverse events overnight. NG tube feeds still in place. Patient still has lots of secretions as per nursing staff. Objective - Vital Signs/Intake and Output Vital Signs (last 24 hours): Temp Pulse Resp BP Pulse Ox 97.3 F L 85 18 125/69 96 08/15/18 05:51 08/15/18 05:51 08/15/18 05:51 08/15/18 05:51 08/15/18 05:51 Intake and Output: 08/15/18 08/15/18 06:59 18:59 Intake Total 1470 Output Total 500 Balance 970 - Medications Medications: Current Medications Albuterol/Ipratropium (Duoneb 3 Mg/0.5 Mg (3 Ml) Ud) 3 ml IH [id number] PRN PRN Reason: Shortness of Breath Last Admin: 08/14/18 07:29 Dose: 3 ml Artificial Tears (Refresh Opth Soln) 0 ml OU Q4 PRN PRN Reason: Dry eyes Last Admin: 08/10/18 11:11 Dose: 1 drop Artificial Tears (Artificial Tears Opht Oint) 0 gm OU BID PRN PRN Reason: Dry eyes Last Admin: 08/10/18 16:25 Dose: 1 applic Aspirin (Ecotrin) 81 mg PO DAILY [facility] Last Admin: 08/14/18 09:22 Dose: 81 mg Carbidopa/Levodopa/Entacapone (Stalevo 150) 1 tab PO QID [facility]OM[facility] Last Admin: 08/14/18 21:30 Dose: Not Given Heparin Sodium (Porcine) (Heparin) 5,000 units SC Q8 TOM[facility]; Protocol Last Admin: 08/15/18 05:09 Dose: 5,000 units Meropenem (Merrem Iv 1 Gm Premix) 1 gm in 50 mls @ 12.5 mls/hr IVPB Q8 [facility]OM[facility]; Protocol Stop: 08/22/18 14:01 Last Admin: 08/15/18 05:10 Dose: 12.5 mls/hr Vancomycin HCl (Vancomycin 1gm) 1 gm in 250 mls @ 167 mls/hr IVPB Q12H [facility]; Protocol Last Admin: 08/14/18 21:30 Dose: 167 mls/hr Metoprolol Tartrate (Lopressor) 25 mg PO BID [facility] Last Admin: 08/14/18 17:29 Dose: 25 mg Nitroglycerin (Nitro-Bid 2% Oint) 0.5 ea TOP Q6H [facility] Last Admin: 08/15/18 04:08 Dose: 0.5 ea Nystatin (Nystop Topical Powder) 0 gm TOP DAILY PRN PRN Reason: Itching / Pruritus Last Admin: 08/10/18 16:24 Dose: 1 applic Pantoprazole Sodium (Protonix Susp) 40 mg PO 0600 [facility] Last Admin: 08/15/18 05:10 Dose: 40 mg Thiamine HCl (Vitamin B1 Tab) 200 mg PO DAILY [facility] Last Admin: 08/14/18 09:22 Dose: 200 mg - Labs Labs: 08/15/18 06:30 08/15/18 06:30 PT 15.7 SECONDS (9.4-12.5) H 08/07/18 23:15 INR 1.37 08/07/18 23:15 APTT 57.1 Seconds (25.1-36.5) H 08/10/18 08:35 - Constitutional Appears: No Acute Distress - Head Exam Head Exam: ATRAUMATIC, NORMAL INSPECTION, NORMOCEPHALIC - Eye Exam Eye Exam: EOMI, Normal appearance, PERRL - ENT Exam ENT Exam: Mucous Membranes Moist, Normal Exam - Neck Exam Neck Exam: Full ROM, Normal Inspection. absent: Lymphadenopathy - Respiratory Exam Respiratory Exam: Clear to Ausculation Bilateral, Rhonchi (Still present). absent: Decreased Breath Sounds, Rales, Wheezes - Cardiovascular Exam Cardiovascular Exam: REGULAR RHYTHM, +S1, +S2. absent: Murmur - GI/Abdominal Exam GI & Abdominal Exam: Soft, Normal Bowel Sounds. absent: Tenderness - Extremities Exam Extremities Exam: Full ROM, Normal Capillary Refill, Normal Inspection. absent: Joint Swelling, Pedal Edema - Neurological Exam Neurological Exam: Awake. absent: Alert, Oriented x3 - Skin Skin Exam: Dry, Intact, Normal Color, Warm Assessment and Plan - Assessment and Plan (Free Text) Assessment: Patient is a 88 y/o M with PMHx of Parkinson's disease, dementia, and recent ESBL + UTI presenting from half-way with complaints of lethargy, failure to thrive, and fever found to have UTI. Patient was admitted for AMS due to Sepsis 2/2 ESBL UTI, hypernatremia (improved), and acute renal failure (improved). Plan: AMS in the setting of Sepsis 2/2 ESBL UTI - Mental status unchanged from previous interview. - Talked to patient's daughter (Gordon) over the phone, she will be present tomorrow morning during rounds for discussion. - c/w meropenem (Day #8); complete 7-10 days as per ID recs - mitten restraints renewed at 7am today - c/w carbidopa/levodopa for Parkinsons - CT Head: no acute findings - ID recs appreciated - afebrile and no leukocytosis - Urine cx: ESBL+ e coli Failure To Thrive - GI consulted for PEG tube evaluation. Does not recommend PEG at this time. Spoke with GI (Dr. Arboleda) for possibility of re-evaluation for PEG. GI still does not recommend PEG based on pallitative care findings and it will not provide any mortality benefit for the patient as aspiration risk is not decreased. - c/w NG tube feeds - Poor PO intake; failed swallow eval - Palliative care is following. Pulmonary Congestion - Chest PT - CXR negative - mucomyst q6H - c/w duonebs Elevated Troponins 2/2 demand ischemia - Cardiology recs appreciated; no indication for cath at this time. Continue with current management. - No EKG changes. Serial trops downtrending. - c/w heparin, ASA, nitro paste, lopressor Hypernatremia 2/2 dehydration and failure to thrive - resolved - Most recent Na is wnl - Na was 161 on admission - Nephrology consulted, appreciated recs Pre-renal RENNY - resolved - Most recent BUN/Cr is wnl - Cr initially 2.1 on admission - Jeffrey is draining GI ppx: Protonix DVT ppx: Heparin, SCD Dispo: continue to monitor patient. Pending placement to possible LTACH that accepts patients with NG tube feeds. Case was discussed and reviewed with Attending Physician, Dr. Linder. <Kaila Linder - Last Filed: 08/15/18 19:01> Objective - Vital Signs/Intake and Output Vital Signs (last 24 hours): Temp Pulse Resp BP Pulse Ox 98.9 F 80 18 151/76 H 96 08/15/18 17:07 08/15/18 18:10 08/15/18 17:07 08/15/18 18:10 08/15/18 05:51 - Medications Medications: Current Medications Acetylcysteine (Acetylcysteine 20%) 4 ml IH [id number] TOMMY Last Admin: 08/15/18 13:40 Dose: 4 ml Albuterol/Ipratropium (Duoneb 3 Mg/0.5 Mg (3 Ml) Ud) 3 ml IH [id number] PRN PRN Reason: Shortness of Breath Last Admin: 08/15/18 13:40 Dose: 3 ml Artificial Tears (Refresh Opth Soln) 0 ml OU Q4 PRN PRN Reason: Dry eyes Last Admin: 08/10/18 11:11 Dose: 1 drop Artificial Tears (Artificial Tears Opht Oint) 0 gm OU BID PRN PRN Reason: Dry eyes Last Admin: 08/10/18 16:25 Dose: 1 applic Aspirin (Ecotrin) 81 mg PO DAILY [facility] Last Admin: 08/15/18 11:00 Dose: 81 mg Carbidopa/Levodopa/Entacapone (Stalevo 150) 1 tab PO QID [facility] Last Admin: 08/15/18 18:10 Dose: 1 tab Heparin Sodium (Porcine) (Heparin) 5,000 units SC Q8 [facility]; Protocol Last Admin: 08/15/18 14:00 Dose: 5,000 units Meropenem (Merrem Iv 1 Gm Premix) 1 gm in 50 mls @ 12.5 mls/hr IVPB Q8 [facility]; Protocol Stop: 08/22/18 14:01 Last Admin: 08/15/18 14:00 Dose: 12.5 mls/hr Vancomycin HCl (Vancomycin 1gm) 1 gm in 250 mls @ 167 mls/hr IVPB Q12H [facility]; Protocol Last Admin: 08/15/18 09:00 Dose: 167 mls/hr Metoprolol Tartrate (Lopressor) 25 mg PO BID [facility] Last Admin: 08/15/18 18:10 Dose: 25 mg Nitroglycerin (Nitro-Bid 2% Oint) 0.5 ea TOP Q6H [facility] Last Admin: 08/15/18 16:18 Dose: 0.5 ea Nystatin (Nystop Topical Powder) 0 gm TOP DAILY PRN PRN Reason: Itching / Pruritus Last Admin: 08/10/18 16:24 Dose: 1 applic Pantoprazole Sodium (Protonix Susp) 40 mg PO 0600 [facility] Last Admin: 08/15/18 05:10 Dose: 40 mg Thiamine HCl (Vitamin B1 Tab) 200 mg PO DAILY [facility] Last Admin: 08/15/18 11:00 Dose: 200 mg - Labs Labs: 08/15/18 06:30 08/15/18 06:30 PT 15.7 SECONDS (9.4-12.5) H 08/07/18 23:15 INR 1.37 08/07/18 23:15 APTT 57.1 Seconds (25.1-36.5) H 08/10/18 08:35 Attending/Attestation - Attestation I have personally seen and examined this patient.: Yes I have fully participated in the care of the patient.: Yes I have reviewed all pertinent clinical information, including history, physical exam and plan: Yes Notes (Text): 08/15/18 19:00 88 year old male with past medical history of Parkinson's disease and dementia who was transferred from [place] secondary to lethargy and failure to thrive. CT head was negative for acute findings. He was found to have sepsis secondary to ESBL UTI and started on iv antibiotics. ID is following. He was also found to have hypernatremia and RENNY, both which have improved. Nephrology is following. He was also found to have possible NSTEMI vs elevated cardiac enzymes is setting of renal failure and sepsis. Echocardiogram was reviewed. Cardiology is following. Patient is on aspirin and lopressor. GI evaluation was requested for possible PEG placement which he deferred at this time. He is currently on NGT tube feeds. Patient has failed swallowing evaluations. Noted to have alot of secretions. Will request for chest PT and mucomyst. Palliative care evaluation was appreciated as well. Case was discussed with SW today regarding referral for possible LTACH placement next week. Kaila Linder MD Hospitalist.
[2018-08-15] MEDS: Carbidopa/Levodopa/Entacapone 37.5mg-150mg-200mg PO SCH ×4 (11:00→21:58)
[2018-08-15] MEDS: Acetylcysteine 20% Inhal Soln (4ml) IH SCH ×2 (13:40→19:51)
[2018-08-15] MEDS: Albuterol-Ipratrop 3 mg / 0.5 (3 ml) UD IH PRN ×2 (13:40→19:51)
--- NOTE | 2018-08-15 14:21 | CP.PCM.PN ---
Subjective - Date & Time of Evaluation Date of Evaluation: 08/15/18 Time of Evaluation: 09:45 - Subjective Subjective: Non-toxic but still somewhat lethargic, no fevers. Objective - Vital Signs/Intake and Output Vital Signs (last 24 hours): Temp Pulse Resp BP Pulse Ox 99.2 F 85 25 H 140/61 96 08/14/18 04:00 08/14/18 09:23 08/14/18 04:00 08/14/18 09:23 08/14/18 04:00 Intake and Output: 08/14/18 08/14/18 06:59 18:59 Intake Total 350 Output Total 1350 Balance -1000 - Medications Medications: Current Medications Albuterol/Ipratropium (Duoneb 3 Mg/0.5 Mg (3 Ml) Ud) 3 ml IH [id number] PRN PRN Reason: Shortness of Breath Last Admin: 08/14/18 07:29 Dose: 3 ml Artificial Tears (Refresh Opth Soln) 0 ml OU Q4 PRN PRN Reason: Dry eyes Last Admin: 08/10/18 11:11 Dose: 1 drop Artificial Tears (Artificial Tears Opht Oint) 0 gm OU BID PRN PRN Reason: Dry eyes Last Admin: 08/10/18 16:25 Dose: 1 applic Aspirin (Ecotrin) 81 mg PO DAILY [facility] Last Admin: 08/14/18 09:22 Dose: 81 mg Carbidopa/Levodopa/Entacapone (Stalevo 150) 1 tab PO QID [facility] Last Admin: 08/14/18 09:22 Dose: 1 tab Heparin Sodium (Porcine) (Heparin) 5,000 units SC Q8 [facility]; Protocol Last Admin: 08/14/18 05:11 Dose: 5,000 units Meropenem (Merrem Iv 1 Gm Premix) 1 gm in 50 mls @ 12.5 mls/hr IVPB Q8 [facility]; Protocol Stop: 08/22/18 14:01 Last Admin: 08/14/18 05:10 Dose: 12.5 mls/hr Vancomycin HCl (Vancomycin 1gm) 1 gm in 250 mls @ 167 mls/hr IVPB Q12H [facility]; Protocol Last Admin: 08/14/18 09:24 Dose: 167 mls/hr Metoprolol Tartrate (Lopressor) 25 mg PO BID [facility] Last Admin: 08/14/18 09:23 Dose: 25 mg Nitroglycerin (Nitro-Bid 2% Oint) 0.5 ea TOP Q6H [facility] Last Admin: 08/14/18 09:22 Dose: 0.5 ea Nystatin (Nystop Topical Powder) 0 gm TOP DAILY PRN PRN Reason: Itching / Pruritus Last Admin: 08/10/18 16:24 Dose: 1 applic Pantoprazole Sodium (Protonix Susp) 40 mg PO 0600 [facility] Last Admin: 08/14/18 05:12 Dose: Not Given Thiamine HCl (Vitamin B1 Tab) 200 mg PO DAILY [facility] Last Admin: 08/14/18 09:22 Dose: 200 mg - Labs Labs: 08/14/18 05:30 08/14/18 05:30 PT 15.7 SECONDS (9.4-12.5) H 08/07/18 23:15 INR 1.37 08/07/18 23:15 APTT 57.1 Seconds (25.1-36.5) H 08/10/18 08:35 - Constitutional Appears: Chronically Ill - Head Exam Head Exam: NORMAL INSPECTION - Respiratory Exam Respiratory Exam: Decreased Breath Sounds - Cardiovascular Exam Cardiovascular Exam: +S1, +S2 - GI/Abdominal Exam GI & Abdominal Exam: Soft. absent: Tenderness Assessment and Plan - Assessment and Plan (Free Text) Plan: Assessment Severe sepsis due to ESBL E. coli UTI as well as left lower lobe HCAP Parkinson's disease dementia Plan continue Merrem day 8 to complete 7-10 days of therapy - and will d/c Vancomycin since repeat cx are negative; repeat CXR does not show active disease overall prognosis is poor
--- NOTE | 2018-08-15 15:53 | PN ---
DATE: 08/15/2018 REASON FOR CONSULTATION: Cardiac evaluation, abnormal troponin, altered mental status, lethargy, urosepsis. The patient is still lethargic. PHYSICAL EXAMINATION: GENERAL: Not in apparent distress. VITAL SIGNS: Temperature afebrile, heart rate 85, blood pressure /69. HEENT: PERRLA. Extraocular muscles intact. NECK: Supple. No carotid bruits or thyromegaly. CHEST: Clear to auscultation. HEART: S1 and S2, regular. ABDOMEN: Soft. EXTREMITIES: Clubbing cyanosis negative. LABORATORY DATA: Blood workup as follows: WBC 4.3, hemoglobin 11. , hematocrit 38.1 and platelet count 211. Chemistry shows sodium 140, potassium 4.4, chloride 103, carbon dioxide is 29, anion gap of 9, BUN 41, and creatinine 0.9. IMPRESSION: This is an 88-year-old male with past medical history significant for altered mental status, recently discharged from [facility], was transferred because of lethargy, back again. The patient on admission with borderline troponin positive, sepsis, altered mental status. In view of patient's asymptomatology and mental condition, started to treat medically. RECOMMENDATIONS: Continue NG feeding, continue free water. Continue aspirin. Continue DVT prophylaxis. Continue beta-sis. Consider PEG. Strongly consider DNR/DNI. Thank you, Dr. Linder, for providing us the opportunity in taking care of the patient, Sravan Masterson. Serena Soto MD
[2018-08-16] MEDS: Nitroglycerin 2% Ointment Foilpak UD TOP SCH ×4 (05:27→23:11)
[2018-08-16 08:04] LABS: HEMOGLOBIN 11.5 g/dL (14.0-18.0); MEAN CELL VOLUME 94.6 fl (80.0-105.0); MEAN CORPUSCULAR HEMOGLOBIN 29.5 pg (25.0-35.0); MEAN CORPUSCULAR HGB CONC 31.2 g/dl (31.0-37.0); MEAN PLATELET VOLUME 11.2 fl (7.0-11.0); RBC 3.9 10^6/uL (3.5-6.1); RED CELL DISTRIBUTION WIDTH 15.5 % (11.5-14.5); WHITE BLOOD COUNT 4.8 10^3/uL (4.5-11.0)
[2018-08-16] MEDS: Acetylcysteine 20% Inhal Soln (4ml) IH SCH ×3 (08:12→21:32)
[2018-08-16] MEDS: Albuterol-Ipratrop 3 mg / 0.5 (3 ml) UD IH PRN ×3 (08:12→21:32)
[2018-08-16 08:16] LABS: ALB/GLOB RATIO 0.7 (1.1-1.8); ALBUMIN 2.7 g/dL (3.0-4.8); ALT/SGPT 25 U/L (7-56); AST/SGOT 33 U/L (17-59); BLOOD UREA NITROGEN 39 mg/dL (7-21); CALCIUM 8.6 mg/dL (8.4-10.5); GFR NON-AFRICAN AMERICAN > 60
[2018-08-16] MEDS: Carbidopa/Levodopa/Entacapone 37.5mg-150mg-200mg PO SCH ×5 (10:09→23:10)
[2018-08-16] MEDS: Vancomycin 1gm in NS 250ml 1 GM/250 ML BAG IVPB SCH (11:10)
[2018-08-16] MEDS: Meropenem IV 1 gm in NS 1 GM/50 ML BAG IVPB SCH ×3 (11:10→23:10)
--- NOTE | 2018-08-16 14:29 | CP.PCM.PN ---
Subjective - Date & Time of Evaluation Date of Evaluation: 08/16/18 Time of Evaluation: 13:20 - Subjective Subjective: No fevers, not in distress. Objective - Vital Signs/Intake and Output Vital Signs (last 24 hours): Temp Pulse Resp BP Pulse Ox 99.3 F 90 18 129/69 96 08/15/18 11:29 08/15/18 12:43 08/15/18 11:29 08/15/18 12:43 08/15/18 05:51 Intake and Output: 08/15/18 08/15/18 06:59 18:59 Intake Total 1470 Output Total 500 Balance 970 - Medications Medications: Current Medications Acetylcysteine (Acetylcysteine 20%) 4 ml IH [id number] TOMMY Last Admin: 08/15/18 13:40 Dose: 4 ml Albuterol/Ipratropium (Duoneb 3 Mg/0.5 Mg (3 Ml) Ud) 3 ml IH [id number] PRN PRN Reason: Shortness of Breath Last Admin: 08/15/18 13:40 Dose: 3 ml Artificial Tears (Refresh Opth Soln) 0 ml OU Q4 PRN PRN Reason: Dry eyes Last Admin: 08/10/18 11:11 Dose: 1 drop Artificial Tears (Artificial Tears Opht Oint) 0 gm OU BID PRN PRN Reason: Dry eyes Last Admin: 08/10/18 16:25 Dose: 1 applic Aspirin (Ecotrin) 81 mg PO DAILY [facility] Last Admin: 08/15/18 11:00 Dose: 81 mg Carbidopa/Levodopa/Entacapone (Stalevo 150) 1 tab PO QID [facility] Last Admin: 08/15/18 11:00 Dose: 1 tab Heparin Sodium (Porcine) (Heparin) 5,000 units SC Q8 [facility]; Protocol Last Admin: 08/15/18 05:09 Dose: 5,000 units Meropenem (Merrem Iv 1 Gm Premix) 1 gm in 50 mls @ 12.5 mls/hr IVPB Q8 [facility]; Protocol Stop: 08/22/18 14:01 Last Admin: 08/15/18 05:10 Dose: 12.5 mls/hr Vancomycin HCl (Vancomycin 1gm) 1 gm in 250 mls @ 167 mls/hr IVPB Q12H [facility]; Protocol Last Admin: 08/15/18 09:00 Dose: 167 mls/hr Metoprolol Tartrate (Lopressor) 25 mg PO BID [facility] Last Admin: 08/15/18 12:43 Dose: 25 mg Nitroglycerin (Nitro-Bid 2% Oint) 0.5 ea TOP Q6H [facility] Last Admin: 08/15/18 12:44 Dose: 0.5 ea Nystatin (Nystop Topical Powder) 0 gm TOP DAILY PRN PRN Reason: Itching / Pruritus Last Admin: 08/10/18 16:24 Dose: 1 applic Pantoprazole Sodium (Protonix Susp) 40 mg PO 0600 [facility] Last Admin: 08/15/18 05:10 Dose: 40 mg Thiamine HCl (Vitamin B1 Tab) 200 mg PO DAILY [facility] Last Admin: 08/15/18 11:00 Dose: 200 mg - Labs Labs: 08/15/18 06:30 08/15/18 06:30 PT 15.7 SECONDS (9.4-12.5) H 08/07/18 23:15 INR 1.37 08/07/18 23:15 APTT 57.1 Seconds (25.1-36.5) H 08/10/18 08:35 - Constitutional Appears: Chronically Ill - Head Exam Head Exam: NORMAL INSPECTION - Neck Exam Neck Exam: absent: Meningismus - Respiratory Exam Respiratory Exam: Decreased Breath Sounds - Cardiovascular Exam Cardiovascular Exam: +S1, +S2 - GI/Abdominal Exam GI & Abdominal Exam: Soft. absent: Tenderness Assessment and Plan - Assessment and Plan (Free Text) Plan: Assessment Severe sepsis due to ESBL E. coli UTI as well as left lower lobe HCAP Parkinson's disease dementia Plan continue Merrem day 9 to complete 7-10 days of therapy - and will d/c Vancomycin since repeat cx are negative; repeat CXR does not show active disease overall prognosis is poor
--- NOTE | 2018-08-16 18:36 | CP.PCM.PN ---
<Rivas Guillaume - Last Filed: 08/16/18 18:33> Subjective - Date & Time of Evaluation Date of Evaluation: 08/16/18 Time of Evaluation: 07:00 - Subjective Subjective: Rivas Guillaume, PGY1 Medicine Progress Note for Dr. Linder Patient seen and examined at bedside this morning. Patient is more alert and awake today. He follows command and moves all 4 extremities. Daughter (Gordon) was present at bedside today. She explained that she would like to be present for speech and swallow evaluation. Patient unable to provide a ROS but mental status has improved. No adverse overnight events. A full 12 point ROS was conducted and unremarkable except as stated above. Objective - Vital Signs/Intake and Output Vital Signs (last 24 hours): Temp Pulse Resp BP Pulse Ox 98.4 F 78 18 130/64 89 L 08/16/18 06:00 08/16/18 17:05 08/15/18 17:07 08/16/18 17:05 08/16/18 06:00 - Medications Medications: Current Medications Acetylcysteine (Acetylcysteine 20%) 4 ml IH [id number] [facility] Last Admin: 08/16/18 13:56 Dose: 4 ml Albuterol/Ipratropium (Duoneb 3 Mg/0.5 Mg (3 Ml) Ud) 3 ml IH [id number] PRN PRN Reason: Shortness of Breath Last Admin: 08/16/18 13:56 Dose: 3 ml Artificial Tears (Refresh Opth Soln) 0 ml OU Q4 PRN PRN Reason: Dry eyes Last Admin: 08/10/18 11:11 Dose: 1 drop Artificial Tears (Artificial Tears Opht Oint) 0 gm OU BID PRN PRN Reason: Dry eyes Last Admin: 08/10/18 16:25 Dose: 1 applic Aspirin (Ecotrin) 81 mg PO DAILY [facility] Last Admin: 08/16/18 10:08 Dose: 81 mg Carbidopa/Levodopa/Entacapone (Stalevo 150) 1 tab PO QID [facility] Last Admin: 08/16/18 17:05 Dose: 1 tab Heparin Sodium (Porcine) (Heparin) 5,000 units SC Q8 [facility]; Protocol Last Admin: 08/16/18 13:33 Dose: 5,000 units Meropenem (Merrem Iv 1 Gm Premix) 1 gm in 50 mls @ 12.5 mls/hr IVPB Q8 [facility]; Protocol Stop: 08/22/18 14:01 Last Admin: 08/16/18 13:34 Dose: 12.5 mls/hr Metoprolol Tartrate (Lopressor) 25 mg PO BID [facility] Last Admin: 08/16/18 17:05 Dose: 25 mg Nitroglycerin (Nitro-Bid 2% Oint) 0.5 ea TOP Q6H [facility] Last Admin: 08/16/18 17:01 Dose: 0.5 ea Nystatin (Nystop Topical Powder) 0 gm TOP DAILY PRN PRN Reason: Itching / Pruritus Last Admin: 08/10/18 16:24 Dose: 1 applic Pantoprazole Sodium (Protonix Susp) 40 mg PO 0600 [facility] Last Admin: 08/15/18 05:10 Dose: 40 mg Thiamine HCl (Vitamin B1 Tab) 200 mg PO DAILY [facility] Last Admin: 08/16/18 10:09 Dose: 200 mg - Labs Labs: 08/16/18 07:00 08/16/18 07:00 PT 15.7 SECONDS (9.4-12.5) H 08/07/18 23:15 INR 1.37 08/07/18 23:15 APTT 57.1 Seconds (25.1-36.5) H 08/10/18 08:35 - Constitutional Appears: No Acute Distress - Head Exam Head Exam: ATRAUMATIC, NORMAL INSPECTION, NORMOCEPHALIC - Eye Exam Eye Exam: EOMI, Normal appearance, PERRL - ENT Exam ENT Exam: Mucous Membranes Moist, Normal Exam - Respiratory Exam Respiratory Exam: Clear to Ausculation Bilateral, Rhonchi, NORMAL BREATHING PATTERN. absent: Rales, Wheezes - Cardiovascular Exam Cardiovascular Exam: REGULAR RHYTHM, +S1, +S2. absent: Murmur - GI/Abdominal Exam GI & Abdominal Exam: Soft, Normal Bowel Sounds. absent: Tenderness - Extremities Exam Extremities Exam: Full ROM, Normal Capillary Refill, Normal Inspection. absent: Joint Swelling, Pedal Edema - Neurological Exam Neurological Exam: Alert, Awake - Skin Skin Exam: Dry, Intact, Normal Color, Warm Assessment and Plan - Assessment and Plan (Free Text) Assessment: Patient is a 88 y/o M with PMHx of Parkinson's disease, dementia, and recent ESBL + UTI [facility] with complaints of lethargy, failure to thrive, and fever found to have UTI. Patient was admitted for AMS due to Sepsis 2/2 ESBL UTI, hypernatremia (improved), and acute renal failure (improved). Plan: AMS in the setting of Sepsis 2/2 ESBL UTI - Mental status improved. Patient is more alert and awake today. - Talked to patient's daughter (Gordon) at bedside about prognosis - speech and swallow eval today - c/w meropenem (Day #9); complete 7-10 days as per ID recs - mitten restraints renewed at 7am - c/w carbidopa/levodopa for Parkinsons - CT Head: no acute findings - ID recs appreciated - afebrile and no leukocytosis - Urine cx: ESBL+ e coli Failure To Thrive - GI consulted for PEG tube evaluation. Does not recommend PEG at this time. Spoke with GI (Dr. Arboleda) for possibility of re-evaluation for PEG. GI still does not recommend PEG based on pallitative care findings and it will not provide any mortality benefit for the patient as aspiration risk is not d ecreased. - c/w NG tube feeds - Poor PO intake; failed swallow eval - Palliative care is following. Pulmonary Congestion - c/w Chest PT - CXR negative - mucomyst q6H - c/w duonebs Elevated Troponins 2/2 demand ischemia - Cardiology recs appreciated; no indication for cath at this time. Continue with current management. - No EKG changes. Serial trops downtrending. - c/w heparin, ASA, nitro paste, lopressor Hypernatremia 2/2 dehydration and failure to thrive - resolved - Most recent Na is wnl - Na was 161 on admission - Nephrology consulted, appreciated recs Pre-renal RENNY - resolved - Most recent BUN/Cr is wnl - Cr initially 2.1 on admission - Jeffrey is draining GI ppx: Protonix DVT ppx: Heparin, SCD Dispo: continue to monitor patient. Pending placement to possible LTACH that accepts patients with NG tube feeds. Case was discussed and reviewed with Attending Physician, Dr. Linder. <Kaila Linder - Last Filed: 08/17/18 07:06> Objective - Vital Signs/Intake and Output Vital Signs (last 24 hours): Temp Pulse Resp BP Pulse Ox 99.7 F H 79 18 145/63 100 08/16/18 22:00 08/16/18 22:00 08/16/18 22:00 08/16/18 22:00 08/16/18 22:00 Intake and Output: 08/16/18 08/17/18 18:59 06:59 Output Total 640 Balance -640 - Medications Medications: Current Medications Acetylcysteine (Acetylcysteine 20%) 4 ml IH [id number] [facility] Last Admin: 08/17/18 02:10 Dose: 4 ml Albuterol/Ipratropium (Duoneb 3 Mg/0.5 Mg (3 Ml) Ud) 3 ml IH [id number] PRN PRN Reason: Shortness of Breath Last Admin: 08/17/18 02:10 Dose: 3 ml Artificial Tears (Refresh Opth Soln) 0 ml OU Q4 PRN PRN Reason: Dry eyes Last Admin: 08/10/18 11:11 Dose: 1 drop Artificial Tears (Artificial Tears Opht Oint) 0 gm OU BID PRN PRN Reason: Dry eyes Last Admin: 08/10/18 16:25 Dose: 1 applic Aspirin (Ecotrin) 81 mg PO DAILY [facility] Last Admin: 08/16/18 10:08 Dose: 81 mg Carbidopa/Levodopa/Entacapone (Stalevo 150) 1 tab PO QID [facility] Last Admin: 08/16/18 23:10 Dose: 1 tab Heparin Sodium (Porcine) (Heparin) 5,000 units SC Q8 [facility]; Protocol Last Admin: 08/17/18 05:54 Dose: 5,000 units Meropenem (Merrem Iv 1 Gm Premix) 1 gm in 50 mls @ 12.5 mls/hr IVPB Q8 [facility]; Protocol Stop: 08/22/18 14:01 Last Admin: 08/17/18 05:15 Dose: 12.5 mls/hr Metoprolol Tartrate (Lopressor) 25 mg PO BID [facility] Last Admin: 08/16/18 17:05 Dose: 25 mg Nitroglycerin (Nitro-Bid 2% Oint) 0.5 ea TOP Q6H [facility] Last Admin: 08/17/18 05:54 Dose: 0.5 ea Nystatin (Nystop Topical Powder) 0 gm TOP DAILY PRN PRN Reason: Itching / Pruritus Last Admin: 08/10/18 16:24 Dose: 1 applic Pantoprazole Sodium (Protonix Susp) 40 mg PO 0600 [facility] Last Admin: 08/17/18 05:54 Dose: 40 mg Thiamine HCl (Vitamin B1 Tab) 200 mg PO DAILY [facility] Last Admin: 08/16/18 10:09 Dose: 200 mg - Labs Labs: 08/16/18 07:00 08/16/18 07:00 PT 15.7 SECONDS (9.4-12.5) H 08/07/18 23:15 INR 1.37 08/07/18 23:15 APTT 57.1 Seconds (25.1-36.5) H 08/10/18 08:35 Attending/Attestation - Attestation I have personally seen and examined this patient.: Yes I have fully participated in the care of the patient.: Yes I have reviewed all pertinent clinical information, including history, physical exam and plan: Yes Notes (Text): 08/16/18 88 year old male with past medical history of Parkinson's disease and dementia who was transferred from [place] secondary to lethargy and failure to thrive. CT head was negative for acute findings. He was found to have sepsis secondary to ESBL UTI and started on iv antibiotics. Currently on meropenem. ID is following. He was also found to have hypernatremia and RENNY, both which have resolved. He was also found to have possible NSTEMI vs elevated cardiac enzymes is setting of renal failure and sepsis. Echocardiogram was reviewed. Cardiology is following. Patient is on aspirin and lopressor. GI evaluation was requested for possible PEG placement which he deferred at this time. He is currently on NGT tube feeds. Patient has failed swallowing evaluations. Noted to have alot of secretions. Chest PT was ordered and mucomyst. Today he appears more alert, following commands, sitting up in bed. Case was discussed with daughter at bedside who requested for speech and swallow follow up. Palliative care evaluation was appreciated as well. Will follow up with foster care case manager / oncology social work regarding d/c planning to LTACH vs [facility]. Kaila Linder MD Hospitalist.
[2018-08-17] MEDS: Acetylcysteine 20% Inhal Soln (4ml) IH SCH ×4 (02:10→21:27)
[2018-08-17] MEDS: Albuterol-Ipratrop 3 mg / 0.5 (3 ml) UD IH PRN ×4 (02:10→21:27)
[2018-08-17] MEDS: Meropenem IV 1 gm in NS 1 GM/50 ML BAG IVPB SCH ×3 (05:15→23:11)
[2018-08-17] MEDS: Nitroglycerin 2% Ointment Foilpak UD TOP SCH ×4 (05:54→23:13)
[2018-08-17] MEDS: Pantoprazole 40 mg Susp UD PO SCH (05:54)
[2018-08-17 08:14] LABS: HEMOGLOBIN 10.8 g/dL (14.0-18.0); MEAN CELL VOLUME 94.9 fl (80.0-105.0); MEAN CORPUSCULAR HEMOGLOBIN 29.1 pg (25.0-35.0); MEAN CORPUSCULAR HGB CONC 30.7 g/dl (31.0-37.0); MEAN PLATELET VOLUME 10.9 fl (7.0-11.0); RBC 3.71 10^6/uL (3.5-6.1); RED CELL DISTRIBUTION WIDTH 15.4 % (11.5-14.5)
[2018-08-17 08:18] LABS: ALB/GLOB RATIO 0.7 (1.1-1.8); ALBUMIN 2.6 g/dL (3.0-4.8); ALT/SGPT 30 U/L (7-56); AST/SGOT 28 U/L (17-59); BLOOD UREA NITROGEN 37 mg/dL (7-21); CALCIUM 8.4 mg/dL (8.4-10.5); GFR NON-AFRICAN AMERICAN > 60
[2018-08-17] MEDS: Carbidopa/Levodopa/Entacapone 37.5mg-150mg-200mg PO SCH ×3 (10:25→18:19)
--- NOTE | 2018-08-17 13:58 | CP.PCM.PN ---
Subjective - Date & Time of Evaluation Date of Evaluation: 08/17/18 Time of Evaluation: 12:40 - Subjective Subjective: No fevers, not in distress. Objective - Vital Signs/Intake and Output Vital Signs (last 24 hours): Temp Pulse Resp BP Pulse Ox 98.4 F 55 L 18 116/55 L 89 L 08/16/18 06:00 08/16/18 11:13 08/15/18 17:07 08/16/18 11:13 08/16/18 06:00 - Medications Medications: Current Medications Acetylcysteine (Acetylcysteine 20%) 4 ml IH [id number] [facility] Last Admin: 08/16/18 13:56 Dose: 4 ml Albuterol/Ipratropium (Duoneb 3 Mg/0.5 Mg (3 Ml) Ud) 3 ml IH [id number] PRN PRN Reason: Shortness of Breath Last Admin: 08/16/18 13:56 Dose: 3 ml Artificial Tears (Refresh Opth Soln) 0 ml OU Q4 PRN PRN Reason: Dry eyes Last Admin: 08/10/18 11:11 Dose: 1 drop Artificial Tears (Artificial Tears Opht Oint) 0 gm OU BID PRN PRN Reason: Dry eyes Last Admin: 08/10/18 16:25 Dose: 1 applic Aspirin (Ecotrin) 81 mg PO DAILY [facility] Last Admin: 08/16/18 10:08 Dose: 81 mg Carbidopa/Levodopa/Entacapone (Stalevo 150) 1 tab PO QID [facility] Last Admin: 08/16/18 13:34 Dose: 1 tab Heparin Sodium (Porcine) (Heparin) 5,000 units SC Q8 [facility]; Protocol Last Admin: 08/16/18 13:33 Dose: 5,000 units Meropenem (Merrem Iv 1 Gm Premix) 1 gm in 50 mls @ 12.5 mls/hr IVPB Q8 [facility]; Protocol Stop: 08/22/18 14:01 Last Admin: 08/16/18 13:34 Dose: 12.5 mls/hr Vancomycin HCl (Vancomycin 1gm) 1 gm in 250 mls @ 167 mls/hr IVPB Q12H [facility]; Protocol Last Admin: 08/16/18 11:10 Dose: 167 mls/hr Metoprolol Tartrate (Lopressor) 25 mg PO BID [facility] Last Admin: 08/16/18 11:13 Dose: Not Given Nitroglycerin (Nitro-Bid 2% Oint) 0.5 ea TOP Q6H [facility] Last Admin: 08/16/18 11:09 Dose: 0.5 ea Nystatin (Nystop Topical Powder) 0 gm TOP DAILY PRN PRN Reason: Itching / Pruritus Last Admin: 08/10/18 16:24 Dose: 1 applic Pantoprazole Sodium (Protonix Susp) 40 mg PO 0600 [facility] Last Admin: 08/15/18 05:10 Dose: 40 mg Thiamine HCl (Vitamin B1 Tab) 200 mg PO DAILY [facility] Last Admin: 08/16/18 10:09 Dose: 200 mg - Labs Labs: 08/16/18 07:00 08/16/18 07:00 PT 15.7 SECONDS (9.4-12.5) H 08/07/18 23:15 INR 1.37 08/07/18 23:15 APTT 57.1 Seconds (25.1-36.5) H 08/10/18 08:35 - Constitutional Appears: Chronically Ill - Head Exam Head Exam: NORMAL INSPECTION - Respiratory Exam Respiratory Exam: Decreased Breath Sounds - Cardiovascular Exam Cardiovascular Exam: +S1, +S2 - GI/Abdominal Exam GI & Abdominal Exam: Soft. absent: Tenderness Assessment and Plan - Assessment and Plan (Free Text) Plan: Assessment Severe sepsis due to ESBL E. coli UTI as well as left lower lobe HCAP Parkinson's disease dementia Plan continue Merrem day 10 to complete 7-10 days of therapy - and we have d/c'ed Vancomycin since repeat cx are negative; repeat CXR does not show active disease overall prognosis is poor
--- NOTE | 2018-08-17 15:50 | CP.PCM.PN ---
<Rivas Guillaume - Last Filed: 08/17/18 16:03> Subjective - Date & Time of Evaluation Date of Evaluation: 08/17/18 Time of Evaluation: 07:00 - Subjective Subjective: Rivas Guillaume, PGY1 Medicine Progress Note for Dr. Linder Patient was seen and examined at bedside this morning. Patient's mental status is the same as yesterday. Vital signs stable. Daughter was not present at bedside during time of interview. Patient follows commands, moves all extremities. Secretions have improved. No adverse overnight events. Mittens renewed due to pulling and patient's inability to understand. A full ROS was unable to be obtained due to patients mental status. Objective - Vital Signs/Intake and Output Vital Signs (last 24 hours): Temp Pulse Resp BP Pulse Ox 98 F 81 20 108/60 99 08/17/18 14:52 08/17/18 14:52 08/17/18 14:52 08/17/18 14:52 08/17/18 14:52 Intake and Output: 08/17/18 08/17/18 06:59 18:59 Output Total 640 Balance -640 - Medications Medications: Current Medications Acetylcysteine (Acetylcysteine 20%) 4 ml IH [id number] [facility] Last Admin: 08/17/18 13:15 Dose: 4 ml Albuterol/Ipratropium (Duoneb 3 Mg/0.5 Mg (3 Ml) Ud) 3 ml IH [id number] PRN PRN Reason: Shortness of Breath Last Admin: 08/17/18 13:15 Dose: 3 ml Artificial Tears (Refresh Opth Soln) 0 ml OU Q4 PRN PRN Reason: Dry eyes Last Admin: 08/10/18 11:11 Dose: 1 drop Artificial Tears (Artificial Tears Opht Oint) 0 gm OU BID PRN PRN Reason: Dry eyes Last Admin: 08/10/18 16:25 Dose: 1 applic Aspirin (Ecotrin) 81 mg PO DAILY [facility] Last Admin: 08/17/18 10:25 Dose: 81 mg Carbidopa/Levodopa/Entacapone (Stalevo 150) 1 tab PO QID [facility] Last Admin: 08/17/18 13:52 Dose: 1 tab Heparin Sodium (Porcine) (Heparin) 5,000 units SC Q8 [facility]; Protocol Last Admin: 08/17/18 13:51 Dose: 5,000 units Meropenem (Merrem Iv 1 Gm Premix) 1 gm in 50 mls @ 12.5 mls/hr IVPB Q8 [facility]; Protocol Stop: 08/22/18 14:01 Last Admin: 08/17/18 13:45 Dose: 12.5 mls/hr Metoprolol Tartrate (Lopressor) 25 mg PO BID [facility] Last Admin: 08/17/18 10:27 Dose: 25 mg Nitroglycerin (Nitro-Bid 2% Oint) 0.5 ea TOP Q6H [facility] Last Admin: 08/17/18 10:24 Dose: 0.5 ea Nystatin (Nystop Topical Powder) 0 gm TOP DAILY PRN PRN Reason: Itching / Pruritus Last Admin: 08/10/18 16:24 Dose: 1 applic Pantoprazole Sodium (Protonix Susp) 40 mg PO 0600 [facility] Last Admin: 08/17/18 05:54 Dose: 40 mg Thiamine HCl (Vitamin B1 Tab) 200 mg PO DAILY [facility] Last Admin: 08/17/18 10:24 Dose: 200 mg - Labs Labs: 08/17/18 07:00 08/17/18 07:00 PT 15.7 SECONDS (9.4-12.5) H 08/07/18 23:15 INR 1.37 08/07/18 23:15 APTT 57.1 Seconds (25.1-36.5) H 08/10/18 08:35 - Constitutional Appears: No Acute Distress, Chronically Ill - Head Exam Head Exam: ATRAUMATIC, NORMAL INSPECTION, NORMOCEPHALIC - Eye Exam Eye Exam: EOMI, Normal appearance, PERRL - ENT Exam ENT Exam: Mucous Membranes Moist, Normal Exam - Respiratory Exam Respiratory Exam: Clear to Ausculation Bilateral, Rhonchi (Less rhonci bilateral lung bases compared to prev exam. ), NORMAL BREATHING PATTERN. absent: Chest Wall Tenderness, Decreased Breath Sounds, Rales, Wheezes, Respiratory Distress - Cardiovascular Exam Cardiovascular Exam: RRR, +S1, +S2 - GI/Abdominal Exam GI & Abdominal Exam: Soft, Normal Bowel Sounds. absent: Tenderness - Extremities Exam Extremities Exam: Full ROM, Normal Capillary Refill, Normal Inspection. absent: Joint Swelling, Pedal Edema - Neurological Exam Neurological Exam: Alert, Awake. absent: Oriented x3 - Skin Skin Exam: Dry, Intact, Normal Color, Warm Assessment and Plan - Assessment and Plan (Free Text) Assessment: Patient is a 88 y/o M with PMHx of Parkinson's disease, dementia, and recent ESBL + UTI [facility] from [facility] with complaints of lethargy, failure to thrive, and fever found to have UTI. Patient was admitted for AMS due to Sepsis 2/2 ESBL UTI, Failure to thrive, hypernatremia (improved), and acute renal failure (improved). Plan: AMS in the setting of Sepsis 2/2 ESBL UTI - patient failed speech and swallow eval yesterday (08/16); high risk for aspiration, c/w NG tube feeds - Mental status has improved since admission but is still not at baseline as per family. - c/w meropenem (Day #10); complete 7-10 days as per ID recs - mitten restraints renewed at 7am - c/w carbidopa/levodopa for Parkinsons - CT Head: no acute findings - ID recs appreciated - afebrile and no leukocytosis - Urine cx: ESBL+ e coli Failure To Thrive - GI consulted for PEG tube evaluation. Does not recommend PEG at this time. Spoke with GI (Dr. Arboleda) for possibility of re-evaluation for PEG. GI still does not recommend PEG based on pallitative care findings and it will not provide any mortality benefit for the patient as aspiration risk is not decreased. - c/w NG tube feeds - Poor PO intake; failed swallow eval multiple times - Palliative care is following. Pulmonary Congestion - improving - c/w Chest PT; spoke to respiratory therapist - c/w mucomyst q6H - c/w duonebs - CXR negative - Decreased rhonci on pulmonary exam Elevated Troponins 2/2 demand ischemia - Cardiology recs appreciated; no indication for cath at this time. Continue with current management. - No EKG changes. Serial trops downtrending. - c/w heparin sc, ASA, nitro paste, lopressor Hypernatremia 2/2 dehydration and failure to thrive - resolved - Most recent Na is wnl - Na was 161 on admission - Nephrology consulted, appreciated recs Pre-renal RENNY - resolved - Most recent BUN/Cr is wnl - Cr initially 2.1 on admission - Jeffrey is draining GI ppx: Protonix DVT ppx: Heparin sc, SCD Dispo: continue to monitor patient. Recommendation per SW was for LTACH, referral was sent. PT recommends [facility]. Palliative is following. Overall prognosis is poor. Case was discussed and reviewed with Attending Physician, Dr. Linder. <Kaila Linder - Last Filed: 08/17/18 16:48> Objective - Vital Signs/Intake and Output Vital Signs (last 24 hours): Temp Pulse Resp BP Pulse Ox 98 F 81 20 108/60 99 08/17/18 14:52 08/17/18 14:52 08/17/18 14:52 08/17/18 14:52 08/17/18 14:52 Intake and Output: 08/17/18 08/17/18 06:59 18:59 Output Total 640 Balance -640 - Medications Medications: Current Medications Acetylcysteine (Acetylcysteine 20%) 4 ml IH [id number] [facility] Last Admin: 08/17/18 13:15 Dose: 4 ml Albuterol/Ipratropium (Duoneb 3 Mg/0.5 Mg (3 Ml) Ud) 3 ml IH [id number] PRN PRN Reason: Shortness of Breath Last Admin: 08/17/18 13:15 Dose: 3 ml Artificial Tears (Refresh Opth Soln) 0 ml OU Q4 PRN PRN Reason: Dry eyes Last Admin: 08/10/18 11:11 Dose: 1 drop Artificial Tears (Artificial Tears Opht Oint) 0 gm OU BID PRN PRN Reason: Dry eyes Last Admin: 08/10/18 16:25 Dose: 1 applic Aspirin (Ecotrin) 81 mg PO DAILY [facility] Last Admin: 08/17/18 10:25 Dose: 81 mg Carbidopa/Levodopa/Entacapone (Stalevo 150) 1 tab PO QID [facility] Last Admin: 08/17/18 13:52 Dose: 1 tab Heparin Sodium (Porcine) (Heparin) 5,000 units SC Q8 [facility]; Protocol Last Admin: 08/17/18 13:51 Dose: 5,000 units Meropenem (Merrem Iv 1 Gm Premix) 1 gm in 50 mls @ 12.5 mls/hr IVPB Q8 [facility]; Protocol Stop: 08/22/18 14:01 Last Admin: 08/17/18 13:45 Dose: 12.5 mls/hr Metoprolol Tartrate (Lopressor) 25 mg PO BID [facility] Last Admin: 08/17/18 10:27 Dose: 25 mg Nitroglycerin (Nitro-Bid 2% Oint) 0.5 ea TOP Q6H [facility] Last Admin: 08/17/18 16:11 Dose: 0.5 ea Nystatin (Nystop Topical Powder) 0 gm TOP DAILY PRN PRN Reason: Itching / Pruritus Last Admin: 08/10/18 16:24 Dose: 1 applic Pantoprazole Sodium (Protonix Susp) 40 mg PO 0600 [facility] Last Admin: 08/17/18 05:54 Dose: 40 mg Thiamine HCl (Vitamin B1 Tab) 200 mg PO DAILY [facility] Last Admin: 08/17/18 10:24 Dose: 200 mg - Labs Labs: 08/17/18 07:00 08/17/18 07:00 PT 15.7 SECONDS (9.4-12.5) H 08/07/18 23:15 INR 1.37 08/07/18 23:15 APTT 57.1 Seconds (25.1-36.5) H 08/10/18 08:35 Attending/Attestation - Attestation I have personally seen and examined this patient.: Yes I have fully participated in the care of the patient.: Yes I have reviewed all pertinent clinical information, including history, physical exam and plan: Yes Notes (Text): 08/17/18 16:46 88 year old male with past medical history of Parkinson's disease and dementia who was transferred from [place] secondary to lethargy and failure to thrive. CT head was negative for acute findings. He was found to have sepsis secondary to ESBL UTI and started on iv antibiotics. Currently on meropenem. ID is following. He was also found to have hypernatremia and RENNY, both which have resolved. He was also found to have possible NSTEMI vs elevated cardiac enzymes is setting of renal failure and sepsis. Echocardiogram was reviewed. Cardiology is following. Patient is on aspirin and lopressor. Patient is currently on NGT tube feeds. GI evaluation was requested for pos sible PEG placement which he deferred at this time. However patient has repeatedly failed swallowing evaluations, even yesterday despite improvement of mental status. Will discuss with daughter. Noted to have alot of secretions. Chest PT was ordered and mucomyst. Palliative care evaluation was appreciated as well. Will follow up with manager of case / social media content manager regarding d/c planning to [facility]ACH vs [facility]. Kaila Linder MD Hospitalist.
[2018-08-18] MEDS: Albuterol-Ipratrop 3 mg / 0.5 (3 ml) UD IH PRN ×4 (01:58→20:18)
[2018-08-18] MEDS: Acetylcysteine 20% Inhal Soln (4ml) IH SCH ×4 (01:58→20:18)
[2018-08-18] MEDS: Carbidopa/Levodopa/Entacapone 37.5mg-150mg-200mg PO SCH ×5 (04:26→22:16)
[2018-08-18] MEDS: Meropenem IV 1 gm in NS 1 GM/50 ML BAG IVPB SCH ×3 (06:40→22:16)
[2018-08-18] MEDS: Pantoprazole 40 mg Susp UD PO SCH (06:41)
[2018-08-18] MEDS: Nitroglycerin 2% Ointment Foilpak UD TOP SCH ×4 (06:41→22:07)
--- NOTE | 2018-08-18 07:24 | CP.PCM.PN ---
Subjective - Date & Time of Evaluation Date of Evaluation: 08/18/18 Time of Evaluation: 06:25 - Subjective Subjective: Lying in bed, no distress, Reason for consultation and follow up:Cardiac evaluation for abnormal troponin, altered mental status, urosepsis Seen and examined by me and Dr. Soto Objective - Vital Signs/Intake and Output Vital Signs (last 24 hours): Temp Pulse Resp BP Pulse Ox 97.6 F 80 20 187/62 H 93 L 08/17/18 22:00 08/17/18 22:00 08/17/18 22:00 08/17/18 22:00 08/17/18 22:00 Intake and Output: 08/18/18 08/18/18 06:59 18:59 Output Total 700 Balance -700 - Medications Medications: Current Medications Acetylcysteine (Acetylcysteine 20%) 4 ml IH [id number] TOMMY Last Admin: 08/18/18 01:58 Dose: 4 ml Albuterol/Ipratropium (Duoneb 3 Mg/0.5 Mg (3 Ml) Ud) 3 ml IH [id number] PRN PRN Reason: Shortness of Breath Last Admin: 08/18/18 01:58 Dose: 3 ml Artificial Tears (Refresh Opth Soln) 0 ml OU Q4 PRN PRN Reason: Dry eyes Last Admin: 08/10/18 11:11 Dose: 1 drop Artificial Tears (Artificial Tears Opht Oint) 0 gm OU BID PRN PRN Reason: Dry eyes Last Admin: 08/10/18 16:25 Dose: 1 applic Aspirin (Ecotrin) 81 mg PO DAILY [facility] Last Admin: 08/17/18 10:25 Dose: 81 mg Carbidopa/Levodopa/Entacapone (Stalevo 150) 1 tab PO QID TOMMY Last Admin: 08/18/18 04:26 Dose: Not Given Heparin Sodium (Porcine) (Heparin) 5,000 units SC Q8 TOMMY; Protocol Last Admin: 08/18/18 06:40 Dose: 5,000 units Meropenem (Merrem Iv 1 Gm Premix) 1 gm in 50 mls @ 12.5 mls/hr IVPB Q8 TOMMY; Protocol Stop: 08/22/18 14:01 Last Admin: 08/18/18 06:40 Dose: 12.5 mls/hr Metoprolol Tartrate (Lopressor) 25 mg PO BID [facility] Last Admin: 08/17/18 18:18 Dose: 25 mg Nitroglycerin (Nitro-Bid 2% Oint) 0.5 ea TOP Q6H [facility] Last Admin: 08/18/18 06:41 Dose: Not Given Nystatin (Nystop Topical Powder) 0 gm TOP DAILY PRN PRN Reason: Itching / Pruritus Last Admin: 08/10/18 16:24 Dose: 1 applic Pantoprazole Sodium (Protonix Susp) 40 mg PO 0600 [facility] Last Admin: 08/18/18 06:41 Dose: 40 mg Thiamine HCl (Vitamin B1 Tab) 200 mg PO DAILY [facility] Last Admin: 08/17/18 10:24 Dose: 200 mg - Labs Labs: 08/17/18 07:00 08/17/18 07:00 PT 15.7 SECONDS (9.4-12.5) H 08/07/18 23:15 INR 1.37 08/07/18 23:15 APTT 57.1 Seconds (25.1-36.5) H 08/10/18 08:35 - Constitutional Appears: Non-toxic, No Acute Distress - Head Exam Head Exam: NORMAL INSPECTION, NORMOCEPHALIC - Eye Exam Eye Exam: Normal appearance Pupil Exam: NORMAL ACCOMODATION - ENT Exam ENT Exam: Mucous Membranes Dry - Respiratory Exam Respiratory Exam: Decreased Breath Sounds, Rhonchi, NORMAL BREATHING PATTERN - Cardiovascular Exam Cardiovascular Exam: +S1, +S2 Additional comments: No JVD - GI/Abdominal Exam GI & Abdominal Exam: Soft, Normal Bowel Sounds Additional comments: NPO Tube feeding via dobbhoff catheter - Neurological Exam Additional comments: lethargic - Skin Skin Exam: Dry, Normal Color, Warm Assessment and Plan - Assessment and Plan (Free Text) Assessment: An 88 year old male who [facility] due to failure to thrive and fever. History of Parkinson's disease, dementia,and recent ESBL in urine, recently hospitalized in [facility] for UTI and got [facility] to the [facility]. Upon admission, patient had positive borderline troponin Patient asymtomatic with altered mental status. Will treat medically/conservatively.Urine still positive for E. coli, urosepsis. Plan: No distress, lethargic Failed swallowing evaluation. With Dobbhoff catheter via left nare to tube feeding Advance feeding as tolerated Heart rate controlled Blood pressure controlled Continue IV antibiotics per ID Continue current treatment Continue current medications Chart reviewed Will follow up Plan and treatment discussed with Dr. Soto
[2018-08-18 08:56] LABS: HEMOGLOBIN 11.1 g/dL (14.0-18.0); MEAN CELL VOLUME 93.8 fl (80.0-105.0); MEAN CORPUSCULAR HEMOGLOBIN 29.8 pg (25.0-35.0); MEAN CORPUSCULAR HGB CONC 31.8 g/dl (31.0-37.0); MEAN PLATELET VOLUME 10.8 fl (7.0-11.0); RBC 3.72 10^6/uL (3.5-6.1); RED CELL DISTRIBUTION WIDTH 15.2 % (11.5-14.5); WHITE BLOOD COUNT 4.7 10^3/uL (4.5-11.0)
[2018-08-18 09:11] LABS: ALB/GLOB RATIO 0.7 (1.1-1.8); ALBUMIN 2.6 g/dL (3.0-4.8); ALT/SGPT 41 U/L (7-56); AST/SGOT 34 U/L (17-59); BLOOD UREA NITROGEN 32 mg/dL (7-21); CALCIUM 8.3 mg/dL (8.4-10.5); GFR NON-AFRICAN AMERICAN > 60
[2018-08-18] MEDS: Lubricant Eye Drops UD OU PRN (09:54)
--- NOTE | 2018-08-18 12:56 | CP.PCM.PN ---
Subjective - Date & Time of Evaluation Date of Evaluation: 08/18/18 Time of Evaluation: 11:35 - Subjective Subjective: No fevers, not in distress. Objective - Vital Signs/Intake and Output Vital Signs (last 24 hours): Temp Pulse Resp BP Pulse Ox 98.4 F 78 18 121/66 95 08/17/18 07:30 08/17/18 10:27 08/17/18 07:30 08/17/18 10:27 08/17/18 07:30 Intake and Output: 08/17/18 08/17/18 06:59 18:59 Output Total 640 Balance -640 - Medications Medications: Current Medications Acetylcysteine (Acetylcysteine 20%) 4 ml IH [id number] TOMMY Last Admin: 08/17/18 13:15 Dose: 4 ml Albuterol/Ipratropium (Duoneb 3 Mg/0.5 Mg (3 Ml) Ud) 3 ml IH [id number] PRN PRN Reason: Shortness of Breath Last Admin: 08/17/18 13:15 Dose: 3 ml Artificial Tears (Refresh Opth Soln) 0 ml OU Q4 PRN PRN Reason: Dry eyes Last Admin: 08/10/18 11:11 Dose: 1 drop Artificial Tears (Artificial Tears Opht Oint) 0 gm OU BID PRN PRN Reason: Dry eyes Last Admin: 08/10/18 16:25 Dose: 1 applic Aspirin (Ecotrin) 81 mg PO DAILY [facility] Last Admin: 08/17/18 10:25 Dose: 81 mg Carbidopa/Levodopa/Entacapone (Stalevo 150) 1 tab PO QID [facility] Last Admin: 08/17/18 13:52 Dose: 1 tab Heparin Sodium (Porcine) (Heparin) 5,000 units SC Q8 [facility]; Protocol Last Admin: 08/17/18 13:51 Dose: 5,000 units Meropenem (Merrem Iv 1 Gm Premix) 1 gm in 50 mls @ 12.5 mls/hr IVPB Q8 [facility]; Protocol Stop: 08/22/18 14:01 Last Admin: 08/17/18 13:45 Dose: 12.5 mls/hr Metoprolol Tartrate (Lopressor) 25 mg PO BID [facility] Last Admin: 08/17/18 10:27 Dose: 25 mg Nitroglycerin (Nitro-Bid 2% Oint) 0.5 ea TOP Q6H [facility] Last Admin: 08/17/18 10:24 Dose: 0.5 ea Nystatin (Nystop Topical Powder) 0 gm TOP DAILY PRN PRN Reason: Itching / Pruritus Last Admin: 08/10/18 16:24 Dose: 1 applic Pantoprazole Sodium (Protonix Susp) 40 mg PO 0600 [facility] Last Admin: 08/17/18 05:54 Dose: 40 mg Thiamine HCl (Vitamin B1 Tab) 200 mg PO DAILY [facility] Last Admin: 08/17/18 10:24 Dose: 200 mg - Labs Labs: 08/17/18 07:00 08/17/18 07:00 PT 15.7 SECONDS (9.4-12.5) H 08/07/18 23:15 INR 1.37 08/07/18 23:15 APTT 57.1 Seconds (25.1-36.5) H 08/10/18 08:35 - Constitutional Appears: Chronically Ill - Head Exam Head Exam: NORMAL INSPECTION - Respiratory Exam Respiratory Exam: Decreased Breath Sounds - Cardiovascular Exam Cardiovascular Exam: +S1, +S2 - GI/Abdominal Exam GI & Abdominal Exam: Soft. absent: Tenderness Assessment and Plan - Assessment and Plan (Free Text) Plan: Assessment Severe sepsis due to ESBL E. coli UTI as well as left lower lobe HCAP Parkinson's disease dementia Plan continue Merrem day 11 (of 10-14 days) - and we have d/c'ed Vancomycin since repeat cx are negative; repeat CXR does not show active disease will repeat urine cx and urinalysis - discussed with Dr. Linder overall prognosis is poor
--- NOTE | 2018-08-18 16:25 | CP.PCM.CON ---
History of Present Illness - History of Present Illness History of Present Illness: Gastroenterology Fellow/PGY6 Consult Note 88 year old male with PMH of Parkinson's, Dementia, and recent UTI presenting with altered mental status. Patient is currently nonverbal. Nursing denies acute issues. History obtained from daughter by phone discussion. Daughter notes recent admission 07/2018 for UTI at [facility] with swallow evaluation confirming ability to eat normal diet. Daughter notes patient transitioned to pu ree diet at nursing facility leading to food aversion due to dislike of food consistency per daughter. Daughter notes worsening confusion and dehydration leading to present admission. Daughter notes patient able to eat normal solids and liquids prior to 07/2018. Active treatment of sepsis due to ESBL UTI and altered mental status leading to failure to thrive. Swallow evaluation on 08/16 notes severe oropharyngeal dysphagia and high aspiration risk. Family History- denies stomach cancer, colon cancer Social History- denies tobacco, alcohol, illicit drug use Surgical History- none Review of Systems - Review of Systems Review of Systems: 12-point review of systems negative except for as above Past Patient History - Tetanus Immunizations Tetanus Immunization: Unknown - Past Social History Smoking Status: Never Smoked - CARDIAC Hx Cardiac Disorders: No Hx Congestive Heart Failure: Yes Hx Hypertension: Yes (denies) - NEUROLOGICAL HX Cerebrovascular Accident: No Hx Dementia: Yes Hx Parkinson's Disease: Yes Hx Seizures: No - ENDOCRINE/METABOLIC Hx Endocrine Disorders: No - HEMATOLOGICAL/ONCOLOGICAL Hx Cancer: No - INTEGUMENTARY Hx Dermatological Problems: No - MUSCULOSKELETAL/RHEUMATOLOGICAL Hx Falls: Yes - GASTROINTESTINAL Hx Gastrointestinal Disorders: No - GENITOURINARY/GYNECOLOGICAL Hx Sexually Transmitted Disorders: No - PSYCHIATRIC Hx Depression: No Hx Substance Use: No - SURGICAL HISTORY Hx Surgeries: (pt denies) - ANESTHESIA Hx Anesthesia: No Meds Allergies/Adverse Reactions: Allergies Allergy/AdvReac Type Severity Reaction Status Date / Time No Known Allergies Allergy Verified 11/13/17 10:28 - Medications Medications: Current Medications Acetylcysteine (Acetylcysteine 20%) 4 ml IH [id number] TOMMY Last Admin: 08/18/18 13:34 Dose: 4 ml Albuterol/Ipratropium (Duoneb 3 Mg/0.5 Mg (3 Ml) Ud) 3 ml IH [id number] PRN PRN Reason: Shortness of Breath Last Admin: 08/18/18 13:34 Dose: 3 ml Artificial Tears (Refresh Opth Soln) 0 ml OU Q4 PRN PRN Reason: Dry eyes Last Admin: 08/18/18 09:54 Dose: 1 drop Artificial Tears (Artificial Tears Opht Oint) 0 gm OU BID PRN PRN Reason: Dry eyes Last Admin: 08/10/18 16:25 Dose: 1 applic Aspirin (Ecotrin) 81 mg PO DAILY [facility] Last Admin: 08/17/18 10:25 Dose: 81 mg Carbidopa/Levodopa/Entacapone (Stalevo 150) 1 tab PO QID [facility] Last Admin: 08/18/18 14:58 Dose: 1 tab Meropenem (Merrem Iv 1 Gm Premix) 1 gm in 50 mls @ 12.5 mls/hr IVPB Q8 [facility]; Protocol Stop: 08/22/18 14:01 Last Admin: 08/18/18 14:58 Dose: 12.5 mls/hr Metoprolol Tartrate (Lopressor) 25 mg PO BID [facility] Last Admin: 08/18/18 09:56 Dose: Not Given Nitroglycerin (Nitro-Bid 2% Oint) 0.5 ea TOP Q6H [facility] Last Admin: 08/18/18 09:58 Dose: Not Given Nystatin (Nystop Topical Powder) 0 gm TOP DAILY PRN PRN Reason: Itching / Pruritus Last Admin: 08/10/18 16:24 Dose: 1 applic Pantoprazole Sodium (Protonix Susp) 40 mg PO 0600 [facility] Last Admin: 08/18/18 06:41 Dose: 40 mg Thiamine HCl (Vitamin B1 Tab) 200 mg PO DAILY [facility] Last Admin: 08/18/18 09:54 Dose: 200 mg Physical Exam - Constitutional Appears: Non-toxic, No Acute Distress - Head Exam Head Exam: ATRAUMATIC, NORMOCEPHALIC - Eye Exam Eye Exam: EOMI, PERRL. absent: Scleral icterus Pupil Exam: PERRL. absent: Miosis, Mydriatic - ENT Exam ENT Exam: Mucous Membranes Moist, Normal Oropharynx Additional comments: left nares NG tube in place - Neck Exam Neck exam: Positive for: Full Rom, Normal Inspection - Respiratory Exam Respiratory Exam: Clear to Auscultation Bilateral. absent: Rales, Rhonchi, Wheezes - Cardiovascular Exam Cardiovascular Exam: RRR, +S1, +S2. absent: Gallop, Rubs - GI/Abdominal Exam GI & Abdominal Exam: Normal Bowel Sounds, Soft. absent: Distended, Firm, Guarding, Organomegaly, Rebound, Rigid, Tenderness - Extremities Exam Extremities exam: Positive for: normal inspection. Negative for: pedal edema - Neurological Exam Neurological exam: Altered - Psychiatric Exam Additional comments: unable to assess given altered mental status - Skin Skin Exam: Dry, Intact, Normal Color, Warm Results - Vital Signs Recent Vital Signs: Last Vital Signs Temp 98.2 F 08/18/18 14:00 Pulse 93 H 08/18/18 14:00 Resp 18 08/18/18 14:00 BP 137/68 08/18/18 14:00 Pulse Ox 97 08/18/18 14:00 - Labs Result Diagrams: 08/18/18 08:30 08/18/18 08:30 Labs: Laboratory Results - last 24 hr 08/16/18 08/16/18 08/16/18 07:02 11:58 16:58 WBC RBC Hgb Hct MCV MCH MCHC RDW Plt Count MPV Sodium Potassium Chloride Carbon Dioxide Anion Gap BUN Creatinine Est GFR ( Amer) Est GFR (Non-Af Amer) POC Glucose (mg/dL) 113 H 98 117 H Random Glucose Calcium Total Bilirubin AST ALT Alkaline Phosphatase Total Protein Albumin Globulin Albumin/Globulin Ratio 08/16/18 08/17/18 08/17/18 21:17 06:27 11:37 WBC RBC Hgb Hct MCV MCH MCHC RDW Plt Count MPV Sodium Potassium Chloride Carbon Dioxide Anion Gap BUN Creatinine Est GFR ( Amer) Est GFR (Non-Af Amer) POC Glucose (mg/dL) 92 133 H 107 Random Glucose Calcium Total Bilirubin AST ALT Alkaline Phosphatase Total Protein Albumin Globulin Albumin/Globulin Ratio 08/17/18 08/17/18 08/18/18 15:55 21:37 06:47 WBC RBC Hgb Hct MCV MCH MCHC RDW Plt Count MPV Sodium Potassium Chloride Carbon Dioxide Anion Gap BUN Creatinine Est GFR ( Amer) Est GFR (Non-Af Amer) POC Glucose (mg/dL) 124 H 112 H 119 H Random Glucose Calcium Total Bilirubin AST ALT Alkaline Phosphatase Total Protein Albumin Globulin Albumin/Globulin Ratio 08/18/18 08/18/18 08/18/18 08:30 08:30 11:02 WBC 4.7 RBC 3.72 Hgb 11.1 L Hct 34.9 L MCV 93.8 MCH 29.8 MCHC 31.8 RDW 15.2 H Plt Count 228 MPV 10.8 Sodium 141 Potassium 4.1 Chloride 108 H Carbon Dioxide 29 Anion Gap 9 L BUN 32 H Creatinine 0.8 Est GFR ( Amer) > 60 Est GFR (Non-Af Amer) > 60 POC Glucose (mg/dL) 175 H Random Glucose 137 H Calcium 8.3 L Total Bilirubin 0.9 AST 34 ALT 41 Alkaline Phosphatase 91 Total Protein 6.3 Albumin 2.6 L Globulin 3.7 Albumin/Globulin Ratio 0.7 L 08/18/18 11:04 WBC RBC Hgb Hct MCV MCH MCHC RDW Plt Count MPV Sodium Potassium Chloride Carbon Dioxide Anion Gap BUN Creatinine Est GFR ( Amer) Est GFR (Non-Af Amer) POC Glucose (mg/dL) 112 H Random Glucose Calcium Total Bilirubin AST ALT Alkaline Phosphatase Total Protein Albumin Globulin Albumin/Globulin Ratio Assessment & Plan - Assessment and Plan (Free Text) Assessment: 88 year old male with PMH of Parkinson's, Dementia, and recent UTI presenting wi th altered mental status. Active treatment of sepsis due to ESBL UTI and altered mental status leading to failure to thrive with severe oropharyngeal dysphagia on swallow evaluation 08/16/18. Plan: -persistent altered mental status -on Merrem day 6 -recommend repeat U/A with urine culture to assess antibiotic response -08/12 CT head negative and 08/13 Chest xray negative -repeat swallow evaluation pending for today -continue peripheral nutritional support via NG tube -hypernatremia resolved -discussed risks vs benefits of PEG placement with daughter- Manal Gamil -daughter requests to hold off on PEG placement until further medical management as patient was able to tolerate eating meals in July 2018 prior to UTIs -will follow clinical course
--- NOTE | 2018-08-18 18:26 | PN ---
DATE: 08/18/2018 REASON FOR CONSULTATION AND FOLLOWUP: Cardiac evaluation, abnormal troponin, altered mental status, urosepsis,lethargic, failed swallowing evaluation. The patient denies any chest pain or shortness of breath. This note is an addition to the dictated by nurse practitioner. The patient has an NG tube is place and being fed with a Dobhoff tube. an 88-year-old male who [facility] because of failure of thrive, sepsis, dementia, UTI, and borderline troponin positive. RECOMMENDATIONS: Not a candidate to go for invasive cardiac workup. He is strongly considered for PEG placement, failed swallowing evaluation. In the interim, continue current medications. CVA status is holding. We will follow with you. Thank you, Dr. Linder/Dr. Hurst for providing us the opportunity in taking care of the patient, Eitan Hinson. Serena Soto MD
--- NOTE | 2018-08-18 20:31 | CP.PCM.PN ---
<Rivas Guillaume - Last Filed: 08/18/18 20:45> Subjective - Date & Time of Evaluation Date of Evaluation: 08/18/18 Time of Evaluation: 07:00 - Subjective Subjective: Rivas Guillaume, PGY1 Medicine Progress Note for Dr. Linder Patient was seen and examined at bedside this morning. Patient is alert, awake, and follows commands. Responds to verbal stimuli and trys to speak but still has congestion. Still unable to assess for ROS. Daughter was present at bedside. She further expressed concern about patient's multiple failures of speech/swallow; will coordinate speech/swallow to see patient when daughter is present at bedside. No overnight changes. Objective - Vital Signs/Intake and Output Vital Signs (last 24 hours): Temp Pulse Resp BP Pulse Ox 98.2 F 93 H 18 137/68 97 08/18/18 14:00 08/18/18 18:19 08/18/18 14:00 08/18/18 18:19 08/18/18 14:00 - Medications Medications: Current Medications Acetylcysteine (Acetylcysteine 20%) 4 ml IH [id number] TOMMY Last Admin: 08/18/18 20:18 Dose: 4 ml Albuterol/Ipratropium (Duoneb 3 Mg/0.5 Mg (3 Ml) Ud) 3 ml IH [id number] PRN PRN Reason: Shortness of Breath Last Admin: 08/18/18 20:18 Dose: 3 ml Artificial Tears (Refresh Opth Soln) 0 ml OU Q4 PRN PRN Reason: Dry eyes Last Admin: 08/18/18 09:54 Dose: 1 drop Artificial Tears (Artificial Tears Opht Oint) 0 gm OU BID PRN PRN Reason: Dry eyes Last Admin: 08/10/18 16:25 Dose: 1 applic Aspirin (Ecotrin) 81 mg PO DAILY [facility] Last Admin: 08/17/18 10:25 Dose: 81 mg Carbidopa/Levodopa/Entacapone (Stalevo 150) 1 tab PO QID [facility] Last Admin: 08/18/18 18:19 Dose: 1 tab Meropenem (Merrem Iv 1 Gm Premix) 1 gm in 50 mls @ 12.5 mls/hr IVPB Q8 [facility]; Protocol Stop: 08/22/18 14:01 Last Admin: 08/18/18 14:58 Dose: 12.5 mls/hr Metoprolol Tartrate (Lopressor) 25 mg PO BID [facility] Last Admin: 08/18/18 18:19 Dose: 25 mg Nitroglycerin (Nitro-Bid 2% Oint) 0.5 ea TOP Q6H [facility] Last Admin: 08/18/18 16:18 Dose: 0.5 ea Nystatin (Nystop Topical Powder) 0 gm TOP DAILY PRN PRN Reason: Itching / Pruritus Last Admin: 08/10/18 16:24 Dose: 1 applic Pantoprazole Sodium (Protonix Susp) 40 mg PO 0600 [facility] Last Admin: 08/18/18 06:41 Dose: 40 mg Thiamine HCl (Vitamin B1 Tab) 200 mg PO DAILY [facility] Last Admin: 08/18/18 09:54 Dose: 200 mg - Labs Labs: 08/18/18 08:30 08/18/18 08:30 PT 15.7 SECONDS (9.4-12.5) H 08/07/18 23:15 INR 1.37 08/07/18 23:15 APTT 57.1 Seconds (25.1-36.5) H 08/10/18 08:35 - Constitutional Appears: No Acute Distress, Chronically Ill - Head Exam Head Exam: ATRAUMATIC, NORMAL INSPECTION, NORMOCEPHALIC - Eye Exam Eye Exam: EOMI, Normal appearance, PERRL Pupil Exam: NORMAL ACCOMODATION, PERRL - ENT Exam ENT Exam: Mucous Membranes Moist, Normal Exam - Respiratory Exam Respiratory Exam: Clear to Ausculation Bilateral, Rhonchi, NORMAL BREATHING PATTERN. absent: Rales, Wheezes Additional comments: Congestion - Cardiovascular Exam Cardiovascular Exam: REGULAR RHYTHM, +S1, +S2. absent: Murmur - GI/Abdominal Exam GI & Abdominal Exam: Soft, Normal Bowel Sounds. absent: Tenderness - Extremities Exam Extremities Exam: Full ROM, Normal Capillary Refill. absent: Joint Swelling, Pedal Edema - Neurological Exam Neurological Exam: Alert, Awake - Skin Skin Exam: Dry, Intact, Normal Color, Warm Assessment and Plan - Assessment and Plan (Free Text) Assessment: Patient is a 88 y/o M with PMHx of Parkinson's disease, dementia, and recent ESBL + UTI presenting from assisted with complaints of lethargy, failure to thrive, and fever found to have UTI. Patient was admitted for AMS due to Sepsis 2/2 ESBL UTI, Failure to thrive, hypernatremia (improved), and acute renal failure (improved). Plan: AMS in the setting of Sepsis 2/2 ESBL UTI - c/w meropenem (Day #11); complete 10-14 days; as per ID recs - repeat UA and UCx - Mental status has improved since admission but is still not at baseline as per family. - mitten restraints renewed at 7am - c/w carbidopa/levodopa for Parkinsons - CT Head: no acute findings - afebrile and no leukocytosis - Urine cx: ESBL+ e coli Failure To Thrive - Speech/Swallow (08/18) with daughter at bedside - safest recommendation is honey thick liquids with 1:1 feeding assistance; Dysphagia treatment program - GI reconsulted (Dr. Elizabeth) for PEG tube re-evaluation due to recurrent speech/swallow failures - As per GI note, daughter (Gordon Hinson) requests to hold off on PEG placement until further medical management as patient was able to tolerate eating meals in July 2018 prior to UTIs - c/w NG tube feeds - GI initial consult (Dr. Arboleda) for PEG evaluation: Does not recommend PEG at this time. - Palliative care is following. Pulmonary Congestion - improving - c/w Chest PT; spoke to respiratory therapist - c/w mucomyst q6H - c/w duonebs - CXR negative - Decreased rhonci on pulmonary exam Elevated Troponins 2/2 demand ischemia - ASA held at this time - Cardiology recs appreciated; no indication for cath at this time. Continue with current management. - No EKG changes. Serial trops downtrending. Hypernatremia 2/2 dehydration and failure to thrive - resolved - Most recent Na is wnl - Na was 161 on admission - Nephrology consulted, appreciated recs Pre-renal RENNY - resolved - Most recent BUN/Cr is wnl - Cr initially 2.1 on admission - Jeffrey is draining GI ppx: Protonix DVT ppx: Heparin sc, SCD Dispo: Recommendation per SW was for LTACH, referral was sent. PT recommends [facility]. Palliative is following. Overall prognosis is poor. Case was discussed and reviewed with Attending Physician, Dr. Linder. <Kaila Linder - Last Filed: 08/19/18 07:48> Objective - Vital Signs/Intake and Output Vital Signs (last 24 hours): Temp Pulse Resp BP Pulse Ox 99.0 F 83 17 114/60 98 08/18/18 22:07 08/18/18 22:07 08/18/18 22:07 08/18/18 22:07 08/18/18 22:07 Intake and Output: 08/19/18 08/19/18 06:59 18:59 Output Total 1200 Balance -1200 - Medications Medications: Current Medications Acetylcysteine (Acetylcysteine 20%) 4 ml IH [id number] TOMMY Last Admin: 08/19/18 07:33 Dose: 4 ml Albuterol/Ipratropium (Duoneb 3 Mg/0.5 Mg (3 Ml) Ud) 3 ml IH [id number] PRN PRN Reason: Shortness of Breath Last Admin: 08/19/18 07:33 Dose: 3 ml Artificial Tears (Refresh Opth Soln) 0 ml OU Q4 PRN PRN Reason: Dry eyes Last Admin: 08/18/18 09:54 Dose: 1 drop Artificial Tears (Artificial Tears Opht Oint) 0 gm OU BID PRN PRN Reason: Dry eyes Last Admin: 08/10/18 16:25 Dose: 1 applic Aspirin (Ecotrin) 81 mg PO DAILY [facility] Last Admin: 08/17/18 10:25 Dose: 81 mg Carbidopa/Levodopa/Entacapone (Stalevo 150) 1 tab PO QID [facility] Last Admin: 08/18/18 22:16 Dose: 1 tab Meropenem (Merrem Iv 1 Gm Premix) 1 gm in 50 mls @ 12.5 mls/hr IVPB Q8 [facility]; Protocol Stop: 08/22/18 14:01 Last Admin: 08/19/18 06:58 Dose: 12.5 mls/hr Metoprolol Tartrate (Lopressor) 25 mg PO BID [facility] Last Admin: 08/18/18 18:19 Dose: 25 mg Nitroglycerin (Nitro-Bid 2% Oint) 0.5 ea TOP Q6H [facility] Last Admin: 08/19/18 06:59 Dose: Not Given Nystatin (Nystop Topical Powder) 0 gm TOP DAILY PRN PRN Reason: Itching / Pruritus Last Admin: 08/10/18 16:24 Dose: 1 applic Pantoprazole Sodium (Protonix Susp) 40 mg PO 0600 [facility] Last Admin: 08/19/18 06:58 Dose: 40 mg Thiamine HCl (Vitamin B1 Tab) 200 mg PO DAILY [facility] Last Admin: 08/18/18 09:54 Dose: 200 mg - Labs Labs: 08/18/18 08:30 08/18/18 08:30 PT 15.7 SECONDS (9.4-12.5) H 08/07/18 23:15 INR 1.37 08/07/18 23:15 APTT 57.1 Seconds (25.1-36.5) H 08/10/18 08:35 Attending/Attestation - Attestation I have personally seen and examined this patient.: Yes I have fully participated in the care of the patient.: Yes I have reviewed all pertinent clinical information, including history, physical exam and plan: Yes Notes (Text): 08/18/18 88 year old male with past medical history of Parkinson's disease and dementia who was transferred from [place] secondary to lethargy and failure to thrive. CT head x2 was negative for acute findings. He was found to have sepsis secondary to ESBL UTI and started on iv antibiotics. Currently on meropenem. ID is following. Repeat Ua/Ucx is ordered today. He was also found to have hypernatremia and RENNY, both which have resolved. He was also found to have possible NSTEMI vs elevated cardiac enzymes is setting of renal failure and sepsis. Echocardiogram was reviewed. Cardiology is following. Patient was started on aspirin and lopressor. Patient is currently on NGT tube feeds. GI evaluation was requested for possible PEG placement which he deferred at this time. However patient has repeatedly failed swallowing evaluations despite improvement of mental status. Case was discussed with daughter at bedside; patient may need PEG if he continues to fail swallow evaluation. GI second opinion is requested in case of planned PEG, however patient's daughter requested swallow evaluation again later this evening before deciding. Will follow up with recommendations. Noted to have alot of secretions. Chest PT was ordered and mucomyst. Palliative care evaluation was appreciated as well. Will follow up with case sealer / medical social worker regarding d/c planning to LTACH vs [facility]. Kaila Linder MD Hospitalist.
[2018-08-19] MEDS: Acetylcysteine 20% Inhal Soln (4ml) IH SCH ×4 (01:45→19:55)
--- NOTE | 2018-08-19 06:09 | CP.PCM.PN ---
Subjective - Date & Time of Evaluation Date of Evaluation: 08/19/18 Time of Evaluation: 06:15 - Subjective Subjective: Lying in bed, no distress,open eyes to verbal stimuli Reason for consultation and follow up:Cardiac evaluation for abnormal troponin, altered mental status, urosepsis Seen and examined by me and Dr. Soto Objective - Vital Signs/Intake and Output Vital Signs (last 24 hours): Temp Pulse Resp BP Pulse Ox 99.0 F 83 17 114/60 98 08/18/18 22:07 08/18/18 22:07 08/18/18 22:07 08/18/18 22:07 08/18/18 22:07 - Medications Medications: Current Medications Acetylcysteine (Acetylcysteine 20%) 4 ml IH [id number] [facility] Last Admin: 08/19/18 01:45 Dose: 4 ml Albuterol/Ipratropium (Duoneb 3 Mg/0.5 Mg (3 Ml) Ud) 3 ml IH [id number] PRN PRN Reason: Shortness of Breath Last Admin: 08/18/18 20:18 Dose: 3 ml Artificial Tears (Refresh Opth Soln) 0 ml OU Q4 PRN PRN Reason: Dry eyes Last Admin: 08/18/18 09:54 Dose: 1 drop Artificial Tears (Artificial Tears Opht Oint) 0 gm OU BID PRN PRN Reason: Dry eyes Last Admin: 08/10/18 16:25 Dose: 1 applic Aspirin (Ecotrin) 81 mg PO DAILY [facility] Last Admin: 08/17/18 10:25 Dose: 81 mg Carbidopa/Levodopa/Entacapone (Stalevo 150) 1 tab PO QID [facility] Last Admin: 08/18/18 22:16 Dose: 1 tab Meropenem (Merrem Iv 1 Gm Premix) 1 gm in 50 mls @ 12.5 mls/hr IVPB Q8 [facility]; Protocol Stop: 08/22/18 14:01 Last Admin: 08/18/18 22:16 Dose: 12.5 mls/hr Metoprolol Tartrate (Lopressor) 25 mg PO BID [facility] Last Admin: 08/18/18 18:19 Dose: 25 mg Nitroglycerin (Nitro-Bid 2% Oint) 0.5 ea TOP Q6H [facility] Last Admin: 08/18/18 22:07 Dose: Not Given Nystatin (Nystop Topical Powder) 0 gm TOP DAILY PRN PRN Reason: Itching / Pruritus Last Admin: 08/10/18 16:24 Dose: 1 applic Pantoprazole Sodium (Protonix Susp) 40 mg PO 0600 [facility] Last Admin: 08/18/18 06:41 Dose: 40 mg Thiamine HCl (Vitamin B1 Tab) 200 mg PO DAILY [facility] Last Admin: 08/18/18 09:54 Dose: 200 mg - Labs Labs: 08/18/18 08:30 08/18/18 08:30 PT 15.7 SECONDS (9.4-12.5) H 08/07/18 23:15 INR 1.37 08/07/18 23:15 APTT 57.1 Seconds (25.1-36.5) H 08/10/18 08:35 - Constitutional Appears: Non-toxic, No Acute Distress - Head Exam Head Exam: NORMAL INSPECTION, NORMOCEPHALIC - Eye Exam Eye Exam: Normal appearance Pupil Exam: NORMAL ACCOMODATION - ENT Exam ENT Exam: Mucous Membranes Dry - Respiratory Exam Respiratory Exam: Decreased Breath Sounds, Rhonchi, NORMAL BREATHING PATTERN - Cardiovascular Exam Cardiovascular Exam: +S1, +S2 Additional comments: No JVD - GI/Abdominal Exam GI & Abdominal Exam: Soft, Normal Bowel Sounds Additional comments: with Dobbhoff catheter left nare to tube feeding - Neurological Exam Neurological Exam: Alert, Awake - Psychiatric Exam Psychiatric exam: Normal Affect, Normal Mood - Skin Skin Exam: Dry, Normal Color, Warm Assessment and Plan - Assessment and Plan (Free Text) Assessment: An 88 year old male who was brought to the ER from [facility] due to failure to thrive and fever. History of Parkinson's disease, dementia,and recent ESBL in urine, recently hospitalized in [facility] for UTI and got discharged to the [facility]. Upon admission, patient had positive borderline troponin Patient asymtomatic with altered mental status. Will treat medically/conservatively.Urine still positive for E. coli, Urosepsis.Possible PEG insertion but daughter requested to hold off. Plan: Responds to verbal commands,open eyes No distress, no shortness of breath Failed swallowing evaluation. With Dobbhoff catheter via left nare to tube feeding GI on consult for possible PEG insertion but daughter requested to hold off Heart rate controlled Blood pressure controlled Cardiac status stable Continue IV antibiotics per ID Continue current treatment Continue current medications Chart reviewed Will follow up Plan and treatment discussed with Dr. Soto
[2018-08-19] MEDS: Meropenem IV 1 gm in NS 1 GM/50 ML BAG IVPB SCH ×3 (06:58→22:19)
[2018-08-19] MEDS: Pantoprazole 40 mg Susp UD PO SCH (06:58)
[2018-08-19] MEDS: Nitroglycerin 2% Ointment Foilpak UD TOP SCH ×4 (06:59→21:28)
[2018-08-19] MEDS: Albuterol-Ipratrop 3 mg / 0.5 (3 ml) UD IH PRN ×3 (07:33→19:55)
[2018-08-19 07:52] LABS: MEAN CELL VOLUME 93.6 fl (80.0-105.0); MEAN CORPUSCULAR HEMOGLOBIN 29.3 pg (25.0-35.0); MEAN CORPUSCULAR HGB CONC 31.3 g/dl (31.0-37.0); RBC 3.75 10^6/uL (3.5-6.1); RED CELL DISTRIBUTION WIDTH 15.2 % (11.5-14.5); WHITE BLOOD COUNT 4.1 10^3/uL (4.5-11.0)
[2018-08-19 07:59] LABS: ALB/GLOB RATIO 0.7 (1.1-1.8); ALBUMIN 2.5 g/dL (3.0-4.8); ALT/SGPT 36 U/L (7-56); AST/SGOT 27 U/L (17-59); BLOOD UREA NITROGEN 30 mg/dL (7-21); CALCIUM 8.1 mg/dL (8.4-10.5); GFR NON-AFRICAN AMERICAN > 60
--- NOTE | 2018-08-19 09:33 | CP.PCM.PN ---
<Opal Gambino - Last Filed: 08/19/18 09:42> Subjective - Date & Time of Evaluation Date of Evaluation: 08/19/18 Time of Evaluation: 09:30 - Subjective Subjective: Gastroenterology Fellow/PGY6 Progress Note Patient with no acute events overnight. Tolerating NG tube feedings. Speech therapy recommendation for honey thick liquid. Unable to complete 12-point review of systems as patient with limited response to questioning. Objective - Vital Signs/Intake and Output Vital Signs (last 24 hours): Temp Pulse Resp BP Pulse Ox 98.8 F 82 20 121/57 L 96 08/19/18 07:30 08/19/18 07:30 08/19/18 07:30 08/19/18 07:30 08/19/18 07:30 Intake and Output: 08/19/18 08/19/18 06:59 18:59 Output Total 1200 Balance -1200 - Medications Medications: Current Medications Acetylcysteine (Acetylcysteine 20%) 4 ml IH [id number] [facility] Last Admin: 08/19/18 07:33 Dose: 4 ml Albuterol/Ipratropium (Duoneb 3 Mg/0.5 Mg (3 Ml) Ud) 3 ml IH [id number] PRN PRN Reason: Shortness of Breath Last Admin: 08/19/18 07:33 Dose: 3 ml Artificial Tears (Refresh Opth Soln) 0 ml OU Q4 PRN PRN Reason: Dry eyes Last Admin: 08/18/18 09:54 Dose: 1 drop Artificial Tears (Artificial Tears Opht Oint) 0 gm OU BID PRN PRN Reason: Dry eyes Last Admin: 08/10/18 16:25 Dose: 1 applic Aspirin (Ecotrin) 81 mg PO DAILY [facility] Last Admin: 08/17/18 10:25 Dose: 81 mg Carbidopa/Levodopa/Entacapone (Stalevo 150) 1 tab PO QID [facility] Last Admin: 08/18/18 22:16 Dose: 1 tab Meropenem (Merrem Iv 1 Gm Premix) 1 gm in 50 mls @ 12.5 mls/hr IVPB Q8 [facility]; Protocol Stop: 08/22/18 14:01 Last Admin: 08/19/18 06:58 Dose: 12.5 mls/hr Metoprolol Tartrate (Lopressor) 25 mg PO BID [facility] Last Admin: 08/18/18 18:19 Dose: 25 mg Nitroglycerin (Nitro-Bid 2% Oint) 0.5 ea TOP Q6H [facility] Last Admin: 08/19/18 06:59 Dose: Not Given Nystatin (Nystop Topical Powder) 0 gm TOP DAILY PRN PRN Reason: Itching / Pruritus Last Admin: 08/10/18 16:24 Dose: 1 applic Pantoprazole Sodium (Protonix Susp) 40 mg PO 0600 [facility] Last Admin: 08/19/18 06:58 Dose: 40 mg Thiamine HCl (Vitamin B1 Tab) 200 mg PO DAILY [facility] Last Admin: 08/18/18 09:54 Dose: 200 mg - Labs Labs: 08/19/18 07:30 08/19/18 07:30 PT 15.7 SECONDS (9.4-12.5) H 08/07/18 23:15 INR 1.37 08/07/18 23:15 APTT 57.1 Seconds (25.1-36.5) H 08/10/18 08:35 - Constitutional Appears: Non-toxic, No Acute Distress - Head Exam Head Exam: ATRAUMATIC, NORMOCEPHALIC - Eye Exam Eye Exam: EOMI, PERRL. absent: Scleral icterus Pupil Exam: PERRL. absent: Miosis, Mydriatic - ENT Exam ENT Exam: Mucous Membranes Dry, Normal Oropharynx Additional comments: left nares NG tube in place - Neck Exam Neck Exam: Full ROM, Normal Inspection - Respiratory Exam Respiratory Exam: Clear to Ausculation Bilateral. absent: Rales, Rhonchi, Wheezes - Cardiovascular Exam Cardiovascular Exam: RRR, +S1, +S2. absent: Gallop, Rubs - GI/Abdominal Exam GI & Abdominal Exam: Soft, Normal Bowel Sounds. absent: Distended, Firm, Guarding, Rigid, Tenderness, Organomegaly, Rebound - Extremities Exam Extremities Exam: Normal Inspection. absent: Pedal Edema - Neurological Exam Neurological Exam: Alert, Awake - Psychiatric Exam Psychiatric exam: Normal Affect, Normal Mood - Skin Skin Exam: Dry, Intact, Normal Color, Warm Assessment and Plan - Assessment and Plan (Free Text) Assessment: 88 year old male with PMH of Parkinson's, Dementia, and recent UTI presenting with altered mental status. Active treatment of sepsis due to ESBL UTI and altered mental status leading to failure to thrive with severe oropharyngeal dysphagia on swallow evaluation 08/16/18. Plan: -minimal change in mental status -on Merrem day 7 -pending repeat U/A with urine culture to assess antibiotic response -08/12 CT head negative and 08/13 Chest xray negative -08/18 repeat swallow evaluation-honey thick liquids -on peripheral nutritional support via NG tube -hypernatremia resolved -Azotemia improving -discussed risks vs benefits of PEG placement with daughter- Manal Gamil -daughter requests to hold off on PEG placement -will follow clinical course <Baldo Elizabeth V - Last Filed: 08/19/18 23:58> Objective - Vital Signs/Intake and Output Vital Signs (last 24 hours): Temp Pulse Resp BP Pulse Ox 98.9 F 72 20 124/60 98 08/19/18 23:18 08/19/18 23:18 08/19/18 23:18 08/19/18 23:18 08/19/18 23:18 Intake and Output: 08/19/18 08/20/18 18:59 06:59 Intake Total 0 Output Total 500 Balance -500 - Medications Medications: Current Medications Acetylcysteine (Acetylcysteine 20%) 4 ml IH [id number] [facility] Last Admin: 08/19/18 19:55 Dose: 4 ml Albuterol/Ipratropium (Duoneb 3 Mg/0.5 Mg (3 Ml) Ud) 3 ml IH [id number] PRN PRN Reason: Shortness of Breath Last Admin: 08/19/18 19:55 Dose: 3 ml Artificial Tears (Refresh Opth Soln) 0 ml OU Q4 PRN PRN Reason: Dry eyes Last Admin: 08/18/18 09:54 Dose: 1 drop Artificial Tears (Artificial Tears Opht Oint) 0 gm OU BID PRN PRN Reason: Dry eyes Last Admin: 08/10/18 16:25 Dose: 1 applic Aspirin (Aspirin Chewable) 81 mg PO DAILY [facility] Carbidopa/Levodopa/Entacapone (Stalevo 150) 1 tab PO QID [facility] Last Admin: 08/19/18 22:25 Dose: 1 tab Meropenem (Merrem Iv 1 Gm Premix) 1 gm in 50 mls @ 12.5 mls/hr IVPB Q8 [facility]; Protocol Stop: 08/22/18 14:01 Last Admin: 08/19/18 22:19 Dose: 12.5 mls/hr Metoprolol Tartrate (Lopressor) 25 mg PO BID [facility] Last Admin: 08/19/18 18:22 Dose: 25 mg Nitroglycerin (Nitro-Bid 2% Oint) 0.5 ea TOP Q6H [facility] Last Admin: 08/19/18 21:28 Dose: 0.5 ea (Rasagiline Mesylate ([Azilect] 1 Mg)) 1 mg PO DAILY [facility] Last Admin: 08/19/18 21:25 Dose: 1 mg Nystatin (Nystop Topical Powder) 0 gm TOP DAILY PRN PRN Reason: Itching / Pruritus Last Admin: 08/10/18 16:24 Dose: 1 applic Pantoprazole Sodium (Protonix Susp) 40 mg PO 0600 [facility] Last Admin: 08/19/18 06:58 Dose: 40 mg Pramipexole Dihydrochloride (Mirapex) 0.5 mg PO WM [facility] Last Admin: 08/19/18 18:21 Dose: 0.5 mg Thiamine HCl (Vitamin B1 Tab) 200 mg PO DAILY [facility] Last Admin: 08/19/18 10:48 Dose: 200 mg - Labs Labs: 08/19/18 07:30 08/19/18 07:30 PT 15.7 SECONDS (9.4-12.5) H 08/07/18 23:15 INR 1.37 08/07/18 23:15 APTT 57.1 Seconds (25.1-36.5) H 08/10/18 08:35 Attending/Attestation - Attestation I have personally seen and examined this patient.: Yes I have fully participated in the care of the patient.: Yes I have reviewed all pertinent clinical information, including history, physical exam and plan: Yes Notes (Text): This is an addendum to GI progress report dictated by the GI Fellow.The patient was seen and examined earlier. Medical records, lab studies, imagings were reviewed. Last 24 hours events reviewed. Agreed with the above treatment plan as outlined in GI Fellow 's notes with the addition of the following 08/19/18 23:58
[2018-08-19] MEDS: Carbidopa/Levodopa/Entacapone 37.5mg-150mg-200mg PO SCH ×4 (10:48→22:25)
--- NOTE | 2018-08-19 11:45 | PN ---
DATE: 08/19/2018 REASON FOR THE CONSULTATION: Cardiac evaluation, abnormal troponin on admission, altered mental status, pseudosepsis. The patient admitted with acute medical condition in the ICU. Now, the patient is in 5R. Denies any chest pain, shortness of breath. Dobhoff is in place. Being fed from this. This note is an addition to dictated by our nurse practitioner. The patient denies any chest pain, shortness of breath or any palpitation. RECOMMENDATION: Continue Dobhoff feeding. Continue free water. Continue antibiotic for UTI. Consider PEG placement if the family agrees. Continue metoprolol tartrate. Continue baby aspirin through the NG tube. Baby aspirin is on hold for possible PEG placement. Once it is decided, the patient will not go for PEG. We will resume back baby aspirin. We will change from Ecotrin to chewable aspirin. We will give free water through the Dobhoff. Serena Soto MD
--- NOTE | 2018-08-19 16:44 | CP.PCM.PN ---
<Rivas Guillaume - Last Filed: 08/19/18 16:40> Subjective - Date & Time of Evaluation Date of Evaluation: 08/19/18 Time of Evaluation: 07:00 - Subjective Subjective: Rivas Guillaume, PGY1 Medicine Progress Note for Dr. Linder Patient was seen and examined at bedside this morning. Vital signs stable. Patient is awake and alert. He is still unable to verbalize a proper ROS. Follows commands and moves all extremities. Spoke to nursing staff: sacral wound ulcer was noted, protocol is being followed. Patient's daughter also spoke to keno writer / runner on the phone, asking about resuming patient's other Parkinson's meds (Azilect and Mirapex) however she was told that these meds were not available at the in-patient pharmacy. Patient was asked to bring these medications from home. Patient also spoke to GI yesterday and says that she does not want a PEG at this time. Objective - Vital Signs/Intake and Output Vital Signs (last 24 hours): Temp Pulse Resp BP Pulse Ox 98 F 69 20 113/57 L 98 08/19/18 15:11 08/19/18 15:11 08/19/18 15:11 08/19/18 15:11 08/19/18 15:11 Intake and Output: 08/19/18 08/19/18 06:59 18:59 Output Total 1200 Balance -1200 - Medications Medications: Current Medications Acetylcysteine (Acetylcysteine 20%) 4 ml IH [id number] TOMMY Last Admin: 08/19/18 13:43 Dose: 4 ml Albuterol/Ipratropium (Duoneb 3 Mg/0.5 Mg (3 Ml) Ud) 3 ml IH [id number] PRN PRN Reason: Shortness of Breath Last Admin: 08/19/18 13:41 Dose: 3 ml Artificial Tears (Refresh Opth Soln) 0 ml OU Q4 PRN PRN Reason: Dry eyes Last Admin: 08/18/18 09:54 Dose: 1 drop Artificial Tears (Artificial Tears Opht Oint) 0 gm OU BID PRN PRN Reason: Dry eyes Last Admin: 08/10/18 16:25 Dose: 1 applic Aspirin (Aspirin Chewable) 81 mg PO DAILY [facility] Carbidopa/Levodopa/Entacapone (Stalevo 150) 1 tab PO QID [facility] Last Admin: 08/19/18 13:57 Dose: 1 tab Meropenem (Merrem Iv 1 Gm Premix) 1 gm in 50 mls @ 12.5 mls/hr IVPB Q8 [facility]; Protocol Stop: 08/22/18 14:01 Last Admin: 08/19/18 14:18 Dose: 12.5 mls/hr Metoprolol Tartrate (Lopressor) 25 mg PO BID [facility] Last Admin: 08/19/18 10:48 Dose: 25 mg Nitroglycerin (Nitro-Bid 2% Oint) 0.5 ea TOP Q6H [facility] Last Admin: 08/19/18 14:34 Dose: 0.5 ea Non-Formulary Medication (Pramipexole Di-Hcl [Mirapex Er]) 0.5 mg PO TID [facility] Non-Formulary Medication (Rasagiline Mesylate [Azilect]) 1 mg PO DAILY [facility] Nystatin (Nystop Topical Powder) 0 gm TOP DAILY PRN PRN Reason: Itching / Pruritus Last Admin: 08/10/18 16:24 Dose: 1 applic Pantoprazole Sodium (Protonix Susp) 40 mg PO 0600 [facility] Last Admin: 08/19/18 06:58 Dose: 40 mg Thiamine HCl (Vitamin B1 Tab) 200 mg PO DAILY [facility] Last Admin: 08/19/18 10:48 Dose: 200 mg - Labs Labs: 08/19/18 07:30 08/19/18 07:30 PT 15.7 SECONDS (9.4-12.5) H 08/07/18 23:15 INR 1.37 08/07/18 23:15 APTT 57.1 Seconds (25.1-36.5) H 08/10/18 08:35 - Constitutional Appears: No Acute Distress, Chronically Ill - Head Exam Head Exam: ATRAUMATIC, NORMAL INSPECTION, NORMOCEPHALIC - Eye Exam Eye Exam: EOMI, Normal appearance, PERRL - ENT Exam ENT Exam: Mucous Membranes Moist, Normal Exam - Neck Exam Neck Exam: Full ROM, Normal Inspection. absent: Lymphadenopathy - Respiratory Exam Respiratory Exam: Rhonchi. absent: Accessory Muscle Use, Rales, Wheezes - GI/Abdominal Exam GI & Abdominal Exam: Soft, Normal Bowel Sounds. absent: Tenderness - Neurological Exam Neurological Exam: Alert, Awake - Skin Skin Exam: Dry, Intact, Normal Color, Warm Additional comments: Sacral wound ulcer, stage II/III. Assessment and Plan - Assessment and Plan (Free Text) Assessment: Patient is a 88 y/o M with PMHx of Parkinson's disease, dementia, and recent ESBL + UTI presenting from alf with complaints of lethargy, failure to thrive, and fever found to have UTI. Patient was admitted for AMS due to Sepsis 2/2 ESBL UTI, Failure to thrive, hypernatremia (improved), and acute renal failure (improved). Plan: AMS in the setting of Sepsis 2/2 ESBL UTI - c/w meropenem (Day #12); complete 10-14 days; as per ID recs - c/w carbidopa/levodopa for Parkinsons; daughter was asked to bring in patient's Azilect and mirapex as these meds are non-formulary in the in-patient pharmacy - f/u repeat UA and UCx - Mental status has improved but not at baseline - c/w mitten restraints - CT Head: no acute findings - afebrile and no leukocytosis - Urine cx: ESBL+ e coli Failure To Thrive - Speech/Swallow (08/18) with daughter at bedside - safest recommendation is honey thick liquids with 1:1 feeding assistance; Dysphagia treatment program - GI reconsulted (Dr. Elizabeth) for PEG tube re-evaluation due to recurrent speech/swallow failures. - As per GI note, daughter (Gordon Hinson) requests to hold off on PEG placement until further medical management as patient was able to tolerate eating meals in July 2018 prior to UTIs - c/w NG tube feeds - GI initial consult (Dr. Arboleda) for PEG evaluation: Does not recommend PEG a t this time. - Palliative care is following. Pulmonary Congestion - improving - c/w Chest PT; spoke to respiratory therapist - c/w mucomyst q6H - c/w duonebs - CXR negative - Decreased rhonci on pulmonary exam Elevated Troponins 2/2 demand ischemia - ASA held at this time - Cardiology recs appreciated; no indication for cath at this time. Continue with current management. - No EKG changes. Serial trops downtrending. Hypernatremia 2/2 dehydration and failure to thrive - resolved - Most recent Na is wnl - Na was 161 on admission - Nephrology consulted, appreciated recs Pre-renal RENNY - resolved - Most recent BUN/Cr is wnl - Cr initially 2.1 on admission - Jeffrey is draining GI ppx: Protonix DVT ppx: Heparin sc, SCD Dispo: Recommendation per SW was for LTACH, referral was sent. PT recommends [facility]. Palliative is following. Overall prognosis is poor. Case was discussed and reviewed with Attending Physician, Dr. Linder. <Kaila Linder - Last Filed: 08/19/18 18:14> Objective - Vital Signs/Intake and Output Vital Signs (last 24 hours): Temp Pulse Resp BP Pulse Ox 98 F 69 20 113/57 L 98 08/19/18 15:11 08/19/18 15:11 08/19/18 15:11 08/19/18 15:11 08/19/18 15:11 Intake and Output: 08/19/18 08/19/18 06:59 18:59 Output Total 1200 Balance -1200 - Medications Medications: Current Medications Acetylcysteine (Acetylcysteine 20%) 4 ml IH [id number] TOMMY Last Admin: 08/19/18 13:43 Dose: 4 ml Albuterol/Ipratropium (Duoneb 3 Mg/0.5 Mg (3 Ml) Ud) 3 ml IH [id number] PRN PRN Reason: Shortness of Breath Last Admin: 08/19/18 13:41 Dose: 3 ml Artificial Tears (Refresh Opth Soln) 0 ml OU Q4 PRN PRN Reason: Dry eyes Last Admin: 08/18/18 09:54 Dose: 1 drop Artificial Tears (Artificial Tears Opht Oint) 0 gm OU BID PRN PRN Reason: Dry eyes Last Admin: 08/10/18 16:25 Dose: 1 applic Aspirin (Aspirin Chewable) 81 mg PO DAILY [facility] Carbidopa/Levodopa/Entacapone (Stalevo 150) 1 tab PO QID [facility] Last Admin: 08/19/18 13:57 Dose: 1 tab Meropenem (Merrem Iv 1 Gm Premix) 1 gm in 50 mls @ 12.5 mls/hr IVPB Q8 [facility]; Protocol Stop: 08/22/18 14:01 Last Admin: 08/19/18 14:18 Dose: 12.5 mls/hr Metoprolol Tartrate (Lopressor) 25 mg PO BID [facility] Last Admin: 08/19/18 10:48 Dose: 25 mg Nitroglycerin (Nitro-Bid 2% Oint) 0.5 ea TOP Q6H [facility] Last Admin: 08/19/18 14:34 Dose: 0.5 ea Non-Formulary Medication (Pramipexole Di-Hcl [Mirapex Er]) 0.5 mg PO TID [facility] Non-Formulary Medication (Rasagiline Mesylate [Azilect]) 1 mg PO DAILY [facility] Nystatin (Nystop Topical Powder) 0 gm TOP DAILY PRN PRN Reason: Itching / Pruritus Last Admin: 08/10/18 16:24 Dose: 1 applic Pantoprazole Sodium (Protonix Susp) 40 mg PO 0600 [facility] Last Admin: 08/19/18 06:58 Dose: 40 mg Thiamine HCl (Vitamin B1 Tab) 200 mg PO DAILY [facility] Last Admin: 08/19/18 10:48 Dose: 200 mg - Labs Labs: 08/19/18 07:30 08/19/18 07:30 PT 15.7 SECONDS (9.4-12.5) H 08/07/18 23:15 INR 1.37 08/07/18 23:15 APTT 57.1 Seconds (25.1-36.5) H 08/10/18 08:35 Attending/Attestation - Attestation I have personally seen and examined this patient.: Yes I have fully participated in the care of the patient.: Yes I have reviewed all pertinent clinical information, including history, physical exam and plan: Yes Notes (Text): 08/19/18 18:02 88 year old male with past medical history of Parkinson's disease and dementia who was transferred from [place] secondary to lethargy and failure to thrive. CT head x2 was negative for acute findings. He was found to have sepsis secondary to ESBL UTI and started on iv antibiotics. Currently on meropenem. ID is following. Repeat Ua/Ucx was ordered yesterday; still pending. He was also found to have hypernatremia and RENNY, both which have resolved. He was also found to have possible NSTEMI vs elevated cardiac enzymes is setting of renal failure and sepsis. Echocardiogram was reviewed. Cardiology is following. Patient was started on aspirin and lopressor. Patient is currently on NGT tube feeds. Patient has repeatedly failed swallowing evaluations despite improvement of mental status. Case was discussed with daughter at bedside; patient may need PEG if he continues to fail swallow evaluation. GI is on board in case plan is for Peg however for now daughter is requested po trials. Speech and swallow follow up yesterday evening was appreciated; recommended dysphagia treatment program. Will monitor closely and follow up with GI recommendations. He was noted to have a lot of secretions. Chest PT was ordered and mucomyst. Palliative care evaluation was appreciated as well. Will follow up with case aide / director of social work regarding d/c planning to LTACH vs [facility]. Kaila Linder MD Hospitalist.
--- NOTE | 2018-08-19 16:49 | CP.PCM.PN ---
Subjective - Date & Time of Evaluation Date of Evaluation: 08/19/18 Time of Evaluation: 08:35 - Subjective Subjective: No fevers, not in distress. Objective - Vital Signs/Intake and Output Vital Signs (last 24 hours): Temp Pulse Resp BP Pulse Ox 98.7 F 79 20 98/50 L 97 08/18/18 06:00 08/18/18 09:56 08/18/18 06:00 08/18/18 09:56 08/18/18 06:00 Intake and Output: 08/18/18 08/18/18 06:59 18:59 Output Total 700 Balance -700 - Medications Medications: Current Medications Acetylcysteine (Acetylcysteine 20%) 4 ml IH [id number] TOMMY Last Admin: 08/18/18 07:48 Dose: 4 ml Albuterol/Ipratropium (Duoneb 3 Mg/0.5 Mg (3 Ml) Ud) 3 ml IH [id number] PRN PRN Reason: Shortness of Breath Last Admin: 08/18/18 07:48 Dose: 3 ml Artificial Tears (Refresh Opth Soln) 0 ml OU Q4 PRN PRN Reason: Dry eyes Last Admin: 08/18/18 09:54 Dose: 1 drop Artificial Tears (Artificial Tears Opht Oint) 0 gm OU BID PRN PRN Reason: Dry eyes Last Admin: 08/10/18 16:25 Dose: 1 applic Aspirin (Ecotrin) 81 mg PO DAILY [facility] Last Admin: 08/17/18 10:25 Dose: 81 mg Carbidopa/Levodopa/Entacapone (Stalevo 150) 1 tab PO QID [facility] Last Admin: 08/18/18 09:54 Dose: 1 tab Heparin Sodium (Porcine) (Heparin) 5,000 units SC Q8 [facility]; Protocol Last Admin: 08/18/18 06:40 Dose: 5,000 units Meropenem (Merrem Iv 1 Gm Premix) 1 gm in 50 mls @ 12.5 mls/hr IVPB Q8 [facility]; Protocol Stop: 08/22/18 14:01 Last Admin: 08/18/18 06:40 Dose: 12.5 mls/hr Metoprolol Tartrate (Lopressor) 25 mg PO BID [facility] Last Admin: 08/18/18 09:56 Dose: Not Given Nitroglycerin (Nitro-Bid 2% Oint) 0.5 ea TOP Q6H [facility] Last Admin: 08/18/18 09:58 Dose: Not Given Nystatin (Nystop Topical Powder) 0 gm TOP DAILY PRN PRN Reason: Itching / Pruritus Last Admin: 08/10/18 16:24 Dose: 1 applic Pantoprazole Sodium (Protonix Susp) 40 mg PO 0600 [facility] Last Admin: 08/18/18 06:41 Dose: 40 mg Thiamine HCl (Vitamin B1 Tab) 200 mg PO DAILY [facility] Last Admin: 08/18/18 09:54 Dose: 200 mg - Labs Labs: 08/18/18 08:30 08/18/18 08:30 PT 15.7 SECONDS (9.4-12.5) H 08/07/18 23:15 INR 1.37 08/07/18 23:15 APTT 57.1 Seconds (25.1-36.5) H 08/10/18 08:35 - Constitutional Appears: Chronically Ill - Head Exam Head Exam: NORMAL INSPECTION - Respiratory Exam Respiratory Exam: Decreased Breath Sounds - Cardiovascular Exam Cardiovascular Exam: +S1, +S2 - GI/Abdominal Exam GI & Abdominal Exam: Soft. absent: Tenderness Assessment and Plan - Assessment and Plan (Free Text) Plan: Assessment Severe sepsis due to ESBL E. coli UTI as well as left lower lobe HCAP Parkinson's disease dementia Plan continue Merrem day 12 (of 10-14 days) - and we have d/c'ed Vancomycin since repeat cx are negative; repeat CXR does not show active disease follow up repeat urine cx and urinalysis - discussed with Dr. Linder overall prognosis is poor
[2018-08-19] MEDS ORDERED: PRAMIPEXOLE DI HCL 0.5 MG PO SCH (18:00)
[2018-08-20] MEDS: Acetylcysteine 20% Inhal Soln (4ml) IH SCH ×4 (01:43→20:22)
[2018-08-20] MEDS: Nitroglycerin 2% Ointment Foilpak UD TOP SCH ×4 (04:00→22:55)
[2018-08-20] MEDS: Meropenem IV 1 gm in NS 1 GM/50 ML BAG IVPB SCH ×3 (06:15→22:56)
[2018-08-20] MEDS: Pantoprazole 40 mg Susp UD PO SCH (06:16)
--- NOTE | 2018-08-20 06:40 | CP.PCM.PN ---
Subjective - Date & Time of Evaluation Date of Evaluation: 08/20/18 Time of Evaluation: 06:30 - Subjective Subjective: No distress,lying in bed, awake Reason for consultation and follow up:Cardiac evaluation for abnormal troponin, altered mental status, urosepsis Seen and examined by me and Dr. Soto Objective - Vital Signs/Intake and Output Vital Signs (last 24 hours): Temp Pulse Resp BP Pulse Ox 98.9 F 72 20 124/60 98 08/19/18 23:18 08/19/18 23:18 08/19/18 23:18 08/19/18 23:18 08/19/18 23:18 Intake and Output: 08/19/18 08/20/18 18:59 06:59 Intake Total 0 Output Total 500 Balance -500 - Medications Medications: Current Medications Acetylcysteine (Acetylcysteine 20%) 4 ml IH [id number] [facility] Last Admin: 08/20/18 01:43 Dose: Not Given Albuterol/Ipratropium (Duoneb 3 Mg/0.5 Mg (3 Ml) Ud) 3 ml IH [id number] PRN PRN Reason: Shortness of Breath Last Admin: 08/19/18 19:55 Dose: 3 ml Artificial Tears (Refresh Opth Soln) 0 ml OU Q4 PRN PRN Reason: Dry eyes Last Admin: 08/18/18 09:54 Dose: 1 drop Artificial Tears (Artificial Tears Opht Oint) 0 gm OU BID PRN PRN Reason: Dry eyes Last Admin: 08/10/18 16:25 Dose: 1 applic Aspirin (Aspirin Chewable) 81 mg PO DAILY [facility] Carbidopa/Levodopa/Entacapone (Stalevo 150) 1 tab PO QID [facility] Last Admin: 08/19/18 22:25 Dose: 1 tab Meropenem (Merrem Iv 1 Gm Premix) 1 gm in 50 mls @ 12.5 mls/hr IVPB Q8 [facility]; Protocol Stop: 08/22/18 14:01 Last Admin: 08/20/18 06:15 Dose: 12.5 mls/hr Metoprolol Tartrate (Lopressor) 25 mg PO BID [facility] Last Admin: 08/19/18 18:22 Dose: 25 mg Nitroglycerin (Nitro-Bid 2% Oint) 0.5 ea TOP Q6H [facility] Last Admin: 08/20/18 04:00 Dose: 0.5 ea (Rasagiline Mesylate ([Azilect] 1 Mg)) 1 mg PO DAILY [facility] Last Admin: 08/19/18 21:25 Dose: 1 mg Nystatin (Nystop Topical Powder) 0 gm TOP DAILY PRN PRN Reason: Itching / Pruritus Last Admin: 08/10/18 16:24 Dose: 1 applic Pantoprazole Sodium (Protonix Susp) 40 mg PO 0600 [facility] Last Admin: 08/20/18 06:16 Dose: 40 mg Pramipexole Dihydrochloride (Mirapex) 0.5 mg PO WM [facility] Last Admin: 08/19/18 18:21 Dose: 0.5 mg Thiamine HCl (Vitamin B1 Tab) 200 mg PO DAILY [facility] Last Admin: 08/19/18 10:48 Dose: 200 mg - Labs Labs: 08/19/18 07:30 08/19/18 07:30 PT 15.7 SECONDS (9.4-12.5) H 08/07/18 23:15 INR 1.37 08/07/18 23:15 APTT 57.1 Seconds (25.1-36.5) H 08/10/18 08:35 - Constitutional Appears: Non-toxic, No Acute Distress - Head Exam Head Exam: NORMAL INSPECTION, NORMOCEPHALIC - Eye Exam Eye Exam: Normal appearance Pupil Exam: NORMAL ACCOMODATION - ENT Exam ENT Exam: Mucous Membranes Dry - Respiratory Exam Respiratory Exam: Decreased Breath Sounds, Rhonchi, NORMAL BREATHING PATTERN Additional comments: orally suction - Cardiovascular Exam Cardiovascular Exam: +S1, +S2 Additional comments: No JVD - GI/Abdominal Exam GI & Abdominal Exam: Soft, Normal Bowel Sounds Additional comments: dobbhoff catheter to left nare with tube feeding - Extremities Exam Extremities Exam: Normal Capillary Refill - Neurological Exam Neurological Exam: Alert, Awake - Psychiatric Exam Psychiatric exam: Flat Affect - Skin Skin Exam: Dry, Normal Color, Warm Assessment and Plan - Assessment and Plan (Free Text) Assessment: An 88 year old male who was brought to the ER from skilled nursing due to failure to thrive and fever. History of Parkinson's disease, dementia,and recent ESBL in urine, recently hospitalized in [facility] for UTI and got discharged to the skilled nursing. Upon admission, patient had positive borderline troponin Patient asymtomatic with altered mental status. Will treat medicall y/conservatively.Urine still positive for E. coli, Urosepsis.Possible PEG insertion but daughter requested to hold off. Plan: Cardiac status stable Heart rate controlled Blood pressure controlled Started on baby aspirin Responds to verbal commands,open eyes No distress, no shortness of breath Swallowing trials done With Dobbhoff catheter via left nare to tube feeding Feeding tolerating well GI on consult for possible PEG insertion but daughter requested to hold off Continue IV antibiotics per ID (E.coli in urine) Orally suctioned for secretions Continue current treatment Continue current medications Chart reviewed Will follow up Plan and treatment discussed with Dr. Soto
[2018-08-20] MEDS: Albuterol-Ipratrop 3 mg / 0.5 (3 ml) UD IH PRN ×3 (07:26→20:22)
[2018-08-20 08:00] LABS: MEAN CELL VOLUME 93.5 fl (80.0-105.0); MEAN CORPUSCULAR HEMOGLOBIN 29.7 pg (25.0-35.0); MEAN CORPUSCULAR HGB CONC 31.8 g/dl (31.0-37.0); MEAN PLATELET VOLUME 10.5 fl (7.0-11.0); RBC 3.7 10^6/uL (3.5-6.1); RED CELL DISTRIBUTION WIDTH 15.3 % (11.5-14.5); WHITE BLOOD COUNT 4.8 10^3/uL (4.5-11.0)
[2018-08-20 08:09] LABS: ALB/GLOB RATIO 0.7 (1.1-1.8); ALBUMIN 2.4 g/dL (3.0-4.8); ALT/SGPT 38 U/L (7-56); AST/SGOT 25 U/L (17-59); BLOOD UREA NITROGEN 29 mg/dL (7-21); GFR NON-AFRICAN AMERICAN > 60
--- NOTE | 2018-08-20 10:30 | PN ---
DATE: 08/20/2018 REASON FOR CONSULTATION AND FOLLOWUP: Cardiac evaluation, altered mental status, admitted with urosepsis, positive troponin, swallowing difficulty. Patient is being set by NG tube, Dobbhoff, but started swallowing. Family refused PEG placement, was on hold as per daughter's request. This note is an addition to dictated by our nurse practitioner. The patient initially admitted with urosepsis, ESBL in urine, made some troponin, asymptomatic. LABORATORY DATA: Hemoglobin 11, hematocrit 34.6, BUN 29, creatinine 0.6. RECOMMENDATION: Continue aggressive medical treatment, no plan for invasive cardiac workup, not a candidate for invasive workup. If family agrees, consider PEG placement and discharge to half-way. For now[facility]. MEDICATIONS: Including baby aspirin 81 mg daily, continue topical nitrates and metoprolol p.o. [facility] status is stable, holding. We will follow with you. Thank you Dr. Linder for providing us the opportunity in taking care of the patient, Sravan Masterson. Serena Soto MD
[2018-08-20] MEDS: Carbidopa/Levodopa/Entacapone 37.5mg-150mg-200mg PO SCH ×3 (10:40→22:55)
--- NOTE | 2018-08-20 16:13 | CP.PCM.PN ---
Subjective - Date & Time of Evaluation Date of Evaluation: 08/20/18 Time of Evaluation: 08:30 - Subjective Subjective: No fevers, not in distress. Objective - Vital Signs/Intake and Output Vital Signs (last 24 hours): Temp Pulse Resp BP Pulse Ox 98 F 69 20 113/57 L 98 08/19/18 15:11 08/19/18 15:11 08/19/18 15:11 08/19/18 15:11 08/19/18 15:11 Intake and Output: 08/19/18 08/19/18 06:59 18:59 Output Total 1200 Balance -1200 - Medications Medications: Current Medications Acetylcysteine (Acetylcysteine 20%) 4 ml IH [id number] [facility] Last Admin: 08/19/18 13:43 Dose: 4 ml Albuterol/Ipratropium (Duoneb 3 Mg/0.5 Mg (3 Ml) Ud) 3 ml IH [id number] PRN PRN Reason: Shortness of Breath Last Admin: 08/19/18 13:41 Dose: 3 ml Artificial Tears (Refresh Opth Soln) 0 ml OU Q4 PRN PRN Reason: Dry eyes Last Admin: 08/18/18 09:54 Dose: 1 drop Artificial Tears (Artificial Tears Opht Oint) 0 gm OU BID PRN PRN Reason: Dry eyes Last Admin: 08/10/18 16:25 Dose: 1 applic Aspirin (Aspirin Chewable) 81 mg PO DAILY [facility] Carbidopa/Levodopa/Entacapone (Stalevo 150) 1 tab PO QID [facility] Last Admin: 08/19/18 13:57 Dose: 1 tab Meropenem (Merrem Iv 1 Gm Premix) 1 gm in 50 mls @ 12.5 mls/hr IVPB Q8 [facility]; Protocol Stop: 08/22/18 14:01 Last Admin: 08/19/18 14:18 Dose: 12.5 mls/hr Metoprolol Tartrate (Lopressor) 25 mg PO BID [facility] Last Admin: 08/19/18 10:48 Dose: 25 mg Nitroglycerin (Nitro-Bid 2% Oint) 0.5 ea TOP Q6H [facility] Last Admin: 08/19/18 14:34 Dose: 0.5 ea Non-Formulary Medication (Pramipexole Di-Hcl [Mirapex Er]) 0.5 mg PO TID [facility] Non-Formulary Medication (Rasagiline Mesylate [Azilect]) 1 mg PO DAILY [facility] Nystatin (Nystop Topical Powder) 0 gm TOP DAILY PRN PRN Reason: Itching / Pruritus Last Admin: 08/10/18 16:24 Dose: 1 applic Pantoprazole Sodium (Protonix Susp) 40 mg PO 0600 [facility] Last Admin: 08/19/18 06:58 Dose: 40 mg Thiamine HCl (Vitamin B1 Tab) 200 mg PO DAILY [facility] Last Admin: 08/19/18 10:48 Dose: 200 mg - Labs Labs: 08/19/18 07:30 08/19/18 07:30 PT 15.7 SECONDS (9.4-12.5) H 08/07/18 23:15 INR 1.37 08/07/18 23:15 APTT 57.1 Seconds (25.1-36.5) H 08/10/18 08:35 - Constitutional Appears: Chronically Ill - Head Exam Head Exam: NORMAL INSPECTION - Respiratory Exam Respiratory Exam: Decreased Breath Sounds - Cardiovascular Exam Cardiovascular Exam: +S1, +S2 - GI/Abdominal Exam GI & Abdominal Exam: Soft. absent: Tenderness Assessment and Plan - Assessment and Plan (Free Text) Plan: Assessment S/P Severe sepsis due to ESBL E. coli UTI as well as left lower lobe HCAP Parkinson's disease dementia Plan completed 12 days of Merrem - will continue to monitor off antibiotics since he is at risk for nosocomial infections urine cx was repeated and we will follow up results overall prognosis is poor
--- NOTE | 2018-08-20 16:51 | CP.PCM.PN ---
<Rivas Guillaume - Last Filed: 08/20/18 16:45> Subjective - Date & Time of Evaluation Date of Evaluation: 08/20/18 Time of Evaluation: 07:00 - Subjective Subjective: Rivas Guillaume, PGY1 Medicine Progress Note for Dr. Caballero Patient was seen and examined at bedside this morning. Vital signs stable; no fevers overnight. Patient is still receiving NG tube feeds. Patient is following commands and moves all extremities. A reliable ROS was unable to be obtained; however, patient is attempting to speak. Daughter was not present at bedside, however, she had visited last night to deliver patient's non-formulary medications (Azilect and Mirapex). Had an in-length conversation with daughter (Gordon) about family member's prognosis; explained to the daughter that progression of speech/swallow will likely be gradual and evaluations will be based on the judgment of the speech/language pathologist. All questions were answered appropriately. Objective - Vital Signs/Intake and Output Vital Signs (last 24 hours): Temp Pulse Resp BP Pulse Ox 98 F 83 20 108/57 L 96 08/20/18 14:00 08/20/18 14:00 08/20/18 14:00 08/20/18 14:00 08/20/18 14:00 Intake and Output: 08/20/18 08/20/18 06:59 18:59 Intake Total 0 Output Total 1000 Balance -1000 - Medications Medications: Current Medications Acetylcysteine (Acetylcysteine 20%) 4 ml IH [id number] TOMMY Last Admin: 08/20/18 13:48 Dose: 4 ml Albuterol/Ipratropium (Duoneb 3 Mg/0.5 Mg (3 Ml) Ud) 3 ml IH [id number] PRN PRN Reason: Shortness of Breath Last Admin: 08/20/18 13:48 Dose: 3 ml Artificial Tears (Refresh Opth Soln) 0 ml OU Q4 PRN PRN Reason: Dry eyes Last Admin: 08/18/18 09:54 Dose: 1 drop Artificial Tears (Artificial Tears Opht Oint) 0 gm OU BID PRN PRN Reason: Dry eyes Last Admin: 08/10/18 16:25 Dose: 1 applic Aspirin (Aspirin Chewable) 81 mg PO DAILY [facility] Last Admin: 08/20/18 10:40 Dose: 81 mg Carbidopa/Levodopa/Entacapone (Stalevo 150) 1 tab PO QID [facility] Last Admin: 08/20/18 15:32 Dose: 1 tab Meropenem (Merrem Iv 1 Gm Premix) 1 gm in 50 mls @ 12.5 mls/hr IVPB Q8 [facility]; Protocol Stop: 08/22/18 14:01 Last Admin: 08/20/18 15:32 Dose: 12.5 mls/hr Metoprolol Tartrate (Lopressor) 25 mg PO BID [facility] Last Admin: 08/20/18 10:40 Dose: 25 mg Nitroglycerin (Nitro-Bid 2% Oint) 0.5 ea TOP Q6H [facility] Last Admin: 08/20/18 16:17 Dose: 0.5 ea (Rasagiline Mesylate ([Azilect] 1 Mg)) 1 mg PO DAILY [facility] Last Admin: 08/20/18 10:40 Dose: 1 mg Nystatin (Nystop Topical Powder) 0 gm TOP DAILY PRN PRN Reason: Itching / Pruritus Last Admin: 08/10/18 16:24 Dose: 1 applic Pantoprazole Sodium (Protonix Susp) 40 mg PO 0600 [facility] Last Admin: 08/20/18 06:16 Dose: 40 mg Pramipexole Dihydrochloride (Mirapex) 0.5 mg PO WM [facility] Last Admin: 08/20/18 16:17 Dose: 0.5 mg Thiamine HCl (Vitamin B1 Tab) 200 mg PO DAILY [facility] Last Admin: 08/20/18 10:40 Dose: 200 mg - Labs Labs: 08/20/18 07:45 08/20/18 07:45 PT 15.7 SECONDS (9.4-12.5) H 08/07/18 23:15 INR 1.37 08/07/18 23:15 APTT 57.1 Seconds (25.1-36.5) H 08/10/18 08:35 - Constitutional Appears: No Acute Distress, Chronically Ill - Head Exam Head Exam: ATRAUMATIC, NORMAL INSPECTION, NORMOCEPHALIC - Eye Exam Eye Exam: EOMI, Normal appearance, PERRL - ENT Exam ENT Exam: Mucous Membranes Moist, Normal Exam - Respiratory Exam Respiratory Exam: Clear to Ausculation Bilateral, Rhonchi, NORMAL BREATHING PATTERN. absent: Rales, Wheezes - Cardiovascular Exam Cardiovascular Exam: REGULAR RHYTHM, +S1, +S2. absent: Murmur - GI/Abdominal Exam GI & Abdominal Exam: Soft, Normal Bowel Sounds. absent: Tenderness - Neurological Exam Neurological Exam: Alert, Awake - Skin Skin Exam: Dry, Intact, Normal Color, Warm Assessment and Plan - Assessment and Plan (Free Text) Assessment: Patient is a 88 y/o M with PMHx of Parkinson's disease, dementia, and recent ESBL + [facility] with complaints of lethargy, failure to thrive, and fever found to have UTI. Patient was admitted for AMS due to Sepsis 2/2 ESBL UTI, Failure to thrive, hypernatremia (improved), and acute renal f ailure (improved). Plan: AMS in the setting of Sepsis 2/2 ESBL UTI - c/w meropenem (Day #13); complete 10-14 days; as per ID recs - please c/w patient's Azilect and mirapex (medications were brought in by the daughter since these meds are non-formulary at [facility] inpatient [facility]) - f/u repeat UA and UCx - Mental status has improved but not at baseline (as per daughter) - c/w mitten restraints - CT Head: no acute findings - afebrile and no leukocytosis - Urine cx: ESBL+ e coli Failure To Thrive - Speech/Swallow (08/18) with daughter at bedside - safest recommendation is honey thick liquids with 1:1 feeding assistance; Dysphagia treatment program - GI reconsulted (Dr. Elizabeth) for PEG tube re-evaluation due to recurrent speech/swallow failures. However, daughter requests to hold off on PEG placement until further medical management. - c/w NG tube feeds at this time - GI initial consult (Dr. Arboleda) for PEG evaluation: Does not recommend PEG at this time. - Palliative care is following. Pulmonary Congestion - improving - c/w Chest PT - c/w mucomyst q6H - c/w duonebs - CXR negative - Decreased rhonci on pulmonary exam Elevated Troponins 2/2 demand ischemia - ASA held at this time - Cardiology recs appreciated; no indication for cath at this time. Continue with current management. Hypernatremia 2/2 dehydration and failure to thrive - resolved - Most recent Na is wnl - Na was 161 on admission - Nephrology consulted, appreciated recs Pre-renal RENNY - resolved - Most recent BUN/Cr is wnl - Cr initially 2.1 on admission - Jeffrey is draining GI ppx: Protonix DVT ppx: Heparin sc, SCD Dispo: Recommendation per SW was for LTACH, referral was sent. PT recommends [facility]. Palliative is following. Overall prognosis is poor. Case was discussed and reviewed with Attending Physician, Dr. Caballero. <Serena Caballero - Last Filed: 08/20/18 17:06> Objective - Vital Signs/Intake and Output Vital Signs (last 24 hours): Temp Pulse Resp BP Pulse Ox 98 F 83 20 108/57 L 96 08/20/18 14:00 08/20/18 14:00 08/20/18 14:00 08/20/18 14:00 08/20/18 14:00 Intake and Output: 08/20/18 08/20/18 06:59 18:59 Intake Total 0 Output Total 1000 Balance -1000 - Medications Medications: Current Medications Acetylcysteine (Acetylcysteine 20%) 4 ml IH [id number] [facility]OM[facility] Last Admin: 08/20/18 13:48 Dose: 4 ml Albuterol/Ipratropium (Duoneb 3 Mg/0.5 Mg (3 Ml) Ud) 3 ml IH [id number] PRN PRN Reason: Shortness of Breath Last Admin: 08/20/18 13:48 Dose: 3 ml Artificial Tears (Refresh Opth Soln) 0 ml OU Q4 PRN PRN Reason: Dry eyes Last Admin: 08/18/18 09:54 Dose: 1 drop Artificial Tears (Artificial Tears Opht Oint) 0 gm OU BID PRN PRN Reason: Dry eyes Last Admin: 08/10/18 16:25 Dose: 1 applic Aspirin (Aspirin Chewable) 81 mg PO DAILY [facility] Last Admin: 08/20/18 10:40 Dose: 81 mg Carbidopa/Levodopa/Entacapone (Stalevo 150) 1 tab PO QID [facility] Last Admin: 08/20/18 15:32 Dose: 1 tab Meropenem (Merrem Iv 1 Gm Premix) 1 gm in 50 mls @ 12.5 mls/hr IVPB Q8 [facility]; Protocol Stop: 08/22/18 14:01 Last Admin: 08/20/18 15:32 Dose: 12.5 mls/hr Metoprolol Tartrate (Lopressor) 25 mg PO BID [facility] Last Admin: 08/20/18 10:40 Dose: 25 mg Nitroglycerin (Nitro-Bid 2% Oint) 0.5 ea TOP Q6H [facility] Last Admin: 08/20/18 16:17 Dose: 0.5 ea (Rasagiline Mesylate ([Azilect] 1 Mg)) 1 mg PO DAILY [facility] Last Admin: 08/20/18 10:40 Dose: 1 mg Nystatin (Nystop Topical Powder) 0 gm TOP DAILY PRN PRN Reason: Itching / Pruritus Last Admin: 08/10/18 16:24 Dose: 1 applic Pantoprazole Sodium (Protonix Susp) 40 mg PO 0600 [facility] Last Admin: 08/20/18 06:16 Dose: 40 mg Pramipexole Dihydrochloride (Mirapex) 0.5 mg PO WM [facility] Last Admin: 08/20/18 16:17 Dose: 0.5 mg Thiamine HCl (Vitamin B1 Tab) 200 mg PO DAILY [facility] Last Admin: 08/20/18 10:40 Dose: 200 mg - Labs Labs: 08/20/18 07:45 08/20/18 07:45 PT 15.7 SECONDS (9.4-12.5) H 08/07/18 23:15 INR 1.37 08/07/18 23:15 APTT 57.1 Seconds (25.1-36.5) H 08/10/18 08:35 Attending/Attestation - Attestation I have personally seen and examined this patient.: Yes I have fully participated in the care of the patient.: Yes I have reviewed all pertinent clinical information, including history, physical exam and plan: Yes Notes (Text): 08/20/18 17:06 Medical record note made by the resident after discussion with my direction and input after the patient was personally seen and examined by me. I have reviewed the chart and agree that the record accurately reflects by personal performance of the history, physical exam, data review, and medical decision-making, in the course for the patient. I have also personally directed the plan of care.
[2018-08-21] MEDS: Albuterol-Ipratrop 3 mg / 0.5 (3 ml) UD IH PRN ×2 (02:02→19:42)
[2018-08-21] MEDS: Acetylcysteine 20% Inhal Soln (4ml) IH SCH ×2 (02:02→19:42)
[2018-08-21] MEDS: Nitroglycerin 2% Ointment Foilpak UD TOP SCH ×4 (03:48→22:59)
[2018-08-21] MEDS: Meropenem IV 1 gm in NS 1 GM/50 ML BAG IVPB SCH ×2 (06:15→13:35)
[2018-08-21] MEDS: Pantoprazole 40 mg Susp UD PO SCH (06:15)
--- NOTE | 2018-08-21 07:07 | CP.PCM.PN ---
Subjective - Date & Time of Evaluation Date of Evaluation: 08/21/18 Time of Evaluation: 07:00 - Subjective Subjective: No distress,lying in bed, awake Reason for consultation and follow up:Cardiac evaluation for abnormal troponin, altered mental status, urosepsis Seen and examined by me and Dr. Soto Objective - Vital Signs/Intake and Output Vital Signs (last 24 hours): Temp Pulse Resp BP Pulse Ox 97.5 F L 92 H 21 135/68 97 08/20/18 23:00 08/20/18 23:00 08/20/18 23:00 08/20/18 23:00 08/20/18 23:00 Intake and Output: 08/21/18 08/21/18 06:59 18:59 Output Total 250 Balance -250 - Medications Medications: Current Medications Acetylcysteine (Acetylcysteine 20%) 4 ml IH [id number] TOMMY Last Admin: 08/21/18 02:02 Dose: 4 ml Albuterol/Ipratropium (Duoneb 3 Mg/0.5 Mg (3 Ml) Ud) 3 ml IH [id number] PRN PRN Reason: Shortness of Breath Last Admin: 08/21/18 02:02 Dose: 3 ml Artificial Tears (Refresh Opth Soln) 0 ml OU Q4 PRN PRN Reason: Dry eyes Last Admin: 08/18/18 09:54 Dose: 1 drop Artificial Tears (Artificial Tears Opht Oint) 0 gm OU BID PRN PRN Reason: Dry eyes Last Admin: 08/10/18 16:25 Dose: 1 applic Aspirin (Aspirin Chewable) 81 mg PO DAILY [facility] Last Admin: 08/20/18 10:40 Dose: 81 mg Carbidopa/Levodopa/Entacapone (Stalevo 150) 1 tab PO QID [facility] Last Admin: 08/20/18 22:55 Dose: 1 tab Meropenem (Merrem Iv 1 Gm Premix) 1 gm in 50 mls @ 12.5 mls/hr IVPB Q8 [facility]; Protocol Stop: 08/22/18 14:01 Last Admin: 08/21/18 06:15 Dose: 12.5 mls/hr Metoprolol Tartrate (Lopressor) 25 mg PO BID [facility] Last Admin: 08/20/18 10:40 Dose: 25 mg Nitroglycerin (Nitro-Bid 2% Oint) 0.5 ea TOP Q6H [facility] Last Admin: 08/21/18 03:48 Dose: 0.5 ea (Rasagiline Mesylate ([Azilect] 1 Mg)) 1 mg PO DAILY [facility] Last Admin: 08/20/18 10:40 Dose: 1 mg Nystatin (Nystop Topical Powder) 0 gm TOP DAILY PRN PRN Reason: Itching / Pruritus Last Admin: 08/10/18 16:24 Dose: 1 applic Pantoprazole Sodium (Protonix Susp) 40 mg PO 0600 [facility] Last Admin: 08/21/18 06:15 Dose: 40 mg Pramipexole Dihydrochloride (Mirapex) 0.5 mg PO WM [facility] Last Admin: 08/20/18 16:17 Dose: 0.5 mg Thiamine HCl (Vitamin B1 Tab) 200 mg PO DAILY [facility] Last Admin: 08/20/18 10:40 Dose: 200 mg - Labs Labs: 08/20/18 07:45 08/20/18 07:45 PT 15.7 SECONDS (9.4-12.5) H 08/07/18 23:15 INR 1.37 08/07/18 23:15 APTT 57.1 Seconds (25.1-36.5) H 08/10/18 08:35 - Constitutional Appears: Non-toxic, No Acute Distress - Head Exam Head Exam: NORMAL INSPECTION, NORMOCEPHALIC - ENT Exam ENT Exam: Mucous Membranes Dry - Respiratory Exam Respiratory Exam: Decreased Breath Sounds, Rhonchi, NORMAL BREATHING PATTERN - Cardiovascular Exam Cardiovascular Exam: +S1, +S2 Additional comments: No JVD - GI/Abdominal Exam GI & Abdominal Exam: Soft, Normal Bowel Sounds Additional comments: Dobbhoff catheter left nare to tube feeding - Exam Additional comments: incontinent - Neurological Exam Neurological Exam: Alert, Awake Additional comments: open to eyes to name calling - Skin Skin Exam: Normal Color, Warm Assessment and Plan - Assessment and Plan (Free Text) Assessment: An 88 year old male who was brought to the ER from halfway due to failure to thrive and fever. History of Parkinson's disease, dementia,and recent ESBL in urine, recently hospitalized in [facility] for UTI and got discharged to the halfway. Upon admission, patient had positive borderline troponin Patient asymtomatic with altered mental status. Will treat medically/conservatively.Urine still positive for E. coli, Urosepsis, off antibiotics for now. Daughter refusing PEG insertion,on tubefeeding via dobbhoff catheter. Plan: Tolerating tube feeding via dobbhoff catheter Cardiac status stable Heart rate controlled Blood pressure controlled Started on baby aspirin No distress, no shortness of breath Off IV antibiotics per ID (E.coli in urine) Orally suctioned for secretions Continue current treatment Continue current medications Nutritional support Chart reviewed Will follow up Plan and treatment discussed with Dr. Soto
[2018-08-21 07:56] LABS: HEMOGLOBIN 11.8 g/dL (14.0-18.0); MEAN CELL VOLUME 93.3 fl (80.0-105.0); MEAN CORPUSCULAR HEMOGLOBIN 30.5 pg (25.0-35.0); MEAN CORPUSCULAR HGB CONC 32.7 g/dl (31.0-37.0); MEAN PLATELET VOLUME 10.9 fl (7.0-11.0); RBC 3.87 10^6/uL (3.5-6.1); RED CELL DISTRIBUTION WIDTH 15.3 % (11.5-14.5); WHITE BLOOD COUNT 6.2 10^3/uL (4.5-11.0)
[2018-08-21 08:40] LABS: ALB/GLOB RATIO 0.7 (1.1-1.8); ALBUMIN 2.6 g/dL (3.0-4.8); ALT/SGPT 30 U/L (7-56); AST/SGOT 25 U/L (17-59); BLOOD UREA NITROGEN 28 mg/dL (7-21); CALCIUM 8.3 mg/dL (8.4-10.5); GFR NON-AFRICAN AMERICAN > 60
[2018-08-21] MEDS: Carbidopa/Levodopa/Entacapone 37.5mg-150mg-200mg PO SCH ×4 (13:21→22:58)
--- NOTE | 2018-08-21 13:56 | PN ---
DATE: 08/21/2018 REASON FOR CONSULTATION AND FOLLOWUP: Altered mental status, urosepsis, abnormal troponin. The patient had also grade 1-2 decubitus ulcer. The patient is awake and alert. The patient had Dobbhoff tube and is tolerating feeding through the Dobbhoff. Daughter refused PEG placement. RECOMMENDATION: condition asymptomatic. We will treat medically from Cardiology point of view. Continue baby aspirin. Continue beta sis. Continue nitrate and discharge planning. CVS status is stable, holding. This note is in addition to dictated by our nurse practitioner, Samantha Gonzalez. Today's lab essentially within normal limits. WBC 6.2, hemoglobin 11.8, hematocrit 36.1, platelet count 261,000. BUN 28, creatinine 0.7, potassium 4.8. Albumin is increasing at 2.6, moderate protein calorie malnutrition which was not present on admission. is severe but now is improving. Serena Soto MD
--- NOTE | 2018-08-21 17:12 | CP.PCM.PN ---
<Rivas Guillaume - Last Filed: 08/21/18 17:19> Subjective - Date & Time of Evaluation Date of Evaluation: 08/21/18 Time of Evaluation: 07:00 - Subjective Subjective: Rivas Guillaume, PGY1 Medicine Progress Note for Dr. Caballero Patient was seen and examined at bedside this morning. Patients vital signs are stable; no fevers or leukocytosis. Patient's mental status is unchanged from previous encounter. Follows commands, moves all four extremities, and responds to verbal stimuli. No overnight events. A reliable ROS was unable to be obtained due to patient's condition. Spoke with daughter on the phone, she plans to come in later this night to assess speech/swallow progress. Objective - Vital Signs/Intake and Output Vital Signs (last 24 hours): Temp Pulse Resp BP Pulse Ox 97.9 F 89 20 123/61 100 08/21/18 14:00 08/21/18 14:00 08/21/18 14:00 08/21/18 14:00 08/21/18 14:00 Intake and Output: 08/21/18 08/21/18 06:59 18:59 Output Total 250 Balance -250 - Medications Medications: Current Medications Acetylcysteine (Acetylcysteine 20%) 4 ml IH [id number] [facility] Last Admin: 08/21/18 02:02 Dose: 4 ml Albuterol/Ipratropium (Duoneb 3 Mg/0.5 Mg (3 Ml) Ud) 3 ml IH [id number] PRN PRN Reason: Shortness of Breath Last Admin: 08/21/18 02:02 Dose: 3 ml Artificial Tears (Refresh Opth Soln) 0 ml OU Q4 PRN PRN Reason: Dry eyes Last Admin: 08/18/18 09:54 Dose: 1 drop Artificial Tears (Artificial Tears Opht Oint) 0 gm OU BID PRN PRN Reason: Dry eyes Last Admin: 08/10/18 16:25 Dose: 1 applic Aspirin (Aspirin Chewable) 81 mg PO DAILY [facility] Last Admin: 08/21/18 10:18 Dose: 81 mg Carbidopa/Levodopa/Entacapone (Stalevo 150) 1 tab PO QID [facility] Last Admin: 08/21/18 13:41 Dose: 1 tab Meropenem (Merrem Iv 1 Gm Premix) 1 gm in 50 mls @ 12.5 mls/hr IVPB Q8 [facility]; Protocol Stop: 08/22/18 14:01 Last Admin: 08/21/18 13:35 Dose: 12.5 mls/hr Metoprolol Tartrate (Lopressor) 25 mg PO BID [facility] Last Admin: 08/21/18 10:19 Dose: 25 mg Nitroglycerin (Nitro-Bid 2% Oint) 0.5 ea TOP Q6H [facility] Last Admin: 08/21/18 13:32 Dose: 0.5 ea (Rasagiline Mesylate ([Azilect] 1 Mg)) 1 mg PO DAILY [facility] Last Admin: 08/21/18 13:35 Dose: 1 mg Nystatin (Nystop Topical Powder) 0 gm TOP DAILY PRN PRN Reason: Itching / Pruritus Last Admin: 08/10/18 16:24 Dose: 1 applic Pantoprazole Sodium (Protonix Susp) 40 mg PO 0600 [facility] Last Admin: 08/21/18 06:15 Dose: 40 mg Pramipexole Dihydrochloride (Mirapex) 0.5 mg PO WM [facility] Last Admin: 08/21/18 13:33 Dose: 0.5 mg Thiamine HCl (Vitamin B1 Tab) 200 mg PO DAILY [facility] Last Admin: 08/21/18 10:18 Dose: 200 mg - Labs Labs: 08/21/18 07:30 08/21/18 07:30 PT 15.7 SECONDS (9.4-12.5) H 08/07/18 23:15 INR 1.37 08/07/18 23:15 APTT 57.1 Seconds (25.1-36.5) H 08/10/18 08:35 - Constitutional Appears: No Acute Distress, Chronically Ill - Head Exam Head Exam: ATRAUMATIC, NORMAL INSPECTION, NORMOCEPHALIC - Eye Exam Eye Exam: EOMI, Normal appearance, PERRL - ENT Exam ENT Exam: Mucous Membranes Moist, Normal Exam - Neck Exam Neck Exam: Full ROM, Normal Inspection. absent: Lymphadenopathy - Respiratory Exam Respiratory Exam: Clear to Ausculation Bilateral, Rhonchi, NORMAL BREATHING PATTERN. absent: Rales, Wheezes - Cardiovascular Exam Cardiovascular Exam: REGULAR RHYTHM, +S1, +S2. absent: Murmur - GI/Abdominal Exam GI & Abdominal Exam: Soft, Normal Bowel Sounds. absent: Tenderness - Neurological Exam Neurological Exam: Alert, Awake - Skin Skin Exam: Dry, Intact, Normal Color, Warm Additional comments: Sacral wound ulcer (stage II) noted. Assessment and Plan - Assessment and Plan (Free Text) Assessment: Patient is a 88 y/o M with PMHx of Parkinson's disease, dementia, and recent ESBL + UTI presenting from half-way with complaints of lethargy, failure to thrive, and fever found to have UTI. Patient was admitted for AMS due to Sepsis 2/2 ESBL UTI, Failure to thrive, hypernatremia (improved), and acute renal failure (improved). Plan: Failure To Thrive - Spoke to nursing staff, patient is failing speech/swallow; discussed with daughter over the phone about patient's progress. She plans on visiting later this night. - Speech/Swallow (08/19): patient continues to be high risk for aspiration and unable to tolerate PO trials. Rec c/w NPO with alternative nutritional support. - Speech/Swallow (08/18) recommend Dysphagia treatment program - GI reconsulted (Dr. Elizabeth) for PEG tube re-evaluation due to recurrent speech/swallow failures. However, daughter requests to hold off on PEG placement until further medical management. - c/w NG tube feeds at this time - GI initial consult (Dr. Arboleda) for PEG evaluation: Does not recommend PEG at this time. - Palliative care is following. AMS in the setting of Sepsis 2/2 ESBL UTI - Sacral wound cx showed +pseudomonas; f/u recommendations from ID; c/w wound care - c/w meropenem (Day #14). ID recs appreciated. - c/w patient's home Parkinson's medications - Mental status has improved but not at baseline (as per daughter) - c/w mitten restraints - CT Head: no acute findings - afebrile and no leukocytosis - Urine cx: ESBL+ e coli Pulmonary Congestion likely due to aspiration - improving - c/w Chest PT - c/w mucomyst q6H - c/w duonebs - CXR negative - Decreased rhonci on pulmonary exam Hypernatremia 2/2 dehydration and failure to thrive - resolved - Most recent Na is wnl - Na was 161 on admission - Nephrology consulted, appreciated recs Pre-renal RENNY - resolved - Most recent BUN/Cr is wnl - Cr initially 2.1 on admission - Jeffrey is draining GI ppx: Protonix DVT ppx: Heparin sc, SCD Dispo: Recommendation per was for patient to return to [facility]. Case was discussed and reviewed with Attending Physician, Dr. Caballero. <Serena Caballero - Last Filed: 08/23/18 14:02> Objective - Vital Signs/Intake and Output Vital Signs (last 24 hours): Temp Pulse Resp BP Pulse Ox 98.9 F 72 16 115/62 95 08/23/18 09:38 08/23/18 09:53 08/23/18 09:38 08/23/18 09:53 08/23/18 09:38 Intake and Output: 08/23/18 08/23/18 06:59 18:59 Output Total 700 Balance -700 - Medications Medications: Current Medications Acetylcysteine (Acetylcysteine 20%) 4 ml IH [id number] [facility] Last Admin: 08/23/18 10:19 Dose: Not Given Artificial Tears (Artificial Tears Opht Oint) 0 gm OU BID PRN PRN Reason: Dry eyes Last Admin: 08/10/18 16:25 Dose: 1 applic Aspirin (Aspirin Chewable) 81 mg PO DAILY [facility] Last Admin: 08/23/18 09:53 Dose: 81 mg Carbidopa/Levodopa/Entacapone (Stalevo 150) 1 tab PO QID [facility] Last Admin: 08/23/18 09:53 Dose: 1 tab Sodium Chloride (Sodium Chloride 0.9%) 500 mls @ 50 mls/hr IV .Q10H [facility] Stop: 08/23/18 21:04 Last Admin: 08/23/18 11:33 Dose: 50 mls/hr Metoprolol Tartrate (Lopressor) 25 mg PO BID [facility] Last Admin: 08/23/18 09:53 Dose: 25 mg (Rasagiline Mesylate ([Azilect] 1 Mg)) 1 mg PO DAILY [facility] Last Admin: 08/23/18 11:33 Dose: 1 mg Nystatin (Nystop Topical Powder) 0 gm TOP DAILY PRN PRN Reason: Itching / Pruritus Last Admin: 08/10/18 16:24 Dose: 1 applic Pantoprazole Sodium (Protonix Susp) 40 mg PO 0600 [facility] Last Admin: 08/23/18 05:44 Dose: 40 mg Petrolatum (Desitin Maximum Strength Topical 40% Oint) 0 gm TOP Q4H [facility] Last Admin: 08/23/18 11:35 Dose: 1 oin Pramipexole Dihydrochloride (Mirapex) 0.5 mg PO WM [facility] Last Admin: 08/23/18 13:08 Dose: 0.5 mg Thiamine HCl (Vitamin B1 Tab) 200 mg PO DAILY [facility] Last Admin: 08/23/18 09:53 Dose: 200 mg - Labs Labs: 08/23/18 07:00 08/23/18 13:10 PT 15.7 SECONDS (9.4-12.5) H 08/07/18 23:15 INR 1.37 08/07/18 23:15 APTT 57.1 Seconds (25.1-36.5) H 08/10/18 08:35 Attending/Attestation - Attestation I have personally seen and examined this patient.: Yes I have fully participated in the care of the patient.: Yes I have reviewed all pertinent clinical information, including history, physical exam and plan: Yes Notes (Text): 08/23/18 14:01 Medical record note made by the resident after discussion with my direction and input after the patient was personally seen and examined by me. I have reviewed the chart and agree that the record accurately reflects by personal performance of the history, physical exam, data review, and medical decision-making, in the course for the patient. I have also personally directed the plan of care. Patient has advance dementia and mental status is very poor, will need PEG tube for enteral feeding.This was discussed n detail with patient daughter over the phone. Prognosis is guarded.
[2018-08-22] MEDS: Acetylcysteine 20% Inhal Soln (4ml) IH SCH ×4 (01:36→21:03)
[2018-08-22] MEDS: Albuterol-Ipratrop 3 mg / 0.5 (3 ml) UD IH PRN ×3 (01:36→13:51)
[2018-08-22] MEDS: Nitroglycerin 2% Ointment Foilpak UD TOP SCH ×4 (04:00→23:36)
[2018-08-22] MEDS: Pantoprazole 40 mg Susp UD PO SCH (05:28)
[2018-08-22 07:20] LABS: HEMOGLOBIN 11.7 g/dL (14.0-18.0); MEAN CELL VOLUME 91.8 fl (80.0-105.0); MEAN CORPUSCULAR HEMOGLOBIN 29.8 pg (25.0-35.0); MEAN CORPUSCULAR HGB CONC 32.5 g/dl (31.0-37.0); MEAN PLATELET VOLUME 10.9 fl (7.0-11.0); RBC 3.92 10^6/uL (3.5-6.1); RED CELL DISTRIBUTION WIDTH 15.2 % (11.5-14.5); WHITE BLOOD COUNT 5.5 10^3/uL (4.5-11.0)
--- NOTE | 2018-08-22 08:19 | CP.PCM.PN ---
<ImmanuelOpal - Last Filed: 08/22/18 08:16> Subjective - Date & Time of Evaluation Date of Evaluation: 08/22/18 Time of Evaluation: 08:16 - Subjective Subjective: Gastroenterology Fellow/PGY6 Progress Note Patient with no acute events overnight. Tolerating nasogastric feedings. Speech therapy yesterday recommended for NPO. Unable to complete 12-point review of systems as patient with limited response to questioning. Objective - Vital Signs/Intake and Output Vital Signs (last 24 hours): Temp Pulse Resp BP Pulse Ox 97 F L 88 20 136/72 98 08/21/18 23:06 08/21/18 23:06 08/21/18 23:06 08/21/18 23:06 08/21/18 23:06 Intake and Output: 08/22/18 08/22/18 06:59 18:59 Intake Total 402 Output Total 1050 Balance -648 - Medications Medications: Current Medications Acetylcysteine (Acetylcysteine 20%) [id number] [facility] Last Admin: 08/22/18 07:30 Dose: 4 ml Albuterol/Ipratropium (Duoneb 3 Mg/0.5 Mg (3 Ml) Ud) 3 ml IH [id number] PRN PRN Reason: Shortness of Breath Last Admin: 08/22/18 07:29 Dose: 3 ml Artificial Tears (Refresh Opth Soln) 0 ml OU Q4 PRN PRN Reason: Dry eyes Last Admin: 08/18/18 09:54 Dose: 1 drop Artificial Tears (Artificial Tears Opht Oint) 0 gm OU BID PRN PRN Reason: Dry eyes Last Admin: 08/10/18 16:25 Dose: 1 applic Aspirin (Aspirin Chewable) [address] [facility] Last Admin: 08/21/18 10:18 Dose: 81 mg Carbidopa/Levodopa/Entacapone (Stalevo 150) [address] [facility] Last Admin: 08/21/18 22:58 Dose: 1 tab Metoprolol Tartrate (Lopressor) [address] [facility] Last Admin: 08/21/18 17:35 Dose: 25 mg Nitroglycerin (Nitro-Bid 2% Oint) 0.[address] [facility] Last Admin: 08/22/18 04:00 Dose: 0.5 ea (Rasagiline Mesylate ([Azilect] 1 Mg)) [address] [facility] Last Admin: 08/21/18 13:35 Dose: 1 mg Nystatin (Nystop Topical Powder) 0 gm TOP DAILY PRN PRN Reason: Itching / Pruritus Last Admin: 08/10/18 16:24 Dose: 1 applic Pantoprazole Sodium (Protonix Susp) [address] [facility] Last Admin: 08/22/18 05:28 Dose: 40 mg Pramipexole Dihydrochloride (Mirapex) 0.[address] [facility] Last Admin: 08/21/18 17:37 Dose: 0.5 mg Thiamine HCl (Vitamin B1 Tab) [address] [facility] Last Admin: 08/21/18 10:18 Dose: 200 mg - Labs Labs: 08/22/18 07:00 08/21/18 07:30 PT 15.7 SECONDS (9.4-12.5) H 08/07/18 23:15 INR 1.37 08/07/18 23:15 APTT 57.1 Seconds (25.1-36.5) H 08/10/18 08:35 - Constitutional Appears: Non-toxic, No Acute Distress - Head Exam Head Exam: ATRAUMATIC, NORMOCEPHALIC - Eye Exam Eye Exam: EOMI, PERRL. absent: Scleral icterus Pupil Exam: PERRL. absent: Miosis, Mydriatic - ENT Exam ENT Exam: Mucous Membranes Moist, Normal Oropharynx Additional comments: left nares tube feed in place - Neck Exam Neck Exam: Full ROM, Normal Inspection - Respiratory Exam Respiratory Exam: Clear to Ausculation Bilateral. absent: Rales, Rhonchi, Wheezes - Cardiovascular Exam Cardiovascular Exam: RRR, +S1, +S2. absent: Gallop, Rubs - GI/Abdominal Exam GI & Abdominal Exam: Soft, Normal Bowel Sounds. absent: Distended, Firm, Guarding, Rigid, Tenderness, Organomegaly, Rebound - Extremities Exam Extremities Exam: Normal Inspection. absent: Pedal Edema - Neurological Exam Neurological Exam: Alert, Awake - Psychiatric Exam Psychiatric exam: Normal Affect, Normal Mood - Skin Skin Exam: Dry, Intact, Normal Color, Warm Assessment and Plan - Assessment and Plan (Free Text) Assessment: 88 year old male with PMH of Parkinson's, Dementia, and recent UTI presenting with altered mental status. Active treatment of sepsis due to ESBL UTI and altered mental status leading to failure to thrive with severe oropharyngeal dysphagia on swallow evaluation 08/16/18 and recommendation for NPO on speech evaluation 08/21/18. Plan: -08/21 repeat swallow evaluation-NPO -receiving nasogastric tube feeding -Family discussion this morning with daughter Gordon Hinson- requests to continue to hold off on PEG placement -Thank you for opportunity to participate in the care of this patient. Please contact with questions or concerns <Baldo Elizabeth V - Last Filed: 08/22/18 23:41> Objective - Vital Signs/Intake and Output Vital Signs (last 24 hours): Temp Pulse Resp BP Pulse Ox 98.2 F 72 20 93/50 L 99 08/22/18 14:28 08/22/18 23:35 08/22/18 14:28 08/22/18 23:35 08/22/18 14:28 - Medications Medications: Current Medications Acetylcysteine (Acetylcysteine 20%) [id number] [facility] Last Admin: 08/22/18 21:03 Dose: Not Given Artificial Tears (Artificial Tears Opht Oint) 0 gm OU BID PRN PRN Reason: Dry eyes Last Admin: 08/10/18 16:25 Dose: 1 applic Aspirin (Aspirin Chewable) [address] [facility] Last Admin: 08/22/18 09:18 Dose: 81 mg Carbidopa/Levodopa/Entacapone (Stalevo 150) [address] [facility] Last Admin: 08/22/18 18:16 Dose: 1 tab Metoprolol Tartrate (Lopressor) [address] [facility] Last Admin: 08/22/18 18:01 Dose: 25 mg Nitroglycerin (Nitro-Bid 2% Oint) 0.[address] [facility] Last Admin: 08/22/18 18:04 Dose: Not Given (Rasagiline Mesylate ([Azilect] 1 Mg)) [address] [facility] Last Admin: 08/22/18 09:30 Dose: 1 mg Nystatin (Nystop Topical Powder) 0 gm TOP DAILY PRN PRN Reason: Itching / Pruritus Last Admin: 08/10/18 16:24 Dose: 1 applic Pantoprazole Sodium (Protonix Susp) [address] [facility] Last Admin: 08/22/18 05:28 Dose: 40 mg Petrolatum (Desitin Maximum Strength Topical 40% Oint) 0 gm TOP Q4H [facility] Last Admin: 08/22/18 17:56 Dose: 1 oin Pramipexole Dihydrochloride (Mirapex) 0.[address] [facility] Last Admin: 08/22/18 18:04 Dose: 0.5 mg Thiamine HCl (Vitamin B1 Tab) [address] [facility] Last Admin: 08/22/18 09:18 Dose: 200 mg - Labs Labs: 08/22/18 07:00 08/22/18 07:00 PT 15.7 SECONDS (9.4-12.5) H 08/07/18 23:15 INR 1.37 08/07/18 23:15 APTT 57.1 Seconds (25.1-36.5) H 08/10/18 08:35 Attending/Attestation - Attestation I have personally seen and examined this patient.: Yes I have fully participated in the care of the patient.: Yes I have reviewed all pertinent clinical information, including history, physical exam and plan: Yes Notes (Text): This is an addendum to GI progress report dictated by the GI Fellow.The patient was seen and examined earlier. Medical records, lab studies, imagings were reviewed. Last 24 hours events reviewed. Agreed with the above treatment plan as outlined in GI Fellow 's notes with the addition of the following On NG tube feeding Family to decide on feeding tube And Requests now to hold off PEG tube now 08/22/18 23:36
--- NOTE | 2018-08-22 08:19 | PN ---
DATE: 08/21/2018 SUBJECTIVE: Patient is in bed, in no acute distress, nontoxic. PHYSICAL EXAMINATION VITAL SIGNS: Temperature is 97, blood pressure is 120/60, respiratory rate 20. HEENT: Unremarkable. NECK: Supple. LUNGS: Have decreased breath sounds. HEART: Normal S1 and S2. ABDOMEN: Soft. LABORATORY EXAMINATION: Reveals a white count of 6.2. BUN of 28, creatinine of 0.7. Urinalysis is negative, and serology is negative. ASSESSMENT AND PLAN: An 88-year-old male who is status post severe sepsis due to extended spectrum beta-lactamase Escherichia coli urinary tract infection as well as left lower lobe healthcare-associated pneumonia, Parkinson's disease and dementia, completed 12 days of meropenem, currently off of antibiotics, afebrile. The patient is on meropenem. Currently, review of orders, patient is on meropenem, day #13. We will discontinue the meropenem. Should consider supportive care for this 88-year-old male with poor quality of life. Arie Alarcon MD
[2018-08-22 08:24] LABS: ALB/GLOB RATIO 0.7 (1.1-1.8); ALBUMIN 2.5 g/dL (3.0-4.8); ALT/SGPT 26 U/L (7-56); AST/SGOT 24 U/L (17-59); BLOOD UREA NITROGEN 27 mg/dL (7-21); CALCIUM 8.3 mg/dL (8.4-10.5); GFR NON-AFRICAN AMERICAN > 60
[2018-08-22] MEDS: Carbidopa/Levodopa/Entacapone 37.5mg-150mg-200mg PO SCH ×5 (09:30→23:37)
--- NOTE | 2018-08-22 11:06 | CP.PCM.CON ---
History of Present Illness - History of Present Illness History of Present Illness: General Surgery Consult Note Surgeon: Dr. Rodriguez Reason for consult: Sacral Wound Patient is a 88 y/o male with PMHx of Parkinson's Disease and dementia, presented to the ED on 08/07/2018 for fever and lethargy. Patient was diagnosed with sepsis secondary to a UTI. UCX +ESBL E. coli. During his hospital course, patient was found to have a skin wound on his sacrum. Wound Cx positive for Pseudomonas. Review of systems is unobtainable due to mental status. PMH: Parkinson's Disease, Dementia PSH: Unobtainable Allergies: NKDA Medications: Reviewed in chart FamHx: Noncontributory SocialHx: Patient lives in intermediate. Review of Systems - Review of Systems Systems not reviewed;Unavailable: Dementia, Altered Mental Status Past Patient History - Tetanus Immunizations Tetanus Immunization: Unknown - Past Social History Smoking Status: Never Smoked - CARDIAC Hx Cardiac Disorders: No Hx Congestive Heart Failure: Yes Hx Hypertension: Yes (denies) - NEUROLOGICAL HX Cerebrovascular Accident: No Hx Dementia: Yes Hx Parkinson's Disease: Yes Hx Seizures: No - ENDOCRINE/METABOLIC Hx Endocrine Disorders: No - HEMATOLOGICAL/ONCOLOGICAL Hx Cancer: No - INTEGUMENTARY Hx Dermatological Problems: No - MUSCULOSKELETAL/RHEUMATOLOGICAL Hx Falls: Yes - GASTROINTESTINAL Hx Gastrointestinal Disorders: No - GENITOURINARY/GYNECOLOGICAL Hx Sexually Transmitted Disorders: No - PSYCHIATRIC Hx Depression: No Hx Substance Use: No - SURGICAL HISTORY Hx Surgeries: (pt denies) - ANESTHESIA Hx Anesthesia: No Meds Allergies/Adverse Reactions: Allergies Allergy/AdvReac Type Severity Reaction Status Date / Time No Known Allergies Allergy Verified 11/13/17 10:28 - Medications Medications: Current Medications Acetylcysteine (Acetylcysteine 20%) 4 ml IH [id number] [facility] Last Admin: 08/22/18 07:30 Dose: 4 ml Albuterol/Ipratropium (Duoneb 3 Mg/0.5 Mg (3 Ml) Ud) 3 ml IH [id number] PRN PRN Reason: Shortness of Breath Last Admin: 08/22/18 07:29 Dose: 3 ml Artificial Tears (Refresh Opth Soln) 0 ml OU Q4 PRN PRN Reason: Dry eyes Last Admin: 08/18/18 09:54 Dose: 1 drop Artificial Tears (Artificial Tears Opht Oint) 0 gm OU BID PRN PRN Reason: Dry eyes Last Admin: 08/10/18 16:25 Dose: 1 applic Aspirin (Aspirin Chewable) 81 mg PO DAILY [facility] Last Admin: 08/22/18 09:18 Dose: 81 mg Carbidopa/Levodopa/Entacapone (Stalevo 150) 1 tab PO QID [facility] Last Admin: 08/21/18 22:58 Dose: 1 tab Metoprolol Tartrate (Lopressor) 25 mg PO BID [facility] Last Admin: 08/22/18 09:20 Dose: 25 mg Nitroglycerin (Nitro-Bid 2% Oint) 0.5 ea TOP Q6H [facility] Last Admin: 08/22/18 09:29 Dose: 0.5 ea (Rasagiline Mesylate ([Azilect] 1 Mg)) 1 mg PO DAILY [facility] Last Admin: 08/21/18 13:35 Dose: 1 mg Nystatin (Nystop Topical Powder) 0 gm TOP DAILY PRN PRN Reason: Itching / Pruritus Last Admin: 08/10/18 16:24 Dose: 1 applic Pantoprazole Sodium (Protonix Susp) 40 mg PO 0600 [facility] Last Admin: 08/22/18 05:28 Dose: 40 mg Petrolatum (Desitin Maximum Strength Topical 40% Oint) 1 gm TOP Q4H [facility] Pramipexole Dihydrochloride (Mirapex) 0.5 mg PO WM [facility] Last Admin: 08/22/18 09:28 Dose: 0.5 mg Thiamine HCl (Vitamin B1 Tab) 200 mg PO DAILY [facility] Last Admin: 08/22/18 09:18 Dose: 200 mg Physical Exam - Constitutional Appears: Non-toxic, No Acute Distress, Confused - Head Exam Head Exam: ATRAUMATIC, NORMOCEPHALIC - Eye Exam Eye Exam: EOMI, Normal appearance - ENT Exam ENT Exam: Mucous Membranes Dry, Normal Exam Additional comments: Dobhoff in place - Neck Exam Neck exam: Positive for: Normal Inspection, Thyromegaly - Respiratory Exam Respiratory Exam: NORMAL BREATHING PATTERN. absent: Respiratory Distress - Cardiovascular Exam Cardiovascular Exam: REGULAR RHYTHM, +S1, +S2. absent: Tachycardia - GI/Abdominal Exam GI & Abdominal Exam: Soft. absent: Tenderness - Exam External exam: Ecchymosis Additional comments: Jeffrey in place - Extremities Exam Extremities exam: Positive for: normal inspection. Negative for: tenderness - Back Exam Additional comments: Bilateral gluteal fold skin excoriation 4x3cm in size; no drainage visualized - Neurological Exam Neurological exam: Altered - Skin Skin Exam: Dry, Warm Results - Vital Signs Recent Vital Signs: Last Vital Signs Temp 97.5 F L 08/22/18 07:30 Pulse 75 08/22/18 09:20 Resp 18 08/22/18 07:30 BP 117/73 08/22/18 09:20 Pulse Ox 96 08/22/18 07:30 - Labs Result Diagrams: 08/22/18 07:00 08/22/18 07:00 Labs: Laboratory Results - last 24 hr 08/21/18 08/21/18 08/21/18 11:27 16:18 21:34 WBC RBC Hgb Hct MCV MCH MCHC RDW Plt Count MPV Sodium Potassium Chloride Carbon Dioxide Anion Gap BUN Creatinine Est GFR ( Amer) Est GFR (Non-Af Amer) POC Glucose (mg/dL) 127 H 113 H 108 Random Glucose Calcium Total Bilirubin AST ALT Alkaline Phosphatase Total Protein Albumin Globulin Albumin/Globulin Ratio 08/22/18 08/22/18 07:00 07:00 WBC 5.5 RBC 3.92 Hgb 11.7 L Hct 36.0 L MCV 91.8 MCH 29.8 MCHC 32.5 RDW 15.2 H Plt Count 252 MPV 10.9 Sodium 134 Potassium 4.9 Chloride 100 Carbon Dioxide 29 Anion Gap 11 BUN 27 H Creatinine 0.7 L Est GFR ( Amer) > 60 Est GFR (Non-Af Amer) > 60 POC Glucose (mg/dL) Random Glucose 107 Calcium 8.3 L Total Bilirubin 0.9 AST 24 ALT 26 Alkaline Phosphatase 76 Total Protein 6.1 Albumin 2.5 L Globulin 3.5 Albumin/Globulin Ratio 0.7 L Assessment & Plan - Assessment and Plan (Free Text) Assessment: 88 y/o male with PMHx of Parkinson's Disease, dementia, and urosepsis, was found to have skin excoriation of the bilateral gluteal folds. - Air mattress - Turn patient q2hrs - off load wound - f/u Stool C.diff - Desitin 1gm Q4H - No surgical intervention at this time Pt seen and discussed w/ Dr. Michael Child DO PGY3
--- NOTE | 2018-08-22 14:13 | CP.PCM.PN ---
<Rivas Guillaume - Last Filed: 08/22/18 14:09> Subjective - Date & Time of Evaluation Date of Evaluation: 08/22/18 Time of Evaluation: 07:00 - Subjective Subjective: Rivas Guillaume, PGY1 Medicine Progress Note for Dr. Linder Patient was seen and examined at bedside this morning. Patient's mental status is unchanged from prior encounter. Follows commands, responds to verbal stimuli, and moves all 4 extremities. Patient still has congestion. Vital signs are stable with no adverse overnight events. NG feeding tube is still in place. Curb sided social work today, who mentioned that patient may lose bed at [facility] from which he is coming from. Daughter was later contacted about this and says that she is now agreeable for PEG tube placement. Objective - Vital Signs/Intake and Output Vital Signs (last 24 hours): Temp Pulse Resp BP Pulse Ox 97.5 F L 75 18 117/73 96 08/22/18 07:30 08/22/18 09:20 08/22/18 07:30 08/22/18 09:20 08/22/18 07:30 Intake and Output: 08/22/18 08/22/18 06:59 18:59 Intake Total 402 Output Total 1050 Balance -648 - Medications Medications: Current Medications Acetylcysteine (Acetylcysteine 20%) 4 ml IH [id number] [facility] Last Admin: 08/22/18 13:51 Dose: 4 ml Albuterol/Ipratropium (Duoneb 3 Mg/0.5 Mg (3 Ml) Ud) 3 ml IH [id number] PRN PRN Reason: Shortness of Breath Last Admin: 08/22/18 13:51 Dose: 3 ml Artificial Tears (Refresh Opth Soln) 0 ml OU Q4 PRN PRN Reason: Dry eyes Last Admin: 08/18/18 09:54 Dose: 1 drop Artificial Tears (Artificial Tears Opht Oint) 0 gm OU BID PRN PRN Reason: Dry eyes Last Admin: 08/10/18 16:25 Dose: 1 applic Aspirin (Aspirin Chewable) 81 mg PO DAILY [facility] Last Admin: 08/22/18 09:18 Dose: 81 mg Carbidopa/Levodopa/Entacapone (Stalevo 150) 1 tab PO QID [facility] Last Admin: 08/21/18 22:58 Dose: 1 tab Metoprolol Tartrate (Lopressor) 25 mg PO BID [facility] Last Admin: 08/22/18 09:20 Dose: 25 mg Nitroglycerin (Nitro-Bid 2% Oint) 0.5 ea TOP Q6H [facility] Last Admin: 08/22/18 09:29 Dose: 0.5 ea (Rasagiline Mesylate ([Azilect] 1 Mg)) 1 mg PO DAILY [facility] Last Admin: 08/21/18 13:35 Dose: 1 mg Nystatin (Nystop Topical Powder) 0 gm TOP DAILY PRN PRN Reason: Itching / Pruritus Last Admin: 08/10/18 16:24 Dose: 1 applic Pantoprazole Sodium (Protonix Susp) 40 mg PO 0600 [facility] Last Admin: 08/22/18 05:28 Dose: 40 mg Petrolatum (Desitin Maximum Strength Topical 40% Oint) 0 gm TOP Q4H [facility] Pramipexole Dihydrochloride (Mirapex) 0.5 mg PO WM [facility] Last Admin: 08/22/18 09:28 Dose: 0.5 mg Thiamine HCl (Vitamin B1 Tab) 200 mg PO DAILY [facility] Last Admin: 08/22/18 09:18 Dose: 200 mg - Labs Labs: 08/22/18 07:00 08/22/18 07:00 PT 15.7 SECONDS (9.4-12.5) H 08/07/18 23:15 INR 1.37 08/07/18 23:15 APTT 57.1 Seconds (25.1-36.5) H 08/10/18 08:35 - Constitutional Appears: No Acute Distress, Chronically Ill - Head Exam Head Exam: ATRAUMATIC, NORMAL INSPECTION, NORMOCEPHALIC - Eye Exam Eye Exam: EOMI, Normal appearance, PERRL - ENT Exam ENT Exam: Mucous Membranes Moist, Normal Exam - Neck Exam Neck Exam: Full ROM, Normal Inspection. absent: Lymphadenopathy - Respiratory Exam Respiratory Exam: Clear to Ausculation Bilateral, NORMAL BREATHING PATTERN. absent: Rales, Rhonchi, Wheezes - Cardiovascular Exam Cardiovascular Exam: REGULAR RHYTHM, +S1, +S2. absent: Murmur - GI/Abdominal Exam GI & Abdominal Exam: Soft, Normal Bowel Sounds. absent: Guarding, Rigid, Tenderness - Extremities Exam Extremities Exam: Full ROM, Normal Capillary Refill. absent: Joint Swelling, Pedal Edema - Neurological Exam Neurological Exam: Alert, Awake - Skin Skin Exam: Dry, Intact, Normal Color, Warm Additional comments: Sacral wound ulcer stage II. Assessment and Plan - Assessment and Plan (Free Text) Assessment: Patient is a 88 y/o M with PMHx of Parkinson's disease, dementia, and recent ESBL + U[facility] with complaints of lethargy, failure to thrive, and fever found to have UTI. Patient was admitted for AMS due to Sepsis 2/2 ESBL UTI, Failure to thrive, hypernatremia (improved), and acute renal failure (improved). Plan: Failure To Thrive - Patient's daughter (Gordon) is now agreeable for PEG tube placement since patient may lose bed placement at [facility]. - Will follow up with GI as to when a PEG tube may be placed. - Patient is failing multiple speech/swallow evaluations. - Last speech/swallow was on 08/21: patient is still high risk aspiration and unable to tolerate PO trials, it may actually be placing patient at further risk for aspiration. - c/w NG tube feeds at this time - Palliative care is following. Sacral Wound Ulcer - Sacral wound cx +pseudomonas - Surgery consulted. Recommended conservative management: air mattress, q2 turns, f/u stool c. diff, desitin. No surgical intervention. - Patient has already completed meropenem course AMS in the setting of Sepsis 2/2 ESBL UTI - ID has discontinued antibiotics; completion of 14 days of meropenem. Consider supportive care. - Most recent urine cx is negative - c/w patient's home Parkinson's medications - Mental status has improved but not at baseline (as per daughter) - c/w mitten restraints - CT Head: no acute findings - afebrile and no leukocytosis Pulmonary Congestion likely due to aspiration - improving - c/w Chest PT - c/w mucomyst q6H - c/w duonebs - CXR negative - Decreased rhonci on pulmonary exam Hypernatremia 2/2 dehydration and failure to thrive - resolved - Most recent Na is wnl - Na was 161 on admission - Nephrology consulted, appreciated recs Pre-renal RENNY - resolved - Most recent BUN/Cr is wnl - Cr initially 2.1 on admission - Jeffrey is draining GI ppx: Protonix DVT ppx: SCDs Dispo: Patient's daughter is now agreeable for PEG tube. Pending GI recommendations. Case was discussed and reviewed with Attending Physician, Dr. Linder <Kaila Linder - Last Filed: 08/22/18 16:55> Objective - Vital Signs/Intake and Output Vital Signs (last 24 hours): Temp Pulse Resp BP Pulse Ox 98.2 F 81 20 113/54 L 99 08/22/18 14:28 08/22/18 14:28 08/22/18 14:28 08/22/18 14:28 08/22/18 14:28 Intake and Output: 08/22/18 08/22/18 06:59 18:59 Intake Total 402 Output Total 1050 Balance -648 - Medications Medications: Current Medications Acetylcysteine (Acetylcysteine 20%) 4 ml IH [id number] [facility] Last Admin: 08/22/18 13:51 Dose: 4 ml Albuterol/Ipratropium (Duoneb 3 Mg/0.5 Mg (3 Ml) Ud) 3 ml IH [id number] PRN PRN Reason: Shortness of Breath Last Admin: 08/22/18 13:51 Dose: 3 ml Artificial Tears (Refresh Opth Soln) 0 ml OU Q4 PRN PRN Reason: Dry eyes Last Admin: 08/18/18 09:54 Dose: 1 drop Artificial Tears (Artificial Tears Opht Oint) 0 gm OU BID PRN PRN Reason: Dry eyes Last Admin: 08/10/18 16:25 Dose: 1 applic Aspirin (Aspirin Chewable) 81 mg PO DAILY [facility] Last Admin: 08/22/18 09:18 Dose: 81 mg Carbidopa/Levodopa/Entacapone (Stalevo 150) 1 tab PO QID [facility] Last Admin: 08/21/18 22:58 Dose: 1 tab Metoprolol Tartrate (Lopressor) 25 mg PO BID [facility] Last Admin: 08/22/18 09:20 Dose: 25 mg Nitroglycerin (Nitro-Bid 2% Oint) 0.5 ea TOP Q6H [facility] Last Admin: 08/22/18 09:29 Dose: 0.5 ea (Rasagiline Mesylate ([Azilect] 1 Mg)) 1 mg PO DAILY [facility] Last Admin: 08/21/18 13:35 Dose: 1 mg Nystatin (Nystop Topical Powder) 0 gm TOP DAILY PRN PRN Reason: Itching / Pruritus Last Admin: 08/10/18 16:24 Dose: 1 applic Pantoprazole Sodium (Protonix Susp) 40 mg PO 0600 [facility] Last Admin: 08/22/18 05:28 Dose: 40 mg Petrolatum (Desitin Maximum Strength Topical 40% Oint) 0 gm TOP Q4H [facility] Pramipexole Dihydrochloride (Mirapex) 0.5 mg PO WM [facility] Last Admin: 08/22/18 09:28 Dose: 0.5 mg Thiamine HCl (Vitamin B1 Tab) 200 mg PO DAILY [facility] Last Admin: 08/22/18 09:18 Dose: 200 mg - Labs Labs: 08/22/18 07:00 08/22/18 07:00 PT 15.7 SECONDS (9.4-12.5) H 08/07/18 23:15 INR 1.37 08/07/18 23:15 APTT 57.1 Seconds (25.1-36.5) H 08/10/18 08:35 Attending/Attestation - Attestation I have personally seen and examined this patient.: Yes I have fully participated in the care of the patient.: Yes I have reviewed all pertinent clinical information, including history, physical exam and plan: Yes Notes (Text): 08/22/18 16:50 88 year old male with past medical history of Parkinson's disease, dementia and recent UTI who presented from [place] with failure to thrive and lethargy. Patient has repeatedly been failing swallow evaluations. Daughter was initially refusing PEG but now is agreeable. Will discuss with GI. He was found to have hypernatremia and acute renal failure which resolved after fluids. He was also found to have ESBL UTI. ID is following and he has completed 14 days of antibiotics. Repeat Ucx was negative. He also has sacral wound ulcer for which surgery was consulted who recommended conservative management with air mattress and frequent turns. Continue with chest PT and mucomyst for pulmonary congestion. Continue with conservative management for possible NSTEMI as per cardiology. Can resume aspirin after PEG procedure. Kaila Linder MD Hospitalist.
--- NOTE | 2018-08-22 14:40 | CP.PCM.PN ---
Subjective - Date & Time of Evaluation Date of Evaluation: 08/22/18 Time of Evaluation: 09:00 - Subjective Subjective: Afebrile, non-toxic. Objective - Vital Signs/Intake and Output Vital Signs (last 24 hours): Temp Pulse Resp BP Pulse Ox 98 F 83 20 108/57 L 96 08/20/18 14:00 08/20/18 14:00 08/20/18 14:00 08/20/18 14:00 08/20/18 14:00 Intake and Output: 08/20/18 08/20/18 06:59 18:59 Intake Total 0 Output Total 1000 Balance -1000 - Medications Medications: Current Medications Acetylcysteine (Acetylcysteine 20%) 4 ml IH [id number] TOMMY Last Admin: 08/20/18 13:48 Dose: 4 ml Albuterol/Ipratropium (Duoneb 3 Mg/0.5 Mg (3 Ml) Ud) 3 ml IH [id number] PRN PRN Reason: Shortness of Breath Last Admin: 08/20/18 13:48 Dose: 3 ml Artificial Tears (Refresh Opth Soln) 0 ml OU Q4 PRN PRN Reason: Dry eyes Last Admin: 08/18/18 09:54 Dose: 1 drop Artificial Tears (Artificial Tears Opht Oint) 0 gm OU BID PRN PRN Reason: Dry eyes Last Admin: 08/10/18 16:25 Dose: 1 applic Aspirin (Aspirin Chewable) 81 mg PO DAILY [facility] Last Admin: 08/20/18 10:40 Dose: 81 mg Carbidopa/Levodopa/Entacapone (Stalevo 150) 1 tab PO QID [facility] Last Admin: 08/20/18 15:32 Dose: 1 tab Meropenem (Merrem Iv 1 Gm Premix) 1 gm in 50 mls @ 12.5 mls/hr IVPB Q8 [facility]; Protocol Stop: 08/22/18 14:01 Last Admin: 08/20/18 15:32 Dose: 12.5 mls/hr Metoprolol Tartrate (Lopressor) 25 mg PO BID [facility] Last Admin: 08/20/18 10:40 Dose: 25 mg Nitroglycerin (Nitro-Bid 2% Oint) 0.5 ea TOP Q6H TOMMY Last Admin: 08/20/18 10:40 Dose: 0.5 ea (Rasagiline Mesylate ([Azilect] 1 Mg)) 1 mg PO DAILY [facility] Last Admin: 08/20/18 10:40 Dose: 1 mg Nystatin (Nystop Topical Powder) 0 gm TOP DAILY PRN PRN Reason: Itching / Pruritus Last Admin: 08/10/18 16:24 Dose: 1 applic Pantoprazole Sodium (Protonix Susp) 40 mg PO 0600 [facility] Last Admin: 08/20/18 06:16 Dose: 40 mg Pramipexole Dihydrochloride (Mirapex) 0.5 mg PO WM [facility] Last Admin: 08/20/18 10:40 Dose: 0.5 mg Thiamine HCl (Vitamin B1 Tab) 200 mg PO DAILY [facility] Last Admin: 08/20/18 10:40 Dose: 200 mg - Labs Labs: 08/20/18 07:45 08/20/18 07:45 PT 15.7 SECONDS (9.4-12.5) H 08/07/18 23:15 INR 1.37 08/07/18 23:15 APTT 57.1 Seconds (25.1-36.5) H 08/10/18 08:35 - Constitutional Appears: Chronically Ill - Head Exam Head Exam: NORMAL INSPECTION - Respiratory Exam Respiratory Exam: Decreased Breath Sounds - Cardiovascular Exam Cardiovascular Exam: +S1, +S2 - GI/Abdominal Exam GI & Abdominal Exam: Soft. absent: Tenderness Assessment and Plan - Assessment and Plan (Free Text) Plan: Assessment S/P Severe sepsis due to ESBL E. coli UTI as well as left lower lobe HCAP Parkinson's disease dementia Plan completed 12 days of Merrem - will continue to monitor off antibiotics since he is at risk for hospital-acquired infections urine cx was repeated and it is now negative Pseudomonas and Estela from sacral cx are probably colonizers - no need to treat with antibiotics overall prognosis is poor
[2018-08-22] MEDS: Zinc Oxide Topical 40% Oint (Desitin) TOP SCH ×3 (17:08→23:38)
--- NOTE | 2018-08-22 18:49 | PN ---
DATE: 08/22/2018 LOCATION: The patient is in room 577, bed 2. REASON FOR CONSULTATION: Urosepsis, failure to thrive, Parkinson's disease, dementia, altered mental status, and abnormal troponin. HISTORY OF PRESENT ILLNESS: Patient transferred from senior care with failure to thrive, parkinsonism, and was found to have urosepsis and altered mental status, history of dementia and patient's troponin elevated. There was no history of any chest pain. Now, patient lying flat in bed without any distress. Family had refused PEG tube insertion for feeding. The patient . PHYSICAL EXAMINATION: VITAL SIGNS: Blood pressure 113/54, respirations 20, pulse 81, and temperature 98.2. HEENT: Head is normocephalic. Eyes; pupils normal. Conjunctivae normal. Nose and throat normal. NECK: JVP low. Carotids equal. THORAX: AP diameter normal. LUNGS: No rales. CARDIOVASCULAR: S1 and S2. ABDOMEN: Soft. No tenderness. No organomegaly. EXTREMITIES: No clubbing. No cyanosis. LABORATORY DATA: WBC 5.5, hemoglobin 11.7, hematocrit 36 and platelets 252,000. Sodium 134, potassium 4.9, BUN 27, and creatinine 0.7. Sugar 124. AST and ALT normal. Total protein 6.1 and albumin 2.5. Calcium 8.3. PLAN: Patient is not in a condition due to altered mental status and dementia showed to do any invasive cardiac intervention, so it was decided to treat patient medically from the cardiac point of view. Patient is on aspirin 81 mg daily, nebulizer therapy p.r.n., metoprolol tartrate 25 b.i.d., Protonix 40 daily, carbidopa and levodopa one tablet p.o. q.i.d., thiamine, and vitamin B1 200 mg p.o. daily. We will continue present therapy and we will follow with you. Serena Bolanos MD
[2018-08-22 18:56] LABS: URINE BILIRUBIN NEGATIVE (NEGATIVE); URINE BLOOD TRACE-INTACT (NEGATIVE); URINE GLUCOSE (UA) NEGATIVE (NEGATIVE); URINE LEUKOCYTE ESTERASE SMALL Leu/uL (NEGATIVE); URINE PROTEIN 30 mg/dL (<30 mg/dL)
[2018-08-22 19:04] LABS: URINE APPEARANCE CLEAR (CLEAR); URINE COLOR DARK YELLOW (YELLOW)
[2018-08-22 19:27] LABS: URINE BACTERIA SMALL (NEG); URINE WBC 20 - 25 /hpf (0-6)
[2018-08-23] MEDS: Acetylcysteine 20% Inhal Soln (4ml) IH SCH ×3 (03:00→21:45)
[2018-08-23] MEDS: Zinc Oxide Topical 40% Oint (Desitin) TOP SCH ×7 (05:44→23:03)
[2018-08-23] MEDS: Nitroglycerin 2% Ointment Foilpak UD TOP SCH ×2 (05:44→15:07)
[2018-08-23] MEDS: Pantoprazole 40 mg Susp UD PO SCH (05:44)
--- NOTE | 2018-08-23 07:12 | CP.PCM.PN ---
Subjective - Date & Time of Evaluation Date of Evaluation: 08/23/18 Time of Evaluation: 06:55 - Subjective Subjective: No distress,lying in bed, awake, open eyes to name Reason for consultation and follow up:Cardiac evaluation for abnormal troponin, altered mental status, urosepsis Seen and examined by me and Dr. Bolanos Objective - Vital Signs/Intake and Output Vital Signs (last 24 hours): Temp Pulse Resp BP Pulse Ox 98.2 F 72 20 93/50 L 99 08/22/18 14:28 08/22/18 23:35 08/22/18 14:28 08/22/18 23:35 08/22/18 14:28 Intake and Output: 08/23/18 08/23/18 06:59 18:59 Output Total 700 Balance -700 - Medications Medications: Current Medications Acetylcysteine (Acetylcysteine 20%) 4 ml IH [id number] [facility] Last Admin: 08/22/18 21:03 Dose: Not Given Artificial Tears (Artificial Tears Opht Oint) 0 gm OU BID PRN PRN Reason: Dry eyes Last Admin: 08/10/18 16:25 Dose: 1 applic Aspirin (Aspirin Chewable) 81 mg PO DAILY [facility] Last Admin: 08/22/18 09:18 Dose: 81 mg Carbidopa/Levodopa/Entacapone (Stalevo 150) 1 tab PO QID [facility] Last Admin: 08/22/18 23:37 Dose: 1 tab Metoprolol Tartrate (Lopressor) 25 mg PO BID [facility] Last Admin: 08/22/18 18:01 Dose: 25 mg Nitroglycerin (Nitro-Bid 2% Oint) 0.5 ea TOP Q6H [facility] Last Admin: 08/23/18 05:44 Dose: 0.5 ea (Rasagiline Mesylate ([Azilect] 1 Mg)) 1 mg PO DAILY [facility] Last Admin: 08/22/18 09:30 Dose: 1 mg Nystatin (Nystop Topical Powder) 0 gm TOP DAILY PRN PRN Reason: Itching / Pruritus Last Admin: 08/10/18 16:24 Dose: 1 applic Pantoprazole Sodium (Protonix Susp) 40 mg PO 0600 [facility] Last Admin: 08/23/18 05:44 Dose: 40 mg Petrolatum (Desitin Maximum Strength Topical 40% Oint) 0 gm TOP Q4H [facility] Last Admin: 08/23/18 05:44 Dose: 1 oin Pramipexole Dihydrochloride (Mirapex) 0.5 mg PO WM [facility] Last Admin: 08/22/18 18:04 Dose: 0.5 mg Thiamine HCl (Vitamin B1 Tab) 200 mg PO DAILY [facility] Last Admin: 08/22/18 09:18 Dose: 200 mg - Labs Labs: 08/22/18 07:00 08/22/18 07:00 PT 15.7 SECONDS (9.4-12.5) H 08/07/18 23:15 INR 1.37 08/07/18 23:15 APTT 57.1 Seconds (25.1-36.5) H 08/10/18 08:35 - Constitutional Appears: Non-toxic, No Acute Distress - Head Exam Head Exam: NORMAL INSPECTION, NORMOCEPHALIC - Eye Exam Eye Exam: Normal appearance Pupil Exam: NORMAL ACCOMODATION - ENT Exam ENT Exam: Mucous Membranes Dry Additional comments: orally suctioned for secretions - Respiratory Exam Respiratory Exam: Decreased Breath Sounds, Rhonchi, NORMAL BREATHING PATTERN - Cardiovascular Exam Cardiovascular Exam: +S1, +S2 - GI/Abdominal Exam GI & Abdominal Exam: Soft, Normal Bowel Sounds Additional comments: dobbhoff catheter left nares to tube feeding - Neurological Exam Neurological Exam: Alert, Awake - Psychiatric Exam Psychiatric exam: Flat Affect - Skin Skin Exam: Dry, Normal Color, Warm Additional comments: Sacral decubitus Assessment and Plan - Assessment and Plan (Free Text) Assessment: An 88 year old male who was brought to the ER from group home due to failure to thrive and fever. History of Parkinson's disease, dementia,and recent ESBL in urine, recently hospitalized in [facility] for UTI and got discharged to the group home. Upon admission, patient had positive borderline troponin Patient asymtomatic with altered mental status. Will treat medically/conservatively.Urine still positive for E. coli, Urosepsis, off antibiotics for now. Daughter refusing PEG insertion,on tubefeeding via dobbhoff catheter tolerating well. Completed antibiotics for urosepsis. Plan: Cardiac status stable Heart rate controlled Blood pressure controlled Tolerating tube feeding via dobbhoff catheter No distress, no shortness of breath Off IV antibiotics per ID (E.coli in urine) Seen by General Surgery for sacral decubitus, no surgical intervention at this time Orally suctioned for secretions Continue current treatment Continue current medications Nutritional support Chart reviewed Will follow up Plan and treatment discussed with Dr. Bolanos
[2018-08-23 07:37] LABS: HEMOGLOBIN 11.5 g/dL (14.0-18.0); MEAN CELL VOLUME 91.8 fl (80.0-105.0); MEAN CORPUSCULAR HEMOGLOBIN 30.3 pg (25.0-35.0); MEAN PLATELET VOLUME 10.5 fl (7.0-11.0); RBC 3.79 10^6/uL (3.5-6.1); RED CELL DISTRIBUTION WIDTH 15.3 % (11.5-14.5); WHITE BLOOD COUNT 5.9 10^3/uL (4.5-11.0)
[2018-08-23 07:55] LABS: ALB/GLOB RATIO 0.7 (1.1-1.8); ALBUMIN 2.6 g/dL (3.0-4.8); ALT/SGPT 23 U/L (7-56); AST/SGOT 29 U/L (17-59); BLOOD UREA NITROGEN 30 mg/dL (7-21); CALCIUM 8.1 mg/dL (8.4-10.5); GFR NON-AFRICAN AMERICAN > 60
[2018-08-23] MEDS ORDERED: Sod Polystyrene Sulf 15 gm/60 ml Susp PO ONE (08:03)
[2018-08-23] MEDS: Carbidopa/Levodopa/Entacapone 37.5mg-150mg-200mg PO SCH ×4 (09:53→23:03)
--- NOTE | 2018-08-23 10:51 | CP.PCM.PN ---
<Arron Hong - Last Filed: 08/23/18 10:46> Subjective - Date & Time of Evaluation Date of Evaluation: 08/23/18 Time of Evaluation: 10:46 - Subjective Subjective: PGY-2 medicine progress note for Dr Linder No acute events noted overnight. Dubboff NGT in place with [employer] Equipment[employer] running. Patient is non-verbal - unable to attain review of systems. Mittens in place, smith in place. Appeared calm today. Objective - Vital Signs/Intake and Output Vital Signs (last 24 hours): Temp Pulse Resp BP Pulse Ox 98.9 F 72 16 115/62 95 08/23/18 09:38 08/23/18 09:53 08/23/18 09:38 08/23/18 09:53 08/23/18 09:38 Intake and Output: 08/23/18 08/23/18 06:59 18:59 Output Total 700 Balance -700 - Medications Medications: Current Medications Acetylcysteine (Acetylcysteine 20%) 4 ml IH [id number] [facility] Last Admin: 08/23/18 10:19 Dose: Not Given Artificial Tears (Artificial Tears Opht Oint) 0 gm OU BID PRN PRN Reason: Dry eyes Last Admin: 08/10/18 16:25 Dose: 1 applic Aspirin (Aspirin Chewable) 81 mg PO DAILY [facility] Last Admin: 08/23/18 09:53 Dose: 81 mg Carbidopa/Levodopa/Entacapone (Stalevo 150) 1 tab PO QID [facility] Last Admin: 08/23/18 09:53 Dose: 1 tab Metoprolol Tartrate (Lopressor) 25 mg PO BID [facility] Last Admin: 08/23/18 09:53 Dose: 25 mg (Rasagiline Mesylate ([Azilect] 1 Mg)) 1 mg PO DAILY [facility] Last Admin: 08/22/18 09:30 Dose: 1 mg Nystatin (Nystop Topical Powder) 0 gm TOP DAILY PRN PRN Reason: Itching / Pruritus Last Admin: 08/10/18 16:24 Dose: 1 applic Pantoprazole Sodium (Protonix Susp) 40 mg PO 0600 [facility] Last Admin: 08/23/18 05:44 Dose: 40 mg Petrolatum (Desitin Maximum Strength Topical 40% Oint) 0 gm TOP Q4H [facility] Last Admin: 08/23/18 08:02 Dose: Not Given Pramipexole Dihydrochloride (Mirapex) 0.5 mg PO WM [facility] Last Admin: 08/23/18 09:53 Dose: 0.5 mg Thiamine HCl (Vitamin B1 Tab) 200 mg PO DAILY [facility] Last Admin: 08/23/18 09:53 Dose: 200 mg - Labs Labs: 08/23/18 07:00 08/23/18 07:00 PT 15.7 SECONDS (9.4-12.5) H 08/07/18 23:15 INR 1.37 08/07/18 23:15 APTT 57.1 Seconds (25.1-36.5) H 08/10/18 08:35 - Additional Findings Additional findings: - Constitutional Appears: No Acute Distress, Chronically Ill - Head Exam Head Exam: ATRAUMATIC, NORMAL INSPECTION, NORMOCEPHALIC - Eye Exam Eye Exam: EOMI, Normal appearance, PERRL - ENT Exam ENT Exam: Mucous Membranes Moist, Normal Exam dubboff NGT in place with jevity running - Neck Exam Neck Exam: Full ROM, Normal Inspection. absent: Lymphadenopathy - Respiratory Exam Respiratory Exam: Clear to Ausculation Bilateral, NORMAL BREATHING PATTERN. absent: Rales, Rhonchi, Wheezes - Cardiovascular Exam Cardiovascular Exam: REGULAR RHYTHM, +S1, +S2. absent: Murmur - GI/Abdominal Exam GI & Abdominal Exam: Soft, Normal Bowel Sounds. absent: Guarding, Rigid, Tenderness smith cath in place - Extremities Exam Extremities Exam: Full ROM, Normal Capillary Refill. absent: Joint Swelling, Pedal Edema - Neurological Exam Neurological Exam: Alert, Awake - Skin Skin Exam: Dry, Intact, Normal Color, Warm Additional comments: Sacral wound ulcer stage II. Assessment and Plan - Assessment and Plan (Free Text) Plan: Patient is a 88 y/o M with PMHx of Parkinson's disease, dementia, and recent ESBL + UTI presenting from halfway with complaints of lethargy, failure to thrive, and fever found to have UTI. Patient was admitted for AMS due to Sepsis 2/2 ESBL UTI, Failure to thrive, hypernatremia (improved), and acute renal failure (improved). Plan: Failure To Thrive - Patient's daughter (Gordon) is now agreeable for PEG tube placement since patient may lose bed placement at [facility]. - Will follow up with GI as to when a PEG tube may be placed * PEG tube placement tentatively scheduled for 08/25/2018 - Patient is failing multiple speech/swallow evaluations. - Last speech/swallow was on 08/21: patient is still high risk aspiration and unable to tolerate PO trials, it may actually be placing patient at further risk for aspiration. - c/w NG tube feeds at this time - Palliative care is following. Sacral Wound Ulcer - Sacral wound cx +pseudomonas - Surgery consulted. Recommended conservative management: air mattress, q2 turns, f/u stool c. diff, desitin. No surgical intervention. - Patient has already completed meropenem course - continue lucho topical 40% ointment AMS in the setting of Sepsis 2/2 ESBL UTI - ID has discontinued antibiotics; completion of 14 days of meropenem. Consider supportive care. - Most recent urine cx is negative - c/w patient's home Parkinson's medications - Mental status has improved but not at baseline (as per daughter) - c/w mitten restraints - CT Head: no acute findings - afebrile and no leukocytosis Pulmonary Congestion likely due to aspiration and/or PNA - improving - c/w Chest PT - c/w mucomyst q6H - c/w duonebs - CXR negative - Decreased rhonci on pulmonary exam - completed 12 days of merrem for LLL pneumonia HCAP Hypernatremia 2/2 dehydration and failure to thrive - improved - Most recent Na is wnl - Na was 161 on admission - Nephrology consulted, appreciated recs Pre-renal RENNY - improved - Most recent BUN/Cr is wnl - Cr initially 2.1 on admission - Smith is draining Parkinson's Disease - continue carbidopa/levodopa/entacapone 25mg po bid - continue mirapex 0.5mg po wm jesse - continue azilect 1mg po qd - aspiration precautions GI ppx: Protonix DVT ppx: SCDs Dispo: Patient's daughter is now agreeable for PEG tube tentatively scheduled for 08/25/2018. After PEG patient will go to [facility]. Case was discussed and reviewed with Attending Physician, Dr. Linder <Kaila Linder - Last Filed: 08/23/18 13:56> Objective - Vital Signs/Intake and Output Vital Signs (last 24 hours): Temp Pulse Resp BP Pulse Ox 98.9 F 72 16 115/62 95 08/23/18 09:38 08/23/18 09:53 08/23/18 09:38 08/23/18 09:53 08/23/18 09:38 Intake and Output: 08/23/18 08/23/18 06:59 18:59 Output Total 700 Balance -700 - Medications Medications: Current Medications Acetylcysteine (Acetylcysteine 20%) 4 ml IH [id number] [facility] Last Admin: 08/23/18 10:19 Dose: Not Given Artificial Tears (Artificial Tears Opht Oint) 0 gm OU BID PRN PRN Reason: Dry eyes Last Admin: 08/10/18 16:25 Dose: 1 applic Aspirin (Aspirin Chewable) 81 mg PO DAILY [facility] Last Admin: 08/23/18 09:53 Dose: 81 mg Carbidopa/Levodopa/Entacapone (Stalevo 150) 1 tab PO QID [facility] Last Admin: 08/23/18 09:53 Dose: 1 tab Sodium Chloride (Sodium Chloride 0.9%) 500 mls @ 50 mls/hr IV .Q10H ST[facility] Stop: 08/23/18 21:04 Last Admin: 08/23/18 11:33 Dose: 50 mls/hr Metoprolol Tartrate (Lopressor) 25 mg PO BID [facility] Last Admin: 08/23/18 09:53 Dose: 25 mg (Rasagiline Mesylate ([Azilect] 1 Mg)) 1 mg PO DAILY [facility] Last Admin: 08/23/18 11:33 Dose: 1 mg Nystatin (Nystop Topical Powder) 0 gm TOP DAILY PRN PRN Reason: Itching / Pruritus Last Admin: 08/10/18 16:24 Dose: 1 applic Pantoprazole Sodium (Protonix Susp) 40 mg PO 0600 [facility] Last Admin: 08/23/18 05:44 Dose: 40 mg Petrolatum (Desitin Maximum Strength Topical 40% Oint) 0 gm TOP Q4H [facility] Last Admin: 08/23/18 11:35 Dose: 1 oin Pramipexole Dihydrochloride (Mirapex) 0.5 mg PO WM [facility] Last Admin: 08/23/18 13:08 Dose: 0.5 mg Thiamine HCl (Vitamin B1 Tab) 200 mg PO DAILY [facility] Last Admin: 08/23/18 09:53 Dose: 200 mg - Labs Labs: 08/23/18 07:00 08/23/18 13:10 PT 15.7 SECONDS (9.4-12.5) H 08/07/18 23:15 INR 1.37 08/07/18 23:15 APTT 57.1 Seconds (25.1-36.5) H 08/10/18 08:35 Attending/Attestation - Attestation I have personally seen and examined this patient.: Yes I have fully participated in the care of the patient.: Yes I have reviewed all pertinent clinical information, including history, physical exam and plan: Yes Notes (Text): 08/23/18 13:50 88 year old male with past medical history of Parkinson's disease, dementia and recent UTI [facility] and [facility]argy. Patient has repeatedly been failing swallow evaluations. Daughter was initially refusing PEG but now is agreeable. Plan for PEG on Saturday per GI. Today noted to have hyperkalemia with potassium 5.6. Kayexalate was given with repeat potassium 4.5. He initially had ESBL UTI. ID is following and he has completed 14 days of antibiotics. Repeat Ucx was negative. He also has sacral wound ulcer for which surgery was consulted who recommended conservative management with air mattress and frequent turns. He initially had hypernatremia and acute renal failure which resolved after fluids. Continue with chest PT and mucomyst for pulmonary congestion. Continue with conservative management for possible NSTEMI as per cardiology. Can resume aspirin after PEG procedure. Kaila Linder MD Hospitalist.
[2018-08-23] MEDS ORDERED: Sodium Chloride 0.9% 500 ML IV STA (11:05)
--- NOTE | 2018-08-23 12:45 | CP.PCM.PN ---
Subjective - Date & Time of Evaluation Date of Evaluation: 08/24/18 Time of Evaluation: 08:40 - Subjective Subjective: No fevers, not in distress. Objective - Vital Signs/Intake and Output Vital Signs (last 24 hours): Temp Pulse Resp BP Pulse Ox 98.9 F 72 16 115/62 95 08/23/18 09:38 08/23/18 09:53 08/23/18 09:38 08/23/18 09:53 08/23/18 09:38 Intake and Output: 08/23/18 08/23/18 06:59 18:59 Output Total 700 Balance -700 - Medications Medications: Current Medications Acetylcysteine (Acetylcysteine 20%) 4 ml IH [id number] [facility] Last Admin: 08/23/18 10:19 Dose: Not Given Artificial Tears (Artificial Tears Opht Oint) 0 gm OU BID PRN PRN Reason: Dry eyes Last Admin: 08/10/18 16:25 Dose: 1 applic Aspirin (Aspirin Chewable) 81 mg PO DAILY [facility] Last Admin: 08/23/18 09:53 Dose: 81 mg Carbidopa/Levodopa/Entacapone (Stalevo 150) 1 tab PO QID [facility] Last Admin: 08/23/18 09:53 Dose: 1 tab Sodium Chloride (Sodium Chloride 0.9%) 500 mls @ 50 mls/hr IV .Q10H STA Stop: 08/23/18 21:04 Last Admin: 08/23/18 11:33 Dose: 50 mls/hr Metoprolol Tartrate (Lopressor) 25 mg PO BID [facility] Last Admin: 08/23/18 09:53 Dose: 25 mg (Rasagiline Mesylate ([Azilect] 1 Mg)) 1 mg PO DAILY [facility] Last Admin: 08/23/18 11:33 Dose: 1 mg Nystatin (Nystop Topical Powder) 0 gm TOP DAILY PRN PRN Reason: Itching / Pruritus Last Admin: 08/10/18 16:24 Dose: 1 applic Pantoprazole Sodium (Protonix Susp) 40 mg PO 0600 [facility] Last Admin: 08/23/18 05:44 Dose: 40 mg Petrolatum (Desitin Maximum Strength Topical 40% Oint) 0 gm TOP Q4H [facility] Last Admin: 08/23/18 11:35 Dose: 1 oin Pramipexole Dihydrochloride (Mirapex) 0.5 mg PO WM [facility] Last Admin: 08/23/18 09:53 Dose: 0.5 mg Thiamine HCl (Vitamin B1 Tab) 200 mg PO DAILY [facility] Last Admin: 08/23/18 09:53 Dose: 200 mg - Labs Labs: 08/23/18 07:00 08/23/18 07:00 PT 15.7 SECONDS (9.4-12.5) H 08/07/18 23:15 INR 1.37 08/07/18 23:15 APTT 57.1 Seconds (25.1-36.5) H 08/10/18 08:35 - Constitutional Appears: Chronically Ill - Head Exam Head Exam: NORMAL INSPECTION - Respiratory Exam Respiratory Exam: Decreased Breath Sounds - Cardiovascular Exam Cardiovascular Exam: +S1, +S2 - GI/Abdominal Exam GI & Abdominal Exam: Soft. absent: Tenderness Assessment and Plan - Assessment and Plan (Free Text) Plan: Assessment S/P Severe sepsis due to ESBL E. coli UTI as well as left lower lobe HCAP Parkinson's disease dementia Plan completed 12 days of Merrem - will continue to monitor off antibiotics since he is at risk for hospital-acquired infections urine cx was repeated and it is now negative Pseudomonas and Estela from sacral cx are probably colonizers - no need to treat with antibiotics - discussed with Dr. Linder overall prognosis is poor
--- NOTE | 2018-08-23 13:59 | PN ---
DATE: 08/23/2018 LOCATION: Patient in room 577, bed 2. REASON FOR CONSULTATION AND FOLLOWUP: Urosepsis, failure to thrive, Parkinson disease, dementia, altered mental status, abnormal troponin. BRIEF HISTORY OF PRESENT ILLNESS: Patient is transferred from senior living with failure to thrive, Parkinsonism, was found to have urosepsis and altered mental status, history of dementia and troponin was elevated, but there was no history of any chest pain. Now patient lying flat in bed and getting Dobbhoff tube feeding. Family did not want to put PEG tube. PHYSICAL EXAMINATION: VITAL SIGNS: Blood pressure 110/62, respirations 16, pulse 71, temperature 98.9. HEENT: Head: Normocephalic. Eyes: Pupils normal. Conjunctivae normal. NECK: JVP low. Carotids equal. THORAX: AP diameter normal. LUNGS: Clear. CARDIOVASCULAR: S1, S2. ABDOMEN: Soft, no tenderness, no organomegaly. Bowel sounds normal. EXTREMITIES: No clubbing, no cyanosis. LABORATORY DATA: WBC 5.9, hemoglobin 11.5, hematocrit 34.8, platelet 274. Sodium 131, potassium 5.6, BUN 30, creatinine 0.6, total protein 6.2, albumin 2.6. DIAGNOSES: 1. Troponin, slightly elevation. Significance of that is not known, but patient is not in a shape to do any cardiac intervention at this point. 2. Parkinson disease. 3. Dementia. 4. Urosepsis. 5. Patient also has hyperkalemia. PLAN: Patient from cardiac point of view is not a candidate for any intervention, so being treated medically. Patient has altered mental status, sepsis, dementia. We will continue antibiotics. Patient's potassium is elevated. We will repeat the potassium. Patient on aspirin 81 daily, metoprolol 25 b.i.d., carbidopa and levodopa 1 tablet p.o. q.i.d., thiamine 200 mg p.o. daily. We will follow with you. Serena Bolanos MD
[2018-08-24] MEDS: Acetylcysteine 20% Inhal Soln (4ml) IH SCH ×4 (02:13→21:15)
[2018-08-24] MEDS: Zinc Oxide Topical 40% Oint (Desitin) TOP SCH ×4 (04:27→22:04)
[2018-08-24 06:21] LABS: MEAN CELL VOLUME 91.5 fl (80.0-105.0); MEAN CORPUSCULAR HEMOGLOBIN 29.4 pg (25.0-35.0); MEAN CORPUSCULAR HGB CONC 32.2 g/dl (31.0-37.0); MEAN PLATELET VOLUME 10.2 fl (7.0-11.0); RBC 3.4 10^6/uL (3.5-6.1); RED CELL DISTRIBUTION WIDTH 15.1 % (11.5-14.5); WHITE BLOOD COUNT 5.5 10^3/uL (4.5-11.0)
[2018-08-24 06:31] LABS: ALB/GLOB RATIO 0.7 (1.1-1.8); ALBUMIN 2.4 g/dL (3.0-4.8); ALT/SGPT 20 U/L (7-56); AST/SGOT 23 U/L (17-59); BLOOD UREA NITROGEN 26 mg/dL (7-21); CALCIUM 7.6 mg/dL (8.4-10.5); GFR NON-AFRICAN AMERICAN > 60
--- NOTE | 2018-08-24 07:48 | CP.PCM.PN ---
<Serge Hill - Last Filed: 08/24/18 10:33> Subjective - Date & Time of Evaluation Date of Evaluation: 08/24/18 Time of Evaluation: 07:44 - Subjective Subjective: Haroon Hill PGY2 - IM Progress Note for Dr. Hurst Patient seen and evaluated this AM. No acute events overnight reported. Patient continues to have waxing and waning of mentation. Objective - Vital Signs/Intake and Output Vital Signs (last 24 hours): Temp Pulse Resp BP Pulse Ox 98.3 F 75 18 108/47 L 95 08/24/18 06:00 08/24/18 06:00 08/24/18 06:00 08/24/18 06:00 08/23/18 22:07 Intake and Output: 08/24/18 08/24/18 06:59 18:59 Intake Total 600 Output Total 1525 Balance -925 - Medications Medications: Current Medications Acetylcysteine (Acetylcysteine 20%) 4 ml IH [id number] [facility] Last Admin: 08/24/18 02:13 Dose: Not Given Artificial Tears (Artificial Tears Opht Oint) 0 gm OU BID PRN PRN Reason: Dry eyes Last Admin: 08/10/18 16:25 Dose: 1 applic Aspirin (Aspirin Chewable) 81 mg PO DAILY [facility] Last Admin: 08/23/18 09:53 Dose: 81 mg Carbidopa/Levodopa/Entacapone (Stalevo 150) 1 tab PO QID [facility] Last Admin: 08/23/18 23:03 Dose: 1 tab Metoprolol Tartrate (Lopressor) 25 mg PO BID [facility] Last Admin: 08/23/18 17:46 Dose: Not Given (Rasagiline Mesylate ([Azilect] 1 Mg)) 1 mg PO DAILY [facility] Last Admin: 08/23/18 11:33 Dose: 1 mg Nystatin (Nystop Topical Powder) 0 gm TOP DAILY PRN PRN Reason: Itching / Pruritus Last Admin: 08/10/18 16:24 Dose: 1 applic Pantoprazole Sodium (Protonix Susp) 40 mg PO 0600 [facility] Last Admin: 08/23/18 05:44 Dose: 40 mg Petrolatum (Desitin Maximum Strength Topical 40% Oint) 0 gm TOP Q4H [facility] Last Admin: 08/24/18 04:27 Dose: Not Given Pramipexole Dihydrochloride (Mirapex) 0.5 mg PO WM [facility] Last Admin: 08/23/18 17:46 Dose: 0.5 mg Thiamine HCl (Vitamin B1 Tab) 200 mg PO DAILY [facility] Last Admin: 08/23/18 09:53 Dose: 200 mg - Labs Labs: 08/24/18 06:00 08/24/18 06:00 PT 15.7 SECONDS (9.4-12.5) H 08/07/18 23:15 INR 1.37 08/07/18 23:15 APTT 57.1 Seconds (25.1-36.5) H 08/10/18 08:35 - Constitutional Appears: No Acute Distress, Cachectic - Head Exam Head Exam: ATRAUMATIC, NORMAL INSPECTION, NORMOCEPHALIC - Eye Exam Eye Exam: EOMI, PERRL - Respiratory Exam Respiratory Exam: Clear to Ausculation Bilateral, NORMAL BREATHING PATTERN. absent: Rhonchi, Wheezes - Cardiovascular Exam Cardiovascular Exam: REGULAR RHYTHM, +S1, +S2 - GI/Abdominal Exam GI & Abdominal Exam: Soft. absent: Rigid, Tenderness - Exam Exam: Circumcision. absent: Scrotal Swelling, Uretheral Discharge Additional comments: Small laceration on underside of urethral opening underneath smith catheter. Minimal blood present - Neurological Exam Neurological Exam: Alert, Awake - Psychiatric Exam Psychiatric exam: Flat Affect - Skin Skin Exam: Dry Additional comments: sacral decubitus ulcer/wound present with minimal serosanguinous drainage, no pus, swelling or warmth appreciated Assessment and Plan - Assessment and Plan (Free Text) Assessment: Patient is a 88 y/o M with PMHx of Parkinson's disease, dementia, and recent ESBL + UTI presenting from [facility] with complaints of lethargy, failure to thrive, and fever found to have UTI. Patient was admitted for AMS due to Sepsis 2/2 ESBL UTI, Failure to thrive, hypernatremia (improved), and acute renal failure (improved). Plan: Failure To Thrive - Patient's daughter (Gordon) is now agreeable for PEG tube placement since patient may lose bed placement at [facility]. - Will follow up with GI as to when a PEG tube may be placed * PEG tube placement tentatively scheduled for 08/25/2018 - Patient is failing multiple speech/swallow evaluations. - Last speech/swallow was on 08/21: patient is still high risk aspiration and unable to tolerate PO trials, it may actually be placing patient at further risk for aspiration. - c/w NG tube feeds at this time - Palliative care is following Sacral Wound Ulcer - Sacral wound cx +pseudomonas - Surgery consulted. Recommended conservative management: air mattress, q2 turns, f/u stool c. diff, desitin. No surgical intervention. - Patient has already completed meropenem course - continue lucho topical 40% ointment AMS in the setting of Sepsis 2/2 ESBL UTI - ID has discontinued antibiotics; completion of 14 days of meropenem. Consider supportive care. - Most recent urine cx is negative - c/w patient's home Parkinson's medications - Mental status has improved but not at baseline (as per daughter) - c/w mitten restraints - CT Head: no acute findings - afebrile and no leukocytosis Pulmonary Congestion likely due to aspiration and/or PNA - improving - c/w Chest PT - c/w mucomyst q6H - c/w duonebs - CXR negative - Decreased rhonci on pulmonary exam - completed 12 days of merrem for LLL pneumonia [facility] Pre-renal RENNY - improved - Most recent BUN/Cr is wnl - Cr initially 2.1 on admission - Smith is draining Parkinson's Disease - continue carbidopa/levodopa/entacapone 25mg po bid - continue mirapex 0.5mg po wm jesse - continue azilect 1mg po qd - aspiration precautions Urethral laceration - Smith catheter in place showing small urethral tear at inferior aspect of opening - Bacitracin ordered and to be applied to affected area - Continue to monitor GI ppx: Protonix DVT ppx: SCDs Dispo: Patient's daughter is now agreeable for PEG tube tentatively scheduled for 08/25/2018. After PEG patient will go to [facility]. Case was discussed and reviewed with Attending Physician, Dr. Hurst <Melodie Hurst R - Last Filed: 08/24/18 15:18> Objective - Vital Signs/Intake and Output Vital Signs (last 24 hours): Temp Pulse Resp BP Pulse Ox 98.3 F 80 18 113/50 L 95 08/24/18 06:00 08/24/18 09:37 08/24/18 06:00 08/24/18 09:37 08/23/18 22:07 Intake and Output: 08/24/18 08/24/18 06:59 18:59 Intake Total 600 Output Total 1525 Balance -925 - Medications Medications: Current Medications Acetylcysteine (Acetylcysteine 20%) 4 ml IH [id number] [facility] Last Admin: 08/24/18 13:33 Dose: Not Given Artificial Tears (Artificial Tears Opht Oint) 0 gm OU BID PRN PRN Reason: Dry eyes Last Admin: 08/10/18 16:25 Dose: 1 applic Aspirin (Aspirin Chewable) 81 mg PO DAILY [facility] Last Admin: 08/24/18 09:41 Dose: 81 mg Bacitracin (Bacitracin) 1 ea TOP BID [facility] Carbidopa/Levodopa/Entacapone (Stalevo 150) 1 tab PO QID [facility] Last Admin: 08/24/18 14:42 Dose: 1 tab Metoprolol Tartrate (Lopressor) 25 mg PO BID [facility] Last Admin: 08/24/18 09:37 Dose: Not Given (Rasagiline Mesylate ([Azilect] 1 Mg)) 1 mg PO DAILY [facility] Last Admin: 08/24/18 09:41 Dose: 1 mg Nystatin (Nystop Topical Powder) 0 gm TOP DAILY PRN PRN Reason: Itching / Pruritus Last Admin: 08/10/18 16:24 Dose: 1 applic Pantoprazole Sodium (Protonix Susp) 40 mg PO 0600 [facility] Last Admin: 08/24/18 09:41 Dose: 40 mg Petrolatum (Desitin Maximum Strength Topical 40% Oint) 0 gm TOP Q4H [facility] Last Admin: 08/24/18 14:43 Dose: 1 oin Pramipexole Dihydrochloride (Mirapex) 0.5 mg PO WM [facility] Last Admin: 08/24/18 14:42 Dose: 0.5 mg Thiamine HCl (Vitamin B1 Tab) 200 mg PO DAILY [facility] Last Admin: 08/24/18 09:41 Dose: 200 mg - Labs Labs: 08/24/18 06:00 08/24/18 06:00 PT 14.9 SECONDS (9.4-12.5) H 08/24/18 09:26 INR 1.29 08/24/18 09:26 APTT 29.7 Seconds (25.1-36.5) 08/24/18 09:26 Attending/Attestation - Attestation I have personally seen and examined this patient.: Yes I have fully participated in the care of the patient.: Yes I have reviewed all pertinent clinical information, including history, physical exam and plan: Yes Notes (Text): Patient seen and examined by me with resident at 9:25AM on 08/24/18. Case including HPI, physical exam, and assessment and plan discussed with resident. Agree with above with following additions/corrections. Patient is an 88-year-old male with past medical history significant for Parkinson's disease, dementia, HTN, and ESBL UTI that presented to the emergency room from [facility] with lethargy, failure to thrive, and fever. Patient is awake and alert. Patient with some confusion. States he is coughing and has pain when he coughs. Denies any shortness of breath. No chest pain. No abdominal pain. Per patient's nurse, was new edema and small laceration noted on head of penis. Patient afebrile. Unsure if review of systems accurate as patient with dementia and confusion. Physical exam: General: Awake and alert lying in bed in no acute distress. HEENT: Normocephalic, atraumatic. Extraocular muscles intact, pupils equal and reactive, no scleral icterus. Oropharynx is pink. Positive NG tube in place with feeds. Cardiovascular: Regular rhythm. Normal S1 and S2. No murmurs, rubs, or gallops appreciated Pulmonary: Normal respiratory effort. Decreased breath sounds. No rhonchi, rales, or wheezing appreciated. Gastrointestinal: Soft, nondistended. Nontender. Positive bowel sounds all 4 quadrants. No guarding. Musculoskeletal: Moves all extremities. : Positive small laceration noted on head of penis with minimal bleeding. Smith catheter in place. Central nervous system: Awake and alert Dermatologic: Skin warm and dry. Postive sacral ulcer. Assessment and plan: Patient is an 88-year-old male with past medical history significant for Parkinson's disease, dementia, HTN, and ESBL UTI that presented to the emergency room from [facility] with lethargy, failure to thrive, and fever. 1. Failure to thrive. Any with feeds via NG tube. GI following, recommendations appreciated. Patient likely for PEG tube placement tomorrow. Continue aspiration precautions. Speech and swallow following, recommendations appreciated. 2. Status post severe sepsis secondary to Escherichia coli UTI and healthcare associated pneumonia. Patient status post treatment with 12 days of Merrem. Patient afebrile. No leukocytosis. ID following, recommendations aprpeciated. Repeat urine culture with no growth. Blood cultures with no growth. Continue to monitor off antibiotics. 3. Sacral ulcer. Wound culture positive for Pseudomonas and Estela. Per ID, likely colonizers. Continue local wound care. Patient s/p treatment with 12 days of Merrem. No antibiotics indicated currently per ID. Turn [id number]. Continue with air mattress. 4. Small laceration on head of penis. Started on Bacitracin. Continue to monitor area. 5. Dementia Continue with supportive care. Continue with mittens. May worsening of Parkinsons dementia. Fall precuations. 6. Parkinson's disease. Continue Stalevo, Azilect. Continue Mirapex 7. Essential Hypertension. Continue lopressor 8. Anemia. H&H downtrending. Continue to monitor CBC. 9. RENNY. Resolved. Continue to monitor. 10. DVT prophylaxis. Held for PEG placement tomorrow 11. Patient is a full code.
--- NOTE | 2018-08-24 08:35 | CP.PCM.PN ---
Subjective - Date & Time of Evaluation Date of Evaluation: 08/24/18 Time of Evaluation: 07:00 - Subjective Subjective: Semi fowlers position in bed, awake, open eyes to name Reason for consultation and follow up:Cardiac evaluation for abnormal troponin, altered mental status, urosepsis Seen and examined by me and Dr. Bolanos Objective - Vital Signs/Intake and Output Vital Signs (last 24 hours): Temp Pulse Resp BP Pulse Ox 98.3 F 75 18 108/47 L 95 08/24/18 06:00 08/24/18 06:00 08/24/18 06:00 08/24/18 06:00 08/23/18 22:07 Intake and Output: 08/24/18 08/24/18 06:59 18:59 Intake Total 600 Output Total 1525 Balance -925 - Medications Medications: Current Medications Acetylcysteine (Acetylcysteine 20%) 4 ml IH [id number] [facility] Last Admin: 08/24/18 02:13 Dose: Not Given Artificial Tears (Artificial Tears Opht Oint) 0 gm OU BID PRN PRN Reason: Dry eyes Last Admin: 08/10/18 16:25 Dose: 1 applic Aspirin (Aspirin Chewable) 81 mg PO DAILY [facility] Last Admin: 08/23/18 09:53 Dose: 81 mg Carbidopa/Levodopa/Entacapone (Stalevo 150) 1 tab PO QID [facility] Last Admin: 08/23/18 23:03 Dose: 1 tab Metoprolol Tartrate (Lopressor) 25 mg PO BID [facility] Last Admin: 08/23/18 17:46 Dose: Not Given (Rasagiline Mesylate ([Azilect] 1 Mg)) 1 mg PO DAILY [facility] Last Admin: 08/23/18 11:33 Dose: 1 mg Nystatin (Nystop Topical Powder) 0 gm TOP DAILY PRN PRN Reason: Itching / Pruritus Last Admin: 08/10/18 16:24 Dose: 1 applic Pantoprazole Sodium (Protonix Susp) 40 mg PO 0600 [facility] Last Admin: 08/23/18 05:44 Dose: 40 mg Petrolatum (Desitin Maximum Strength Topical 40% Oint) 0 gm TOP Q4H [facility] Last Admin: 08/24/18 04:27 Dose: Not Given Pramipexole Dihydrochloride (Mirapex) 0.5 mg PO WM [facility] Last Admin: 08/23/18 17:46 Dose: 0.5 mg Thiamine HCl (Vitamin B1 Tab) 200 mg PO DAILY [facility] Last Admin: 08/23/18 09:53 Dose: 200 mg - Labs Labs: 08/24/18 06:00 08/24/18 06:00 PT 15.7 SECONDS (9.4-12.5) H 08/07/18 23:15 INR 1.37 08/07/18 23:15 APTT 57.1 Seconds (25.1-36.5) H 08/10/18 08:35 - Constitutional Appears: Non-toxic, No Acute Distress - Head Exam Head Exam: NORMAL INSPECTION, NORMOCEPHALIC - Eye Exam Eye Exam: Normal appearance - ENT Exam ENT Exam: Mucous Membranes Dry - Respiratory Exam Respiratory Exam: Decreased Breath Sounds, Rhonchi, NORMAL BREATHING PATTERN - Cardiovascular Exam Cardiovascular Exam: +S1, +S2 Additional comments: no JVD - GI/Abdominal Exam GI & Abdominal Exam: Soft, Normal Bowel Sounds Additional comments: dobbhoff catheter to left nare tube feeding - Exam Additional comments: simth catheter - Neurological Exam Neurological Exam: Alert, Awake - Psychiatric Exam Psychiatric exam: Flat Affect - Skin Skin Exam: Dry, Normal Color, Warm Assessment and Plan - Assessment and Plan (Free Text) Assessment: An 88 year old male who was brought to the ER from [facility] due to failure to thrive and fever. History of Parkinson's disease, dementia,and recent ESBL in urine, recently hospitalized in [facility] for UTI and got discharged to the intermediate. Upon admission, patient had positive borderline troponin Patient asymtomatic with altered mental status. Will treat medically/conservatively.Urine still positive for E. coli, Urosepsis, off antibiotics for now. Daughter refusing PEG insertion,on tubefeeding via dobbhoff catheter tolerating well. Completed antibiotics for urosepsis.Seen by General Surgery for sacral decubitus, no surgical intervention at this time.Orally suctioned for secretions. Swallowing evaluation done again, and continues to demonstrate, severe oropharyngeal dysphagia with high risk for aspiration,Daughter agreeable to PEG placement, For possible PEG placement Saturday08/25/18, No evidence of heart failure. No shortness of breath,Cleared from cardiac standpoint for procedure, Moderate to high risk considering co-morbidities. Plan: Swallowing evaluation done again, and continues to demonstrate severe oropharyngeal dysphagia with high risk for aspiration Daughter agreeable to PEG placement For possible PEG placement Saturday08/25/18 Cleared from cardiac standpoint for procedure Moderate to high risk considering co-morbidities No distress, Orally suctioned for secretions Cardiac status stable Heart rate controlled Blood pressure controlled Tolerating tube feeding via dobbhoff catheter Continue current treatment Continue current medications Nutritional support Chart reviewed Will follow up Plan and treatment discussed with Dr. Bolanos
[2018-08-24] MEDS: Carbidopa/Levodopa/Entacapone 37.5mg-150mg-200mg PO SCH ×4 (09:41→22:15)
[2018-08-24] MEDS: Pantoprazole 40 mg Susp UD PO SCH (09:41)
[2018-08-24] MEDS ORDERED: Bacitracin 500 Units/gm Oint Foilpak UD TOP SCH (10:15)
--- NOTE | 2018-08-24 11:10 | CP.PCM.PN ---
<David,Gertrude - Last Filed: 08/24/18 11:07> Subjective - Date & Time of Evaluation Date of Evaluation: 08/24/18 Time of Evaluation: 07:00 - Subjective Subjective: GI Fellow PGY5 Progress Note Pt seen and evaluated at bedside, pt nonverbal so unable to get a 12pt ROS. Per nursing no issues overnight. Objective - Vital Signs/Intake and Output Vital Signs (last 24 hours): Temp Pulse Resp BP Pulse Ox 98.3 F 80 18 113/50 L 95 08/24/18 06:00 08/24/18 09:37 08/24/18 06:00 08/24/18 09:37 08/23/18 22:07 Intake and Output: 08/24/18 08/24/18 06:59 18:59 Intake Total 600 Output Total 1525 Balance -925 - Medications Medications: Current Medications Acetylcysteine (Acetylcysteine 20%) 4 ml IH [id number] [facility] Last Admin: 08/24/18 08:33 Dose: Not Given Artificial Tears (Artificial Tears Opht Oint) 0 gm OU BID PRN PRN Reason: Dry eyes Last Admin: 08/10/18 16:25 Dose: 1 applic Aspirin (Aspirin Chewable) 81 mg PO DAILY [facility] Last Admin: 08/24/18 09:41 Dose: 81 mg Bacitracin (Bacitracin) 1 ea TOP BID [facility] Carbidopa/Levodopa/Entacapone (Stalevo 150) 1 tab PO QID [facility] Last Admin: 08/24/18 09:41 Dose: 1 tab Metoprolol Tartrate (Lopressor) 25 mg PO BID [facility] Last Admin: 08/24/18 09:37 Dose: Not Given (Rasagiline Mesylate ([Azilect] 1 Mg)) 1 mg PO DAILY [facility] Last Admin: 08/24/18 09:41 Dose: 1 mg Nystatin (Nystop Topical Powder) 0 gm TOP DAILY PRN PRN Reason: Itching / Pruritus Last Admin: 08/10/18 16:24 Dose: 1 applic Pantoprazole Sodium (Protonix Susp) 40 mg PO 0600 [facility] Last Admin: 08/24/18 09:41 Dose: 40 mg Petrolatum (Desitin Maximum Strength Topical 40% Oint) 0 gm TOP Q4H [facility] Last Admin: 08/24/18 04:27 Dose: Not Given Pramipexole Dihydrochloride (Mirapex) 0.5 mg PO WM [facility] Last Admin: 08/24/18 09:41 Dose: 0.5 mg Thiamine HCl (Vitamin B1 Tab) 200 mg PO DAILY [facility] Last Admin: 08/24/18 09:41 Dose: 200 mg - Labs Labs: 08/24/18 06:00 08/24/18 06:00 PT 15.7 SECONDS (9.4-12.5) H 08/07/18 23:15 INR 1.37 08/07/18 23:15 APTT 57.1 Seconds (25.1-36.5) H 08/10/18 08:35 - Constitutional Appears: Non-toxic, No Acute Distress, Confused, Cachectic, Chronically Ill - Head Exam Head Exam: ATRAUMATIC, NORMAL INSPECTION, NORMOCEPHALIC - ENT Exam ENT Exam: Mucous Membranes Dry - Respiratory Exam Respiratory Exam: Clear to Ausculation Bilateral, NORMAL BREATHING PATTERN - Cardiovascular Exam Cardiovascular Exam: REGULAR RHYTHM, RRR, +S1, +S2 - GI/Abdominal Exam GI & Abdominal Exam: Soft, Normal Bowel Sounds - Skin Skin Exam: Dry, Intact, Normal Color, Warm Assessment and Plan - Assessment and Plan (Free Text) Assessment: 88 year old male with PMH of Parkinson's, Dementia, and recent UTI presenting with altered mental status. Active treatment of sepsis due to ESBL UTI and altered mental status leading to failure to thrive with severe oropharyngeal dysphagia on swallow evaluation 08/16/18 and recommendation for NPO on speech evaluation 08/21/18. Plan: -08/21 repeat swallow evaluation-NPO -receiving nasogastric tube feeding -Daughter Manal Gamil per family now agreeable to PEG placement -Npo tomorrow, hold TF -Check labs -Will need to get consent from daughter -Plan for PEG tomorrow <Baldo Elizabeth V - Last Filed: 08/24/18 23:48> Objective - Vital Signs/Intake and Output Vital Signs (last 24 hours): Temp Pulse Resp BP Pulse Ox 98.3 F 77 16 167/61 H 95 08/24/18 22:00 08/24/18 22:00 08/24/18 22:00 08/24/18 22:00 08/24/18 22:00 - Medications Medications: Current Medications Acetylcysteine (Acetylcysteine 20%) 4 ml IH [id number] [facility] Last Admin: 08/24/18 21:15 Dose: Not Given Artificial Tears (Artificial Tears Opht Oint) 0 gm OU BID PRN PRN Reason: Dry eyes Last Admin: 08/10/18 16:25 Dose: 1 applic Aspirin (Aspirin Chewable) 81 mg PO DAILY [facility] Last Admin: 08/24/18 09:41 Dose: 81 mg Bacitracin (Bacitracin) 1 ea TOP BID [facility] Last Admin: 08/24/18 19:06 Dose: 1 ea Carbidopa/Levodopa/Entacapone (Stalevo 150) 1 tab PO QID [facility] Last Admin: 08/24/18 22:15 Dose: 1 tab Metoprolol Tartrate (Lopressor) 25 mg PO BID [facility] Last Admin: 08/24/18 17:41 Dose: Not Given (Rasagiline Mesylate ([Azilect] 1 Mg)) 1 mg PO DAILY [facility] Last Admin: 08/24/18 09:41 Dose: 1 mg Nystatin (Nystop Topical Powder) 0 gm TOP DAILY PRN PRN Reason: Itching / Pruritus Last Admin: 08/10/18 16:24 Dose: 1 applic Pantoprazole Sodium (Protonix Susp) 40 mg PO 0600 [facility] Last Admin: 08/24/18 09:41 Dose: 40 mg Petrolatum (Desitin Maximum Strength Topical 40% Oint) 0 gm TOP Q4H [facility] Last Admin: 08/24/18 22:04 Dose: 1 oin Pramipexole Dihydrochloride (Mirapex) 0.5 mg PO WM [facility] Last Admin: 08/24/18 17:44 Dose: 0.5 mg Thiamine HCl (Vitamin B1 Tab) 200 mg PO DAILY [facility] Last Admin: 08/24/18 09:41 Dose: 200 mg - Labs Labs: 08/24/18 06:00 08/24/18 06:00 PT 14.9 SECONDS (9.4-12.5) H 08/24/18 09:26 INR 1.29 08/24/18 09:26 APTT 29.7 Seconds (25.1-36.5) 08/24/18 09:26 Attending/Attestation - Attestation I have personally seen and examined this patient.: Yes I have fully participated in the care of the patient.: Yes I have reviewed all pertinent clinical information, including history, physical exam and plan: Yes Notes (Text): This is an addendum to GI progress report dictated by the GI Fellow.The patient was seen and examined earlier. Medical records, lab studies, imagings were reviewed. Last 24 hours events reviewed. Agreed with the above treatment plan as outlined in GI Fellow 's notes with the addition of the following 08/24/18 23:48
[2018-08-24 11:22] LABS: INR 1.29; PARTIAL THROMBOPLASTIN TIME 29.7 Seconds (25.1-36.5); PROTHROMBIN TIME 14.9 SECONDS (9.4-12.5)
--- NOTE | 2018-08-24 11:51 | CP.PCM.PN ---
Subjective - Date & Time of Evaluation Date of Evaluation: 08/24/18 Time of Evaluation: 09:20 - Subjective Subjective: Not in distress, no fevers. Objective - Vital Signs/Intake and Output Vital Signs (last 24 hours): Temp Pulse Resp BP Pulse Ox 98.9 F 72 16 115/62 95 08/23/18 09:38 08/23/18 09:53 08/23/18 09:38 08/23/18 09:53 08/23/18 09:38 Intake and Output: 08/23/18 08/23/18 06:59 18:59 Output Total 700 Balance -700 - Medications Medications: Current Medications Acetylcysteine (Acetylcysteine 20%) 4 ml IH [id number] [facility] Last Admin: 08/23/18 10:19 Dose: Not Given Artificial Tears (Artificial Tears Opht Oint) 0 gm OU BID PRN PRN Reason: Dry eyes Last Admin: 08/10/18 16:25 Dose: 1 applic Aspirin (Aspirin Chewable) 81 mg PO DAILY [facility] Last Admin: 08/23/18 09:53 Dose: 81 mg Carbidopa/Levodopa/Entacapone (Stalevo 150) 1 tab PO QID [facility] Last Admin: 08/23/18 09:53 Dose: 1 tab Sodium Chloride (Sodium Chloride 0.9%) 500 mls @ 50 mls/hr IV .Q10H STA Stop: 08/23/18 21:04 Last Admin: 08/23/18 11:33 Dose: 50 mls/hr Metoprolol Tartrate (Lopressor) 25 mg PO BID [facility] Last Admin: 08/23/18 09:53 Dose: 25 mg (Rasagiline Mesylate ([Azilect] 1 Mg)) 1 mg PO DAILY [facility] Last Admin: 08/23/18 11:33 Dose: 1 mg Nystatin (Nystop Topical Powder) 0 gm TOP DAILY PRN PRN Reason: Itching / Pruritus Last Admin: 08/10/18 16:24 Dose: 1 applic Pantoprazole Sodium (Protonix Susp) 40 mg PO 0600 [facility] Last Admin: 08/23/18 05:44 Dose: 40 mg Petrolatum (Desitin Maximum Strength Topical 40% Oint) 0 gm TOP Q4H [facility] Last Admin: 08/23/18 11:35 Dose: 1 oin Pramipexole Dihydrochloride (Mirapex) 0.5 mg PO WM [facility] Last Admin: 08/23/18 09:53 Dose: 0.5 mg Thiamine HCl (Vitamin B1 Tab) 200 mg PO DAILY [facility] Last Admin: 08/23/18 09:53 Dose: 200 mg - Labs Labs: 08/23/18 07:00 08/23/18 07:00 PT 15.7 SECONDS (9.4-12.5) H 08/07/18 23:15 INR 1.37 08/07/18 23:15 APTT 57.1 Seconds (25.1-36.5) H 08/10/18 08:35 - Constitutional Appears: Chronically Ill - Head Exam Head Exam: NORMAL INSPECTION - Respiratory Exam Respiratory Exam: Decreased Breath Sounds - Cardiovascular Exam Cardiovascular Exam: +S1, +S2 - GI/Abdominal Exam GI & Abdominal Exam: Soft. absent: Tenderness Assessment and Plan - Assessment and Plan (Free Text) Plan: Assessment S/P Severe sepsis due to ESBL E. coli UTI as well as left lower lobe HCAP Parkinson's disease dementia Plan completed 12 days of Merrem - will continue to monitor off antibiotics since he is at risk for healthcare-associated infections urine cx was repeated and it is now negative Pseudomonas and Estela from sacral cx are probably colonizers - no need to treat with antibiotics - discussed with Dr. Linder overall prognosis is poor
[2018-08-24] MEDS: Bacitracin 500 Units/gm Oint Foilpak UD TOP SCH (19:06)
[2018-08-25] MEDS: Pantoprazole 40 mg Susp UD PO SCH ×2 (06:42)
[2018-08-25] MEDS: Zinc Oxide Topical 40% Oint (Desitin) TOP SCH ×4 (07:00→22:39)
[2018-08-25 07:16] LABS: HEMOGLOBIN 10.4 g/dL (14.0-18.0); MEAN CELL VOLUME 91.8 fl (80.0-105.0); MEAN CORPUSCULAR HEMOGLOBIN 29.4 pg (25.0-35.0); MEAN PLATELET VOLUME 9.6 fl (7.0-11.0); RBC 3.54 10^6/uL (3.5-6.1); WHITE BLOOD COUNT 6.5 10^3/uL (4.5-11.0)
[2018-08-25 07:39] LABS: ALB/GLOB RATIO 0.7 (1.1-1.8); ALBUMIN 2.7 g/dL (3.0-4.8); ALT/SGPT 20 U/L (7-56); AST/SGOT 25 U/L (17-59); BLOOD UREA NITROGEN 23 mg/dL (7-21); CALCIUM 8.1 mg/dL (8.4-10.5); GFR NON-AFRICAN AMERICAN > 60
[2018-08-25] MEDS: Acetylcysteine 20% Inhal Soln (4ml) IH SCH ×3 (07:47→19:55)
[2018-08-25] MEDS: Albuterol-Ipratrop 3 mg / 0.5 (3 ml) UD IH SCH ×3 (07:47→19:55)
--- NOTE | 2018-08-25 08:15 | PN ---
DATE: 08/24/2018 ADDENDUM LOCATION: The patient is in room 577, bed 2. Progress note has been already dictated by Samantha Gonzalez. So, this is an addendum to that. The patient who was admitted with failure to thrive, found to have urosepsis. The patient has known parkinsonism, dementia, now found to have severe oropharyngeal dysphagia, seen on the swallowing evaluation. So, the patient needs a PEG tube. The patient is being fed by Dobbhoff tube. Previously, the family did not want to put PEG tube, now they agreed. The patient is scheduled for a PEG tube insertion on 08/25/2018. From a cardiac point of view, the patient can go for the procedure with [id number] risk because of other comorbidities and general condition of the patient, but there is no absolute contraindication to do that procedure. The patient is unable to swallow and is at high risk for aspiration. We will continue to follow with you. Serena Bolanos MD (Delete this signature block when dictator is a preceptor.) cc: MD Seth (Delete if not dictated.)
--- NOTE | 2018-08-25 09:18 | CP.PCM.PN ---
Subjective - Date & Time of Evaluation Date of Evaluation: 08/25/18 Time of Evaluation: 07:15 - Subjective Subjective: Pa Rodrigues, PGY-1 Progress Note for Hospitalist Service Patient seen and evaluated at bedside. Nebulizer treatment in progress. No acute events reported overnight. Hand mittens in place. Plan for PEG placement today. Objective - Vital Signs/Intake and Output Vital Signs (last 24 hours): Temp Pulse Resp BP Pulse Ox 98 F 77 18 130/84 97 08/25/18 06:00 08/25/18 06:00 08/25/18 06:00 08/25/18 06:00 08/25/18 06:00 Intake and Output: 08/25/18 08/25/18 06:59 18:59 Output Total 800 Balance -800 - Medications Medications: Current Medications Acetylcysteine (Acetylcysteine 20%) 4 ml IH [id number] [facility] Last Admin: 08/25/18 07:47 Dose: 4 ml Albuterol/Ipratropium (Duoneb 3 Mg/0.5 Mg (3 Ml) Ud) 3 ml IH [id number] [facility] Last Admin: 08/25/18 07:47 Dose: 3 ml Artificial Tears (Artificial Tears Opht Oint) 0 gm OU BID PRN PRN Reason: Dry eyes Last Admin: 08/10/18 16:25 Dose: 1 applic Aspirin (Aspirin Chewable) 81 mg PO DAILY [facility] Last Admin: 08/24/18 09:41 Dose: 81 mg Bacitracin (Bacitracin) 1 ea TOP BID [facility] Last Admin: 08/24/18 19:06 Dose: 1 ea Carbidopa/Levodopa/Entacapone (Stalevo 150) 1 tab PO QID [facility] Last Admin: 08/24/18 22:15 Dose: 1 tab Sodium Chloride (Sodium Chloride 0.9%) 1,000 mls @ 100 mls/hr IV .Q10H [facility] Metoprolol Tartrate (Lopressor) 25 mg PO BID [facility] Last Admin: 08/24/18 17:41 Dose: Not Given (Rasagiline Mesylate ([Azilect] 1 Mg)) 1 mg PO DAILY [facility] Last Admin: 08/24/18 09:41 Dose: 1 mg Nystatin (Nystop Topical Powder) 0 gm TOP DAILY PRN PRN Reason: Itching / Pruritus Last Admin: 08/10/18 16:24 Dose: 1 applic Pantoprazole Sodium (Protonix Susp) 40 mg PO 0600 [facility] Last Admin: 08/25/18 06:42 Dose: 40 mg Petrolatum (Desitin Maximum Strength Topical 40% Oint) 0 gm TOP Q4H [facility] Last Admin: 08/24/18 22:04 Dose: 1 oin Pramipexole Dihydrochloride (Mirapex) 0.5 mg PO WM [facility] Last Admin: 08/24/18 17:44 Dose: 0.5 mg Thiamine HCl (Vitamin B1 Tab) 200 mg PO DAILY [facility] Last Admin: 08/24/18 09:41 Dose: 200 mg - Labs Labs: 08/25/18 06:45 08/25/18 06:45 PT 14.9 SECONDS (9.4-12.5) H 08/24/18 09:26 INR 1.29 08/24/18 09:26 APTT 29.7 Seconds (25.1-36.5) 08/24/18 09:26 - Additional Findings Additional findings: - Constitutional Appears: No Acute Distress, Cachectic - Head Exam Head Exam: ATRAUMATIC, NORMAL INSPECTION, NORMOCEPHALIC - Eye Exam Eye Exam: EOMI, PERRL - Respiratory Exam Respiratory Exam: Rales in lower lobes b/l, NORMAL BREATHING PATTERN. absent: Clear to Ausculation Bilateral, Wheezes - Cardiovascular Exam Cardiovascular Exam: REGULAR RHYTHM, +S1, +S2 - GI/Abdominal Exam GI & Abdominal Exam: Soft. absent: Rigid, Tenderness - Exam Exam: Circumcision. absent: Scrotal Swelling, Uretheral Discharge Additional comments: Small laceration on underside of urethral opening underneath smith catheter. Minimal blood present - Neurological Exam Neurological Exam: Alert, Awake - Psychiatric Exam Psychiatric exam: Flat Affect - Skin Skin Exam: Dry Additional comments: sacral decubitus ulcer/wound present with minimal serosanguinous drainage, no pus, swelling or warmth appreciated Assessment and Plan - Assessment and Plan (Free Text) Assessment: Assessment: Patient is a 88 y/o M with PMHx of Parkinson's disease, dementia, and recent ESBL + UTI [facility] with complaints of lethargy, failure to thrive, and fever found to have UTI. Patient was admitted for AMS due to Sepsis 2/2 ESBL UTI, Failure to thrive, hypernatremia (improved), and acute renal failure (improved). Peg tube planned to be placed today. Plan: Failure To Thrive - Patient's daughter (Gordon) is now agreeable for PEG tube placement since patient may lose bed placement at [facility]. - F/U PEG tube placement today per GI. Would appreciate GI recs before possible return to [facility] pending successful PEG placement. Cardiology cleared patient for procedure with moderate morbidity. - Patient is failing multiple speech/swallow evaluations. - Last speech/swallow was on 08/21: patient is still high risk aspiration and unable to tolerate PO trials - Palliative care is following Sacral Wound Ulcer - Sacral wound cx +pseudomonas - Surgery consulted. Recommended conservative management: air mattress, q2 turns, f/u stool c. diff, desitin. No surgical intervention. - Patient has already completed meropenem course - continue lucho topical 40% ointment AMS in the setting of Sepsis 2/2 ESBL UTI - ID has discontinued antibiotics; completion of 14 days of meropenem. Consider supportive care. - Most recent urine cx is negative - c/w patient's home Parkinson's medications - Mental status has improved but not at baseline (as per daughter) - c/w mitten restraints - May start nighttime seroquel or Trazodone tomorrow for baseline mentation - CT Head: no acute findings - afebrile and no leukocytosis Pulmonary Congestion likely due to aspiration and/or PNA - improving - c/w Chest PT - c/w mucomyst q6H - c/w duonebs q6 - CXR negative - completed 12 days of merrem for LLL pneumonia [facility] Pre-renal RENNY - improved - Most recent BUN/Cr is wnl - Cr initially 2.1 on admission - Smith is draining Parkinson's Disease - continue carbidopa/levodopa/entacapone 25mg po bid - continue mirapex 0.5mg po wm jesse - continue azilect 1mg po qd - aspiration precautions Urethral laceration - Smith catheter to be removed; small urethral tear at inferior aspect of opening - Bacitracin ordered and to be applied to affected area - Continue to monitor GI ppx: Protonix DVT ppx: SCDs Dispo: PEG tube planned for today. If PEG is successful, patient will likely return to [facility]. Patient seen, case reviewed, and plan approved by Dr. Avila. Pa Rodrigues, PGY-1
[2018-08-25] MEDS: Carbidopa/Levodopa/Entacapone 37.5mg-150mg-200mg PO SCH ×3 (10:00→22:38)
[2018-08-25] MEDS: Sodium Chloride 0.9% 1,000 ML IV SCH (12:18)
--- NOTE | 2018-08-25 12:23 | CP.PCM.PN ---
Subjective - Date & Time of Evaluation Date of Evaluation: 08/25/18 Time of Evaluation: 08:55 - Subjective Subjective: Afebrile, comfortable. Objective - Vital Signs/Intake and Output Vital Signs (last 24 hours): Temp Pulse Resp BP Pulse Ox 98.3 F 80 18 113/50 L 95 08/24/18 06:00 08/24/18 09:37 08/24/18 06:00 08/24/18 09:37 08/23/18 22:07 Intake and Output: 08/24/18 08/24/18 06:59 18:59 Intake Total 600 Output Total 1525 Balance -925 - Medications Medications: Current Medications Acetylcysteine (Acetylcysteine 20%) 4 ml IH [id number] [facility] Last Admin: 08/24/18 08:33 Dose: Not Given Artificial Tears (Artificial Tears Opht Oint) 0 gm OU BID PRN PRN Reason: Dry eyes Last Admin: 08/10/18 16:25 Dose: 1 applic Aspirin (Aspirin Chewable) 81 mg PO DAILY [facility] Last Admin: 08/24/18 09:41 Dose: 81 mg Bacitracin (Bacitracin) 1 ea TOP BID [facility] Carbidopa/Levodopa/Entacapone (Stalevo 150) 1 tab PO QID [facility] Last Admin: 08/24/18 09:41 Dose: 1 tab Metoprolol Tartrate (Lopressor) 25 mg PO BID [facility] Last Admin: 08/24/18 09:37 Dose: Not Given (Rasagiline Mesylate ([Azilect] 1 Mg)) 1 mg PO DAILY [facility] Last Admin: 08/24/18 09:41 Dose: 1 mg Nystatin (Nystop Topical Powder) 0 gm TOP DAILY PRN PRN Reason: Itching / Pruritus Last Admin: 08/10/18 16:24 Dose: 1 applic Pantoprazole Sodium (Protonix Susp) 40 mg PO 0600 [facility] Last Admin: 08/24/18 09:41 Dose: 40 mg Petrolatum (Desitin Maximum Strength Topical 40% Oint) 0 gm TOP Q4H [facility] Last Admin: 08/24/18 11:37 Dose: 1 oin Pramipexole Dihydrochloride (Mirapex) 0.5 mg PO WM [facility] Last Admin: 08/24/18 09:41 Dose: 0.5 mg Thiamine HCl (Vitamin B1 Tab) 200 mg PO DAILY [facility] Last Admin: 08/24/18 09:41 Dose: 200 mg - Labs Labs: 08/24/18 06:00 08/24/18 06:00 PT 14.9 SECONDS (9.4-12.5) H 08/24/18 09:26 INR 1.29 08/24/18 09:26 APTT 29.7 Seconds (25.1-36.5) 08/24/18 09:26 - Constitutional Appears: Chronically Ill - Head Exam Head Exam: NORMAL INSPECTION - Respiratory Exam Respiratory Exam: Decreased Breath Sounds - Cardiovascular Exam Cardiovascular Exam: +S1, +S2 - GI/Abdominal Exam GI & Abdominal Exam: Soft. absent: Tenderness Assessment and Plan - Assessment and Plan (Free Text) Plan: Assessment S/P Severe sepsis due to ESBL E. coli UTI as well as left lower lobe HCAP Parkinson's disease dementia Plan completed 12 days of Merrem - will continue to monitor off antibiotics since he is at risk for healthcare-associated infections urine cx was repeated and it is now negative Pseudomonas and Estela from sacral cx are probably colonizers - no need to treat with antibiotics - discussed with Dr. Linder overall prognosis is poor
[2018-08-25] MEDS: Bacitracin 500 Units/gm Oint Foilpak UD TOP SCH (14:31)
--- NOTE | 2018-08-25 15:49 | PN ---
DATE: 08/25/2018 REASON FOR CONSULTATION AND FOLLOWUP: Preop evaluation, risk stratification for possible PEG placement. SUBJECTIVE: The patient is lying in the bed, not in apparent distress, Dobbhoff possible for PEG placement today. PHYSICAL EXAMINATION VITAL SIGNS: Temperature afebrile, heart rate 77, blood pressure 130/84. HEENT: PERRLA. Extraocular muscles intact. NECK: Supple. No carotid bruit. No thyromegaly. CHEST: Clear to auscultation. HEART: S1, S2 regular. ABDOMEN: Soft. EXTREMITIES: Clubbing and cyanosis negative. LABORATORY DATA: Blood workup as follows; WBC 6.5, hemoglobin , hematocrit 32.5, platelet count 283,000. Chemistry shows sodium 132, potassium 4.4, chloride 99, carbon dioxide 28, anion gap of 9, BUN 23, creatinine 0.6. IMPRESSION AND PLAN: An 88-year-old male with a past medical history significant for altered mental status, recently discharged from [facility], was transferred because of lethargy, lack of inability to eat, borderline troponin positive, sepsis, altered mental status, asymptomatic, possibly some element of dementia, inability to swallow, failed multiple times swallowing evaluation of a Dobbhoff tube. Initially, family was refusing the percutaneous endoscopic gastrostomy, now they have agreed for percutaneous endoscopic gastrostomy. The patient is okay to go for percutaneous endoscopic gastrostomy with moderate risk of underlying comorbidity. Overall, the patient's condition is critical. Long-term prognosis is guarded. Once the percutaneous endoscopic gastrostomy is placed, we will start oral medications. The patient has underlying Parkinson disease. Continue carbidopa. We will follow with you. Thank you Dr. Linder for providing the opportunity in taking care of the patient, Sravan Masterson. Serena Soto MD
[2018-08-25] MEDS ORDERED: Propofol 10 mg/ml Inj (20 ML) ONE (17:22)
[2018-08-25] MEDS ORDERED: ceFAZolin 1 gm in NS 1 GM/100 ML BAG IVPB STA (17:34)
[2018-08-25] MEDS ORDERED: Sodium Chloride 0.9% 1,000 ML IV SCH (18:30)
[2018-08-25] MEDS ORDERED: Dextrose 5%/0.45% NS 1,000 ML IV SCH (20:30)
[2018-08-26] MEDS: Acetylcysteine 20% Inhal Soln (4ml) IH SCH ×3 (03:46→13:03)
[2018-08-26] MEDS: Albuterol-Ipratrop 3 mg / 0.5 (3 ml) UD IH SCH ×3 (03:47→13:03)
[2018-08-26] MEDS: Zinc Oxide Topical 40% Oint (Desitin) TOP SCH ×3 (05:58→12:42)
[2018-08-26] MEDS: Pantoprazole 40 mg Susp UD PO SCH (06:00)
[2018-08-26 07:25] LABS: BASO # 0.01 K/mm3 (0.0-2.0); BASO % 0.2 % (0.0-3.0); EOS % 0.7 % (1.5-5.0); GRAN # 4.6 (1.4-6.5); GRAN % 80.2 % (50.0-68.0); LYMPH # 0.6 (1.2-3.4); MEAN CELL VOLUME 92.2 fl (80.0-105.0); MEAN CORPUSCULAR HEMOGLOBIN 29.9 pg (25.0-35.0); MEAN CORPUSCULAR HGB CONC 32.4 g/dl (31.0-37.0); MEAN PLATELET VOLUME 9.5 fl (7.0-11.0); MONO # 0.5 (0.1-0.6); MONO % 7.9 % (1.0-6.0); RBC 3.35 10^6/uL (3.5-6.1); RED CELL DISTRIBUTION WIDTH 14.9 % (11.5-14.5); WHITE BLOOD COUNT 5.7 10^3/uL (4.5-11.0)
[2018-08-26 07:39] LABS: ALB/GLOB RATIO 0.7 (1.1-1.8); ALBUMIN 2.4 g/dL (3.0-4.8); ALT/SGPT 21 U/L (7-56); AST/SGOT 24 U/L (17-59); BLOOD UREA NITROGEN 21 mg/dL (7-21); CALCIUM 8.4 mg/dL (8.4-10.5); GFR NON-AFRICAN AMERICAN > 60
[2018-08-26 08:42] VITALS: BP 132/59; PULSE 86; RESP 16; TEMP 98.1; O2SAT 97
--- NOTE | 2018-08-26 08:43 | CP.PCM.PN ---
<Opal Gambino - Last Filed: 08/26/18 08:40> Subjective - Date & Time of Evaluation Date of Evaluation: 08/26/18 Time of Evaluation: 08:43 - Subjective Subjective: Gastroenterology Fellow/PGY6 Progress Note Patient more alert today. Responds to name and greeting. No signs of discomfort. PEG placed yesterday without complication. A 12-point review of systems not able to be completed without response to questioning. Objective - Vital Signs/Intake and Output Vital Signs (last 24 hours): Temp Pulse Resp BP Pulse Ox 98.2 F 16 L 88 H 126/61 100 08/25/18 23:17 08/25/18 23:17 08/25/18 23:17 08/25/18 23:17 08/25/18 23:17 Intake and Output: 08/26/18 08/26/18 06:59 18:59 Output Total 700 Balance -700 - Medications Medications: Current Medications Acetaminophen (Tylenol 325mg Tab) 650 mg PO Q6H PRN PRN Reason: Pain, moderate (4-7) Acetylcysteine (Acetylcysteine 20%) 4 ml IH [id number] [facility] Last Admin: 08/26/18 07:15 Dose: 4 ml Albuterol/Ipratropium (Duoneb 3 Mg/0.5 Mg (3 Ml) Ud) 3 ml IH [id number] [facility] Last Admin: 08/26/18 07:15 Dose: 3 ml Aspirin (Aspirin Chewable) 81 mg PO DAILY [facility] Last Admin: 08/25/18 14:31 Dose: Not Given Bacitracin (Bacitracin) 1 ea TOP BID [facility] Last Admin: 08/25/18 14:31 Dose: 1 ea Carbidopa/Levodopa/Entacapone (Stalevo 150) 1 tab PO QID [facility] Last Admin: 08/25/18 22:38 Dose: 1 tab Sodium Chloride (Sodium Chloride 0.9%) 1,000 mls @ 100 mls/hr IV .Q10H [facility] Last Admin: 08/25/18 12:18 Dose: 100 mls/hr Dextrose/Sodium Chloride (Dextrose 5%/0.45% Ns 1000 Ml) 1,000 mls @ 80 mls/hr IV .[id number] [facility] Last Admin: 08/25/18 22:38 Dose: 80 mls/hr (Rasagiline Mesylate ([Azilect] 1 Mg)) 1 mg PO DAILY [facility] Last Admin: 08/25/18 14:32 Dose: Not Given Pantoprazole Sodium (Protonix Susp) 40 mg PO 0600 [facility] Last Admin: 08/26/18 06:00 Dose: 40 mg Petrolatum (Desitin Maximum Strength Topical 40% Oint) 0 gm TOP Q4H [facility] Last Admin: 08/26/18 05:58 Dose: Not Given Pramipexole Dihydrochloride (Mirapex) 0.5 mg PO WM [facility] Last Admin: 08/25/18 14:32 Dose: Not Given Thiamine HCl (Vitamin B1 Tab) 200 mg PO DAILY [facility] Last Admin: 08/25/18 14:37 Dose: Not Given - Labs Labs: 08/26/18 07:10 08/26/18 07:10 PT 14.9 SECONDS (9.4-12.5) H 08/24/18 09:26 INR 1.29 08/24/18 09:26 APTT 29.7 Seconds (25.1-36.5) 08/24/18 09:26 - Constitutional Appears: Non-toxic, No Acute Distress - Head Exam Head Exam: ATRAUMATIC, NORMOCEPHALIC - Eye Exam Eye Exam: EOMI, PERRL Pupil Exam: PERRL. absent: Miosis, Mydriatic - ENT Exam ENT Exam: Mucous Membranes Dry, Normal Oropharynx - Neck Exam Neck Exam: Normal Inspection - Respiratory Exam Respiratory Exam: Clear to Ausculation Bilateral. absent: Rales, Rhonchi, Wheezes - Cardiovascular Exam Cardiovascular Exam: RRR, +S1, +S2. absent: Gallop, Rubs - GI/Abdominal Exam GI & Abdominal Exam: Soft, Normal Bowel Sounds. absent: Distended, Firm, Guarding, Rigid, Tenderness, Organomegaly, Rebound - Extremities Exam Extremities Exam: Normal Inspection. absent: Pedal Edema - Neurological Exam Neurological Exam: Alert, Awake - Psychiatric Exam Psychiatric exam: Normal Affect, Normal Mood - Skin Skin Exam: Dry, Intact, Normal Color, Warm Assessment and Plan - Assessment and Plan (Free Text) Assessment: 88 year old male with PMH of Parkinson's, Dementia, and recent UTI presenting with altered mental status. Active treatment of sepsis due to ESBL UTI and altered mental status leading to failure to thrive with severe oropharyngeal dysphagia on swallow evaluation 08/16/18 and recommendation for NPO on speech evaluation 08/21/18. Plan: -POD1 (08/25) PEG placement, re-adjusted -ordered to start tube feeds, flushes, and medication administration -discussed feeds with daughter -patient more alert today, continue to monitor swallowing ability for possible pleasure feeds -ordered swallow evaluation -will follow clinical course <Baldo Elizabeth V - Last Filed: 08/26/18 23:55> Objective - Vital Signs/Intake and Output Vital Signs (last 24 hours): Temp Pulse Resp BP Pulse Ox 98.1 F 86 16 132/59 L 97 08/26/18 08:39 08/26/18 08:39 08/26/18 08:39 08/26/18 08:39 08/26/18 08:39 - Labs Labs: 08/26/18 07:10 08/26/18 07:10 PT 14.9 SECONDS (9.4-12.5) H 08/24/18 09:26 INR 1.29 08/24/18 09:26 APTT 29.7 Seconds (25.1-36.5) 08/24/18 09:26 Attending/Attestation - Attestation I have personally seen and examined this patient.: Yes I have fully participated in the care of the patient.: Yes I have reviewed all pertinent clinical information, including history, physical exam and plan: Yes Notes (Text): This is an addendum to GI progress report dictated by the GI Fellow.The patient was seen and examined earlier. Medical records, lab studies, imagings were reviewed. Last 24 hours events reviewed. Agreed with the above treatment plan as outlined in GI Fellow 's notes with the addition of the following 08/26/18 23:55
[2018-08-26] MEDS: Carbidopa/Levodopa/Entacapone 37.5mg-150mg-200mg PO SCH (09:39)
[2018-08-26] MEDS: Bacitracin 500 Units/gm Oint Foilpak UD TOP SCH (09:41)
[2018-08-26] MEDS: Sodium Chloride 0.9% 1,000 ML IV SCH (12:49)
--- NOTE | 2018-08-26 14:08 | CP.PCM.DIS ---
Provider - Provider Date of Admission: 08/07/18 17:32 Attending physician: Melodie Hurst DO Consults: Cardio - Dr. Soto Palliative - Germaine HARRIS - Dr. Duranssian Nephro - Dr. Beck GI - Dr Arboleda, Clara Surgery - Dr. Rodriguez Time Spent in preparation of Discharge (in minutes): 40 Hospital Course - Lab Results Lab Results: Micro Results 08/19/18 07:00 Sacral Gram Stain - Final 08/19/18 07:00 Sacral Wound Culture - Final Pseudomonas Aeruginosa Estela Albicans 08/19/18 16:00 Urine,Jeffrey Urine Culture - Final No Growth (<1,000 CFU/ML) 08/13/18 10:30 Blood-Venous Blood Culture - Final NO GROWTH AFTER 5 DAYS 08/13/18 10:30 Blood-Venous Gram Stain - Final TEST NOT PERFORMED 08/13/18 10:00 Blood-Venous Blood Culture - Final NO GROWTH AFTER 5 DAYS 08/13/18 10:00 Blood-Venous Gram Stain - Final TEST NOT PERFORMED 08/07/18 16:30 Blood Blood Culture - Final NO GROWTH AFTER 5 DAYS 08/07/18 16:30 Blood Gram Stain - Final TEST NOT PERFORMED 08/07/18 16:16 Blood Blood Culture - Final NO GROWTH AFTER 5 DAYS 08/07/18 20:15 Naris MRSA Culture (Admit) - Final MRSA NOT DETECTED 08/07/18 23:15 Urine,Jeffrey Urine Culture - Final Escherichia Coli 08/07/18 17:20 Urine,Catheterized Urine Culture - Final Escherichia Coli Most Recent Lab Values WBC 5.7 10^3/uL (4.5-11.0) 08/26/18 07:10 RBC 3.35 10^6/uL (3.5-6.1) L 08/26/18 07:10 Hgb 10.0 g/dL (14.0-18.0) L 08/26/18 07:10 Hct 30.9 % (42.0-52.0) L 08/26/18 07:10 MCV 92.2 fl (80.0-105.0) 08/26/18 07:10 MCH 29.9 pg (25.0-35.0) 08/26/18 07:10 MCHC 32.4 g/dl (31.0-37.0) 08/26/18 07:10 RDW 14.9 % (11.5-14.5) H 08/26/18 07:10 Plt Count 271 10^3/uL (120.0-450.0) 08/26/18 07:10 MPV 9.5 fl (7.0-11.0) 08/26/18 07:10 Gran % 80.2 % (50.0-68.0) H 08/26/18 07:10 Lymph % (Auto) 11.0 % (22.0-35.0) L 08/26/18 07:10 Wilkinson % (Auto) 7.9 % (1.0-6.0) H 08/26/18 07:10 Eos % (Auto) 0.7 % (1.5-5.0) L 08/26/18 07:10 Baso % (Auto) 0.2 % (0.0-3.0) 08/26/18 07:10 Gran # 4.60 (1.4-6.5) 08/26/18 07:10 Lymph # (Auto) 0.6 (1.2-3.4) L 08/26/18 07:10 Wilkinson # (Auto) 0.5 (0.1-0.6) 08/26/18 07:10 Eos # (Auto) 0.0 (0.0-0.7) 08/26/18 07:10 Baso # (Auto) 0.01 K/mm3 (0.0-2.0) 08/26/18 07:10 Neutrophils % (Manual) 94 % (50.0-70.0) H 08/07/18 16:16 Lymphocytes % (Manual) 4 % (22.0-35.0) L 08/07/18 16:16 Monocytes % (Manual) 2 % (1.0-6.0) 08/07/18 16:16 Toxic Granulation 1+ 08/07/18 16:16 Platelet Evaluation Normal (NORMAL) 08/07/18 16:16 Hypochromasia 1+ 08/07/18 16:16 Rouleaux 2+ 08/07/18 16:16 PT 14.9 SECONDS (9.4-12.5) H 08/24/18 09:26 INR 1.29 08/24/18 09:26 APTT 29.7 Seconds (25.1-36.5) 08/24/18 09:26 pO2 60 mm/Hg (30-55) H 08/08/18 01:40 VBG pH 7.42 (7.32-7.43) 08/08/18 01:40 VBG pCO2 42.0 (40-60) 08/08/18 01:40 VBG HCO3 27.2 mmol/l (21-28) 08/08/18 01:40 VBG Total CO2 28.5 mmol.L (22-28) H 08/08/18 01:40 VBG O2 Sat (Calc) 93.9 % (40-65) H 08/08/18 01:40 VBG Base Excess 2.4 mmol/L (0.0-2.0) H 08/08/18 01:40 VBG Potassium 4.0 mmol/L (3.6-5.2) 08/08/18 01:40 Sodium 159.0 mmol/L (132-148) H 08/08/18 01:40 Chloride 124.0 mmol/L (98-107) H 08/08/18 01:40 Glucose 137 mg/dl (75-110) H 08/08/18 01:40 Lactate 1.7 mmol/L (0.7-2.1) 08/08/18 01:40 FiO2 21.0 % 08/08/18 01:40 Sodium 136 mmol/L (132-148) 08/26/18 07:10 Potassium 4.4 mmol/L (3.6-5.0) 08/26/18 07:10 Chloride 97 mmol/L (98-107) L 08/26/18 07:10 Carbon Dioxide 30 mmol/L (21-33) 08/26/18 07:10 Anion Gap 14 (10-20) 08/26/18 07:10 BUN 21 mg/dL (7-21) 08/26/18 07:10 Creatinine 0.8 mg/dl (0.8-1.5) 08/26/18 07:10 Est GFR ( Amer) > 60 08/26/18 07:10 Est GFR (Non-Af Amer) > 60 08/26/18 07:10 POC Glucose (mg/dL) 106 mg/dL (65-110) 08/26/18 11:19 Random Glucose 122 mg/dL (70-110) H 08/26/18 07:10 Hemoglobin A1c 5.9 % (4.2-6.5) 08/09/18 05:00 Calcium 8.4 mg/dL (8.4-10.5) 08/26/18 07:10 Phosphorus 4.3 mg/dL (2.5-4.5) 08/07/18 16:16 Magnesium 2.8 mg/dL (1.7-2.2) H 08/07/18 16:16 Total Bilirubin 1.2 mg/dL (0.2-1.3) 08/26/18 07:10 AST 24 U/L (17-59) 08/26/18 07:10 ALT 21 U/L (7-56) 08/26/18 07:10 Alkaline Phosphatase 71 U/L (38-126) 08/26/18 07:10 Lactate Dehydrogenase 298 U/L (333-699) L 08/11/18 05:45 Total Creatine Kinase 57 U/L (35-230) 08/11/18 05:45 Troponin I 0.08 ng/mL D 08/11/18 05:45 Total Protein 6.0 g/dL (5.8-8.3) 08/26/18 07:10 Albumin 2.4 g/dL (3.0-4.8) L 08/26/18 07:10 Globulin 3.6 gm/dL 08/26/18 07:10 Albumin/Globulin Ratio 0.7 (1.1-1.8) L 08/26/18 07:10 Triglycerides 141 mg/dL (35-160) 08/09/18 05:00 Cholesterol 80 mg/dL (130-200) L 08/09/18 05:00 LDL Cholesterol Direct 32 mg/dL (0-129) 08/09/18 05:00 HDL Cholesterol 17 mg/dL (29-60) L 08/09/18 05:00 Procalcitonin 0.19 NG/ML (0.19-0.49) 08/07/18 16:16 TSH 3rd Generation 0.81 mIU/mL (0.46-4.68) 08/09/18 05:00 Venous Blood Potassium 4.0 mmol/L (3.6-5.2) 08/08/18 01:40 Urine Color Dark yellow (YELLOW) 08/22/18 18:40 Urine Appearance Clear (CLEAR) 08/22/18 18:40 Urine pH 7.0 (4.7-8.0) 08/22/18 18:40 Ur Specific [place] 1.020 (1.005-1.035) 08/22/18 18:40 Urine Protein 30 mg/dL (<30 mg/dL) H 08/22/18 18:40 Urine Glucose (UA) Negative mg/dL (NEGATIVE) 08/22/18 18:40 Urine Ketones Negative mg/dL (NEGATIVE) 08/22/18 18:40 Urine Blood Trace-intact (NEGATIVE) H 08/22/18 18:40 Urine Nitrate Negative (NEGATIVE) 08/22/18 18:40 Urine Bilirubin Negative (NEGATIVE) 08/22/18 18:40 Urine Urobilinogen 1.0 E.U./dL (<1 E.U./dL) H 08/22/18 18:40 Ur Leukocyte Esterase Small [place]/uL (NEGATIVE) H 08/22/18 18:40 Urine RBC 5 - 10 /hpf (0-2) 08/22/18 18:40 Urine WBC 20 - 25 /hpf (0-6) 08/22/18 18:40 Ur Epithelial Cells 3 - 4 /hpf (0-5) 08/22/18 18:40 Urine Bacteria Small (NEG) 08/22/18 18:40 Ur Random Creatinine 153 mg/dL 08/07/18 20:15 Ur Random Sodium 13 meq/L 08/07/18 20:15 Ur Random Phosphorus 55.7 mg/dL 08/07/18 20:15 Urine Chloride 26 mmol/L (32-290) L 08/07/18 20:15 Urine Magnesium 3.6 mg/dL 08/07/18 20:15 Influenza Typ A,B (EIA) Negative for flu a/b (NEGATIVE) 08/07/18 16:16 Ur L.pneumophila Ag Negative (NEGATIVE) 08/08/18 17:25 Pneumocystis Source Serum 08/08/18 11:12 S. pneumoniae Antigen Not detected 08/08/18 11:12 - Hospital Course Hospital Course: Pa Rodrigues, PGY-1 Discharge Summary for Hospitalist Service Patient is an 88-year-old male with past medical history significant for Parkinson's disease, dementia, HTN, and ESBL UTI that [facility] with lethargy, failure to thrive, and fever. For patient's failure to thrive, patient initially was receiving feeds via NG tube. GI following (Dr. Elizabeth) Patient received PEG tube later in course of hospitalization with Jevity. Patient was on aspiration precautions. Speech and swallow were following as well. For severe sepsis secondary to Escherichia coli UTI and healthcare associated pneumonia, Patient received treatment with 12 days of Merrem. Patient was then afebrile throughout course. No leukocytosis. ID following with Dr. Alarcon. Repeat urine culture showed no growth. Blood cultures had no growth as well. ID recommended to continue to monitor off antibiotics. For patient sacral ulcer, which was culture positive for Pseudomonas and Estela, recommended to Turn in bed [id number] and Continue with air mattress. Per ID, likely colonizers. Local wound care was continued. Patient s/p treatment with 12 days of Merrem. For small laceration on head of penis patient started on Bacitracin. Area was regularly monitored. Jeffrey was removed and voiding trial as well as bladder training will be performed. For patient's baseline dementia, patient received home medications and supportive care. Outfitted with mittens due to agitation, which may be worsening of Parkinsons dementia. Fall precautions were in place. For Parkinson's disease we continued Stalevo, Azilect and Mirapex. For essential Hypertension Lopressor was given and BP was monitored. For Acute kidney injury, nephro was consulted. [facility] on current medicatiojn regimen. Patient instructed to avoid NSAIDs for next 2 weeks after PEG placement. PAtient care discussed with daughter on phone on afternoon of discharge. Daughter expressed understanding and was in agreement to pick patient up around 6:30 pm. Patinet hemodynamically stable and prepared for discharge. Patient seen, case reviewed and plan approved by Dr. Avila. Discharge Exam - Additional Findings Additional findings: - Constitutional Appears: No Acute Distress, Cachectic - Head Exam Head Exam: ATRAUMATIC, NORMAL INSPECTION, NORMOCEPHALIC - Eye Exam Eye Exam: EOMI, PERRL - Respiratory Exam Respiratory Exam: Rales in lower lobes b/l, NORMAL BREATHING PATTERN. absent: Clear to Ausculation Bilateral, Wheezes - Cardiovascular Exam Cardiovascular Exam: REGULAR RHYTHM, +S1, +S2 - GI/Abdominal Exam GI & Abdominal Exam: Soft. PEG tube in place taped to abdomen. No sign of infection or blood loss. absent: Rigid, Tenderness - Exam Exam: Circumcision. absent: Scrotal Swelling, Uretheral Discharge Additional comments: Jeffrey was removed this morning - Neurological Exam Neurological Exam: Alert, Awake - Psychiatric Exam Psychiatric exam: Flat Affect - Skin Skin Exam: Dry Additional comments: sacral decubitus ulcer/wound present with minimal serosanguinous drainage, no pus, swelling or warmth appreciated Discharge Plan - Follow Up Plan Condition: GUARDED Disposition: NURSING FACILITY MEDICAID CERT Instructions: Dementia (DC), Parkinson Disease (DC), Sodium Test, Weakness (GEN) Additional Instructions: Please continue all medications upon return to [facility] as prescribed. Please continue to increase tube feedings as tolerated by 5 mL to a goal of 60 ml/hr. Please continue to have PEG tube site evaluated. Please do not have any NSAIDs for 2 weeks to avoid bleeding risk. Please have [facility]iary perform bladder training to assist you in your ability to urinate spontaneously. Patient will have voiding trial in advance of discharge. Should symptoms worsen or reoccur, please return to nearest emergency department. Referrals: Serena Soto MD [Staff Provider] -
--- NOTE | 2018-08-26 14:59 | PN ---
DATE: 08/26/2018 REASON FOR CONSULTATION AND FOLLOWUP: Preop evaluation for possible PEG placement, postop followup. SUBJECTIVE: The patient is lying in the bed, status post PEG placement, not in apparent distress. PHYSICAL EXAMINATION: VITAL SIGNS: Temperature afebrile, heart rate 56, blood pressure 132/59. HEENT: PERRLA. Extraocular muscles intact. NECK: Supple. No carotid bruit. No thyromegaly. CHEST: Clear to auscultation. HEART: S1, S2 regular. ABDOMEN: Soft. EXTREMITIES: Clubbing and cyanosis negative. LABORATORY DATA: Blood workup as follows; WBC 5.7, hemoglobin 10.8, hematocrit 30.9, platelet count 271. Chemistry shows sodium 130, potassium 4.4, chloride 97, carbon dioxide 28, anion gap of 14, BUN 23, creatinine 0.8. Total protein 6, albumin 2.4. IMPRESSION AND PLAN: Severe protein-calorie malnutrition at present on admission. Anemia, hypernatremia on admission, admitted with altered mental status, dysphagia, initially the patient family thought of refusing for PEG placement, agreed yesterday, the patient PEG placement done, history of dementia, admitted with altered mental status on positive strain. RECOMMENDATIONS: Continue PEG feeding once he is cleared by GI. Discussed with the nurses taking care of. Currently the patient's IV fluids once the patient is cleared to use the PEG tube, we will start all the p.o. medicines. DISCHARGE PLANNING: To the [facility]. Thank you for providing the opportunity in taking care of the patient, Sravan Masterson. Serena Soto MD
--- NOTE | 2018-08-26 19:03 | PN ---
DATE: 08/26/2018 SUBJECTIVE: The patient is seen in bed, no acute distress, nontoxic. OBJECTIVE: VITAL SIGNS: Temperature is 98, blood pressure is 130/50, respiratory rate of 18, and heart rate of 86. HEENT: Unremarkable. NECK: Supple. LUNGS: Have decreased breath sounds. HEART: Normal S1 and S2. ABDOMEN: Soft and nontender. LABORATORY DATA: Reveals a white count of 5.7, hemoglobin of 10, and platelets of 271,000. Chemistries reveals a BUN of 21 and creatinine of 0.8. Urinalysis is noted, urine for Legionella antigen is negative. Microbiology is noted. Sacral decubitus ulcers, Pseudomonas, urine culture E. coli. The blood cultures are no growth. Review of orders reveals the patient to be on medications are reported. The patient had a gastrostomy tube placement, endoscopy with PEG tube placement yesterday. ASSESSMENT AND PLAN: This is an 88-year-old male was seen earlier today, status post severe sepsis due to extended-spectrum beta-lactamase Escherichia coli, urinary tract infection, left lower lobe healthcare-associated pneumonia, Parkinson's disease and dementia, had completed 12 days of meropenem, currently off of antibiotics, afebrile and currently the patient is at risk for developing nosocomial infections. Arie Alarcon MD
== END 2018-08-26 18:09 | DRG 584 ==
LOC: ED 15:56 → ERH 17:32 → CCU 19:58 → 2RSO 08-14 20:07 → 5RSO 08-15 18:38
PROVIDERS: ADMIT Internal Medicine; ATTEND Hospitalist
PROC: 0DH63UZ Insertion of Feeding Device into Stomach, Percutaneous Approach (ICD-10-PCS; principal; 2018-08-07)
DX: A41.51 Sepsis due to Escherichia coli [E. coli] (principal); L89.159 Pressure ulcer of sacral region, unspecified stage; N17.9 Acute kidney failure, unspecified; R57.1 Hypovolemic shock; J18.9 Pneumonia, unspecified organism; I21.4 Non-ST elevation (NSTEMI) myocardial infarction; E43 Unspecified severe protein-calorie malnutrition; N39.0 Urinary tract infection, site not specified; N18.9 Chronic kidney disease, unspecified; I45.2 Bifascicular block; E87.0 Hyperosmolality and hypernatremia; E87.1 Hypo-osmolality and hyponatremia; E87.5 Hyperkalemia; E87.8 Other disorders of electrolyte and fluid balance, not elsewhere classified; I13.0 Hypertensive heart and chronic kidney disease with heart failure and stage 1 through stage 4 chronic kidney disease, or unspecified chronic kidney disease; I50.9 Heart failure, unspecified; N20.0 Calculus of kidney; N28.1 Cyst of kidney, acquired; R13.12 Dysphagia, oropharyngeal phase; R62.7 Adult failure to thrive; R65.20 Severe sepsis without septic shock; Y95 Nosocomial condition; D64.9 Anemia, unspecified; E86.0 Dehydration; E86.1 Hypovolemia; G20 Parkinson's disease; F02.80 Dementia in other diseases classified elsewhere, unspecified severity, without behavioral disturbance, psychotic disturbance, mood disturbance, and anxiety; S31.21XA Laceration without foreign body of penis, initial encounter; Z16.12 Extended spectrum beta lactamase (ESBL) resistance; Z79.82 Long term (current) use of aspirin; Z87.440 Personal history of urinary (tract) infections; R40.2412 Glasgow coma scale score 13-15, at arrival to emergency department